=== PATIENT | male | born 1935 | race Caucasian/White ===

== ENCOUNTER 2019-07-19 13:56 | Emergency (ER) | payer MEDICARE, OTHER ==
--- NOTE | 2019-07-19 15:49 | XRAY Report ---
Reason: cough Procedure Date: 07/19/2019 Accession Number: [id number] / [id number] Procedure: XR - Chest 2 View X-Ray CPT Code: 83111 Final Report FULL RESULT: EXAM: CHEST RADIOGRAPHY 2 VIEWS EXAM DATE: 07/19/2019. CLINICAL HISTORY: Cough. COMPARISON: AP portable chest on 04/22/2009. TECHNIQUE: PA and lateral views. FINDINGS: Lungs/Pleura: Normal vasculature. Patchy opacities projected over each side of the chest are probably pleural plaques. No pulmonary consolidation. No pleural fluid or pneumothorax. Mediastinum: Heart size is normal. Aorta is moderately tortuous. Atherosclerosis of the arch. Bones: Old T12 compression fracture. IMPRESSION: Patchy opacities projected over the chest bilaterally, most likely pleural plaques. No definite acute cardiopulmonary abnormality. Further evaluation could be obtained with chest CT. RADIA
[2019-07-19] MEDS ORDERED: AZITHROMYCIN 250 MG TABLET PO STA (16:40)
--- NOTE | 2019-07-19 16:44 | ED Physician Documentation ---
History of Present Illness - Stated complaint Stated Complaint: COUGH/FEVER - Chief complaint Chief Complaint: General - History obtained from History obtained from: Patient - Additonal information Additional information: PT comes to the ED complaining of cough productive of yellow sputum for 10 days. He has also been running low-grade fevers up to 100.9. Pt denies SOB or chest pain. No abd pn, N/V/D or urinary sx. No sore throat or body aches. No known sick contacts. Pt denies getting flu shot or Pneumovax this year. Review of Systems Ten Systems: 10 systems reviewed and negative Constitutional: reports: Fever Eyes: reports: Reviewed and negative Ears: reports: Reviewed and negative Nose: reports: Reviewed and negative Throat: reports: Reviewed and negative Cardiac: reports: Reviewed and negative Respiratory: reports: Cough GI: reports: Reviewed and negative : reports: Reviewed and negative Skin: reports: Reviewed and negative Musculoskeletal: reports: Reviewed and negative Neurologic: reports: Reviewed and negative Psychiatric: reports: Reviewed and negative Endocrine: reports: Reviewed and negative Immunocompromised: reports: Reviewed and negative PD PAST MEDICAL HISTORY - Past Medical History Past Medical History: Yes - Past Surgical History Past Surgical History: No - Present Medications Home Medications: Ambulatory Orders Medication Instructions Recorded Confirmed Azithromycin [Zithromax] 0 mg PO DAILY #6 tablet 07/19/19 - Allergies Allergies/Adverse Reactions: Allergies Allergy/AdvReac Type Severity Reaction Status Date / Time No Known Drug Allergies Allergy Verified 07/19/19 14:04 - Social History Does the pt smoke?: No Smoking Status: Never smoker Does the pt drink ETOH?: Yes Does the pt have substance abuse?: No - Immunizations Immunizations are current?: Yes - POLST Patient has POLST: No PD ED PE NORMAL - Vitals Vital signs reviewed: Yes - General General: Alert and oriented X 3, No acute distress - HEENT HEENT: Atraumatic, PERRL, EOMI, Moist mucous membranes, Pharynx benign - Neck Neck: Supple, no meningeal sign - Cardiac Cardiac: RRR, No murmur - Respiratory Respiratory: No respiratory distress, Clear bilaterally - Abdomen Abdomen: Soft, Non tender, Non distended - Derm Derm: Normal color, Warm and dry, No rash - Extremities Extremities: No deformity, No tenderness to palpate, Normal ROM s pain, No edema - Neuro Neuro: Alert and oriented X 3, model and pattern supervisor 2-12 intact, No motor deficit, No sensory deficit, Normal speech - Psych Psych: Normal mood, Normal affect Results - Vitals Vitals: Vital Signs - 24 hr 07/19/19 07/19/19 14:04 16:54 Temperature 36.6 C Heart Rate 80 80 Respiratory 16 16 Rate Blood Pressure 111/68 110/74 O2 Saturation 98 99 Oxygen O2 Source Room air - Labs Labs: Laboratory Tests 07/19/19 15:43 Influenza A (Rapid) Negative Influenza B (Rapid) Negative - Rads (name of study) chest xr Radiology: Final report received, EMP read indepedently, See rad report PD MEDICAL DECISION MAKING - ED course Complexity details: reviewed results, re-evaluated patient, considered differential, d/w patient ED course: Pt was worked up with influenza testing, which was negative, and CXR, which showed no acute findings. Given the pt's elderly age, his fever, and 10 days of productive cough, I felt he should be treated with antibiotics. He was started on Zithromax. We've discussed home management of sx, as well as the usual indications for return. Departure - Departure Disposition: 01 Home, Self Care Clinical Impression: Bronchitis Condition: Good Instructions: ED Upper Resp Infec Abx Tx Prescriptions: Azithromycin [Zithromax] 0 mg PO DAILY #6 tablet Comments: Your x-ray does not show pneumonia at this time. Most likely, you have bronchitis, either from a virus or from bacteria. Given that this is been going on for 10 days and especially in consideration of your age and fever,we will treat you with antibiotics at this time.You have been given the first dose in the emergency department, and will need to have your next dose tomorrow. You may pick this up at the pharmacy. Please follow-up with your primary care physician for any further concerns. If you develop severe shortness of breath or chest pain, please return to the emergency department. Discharge Date/Time: 07/19/19 16:54
[2019-07-19 16:55] VITALS: BP 110/74
== END 2019-07-19 16:54 | disposition home or self-care (01) ==
LOC: ED 13:56
DX: J40 Bronchitis, not specified as acute or chronic (principal)
CPT/HCPCS: 71046; 87275; 87276; 99284; A9270

== ENCOUNTER 2020-03-23 12:01 | Emergency (ER) | payer MEDICARE, OTHER ==
[2020-03-23 13:13] LABS: BILIRUBIN,URINE NEGATIVE (NEGATIVE); GLUCOSE, URINE (UA) NEGATIVE (NEGATIVE); KETONES,URINE (UA) NEGATIVE (NEGATIVE); LEUKOCYTE ESTERASE, URINE LARGE (NEGATIVE); NITRITE,URINE POSITIVE (NEGATIVE); OCCULT BLOOD,URINE MODERATE (NEGATIVE); PROTEIN,URINE TRACE mg/dL (NEGATIVE); UROBILINOGEN,URINE 0.2 (NORMAL) E.U./dL (NORMAL)
[2020-03-23 13:17] LABS: CLARITY,URINE CLOUDY (CLEAR); SQUAMOUS EPITHELIAL CELL,UR RARE Squamous (<= Few); WBC CLUMPS,URINE PRESENT
[2020-03-23 13:18] LABS: BACTERIA,URINE Many /HPF (None Seen); CASTS, URINE 0-2 Granular Casts /LPF
[2020-03-23 13:19] LABS: RBC,URINE 0-5 /HPF (0-5)
--- NOTE | 2020-03-23 13:19 | ED Physician Documentation ---
History of Present Illness - Stated complaint Stated Complaint: MALE - Chief complaint Chief Complaint: UTI - History obtained from History obtained from: Patient - History of Present Illness Timing: Chronic Pain level max: 0 Pain level now: 0 - Additonal information Additional information: 84-year-old male presents to the emergency department stating he has had difficulty urinating for the past 9 years. He states that he takes Flomax. He states that over the past year and a half he has had more difficulty urinating. There is nothing different today. He has an appointment with his primary care doctor awaiting referral to urology. No fevers. No chills. No abdominal pain. No pelvic pain. Nothing makes it better or worse Review of Systems Constitutional: denies: Fever, Chills Cardiac: denies: Chest pain / pressure Respiratory: denies: Dyspnea GI: denies: Abdominal Pain, Vomiting : reports: Frequency, Hesitancy. denies: Dysuria, Unable to Void Skin: denies: Rash Musculoskeletal: denies: Neck pain, Back pain Neurologic: denies: Headache PD PAST MEDICAL HISTORY - Past Medical History Past Medical History: Yes GI: GERD : Benign prostate hypertrophy - Past Surgical History Past Surgical History: No - Present Medications Home Medications: Ambulatory Orders Medication Instructions Recorded Confirmed Azithromycin [Zithromax] 0 mg PO DAILY #6 tablet 07/19/19 Sulfamethox/Trimeth 800/160 1 each PO BID #14 tablet 03/23/20 [Bactrim Ds 800/160] - Allergies Allergies/Adverse Reactions: Allergies Allergy/AdvReac Type Severity Reaction Status Date / Time Penicillins AdvReac Anaphylaxis Verified 03/23/20 12:36 - Social History Does the pt smoke?: No Smoking Status: Never smoker Does the pt drink ETOH?: Yes Does the pt have substance abuse?: No - Immunizations Immunizations are current?: Yes - POLST Patient has POLST: No PD ED PE NORMAL - Vitals Vital signs reviewed: Yes - General General: Alert and oriented X 3, No acute distress - HEENT HEENT: Moist mucous membranes - Neck Neck: Supple, no meningeal sign - Cardiac Cardiac: RRR - Respiratory Respiratory: No respiratory distress, Clear bilaterally - Abdomen Abdomen: Soft, Non tender, Non distended - Derm Derm: Warm and dry - Neuro Neuro: Alert and oriented X 3 - Psych Psych: Normal mood Results - Vitals Vitals: Vital Signs - 24 hr 03/23/20 12:28 Temperature 36.7 C Heart Rate 84 Respiratory 20 Rate Blood Pressure 118/60 O2 Saturation 99 Oxygen O2 Source Room air - Labs Labs: Laboratory Tests 03/23/20 12:58 Urine Color YELLOW Urine Clarity CLOUDY Urine pH 6.0 Ur Specific [place] 1.020 Urine Protein TRACE Urine Glucose (UA) NEGATIVE Urine Ketones NEGATIVE Urine Occult Blood MODERATE H Urine Nitrite POSITIVE H Urine Bilirubin NEGATIVE Urine Urobilinogen 0.2 (NORMAL) Ur Leukocyte Esterase LARGE H Urine RBC 0-5 Urine WBC >25 H Urine WBC Clumps PRESENT Ur Epithelial Cells FEW Transitional Ur Squamous Epith Cells RARE Squamous Urine Bacteria Many H Urine Casts 0-2 Granular Casts Ur Microscopic Review INDICATED Urine Culture Comments INDICATED PD MEDICAL DECISION MAKING - ED course Complexity details: reviewed results, re-evaluated patient, considered differential, d/w patient ED course: Bedside ultrasound reveals a bladder with approximately 200 mL inside of urine. He does appear to have a polyp or mass on the posterior wall of the bladder. We will place him on antibiotics and see how he progresses. He has an appointment with urology on Wednesday. He has absolutely no abdominal pain today. No symptoms. This appears to be chronic distention. Patient counseled regarding signs and symptoms for which I believe and urgent re-evaluation would be necessary. Patient with good understanding of and agreement to plan and is comfortable going home at this time This document was made in part using voice recognition software. While efforts are made to proofread this document, sound alike and grammatical errors may occur. Departure - Departure Disposition: 01 Home, Self Care Clinical Impression: UTI (urinary tract infection) Qualifiers: Urinary tract infection type: acute cystitis Hematuria presence: without hematuria Qualified Code(s): N30.00 - Acute cystitis without hematuria Condition: Good Instructions: ED UTI Cystitis Male Follow-Up: ARIS THOMPSON I, MSN, [facility] [employer] [Primary Care Provider] - Within 1 week Prescriptions: Sulfamethox/Trimeth 800/160 [Bactrim Ds 800/160] 1 each PO BID #14 tablet Comments: You appear to have a bladder infection today, we will start you on antibiotics and see if your symptoms improve.Follow up with your doctor for further care. You appear to have a polyp/mass in your bladder today on ultrasound as well, urology will need to evaluate this on Wednesday.
[2020-03-23 13:40] VITALS: BP 131/63
== END 2020-03-23 13:42 | disposition home or self-care (01) ==
LOC: ED 12:01
DX: N30.00 Acute cystitis without hematuria (principal); N32.89 Other specified disorders of bladder
CPT/HCPCS: 51798; 81001; 81003; 87086; 87181; 99283; 99284

== ENCOUNTER 2020-03-26 08:00 | Outpatient (CLI) | payer MEDICARE, OTHER ==
[2020-03-26 17:49] LABS: BASOPHILS % (AUTO) 0.3 %; EOSINOPHILS % (AUTO) 0.6 %; HGB - HEMOGLOBIN 13.8 g/dL (14.0-18.0); LYMPHOCYTES # (AUTO) 1.3 10^3/uL (1.5-3.5); MEAN CORPUSCULAR HGB CONC 33.8 g/dL (32.0-36.0); MEAN CORPUSCULAR VOLUME 100.5 fL (80.0-94.0); MEAN PLATELET VOLUME 9.7 fL (7.4-11.4); MONOCYTES # (AUTO) 0.7 10^3/uL (0.0-1.0); MONOCYTES % (AUTO) 11.7 %; NEUTROPHILS # (AUTO) 4.1 10^3/uL (1.5-6.6); NEUTROPHILS % (AUTO) 65.6 %; PLT - PLATELET COUNT 148 10^3/uL (130-450); RED BLOOD COUNT 4.06 10^6/uL (4.70-6.10); RED CELL DISTRIBUTION WIDTH 13.4 % (12.0-15.0); WHITE BLOOD COUNT 6.2 x10^3/uL (4.8-10.8)
[2020-03-26 18:06] LABS: ALBUMIN 4.1 g/dL (3.2-5.5); ALBUMIN/GLOBULIN RATIO 1.4 (1.0-2.2); ALKALINE PHOSPHATASE 43 IU/L (42-121); ALT ALANINE AMINOTRANSFERASE 26 IU/L (10-60); AST ASPARTATE AMINOTRANSFERASE 33 IU/L (10-42); BILIRUBIN,TOTAL 0.7 mg/dL (0.2-1.0); BUN - BLOOD UREA NITROGEN 20 mg/dL (6-20); CALCIUM 9.5 mg/dL (8.5-10.3); CARBON DIOXIDE - CO2 28 mmol/L (21-32); CHLORIDE 102 mmol/L (101-111); CHOLESTEROL 140 mg/dL; CREATININE 1.2 mg/dL (0.6-1.2); GLUCOSE 105 mg/dL (70-100); HDL CHOLESTEROL 47 mg/dL; LDL CHOLESTEROL,CALCULATED 85 mg/dL; LDL/HDL RATIO 1.8 (<3.6); SODIUM 140 mmol/L (135-145); TOTAL PROTEIN 7.1 g/dL (6.7-8.2); VLDL CHOLESTEROL 8 mg/dL
[2020-03-26 18:15] LABS: PSA FREE 1.06 ng/mL (0.16-2.81)
[2020-03-26 18:16] LABS: PSA TOTAL 5.41 ng/mL (0.000-2.000)
== END 2020-03-26 08:01 | disposition home or self-care (01) ==
LOC: LAB.WCP 08:00
PROVIDERS: ATTEND Nurse Practitioner
DX: E78.5 Hyperlipidemia, unspecified (principal); K21.9 Gastro-esophageal reflux disease without esophagitis; F03.90 Unspecified dementia, unspecified severity, without behavioral disturbance, psychotic disturbance, mood disturbance, and anxiety; N40.0 Benign prostatic hyperplasia without lower urinary tract symptoms; K58.9 Irritable bowel syndrome, unspecified
CPT/HCPCS: 36415; 80053; 80061; 83721; 84153; 84154; 84443; 85025

== ENCOUNTER 2020-03-28 16:13 | Inpatient (IN) | payer MEDICARE, OTHER ==
[2020-03-28] MEDS ORDERED: cefTRIAXone 2 GM in SODIUM CHLORIDE 0.9% MINIBAG 100 ML IV STA (16:27)
--- NOTE | 2020-03-28 16:32 | ED Physician Documentation ---
PD HPI ABD PAIN - Stated complaint Stated Complaint: MALE - Chief complaint Chief Complaint: Abd Pain - History obtained from History obtained from: Patient - Additional information Additional information: This is an 84-year-old gentleman with history of prostatic hypertrophy who was seen 5 days ago for seemingly nonacute UTI symptoms. He did have a positive urinalysis and was started on Bactrim for the UTI which subsequently grew pansensitive E. coli. He says he has been taking the medications and returns with some right-sided low abdominal pain today. He has a fever but does not know when that started. There is some difficulty with history because of some apparent memory issues. Review of Systems Ten Systems: 10 systems reviewed and negative Constitutional: denies: Fever, Chills Nose: reports: Reviewed and negative Throat: reports: Reviewed and negative Cardiac: reports: Reviewed and negative Respiratory: reports: Reviewed and negative GI: reports: Abdominal Pain. denies: Nausea, Vomiting PD PAST MEDICAL HISTORY - Past Medical History GI: GERD : Benign prostate hypertrophy - Past Surgical History Past Surgical History: No - Present Medications Home Medications: Ambulatory Orders Medication Instructions Recorded Confirmed Azithromycin [Zithromax] 0 mg PO DAILY #6 tablet 07/19/19 Sulfamethox/Trimeth 800/160 1 each PO BID #14 tablet 03/23/20 [Bactrim Ds 800/160] - Allergies Allergies/Adverse Reactions: Allergies Allergy/AdvReac Type Severity Reaction Status Date / Time celecoxib [From Celebrex] Allergy Unknown Verified 03/28/20 16:16 Penicillins AdvReac Anaphylaxis Verified 03/28/20 16:16 - Social History Does the pt smoke?: No Smoking Status: Never smoker Does the pt drink ETOH?: Yes Does the pt have substance abuse?: No - Immunizations Immunizations are current?: Yes - POLST Patient has POLST: No PD ED PE NORMAL - Vitals Vital signs reviewed: Yes - General General: No acute distress, Well developed/nourished - HEENT HEENT: PERRL, EOMI - Neck Neck: Supple, no meningeal sign, No bony TTP - Cardiac Cardiac: RRR, No murmur - Respiratory Respiratory: No respiratory distress, Clear bilaterally - Abdomen Abdomen: Normal bowel sounds, Soft, Other (V mild RLQ TTP) - Back Back: No CVA TTP, No spinal TTP - Derm Derm: Normal color, Warm and dry - Extremities Extremities: No edema, No calf tenderness / cord - Neuro Neuro: inspector and sorter 2-12 intact Eye Opening: Spontaneous Motor: Obeys Commands Verbal: Confused GCS Score: 14 - Psych Psych: Normal mood, Normal affect Results - Vitals Vitals: Vital Signs - 24 hr 03/28/20 03/28/20 03/28/20 16:17 16:47 16:48 Temperature 38.2 C H Heart Rate 93 95 95 Respiratory 20 14 14 Rate Blood Pressure 150/72 H 115/64 115/64 O2 Saturation 96 97 03/28/20 03/28/20 16:51 17:24 Temperature Heart Rate 91 81 Respiratory 16 16 Rate Blood Pressure 133/76 H 133/76 H O2 Saturation 98 97 Oxygen O2 Source Room air - Labs Labs: Laboratory Tests 03/28/20 03/28/20 03/28/20 16:31 16:31 16:31 WBC 10.2 RBC 3.89 L Hgb 13.2 L Hct 38.7 L MCV 99.5 H MCH 33.9 H MCHC 34.1 RDW 13.4 Plt Count 122 L MPV 9.0 Neut # (Auto) 8.2 H Lymph # (Auto) 0.9 L [place] # (Auto) 1.0 Eos # (Auto) 0.0 Baso # (Auto) 0.0 Absolute Nucleated RBC 0.00 Nucleated RBC % 0.0 Sodium 132 L Potassium 4.8 Chloride 99 L Carbon Dioxide 24 Anion Gap 9.0 BUN 45 H Creatinine 4.2 H Estimated GFR (MDRD) 14 L Glucose 109 H Lactic Acid 1.3 Calcium 9.0 Total Bilirubin 0.9 AST 27 ALT 24 Alkaline Phosphatase 42 Total Protein 6.8 Albumin 3.7 Globulin 3.1 Albumin/Globulin Ratio 1.2 Lipase 34 Urine Color Urine Clarity Urine pH Ur Specific [place] Urine Protein Urine Glucose (UA) Urine Ketones Urine Occult Blood Urine Nitrite Urine Bilirubin Urine Urobilinogen Ur Leukocyte Esterase Ur Microscopic Review Urine Culture Comments 03/28/20 17:14 WBC RBC Hgb Hct MCV MCH MCHC RDW Plt Count MPV Neut # (Auto) Lymph # (Auto) [place] # (Auto) Eos # (Auto) Baso # (Auto) Absolute Nucleated RBC Nucleated RBC % Sodium Potassium Chloride Carbon Dioxide Anion Gap BUN Creatinine Estimated GFR (MDRD) Glucose Lactic Acid Calcium Total Bilirubin AST ALT Alkaline Phosphatase Total Protein Albumin Globulin Albumin/Globulin Ratio Lipase Urine Color YELLOW Urine Clarity CLEAR Urine pH 6.0 Ur Specific [place] 1.010 Urine Protein NEGATIVE Urine Glucose (UA) NEGATIVE Urine Ketones NEGATIVE Urine Occult Blood SMALL H Urine Nitrite NEGATIVE Urine Bilirubin NEGATIVE Urine Urobilinogen 0.2 (NORMAL) Ur Leukocyte Esterase NEGATIVE Ur Microscopic Review INDICATED Urine Culture Comments Not Reportable - Rads (name of study) CT KUB Radiology: EMP read contemporaneously (Markedly enlarged urinary bladder and prostate with asymmetrically thickened right posterior lateral bladder wall) PD MEDICAL DECISION MAKING - ED course Complexity details: d/w family (with by phone started 5 days ago with urinary frequency, now no voiding today, unknown when he last went. ) ED course: 84-year-old gentleman with recently diagnosed UTI on Bactrim, subsequently grew pansensitive E. coli now presents with worsening, fever, and no urine output. CT KUB confirms bladder outlet obstruction and a Martinez was placed. The findings necessitating urologic follow-up were discussed with the by phone and she voices understanding. He is placed on Rocephin and IV fluids. He may well developed a postobstructive diuresis which will need to be monitored in the [facility] especially in the setting of acute renal failure with creatinine of 1.2, 2 days ago. - Sepsis Event Current Stage of Sepsis: Sepsis (but not severe or "shock") Possible source of Sepsis: Genitourinary Mental/Cognitive Status: Normal for patient, Confused Reason for not giving 30ml/kg crystalloid fluids: Other (he is not in septic shock) Capillary refill: Less than 2 seconds Peripheral Pulse Strength: 3+ Normal Peripheral Pulse Location: Radial Bedside ultrasound performed: No Sepsis Comment: Known cuellar sensitive e coli, now failed outpt tx d/t bladder outlet obstruction. Vital signs just into the septic criteria Departure - Departure Disposition: 66 [facility] DC/Xfer Clinical Impression: Gram negative sepsis, Bladder outlet obstruction UTI (urinary tract infection) Qualifiers: Urinary tract infection type: site unspecified Hematuria presence: without hematuria Qualified Code(s): N39.0 - Urinary tract infection, site not specified ARF (acute renal failure) Qualifiers: Acute renal failure type: unspecified Qualified Code(s): N17.9 - Acute kidney failure, unspecified Condition: Serious
[2020-03-28 16:44] LABS: BASOPHILS % (AUTO) 0.2 %; EOSINOPHILS % (AUTO) 0.2 %; HGB - HEMOGLOBIN 13.2 g/dL (14.0-18.0); LYMPHOCYTES # (AUTO) 0.9 10^3/uL (1.5-3.5); MEAN CORPUSCULAR HEMOGLOBIN 33.9 pg (27.0-31.0); MEAN CORPUSCULAR HGB CONC 34.1 g/dL (32.0-36.0); MEAN CORPUSCULAR VOLUME 99.5 fL (80.0-94.0); MONOCYTES % (AUTO) 9.3 %; NEUTROPHILS # (AUTO) 8.2 10^3/uL (1.5-6.6); NEUTROPHILS % (AUTO) 80.5 %; PLT - PLATELET COUNT 122 10^3/uL (130-450); RED BLOOD COUNT 3.89 10^6/uL (4.70-6.10); RED CELL DISTRIBUTION WIDTH 13.4 % (12.0-15.0); WHITE BLOOD COUNT 10.2 x10^3/uL (4.8-10.8)
[2020-03-28 16:57] LABS: ALBUMIN 3.7 g/dL (3.2-5.5); ALBUMIN/GLOBULIN RATIO 1.2 (1.0-2.2); BILIRUBIN,TOTAL 0.9 mg/dL (0.2-1.0); CREATININE 4.2 mg/dL (0.6-1.2); TOTAL PROTEIN 6.8 g/dL (6.7-8.2)
[2020-03-28] MEDS ORDERED: SODIUM CHLORIDE 0.9% 1,000 ML IV STA (17:02)
--- NOTE | 2020-03-28 17:08 | CT Report ---
PROCEDURE: Abdomen/Pelvis WO INDICATIONS: uti with sepsis, R abd pain TECHNIQUE: Noncontrast 5 mm thick sections acquired from the diaphragms to the symphysis. 5 mm coronal and sagi ttal reformats were then performed. For radiation dose reduction, the following was used: automated exposure control, adjustment of mA and/or kV according to patient size. COMPARISON: None. FINDINGS: Image quality: Excellent. ABDOMEN: Lung bases: Lung bases are clear. Heart size is normal. Urinary tract: The bladder is markedly distended. There is subtle asymmetric thickening of the right posterior-lateral urinary bladder wall which may obstruct the right ureteral orifice, as there is mod erate right hydroureteronephrosis with asymmetric perinephric fat stranding and periureteric fat stra nding. This extends inferiorly along the right paracolic gutter. Remaining solid abdominal viscera: Grossly unremarkable unenhanced CT appearance of the liver, spleen , gallbladder, pancreas, and adrenal glands. Peritoneum and bowel: Appendix is nondilated. Unenhanced bowel loops demonstrate normal wall thickne ss and caliber. No free fluid or air. Nodes and vessels: Diffuse aortic atherosclerosis. No unenhanced evidence of aortic aneurysm. 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 Atheroscleroti c calcifications extend into the major visceral branches. No definite evidence of retroperitoneal lym phadenopathy, although the exam is limited by the right retroperitoneal fat stranding in lack of IV c ontrast. Miscellaneous: Right inguinal hernia repair changes. PELVIS: Genitourinary: Markedly enlarged prostate. Miscellaneous: No threshold enlarged pelvic or inguinal lymph nodes. Bones: No suspicious bony lesions. No vertebral body compression fractures. IMPRESSION: Markedly enlarged urinary bladder and prostate. Asymmetrically thickened right posterolateral bladder wall, near the right ureteral orifice which may explain moderate right hydroureteronephrosis (although a ureteral stricture or distal ureteral neopl asm could cause a similar appearance. Urologic consultation recommended. Reviewed by: Tad Warren MD on 03/28/2020 5:07 PM [facility] Approved by: Tad Warren MD on 03/28/2020 5:07 PM PST Station ID: [id number]
[2020-03-28 17:24] LABS: BILIRUBIN,URINE NEGATIVE (NEGATIVE); GLUCOSE, URINE (UA) NEGATIVE (NEGATIVE); KETONES,URINE (UA) NEGATIVE (NEGATIVE); LEUKOCYTE ESTERASE, URINE NEGATIVE (NEGATIVE); NITRITE,URINE NEGATIVE (NEGATIVE); OCCULT BLOOD,URINE SMALL (NEGATIVE); PROTEIN,URINE NEGATIVE (NEGATIVE); UROBILINOGEN,URINE 0.2 (NORMAL) E.U./dL (NORMAL)
[2020-03-28 17:28] LABS: CLARITY,URINE CLEAR (CLEAR)
[2020-03-28 17:37] LABS: BACTERIA,URINE None Seen /HPF (None Seen); SQUAMOUS EPITHELIAL CELL,UR NONE SEEN (<= Few)
[2020-03-28] MEDS ORDERED: SODIUM CHLORIDE FLUSH 0.9% 10 ML SYRINGE IVP PRN (17:41)
[2020-03-28] MEDS ORDERED: ACETAMINOPHEN 325 MG TABLET PO PRN (17:41)
[2020-03-28] MEDS ORDERED: ONDANSETRON 4 MG/2 ML VIAL IVP PRN (17:41)
--- NOTE | 2020-03-28 17:49 | HISTORY & PHYSICAL EXAMINATION ---
Chief Complaint - Chief Complaint Chief Complaint: can not urinate History of Present Illness - Admitted From Admitted From:: ER - History Obtained From Records Reviewed: [facility] History obtained from: pt Exam Limitations: hard hearing - History of Present Illness HPI Comment/Other: This is a 84-year-old gentleman with a PMH significant for BPH, GERD, difficulty urinating for the past 9 years for which, He states that he takes Flomax, who present ER complain he can not urinate. pt report he can not urinate one and half day. pt was recently diagnosed UTI on Bactrim in the ER. His urine culture was subsequently grew pansensitive E. coli. a Martinez was placed in ER. CT of abdomen and pelvis show Markable in large urinary bladder and prostate, right moderate hydroureteronephrosis. Routine laboratory tests do show markable elevated creatinine to 4.2 from 1.2 two days ago. Patient denies chest pain, cough, shortness of breathing. He is not sure he had a fever in the home. In ER, patient was found febrile with temperature 38.2. He states that over the past year and a half he has had more difficulty urinating. He had an appointment with his primary care doctor and is awaiting referral to urology. Discussed the care goal with the patient, patient requests full code History - Past Medical History GI: reports: GERD : reports: Benign prostate hypertrophy - Family & Social History Family History: Mother: , Father: Family History Comment/Other: Patient reported his father at early 30 by suicide. His mother at age 94 from the aging. Social History Notes: He reported he quit smoking about 20 years ago, he denies alcohol or drug issue, he has 1 daughter and his live at [place] with his . - POLST Patient has POLST: No Meds/Allgy - Home Medications Home Medications: Ambulatory Orders Medication Instructions Recorded Confirmed Pantoprazole [Protonix] 40 mg PO DAILY 03/28/20 Tamsulosin [Flomax] 0.4 mg PO DAILY 03/28/20 03/28/20 - Allergies Allergies/Adverse Reactions: Allergies Allergy/AdvReac Type Severity Reaction Status Date / Time celecoxib [From Celebrex] Allergy Unknown Verified 03/28/20 16:16 Penicillins AdvReac Anaphylaxis Verified 03/28/20 16:16 Review of Systems - Constitutional Constitutional: denies: Fatigue, Fever, Chills, Malaise, Weakness, Poor appetite, Diaphoresis - Eyes Eyes: denies: Pain, Blurred vision, Field loss, Vision loss, Dipolpia - Ears, Nose & Throat Ears, Nose & Throat: denies: Ear pain, Vertigo, Nosebleeds, Nasal congestion, Sore throat, Bleeding gums - Cardiovascular Cariovascular: denies: Irregular heart rate, Palpitations, Chest pain, Lightheadedness, Syncope, Exertional dyspnea, Decr. exercise tolerance - Respiratory Respiratory: denies: Cough, Sputum production, Hemoptysis, Orthopnea, SOB at rest, SOB with exertion - Gastrointestinal Gastrointestinal: denies: Abdominal pain, Constipation, Diarrhea, Rectal bleeding, Black stools, Bloody stools, Nausea, Vomiting, David blood emesis, Coffee grounds emesis - Genitourinary Genitourinary: reports: Other (he report he can not urine for one and half day). denies: Dysuria, Frequency, Hematuria - Musculoskeletal Musculoskeletal: denies: Muscle pain, Muscle aches, Limited range of motion, Muscle weakness - Integumentary Integumentary: denies: Rash, Lesions, Lumps - Neurological Neurological: denies: General weakness, Focal weakness, Headache, Dizziness, Numbness, Memory problems, Pre-existing deficit, Abnormal gait, Seizures, Incoordination, Slurred speech - Psychiatric Psychiatric: denies: Suicidal, Delusions, Hallucinations, Homicidal - Endocrine Endocrine: denies: Polyuria - Hematologic/Lymphatic Hematologic/Lymphatic: denies: Anemia, Bruising, Blood clots Exam - Vital Signs Vital Signs: Vital Signs x48h Temp Pulse Resp BP Pulse Ox 03/28/20 17:24 81 16 133/76 H 97 03/28/20 16:51 91 16 133/76 H 98 03/28/20 16:48 95 14 115/64 03/28/20 16:47 95 14 115/64 97 03/28/20 16:17 38.2 C H 93 20 150/72 H 96 - Physical Exam General Appearance: positive: No acute distress, Alert. negative: Lethargic Eyes Bilateral: positive: Normal inspection, PERRL, No lid inflammation ENT: positive: ENT inspection nml, Dry mucous membranes. negative: No signs of dehydration, Purulent nasal drainage Neck: positive: Nml inspection, Thyroid nml, Trachea midline. negative: Thyromegaly, Tracheal deviation Respiratory: positive: Chest non-tender, No respiratory distress, Breath sounds nml. negative: Wheezes, Rales, Rhonchi Cardiovascular: positive: Regular rate & rhythm, No murmur. negative: Tachycardia, Bradycardia, Systolic murmur, Diastolic murmur Peripheral Pulses: positive: 2+ Abdomen: positive: Non-tender, Nml bowel sounds, No distention. negative: Tenderness, Guarding, Rebound Back: positive: Nml inspection. negative: CVA tenderness (R), CVA tenderness (L) Skin: positive: Color nml, No rash, Warm, Dry. negative: Cyanosis, Diaphoresis, Pallor Extremities: positive: Non-tender, Full ROM, Nml appearance. negative: Pedal edema, Calf tenderness Neurologic/Psychiatric: positive: Oriented x3, Motor nml, Sensation nml, Mood/affect nml. negative: Weakness, Sensory loss, Facial droop, Slurred/abnml speech, Depressed mood/affect Sepsis Event Note (H) - Evaluation Current Stage of Sepsis: Sepsis Possible source of Sepsis: positive: Genitourinary - Sepsis Criteria Sepsis Criteria: Recorded Temperature greater than 38.3C or Less than 36C Conclusion/Plan - Problem List (1) Sepsis Conclusion/Plan: Patient has a fever in the ER at 38.2 degrees, Patient also present acute kidney injury. Patient was a diagnosis of UTI with E.coli in UA culture a few days ago and patient was prescribed Bactrim. ER started with Rocephin, We will continue with Rocephin, We will continue intravenous IV fluids, Continue clinical laboratory medical director. (2) Fever Conclusion/Plan: Patient had a fever in the ER 38.2 degree, is likely caused by urinary tract infection, Patient does not have nausea and vomiting or other symptoms suggest pyelonephritis, although CT suggest hydroureteronephrosis. Continue intravenous IV fluids and Rocephin, continue to monitor with vital sign, Patient had Martinez catheter in the ER, will continue care (3) MALU (acute kidney injury) Conclusion/Plan: Patient creatinine is a 4.2 now From normal two days ago. enlarge BPH obstruction in Bladder cause hydroureteronephrosis which cause acute kidney injury. Patient had a Martinez catheter in the ER, will continue intravenous IV fluids, continue clinical laboratory medical director, patient was referral by his PCP to see urologist as soon as possible. Patient might need another ultrasound for kidney if his kidney function is not improving (4) Hydroureteronephrosis Conclusion/Plan: makable enlarge BPH obstruction in Bladder cause hydroureteronephrosis. patient was referral by his PCP to see urologist as soon as possible. Continue Martinez catheter (5) BPH (benign prostatic hyperplasia) Conclusion/Plan: CAT scan show patient had makeable enlarge prostate, Which he calls also obstruction, We will continue Flomax, patient will follow up with the urologist as out-pt as soon as possible (6) GERD (gastroesophageal reflux disease) Conclusion/Plan: pt was prescribe protonic - Lab Results Fish Bones: 03/29/20 05:08 03/29/20 05:08 Core Measures - Anticipated LOS I expect patient to be DC'd or transferred within 96 hours.: Yes - DVT/VTE - Prophylaxis VTE/DVT Device ordered at admit?: Yes VTE/DVT Prophylaxis med ordered at admit?: Yes
[2020-03-28] MEDS ORDERED: SODIUM CHLORIDE 0.9% 1,000 ML IV SCH ×2 (18:00→18:17)
[2020-03-28 19:03] LABS: C. PNEUMONIAE- RESP PCR PANEL NOT DETECTED
[2020-03-28] MEDS: SODIUM CHLORIDE 0.9% 1,000 ML IV SCH (19:13)
[2020-03-28] MEDS: HEPARIN 5,000 UNIT/ML VIAL SUBQ SCH (20:54)
[2020-03-29] MEDS: SODIUM CHLORIDE FLUSH 0.9% 10 ML SYRINGE IVP SCH ×3 (01:43→17:12)
[2020-03-29] MEDS: SODIUM CHLORIDE 0.9% 1,000 ML IV SCH ×2 (01:52→12:13)
[2020-03-29 05:29] LABS: BASOPHILS % (AUTO) 0.3 %; EOSINOPHILS # (AUTO) 0.1 10^3/uL (0.0-0.7); EOSINOPHILS % (AUTO) 1.8 %; HGB - HEMOGLOBIN 11.7 g/dL (14.0-18.0); LYMPHOCYTES # (AUTO) 1.3 10^3/uL (1.5-3.5); LYMPHOCYTES % (AUTO) 19.3 %; MEAN CORPUSCULAR HEMOGLOBIN 33.6 pg (27.0-31.0); MEAN CORPUSCULAR HGB CONC 33.2 g/dL (32.0-36.0); MEAN CORPUSCULAR VOLUME 101.1 fL (80.0-94.0); MEAN PLATELET VOLUME 8.9 fL (7.4-11.4); MONOCYTES # (AUTO) 0.7 10^3/uL (0.0-1.0); MONOCYTES % (AUTO) 11.2 %; NEUTROPHILS # (AUTO) 4.4 10^3/uL (1.5-6.6); NEUTROPHILS % (AUTO) 66.8 %; PLT - PLATELET COUNT 105 10^3/uL (130-450); RED BLOOD COUNT 3.48 10^6/uL (4.70-6.10); RED CELL DISTRIBUTION WIDTH 13.3 % (12.0-15.0); WHITE BLOOD COUNT 6.5 x10^3/uL (4.8-10.8)
[2020-03-29 05:42] LABS: CALCIUM 8.5 mg/dL (8.5-10.3); CREATININE 1.7 mg/dL (0.6-1.2); PHOSPHORUS 2.8 mg/dL (2.5-4.6)
[2020-03-29] MEDS: PANTOPRAZOLE 40 MG TABLET PO SCH (09:02)
[2020-03-29] MEDS: HEPARIN 5,000 UNIT/ML VIAL SUBQ SCH ×2 (09:02→22:27)
[2020-03-29] MEDS: cefTRIAXone 1 GM in SODIUM CHLORIDE 0.9% MINIBAG 100 ML IV SCH (09:02)
--- NOTE | 2020-03-29 10:59 | PHARMACY PROGRESS NOTE ---
- Best Possible Medication History Admit Date and Time: 03/28/20 1741 Processed by: Pharmacy Medication History completed: Yes Secondary Source(s): Physician records, Pharmacy records, Insurance records As the person ultimately responsible for medication therapy, providers are able to order a medication from an existing home medication list in [facility] via the "Reconcile Routine" prior to Confirmation of that medication by user support analyst supervisor. Such practice is discouraged except when the physician, in their clinical judgment, deems that a medical need exists for a medication without regard to previous use.
[2020-03-29] MEDS: LACTOBACILLUS RHAMNOSUS GG CAPSULE PO SCH (12:13)
--- NOTE | 2020-03-29 14:03 | PROVIDER PROGRESS NOTE ---
Assessment/Plan - Problem List (2) Fever Assessment/Plan: 1120, patient reported he feel better, He had a very good experience in this hospital. Patient has no more fever. Blood culture is still pending. Continue antibiotics Rocephin, continue intravenous IV fluids Patient has a fever in the ER at 38.2 degrees, Patient also present acute kidney injury. Patient was a diagnosis of UTI with E.coli in UA culture a few days ago and patient was prescribed Bactrim. ER started with Rocephin, We will continue with Rocephin, We will continue intravenous IV fluids, Continue chemical laboratory chief. (2) Fever Conclusion/Plan: 1120, resolved Patient had a fever in the ER 38.2 degree, is likely caused by urinary tract infection, Patient does not have nausea and vomiting or other symptoms suggest pyelonephritis, although CT suggest hydroureteronephrosis. Continue intravenous IV fluids and Rocephin, continue to monitor with vital sign, Patient had Martinez catheter in the ER, will continue care (3) MALU (acute kidney injury) Conclusion/Plan: 1120, great improved. Today creatinine became 1.7 from yesterday 4.2. We will continue intravenous IV fluids, continue chemical laboratory chief Patient creatinine is a 4.2 now From normal two days ago. enlarge BPH obstruction in Bladder cause hydroureteronephrosis which cause acute kidney injury. Patient had a Martinez catheter in the ER, will continue intravenous IV fluids, continue chemical laboratory chief, patient was referral by his PCP to see urologist as soon as possible. Patient might need another ultrasound for kidney if his kidney function is not improving (4) Hydroureteronephrosis Conclusion/Plan: 1120, patient denies any abdominal pain, Patient has no more fever, patient has no nausea or vomiting. We will continue Martinez catheter, Advised patient follow- up urologist appointment by referral from his PCP as soon as possible makable enlarge BPH obstruction in Bladder cause hydroureteronephrosis. patient was referral by his PCP to see urologist as soon as possible. Continue Martinez catheter (5) BPH (benign prostatic hyperplasia) Conclusion/Plan: CAT scan show patient had makeable enlarge prostate, Which he calls also obstruction, We will continue Flomax, patient will follow up with the urologist as out-pt as soon as possible (6) GERD (gastroesophageal reflux disease) Conclusion/Plan: pt was prescribe protonic - Current Meds Current Meds: Current Medications Generic Name Dose Route Start Last Admin Trade Name Freq PRN Reason Stop Dose Admin Heparin Sodium (Porcine) 5,000 unit 03/28/20 21:00 03/29/20 09:02 SUBQ Not Given BID CHARLEEN Ceftriaxone Sodium 1 gm/ 100 mls @ 200 mls/hr 03/29/20 09:00 03/29/20 10:13 Sodium Chloride IV Infused DAILY CHARLEEN Infusion Sodium Chloride 1,000 mls @ 100 mls/hr 03/28/20 18:55 03/29/20 12:13 Normal Saline 0.9% IV 03/29/20 14:54 100 mls/hr .Q10H CHARLEEN Administration Lactobacillus Rhamnosus 1 cap 03/29/20 12:00 03/29/20 12:13 Culturelle PO 1 cap DAILY CHARLEEN Administration Pantoprazole Sodium 40 mg 03/29/20 07:00 03/29/20 09:02 Protonix PO 40 mg QDAC CHARLEEN Administration Sodium Chloride 10 ml 03/29/20 01:00 03/29/20 09:03 Normal Saline Flush 0.9% IVP 10 ml 0100,0900,1700 CHARLEEN Administration - Lab Result Fish Bone Diagrams: 03/29/20 05:08 03/29/20 05:08 - Additional Planning My Orders: My Active Orders 03/28/20 Dinner Soft Mechanical Diet [DIET] 03/28/20 17:41 Activity Orders [RC] Q2HR IO [RC] IOSHIFT Initiate Bowel Care Protocol [RC] .protocol Initiate Line Care Protocol [RC] QSHIFT Initiate Personal Care Protoco [RC] .protocol Oxygen Therapy [RC] Routine Telemetry- [RC] Q4HR Vital Signs [RC] Q4HR Acetaminophen [Tylenol] 650 mg PO Q4HR PRN Ondansetron Inj [Zofran Inj] 4 mg IVP Q6HR PRN Sodium Chloride Flush 0.9% [Normal Saline Flush 0.9%] 10 ml IVP PRN PRN Code Status [OTHERS] Routine Condition of Patient [OTHERS] Routine DVT Prophylaxis [OTHERS] Routine 03/28/20 17:43 SCDs [RC] QSHIFT 03/28/20 18:55 Sodium Chloride 0.9% [Normal Saline 0.9%] 1,000 ml IV 100 mls/hr 03/28/20 21:00 Heparin 5,000 unit SUBQ BID 03/29/20 01:00 Sodium Chloride Flush 0.9% [Normal Saline Flush 0.9%] 10 ml IVP 0100,0900,1700 03/29/20 07:00 Pantoprazole [Protonix] 40 mg PO QDAC 03/29/20 09:00 cefTRIAXone [Rocephin] 1 gm Sodium Chloride 0.9% Minibag [Normal Saline 0.9% Minibag] 100 ml IV DAILY 03/29/20 12:00 Lactobacillus Rhamnosus GG [Culturelle] 1 cap PO DAILY 03/30/20 05:00 BMP - BASIC METABOLIC PANEL [CHEM] DAILYLAB CBC - COMP BLD CT W/AUTO DIFF [HEME] DAILYLAB MAGNESIUM [CHEM] DAILYLAB PHOSPHORUS [CHEM] DAILYLAB 03/30/20 09:00 PSA SCREEN (Z12.5) [IAI] DAILY 03/31/20 05:00 BMP - BASIC METABOLIC PANEL [CHEM] DAILYLAB CBC - COMP BLD CT W/AUTO DIFF [HEME] DAILYLAB 04/01/20 05:00 BMP - BASIC METABOLIC PANEL [CHEM] DAILYLAB CBC - COMP BLD CT W/AUTO DIFF [HEME] DAILYLAB 04/02/20 05:00 BMP - BASIC METABOLIC PANEL [CHEM] DAILYLAB CBC - COMP BLD CT W/AUTO DIFF [HEME] DAILYLAB Subjective - Subjective Patient Reports: Feeling Better Nursing Reports: No Complaints Objective Vital Signs: Vital Signs - 24 hr 03/28/20 03/28/20 03/28/20 16:17 16:47 16:48 Temperature 38.2 C H Heart Rate 93 95 95 Heart Rate [ Brachial] Heart Rate [ Sitting] Heart Rate [ Supine] Respiratory 20 14 14 Rate Blood Pressure 150/72 H 115/64 115/64 Blood Pressure [Left Brachial artery] Blood Pressure [Right Brachial artery] Blood Pressure [Sitting] Blood Pressure [Supine] O2 Saturation 96 97 03/28/20 03/28/20 03/28/20 16:51 17:24 17:30 Temperature Heart Rate 91 81 78 Heart Rate [ Brachial] Heart Rate [ Sitting] Heart Rate [ Supine] Respiratory 16 16 17 Rate Blood Pressure 133/76 H 133/76 H 105/69 Blood Pressure [Left Brachial artery] Blood Pressure [Right Brachial artery] Blood Pressure [Sitting] Blood Pressure [Supine] O2 Saturation 98 97 97 03/28/20 03/28/20 03/28/20 18:03 18:49 20:49 Temperature 37.3 C 36.9 C 37.1 C Heart Rate 75 Heart Rate [ 93 83 Brachial] Heart Rate [ Sitting] Heart Rate [ Supine] Respiratory 16 16 16 Rate Blood Pressure 109/55 L Blood Pressure [Left Brachial artery] Blood Pressure 107/61 116/61 [Right Brachial artery] Blood Pressure [Sitting] Blood Pressure [Supine] O2 Saturation 96 96 96 03/29/20 03/29/20 03/29/20 00:03 03:55 04:56 Temperature 37.1 C 37.1 C 37.2 C Heart Rate 78 Heart Rate [ 78 77 Brachial] Heart Rate [ Sitting] Heart Rate [ Supine] Respiratory 16 16 22 Rate Blood Pressure Blood Pressure 103/48 L [Left Brachial artery] Blood Pressure 103/55 L [Right Brachial artery] Blood Pressure [Sitting] Blood Pressure [Supine] O2 Saturation 95 95 96 03/29/20 03/29/20 03/29/20 08:16 09:08 10:50 Temperature 36.6 C Heart Rate Heart Rate [ 70 Brachial] Heart Rate [ 80 Sitting] Heart Rate [ 80 Supine] Respiratory 16 Rate Blood Pressure Blood Pressure 100/45 L 113/52 L [Left Brachial artery] Blood Pressure [Right Brachial artery] Blood Pressure 117/73 [Sitting] Blood Pressure 101/58 L [Supine] O2 Saturation 96 03/29/20 11:55 Temperature 36.7 C Heart Rate Heart Rate [ 80 Brachial] Heart Rate [ Sitting] Heart Rate [ Supine] Respiratory 18 Rate Blood Pressure Blood Pressure 101/58 L [Left Brachial artery] Blood Pressure [Right Brachial artery] Blood Pressure [Sitting] Blood Pressure [Supine] O2 Saturation 96 Oxygen O2 Source Room air I&O (Last 24 Hrs): Intake and Output Totals x24h 03/27/20 03/28/20 03/29/20 23:59 23:59 23:59 Intake Total 899.050 2036.333 Output Total 2500 750 Balance -7262.638 1246.333 General: Alert, Oriented x3, No acute distress HEENT: Atraumatic Neck: Supple Lymphatic: no adenopathy Neuro: Alert, Non Focal, Oriented Times 3 Cardiovascular: Regular rate, Normal S1, Normal S2 Respiratory: Chest non-tender, No respiratory distress, Breath sounds nml Extremities: Normal pulses - Results Results: Laboratory Results WBC 6.5 x10^3/uL (4.8-10.8) 03/29/20 05:08 RBC 3.48 10^6/uL (4.70-6.10) L 03/29/20 05:08 Hgb 11.7 g/dL (14.0-18.0) L 03/29/20 05:08 Hct 35.2 % (42.0-52.0) L 03/29/20 05:08 MCV 101.1 fL (80.0-94.0) H 03/29/20 05:08 MCH 33.6 pg (27.0-31.0) H 03/29/20 05:08 MCHC 33.2 g/dL (32.0-36.0) 03/29/20 05:08 RDW 13.3 % (12.0-15.0) 03/29/20 05:08 Plt Count 105 10^3/uL (130-450) L 03/29/20 05:08 MPV 8.9 fL (7.4-11.4) 03/29/20 05:08 Neut # (Auto) 4.4 10^3/uL (1.5-6.6) 03/29/20 05:08 Lymph # (Auto) 1.3 10^3/uL (1.5-3.5) L 03/29/20 05:08 Addison # (Auto) 0.7 10^3/uL (0.0-1.0) 03/29/20 05:08 Eos # (Auto) 0.1 10^3/uL (0.0-0.7) 03/29/20 05:08 Baso # (Auto) 0.0 10^3/uL (0.0-0.1) 03/29/20 05:08 Absolute Nucleated RBC 0.00 x10^3/uL 03/29/20 05:08 Nucleated RBC % 0.0 /100WBC 03/29/20 05:08 Sodium 140 mmol/L (135-145) 03/29/20 05:08 Potassium 3.9 mmol/L (3.5-5.0) 03/29/20 05:08 Chloride 105 mmol/L (101-111) 03/29/20 05:08 Carbon Dioxide 25 mmol/L (21-32) 03/29/20 05:08 Anion Gap 10.0 (6-13) 03/29/20 05:08 BUN 24 mg/dL (6-20) H 03/29/20 05:08 Creatinine 1.7 mg/dL (0.6-1.2) H 03/29/20 05:08 Estimated GFR (MDRD) 38 (>89) L 03/29/20 05:08 Glucose 93 mg/dL (70-100) 03/29/20 05:08 Lactic Acid 1.3 mmol/L (0.5-2.2) 03/28/20 16:31 Calcium 8.5 mg/dL (8.5-10.3) 03/29/20 05:08 Phosphorus 2.8 mg/dL (2.5-4.6) 03/29/20 05:08 Magnesium 2.0 mg/dL (1.7-2.8) 03/29/20 05:08 Total Bilirubin 0.9 mg/dL (0.2-1.0) 03/28/20 16:31 AST 27 IU/L (10-42) 03/28/20 16:31 ALT 24 IU/L (10-60) 03/28/20 16:31 Alkaline Phosphatase 42 IU/L (42-121) 03/28/20 16:31 Total Protein 6.8 g/dL (6.7-8.2) 03/28/20 16:31 Albumin 3.7 g/dL (3.2-5.5) 03/28/20 16:31 Globulin 3.1 g/dL (2.1-4.2) 03/28/20 16:31 Albumin/Globulin Ratio 1.2 (1.0-2.2) 03/28/20 16:31 Lipase 34 U/L (22-51) 03/28/20 16:31 Urine Color YELLOW 03/28/20 17:14 Urine Clarity CLEAR (CLEAR) 03/28/20 17:14 Urine pH 6.0 PH (5.0-7.5) 03/28/20 17:14 Ur Specific [place] 1.010 (1.002-1.030) 03/28/20 17:14 Urine Protein NEGATIVE mg/dL (NEGATIVE) 03/28/20 17:14 Urine Glucose (UA) NEGATIVE mg/dL (NEGATIVE) 03/28/20 17:14 Urine Ketones NEGATIVE mg/dL (NEGATIVE) 03/28/20 17:14 Urine Occult Blood SMALL (NEGATIVE) H 03/28/20 17:14 Urine Nitrite NEGATIVE (NEGATIVE) 03/28/20 17:14 Urine Bilirubin NEGATIVE (NEGATIVE) 03/28/20 17:14 Urine Urobilinogen 0.2 (NORMAL) E.U./dL (NORMAL) 03/28/20 17:14 Ur Leukocyte Esterase NEGATIVE (NEGATIVE) 03/28/20 17:14 Urine RBC 11-25 /HPF (0-5) H 03/28/20 17:14 Urine WBC 0-3 /HPF (0-3) 03/28/20 17:14 Ur Squamous Epith Cells NONE SEEN (<= Few) 03/28/20 17:14 Urine Bacteria None Seen /HPF (None Seen) 03/28/20 17:14 Ur Microscopic Review INDICATED 03/28/20 17:14 Urine Culture Comments NOT INDICATED 03/28/20 17:14 Nasal Adenovirus (PCR) NOT DETECTED 03/28/20 17:31 Nasal B. parapertussis DNA (PCR) NOT DETECTED 03/28/20 17:31 Nasal Coronavir 229E PCR NOT DETECTED 03/28/20 17:31 Nasal Coronavir HKU1 PCR NOT DETECTED 03/28/20 17:31 Nasal Coronavir NL63 PCR NOT DETECTED 03/28/20 17:31 Nasal Coronavir OC43 PCR NOT DETECTED 03/28/20 17:31 Nasal Enterovir/Rhinovir PCR NOT DETECTED 03/28/20 17:31 Nasal Influenza B PCR NOT DETECTED 03/28/20 17:31 Nasal Influenza A PCR NOT DETECTED 03/28/20 17:31 Nasal Parainfluen 1 PCR NOT DETECTED 03/28/20 17:31 Nasal Parainfluen 2 PCR NOT DETECTED 03/28/20 17:31 Nasal Parainfluen 3 PCR NOT DETECTED 03/28/20 17:31 Nasal Parainfluen 4 PCR NOT DETECTED 03/28/20 17:31 Nasal RSV (PCR) NOT DETECTED 03/28/20 17:31 Nasal B.pertussis DNA PCR NOT DETECTED 03/28/20 17:31 Nasal C.pneumoniae (PCR) NOT DETECTED 03/28/20 17:31 Kyler Human Metapneumo PCR NOT DETECTED 03/28/20 17:31 Nasal M.pneumoniae (PCR) NOT DETECTED 03/28/20 17:31 Nasal SARS-CoV-2 (PCR) NOT DETECTED 03/28/20 17:31 Sepsis Event Note (H) - Evaluation Current Stage of Sepsis: Sepsis Possible source of Sepsis: positive: Genitourinary - Sepsis Criteria Sepsis Criteria: Recorded Temperature greater than 38.3C or Less than 36C ABX Reporting Has patient been on IV antibiotics over the past 48 hours?: Yes Current Medications - Current Medications Current Medications: Active Medications Acetaminophen (Tylenol) 650 mg PO Q4HR PRN PRN Reason: Pain 1 to 4 Heparin Sodium (Porcine) () 5,000 unit SUBQ BID [facility] Last Admin: 03/29/20 09:02 Dose: Not Given Documented by: Ceftriaxone Sodium 1 gm/ (Sodium Chloride) 100 mls @ 200 mls/hr IV DAILY [facility] Last Infusion: 03/29/20 10:13 Dose: Infused Documented by: Sodium Chloride (Normal Saline 0.9%) 1,000 mls @ 100 mls/hr IV .Q10H [facility] Stop: 03/29/20 14:54 Last Admin: 03/29/20 12:13 Dose: 100 mls/hr Documented by: Lactobacillus Rhamnosus (Culturelle) 1 cap PO DAILY [facility] Last Admin: 03/29/20 12:13 Dose: 1 cap Documented by: Ondansetron HCl (Zofran Inj) 4 mg IVP Q6HR PRN PRN Reason: Nausea / Vomiting Pantoprazole Sodium (Protonix) 40 mg PO QDAC [facility] Last Admin: 03/29/20 09:02 Dose: 40 mg Documented by: Sodium Chloride (Normal Saline Flush 0.9%) 10 ml IVP PRN PRN PRN Reason: NEEDED PER PROVIDER ORDERS Sodium Chloride (Normal Saline Flush 0.9%) 10 ml IVP 0100,0900,1700 [facility] Last Admin: 03/29/20 09:03 Dose: 10 ml Documented by: Pantoprazole [Protonix] 40 mg PO QDAC 03/28/20 Tamsulosin [Flomax] 0.4 mg PO DAILY 03/28/20
[2020-03-30] MEDS: SODIUM CHLORIDE FLUSH 0.9% 10 ML SYRINGE IVP SCH ×3 (02:35→17:49)
[2020-03-30 05:38] LABS: BASOPHILS % (AUTO) 0.2 %; EOSINOPHILS # (AUTO) 0.2 10^3/uL (0.0-0.7); EOSINOPHILS % (AUTO) 2.6 %; HGB - HEMOGLOBIN 12.4 g/dL (14.0-18.0); LYMPHOCYTES # (AUTO) 1.2 10^3/uL (1.5-3.5); LYMPHOCYTES % (AUTO) 17.7 %; MEAN CORPUSCULAR HEMOGLOBIN 33.4 pg (27.0-31.0); MEAN CORPUSCULAR HGB CONC 33.3 g/dL (32.0-36.0); MEAN CORPUSCULAR VOLUME 100.3 fL (80.0-94.0); MONOCYTES # (AUTO) 0.6 10^3/uL (0.0-1.0); MONOCYTES % (AUTO) 8.7 %; NEUTROPHILS # (AUTO) 4.6 10^3/uL (1.5-6.6); NEUTROPHILS % (AUTO) 70.3 %; PLT - PLATELET COUNT 118 10^3/uL (130-450); RED BLOOD COUNT 3.71 10^6/uL (4.70-6.10); RED CELL DISTRIBUTION WIDTH 13.3 % (12.0-15.0); WHITE BLOOD COUNT 6.6 x10^3/uL (4.8-10.8)
[2020-03-30 05:56] LABS: CALCIUM 8.4 mg/dL (8.5-10.3); CREATININE 0.8 mg/dL (0.6-1.2); MAGNESIUM 1.9 mg/dL (1.7-2.8); PHOSPHORUS 2.2 mg/dL (2.5-4.6)
[2020-03-30] MEDS: PANTOPRAZOLE 40 MG TABLET PO SCH (06:12)
--- NOTE | 2020-03-30 11:07 | PROVIDER PROGRESS NOTE ---
Assessment/Plan - Problem List (1) E. coli UTI Assessment/Plan: This patient had a positive urine culture before being admitted now as an inpatient. Here, he presented because of fever and urinary retention. The urine culture from 03/23 grew E. coli which was pansensitive. He had been put on Bactrim which is the least potent of the sensitive antibiotics, per biogram. At admission now, he was started on IV ceftriaxone. He has had no fever for greater than 24 hours. His blood culture is negative at the 24-hour rupert. Will transition him from iv Ceftriaxone to oral floroquinolone tomorrow, if the blood culture is negative (at 48 hours). The plan is for 21 days of treatment, for prostate penetration. (2) Acute urinary retention Assessment/Plan: He had greater than 600 cc in the bladder in the ER, and had had 1-1/2 days with no urine output whatsoever. Martinez was inserted in the ER. Imaging showed a significantly enlarged prostate and hydroureteronephrosis. Continue with the Martinez after discharge and he will need a urology appointment soon. Continue Flomax. (3) Hydroureteronephrosis Assessment/Plan: As above in #2 (4) Confusion Assessment/Plan: Yesterday he was alert and apparently was able to follow clues and worked with PT. Today he is confused, got entangled in his bed linens, Martinez tube and wires. His RN, Sosa Galloway, today spoke to the by phone, and the described that the patient was recently diagnosed with dementia by a Neurologist. 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 Will have cognitive eval done by OT (on Mon, today is Sat and they are not here on weekends). Will complete a DMV for to prohibit him from driving a vehicle. Will get SW consult, regarding unsafe living situation. Since this change compared to yesterday is drastic, will consider alcohol withdrawal as etiology, obtain GGT and if elevated will give a CIWA protocol. He told me today he drinks 2 alcoholic drinks per day. Will order Haldol prn agitation. (5) Sepsis Assessment/Plan: He had a fever and evidence of an infection at admission. There is been no fever for longer than 24 hours. Sepsis has resolved. (6) MALU (acute kidney injury) Assessment/Plan: Resolved, with relief of his urinary retention with a Martinez and with treatment u sing IV fluids. - Current Meds Current Meds: Current Medications Generic Name Dose Route Start Last Admin Trade Name Freq PRN Reason Stop Dose Admin Heparin Sodium (Porcine) 5,000 unit 03/28/20 21:00 03/29/20 22:27 SUBQ Not Given BID CHARLEEN Ceftriaxone Sodium 1 gm/ 100 mls @ 200 mls/hr 03/29/20 09:00 03/29/20 10:13 Sodium Chloride IV 04/03/20 09:29 Infused DAILY CHARLEEN Infusion Lactobacillus Rhamnosus 1 cap 03/29/20 12:00 03/29/20 12:13 Culturelle PO 1 cap DAILY CHARLEEN Administration Pantoprazole Sodium 40 mg 03/29/20 07:00 03/30/20 06:12 Protonix PO 40 mg QDAC CHARLEEN Administration Sodium Chloride 10 ml 03/29/20 01:00 03/30/20 02:35 Normal Saline Flush 0.9% IVP Not Given 0100,0900,1700 CHARLEEN - Lab Result Fish Bone Diagrams: 03/30/20 05:15 03/30/20 05:15 Subjective - Subjective Patient Reports: Resting Comfortably Nursing Reports: Other (Wants to get up, is tired of having the Martinez in, wants to go home to take care of his .) Objective Vital Signs: Vital Signs - 24 hr 03/29/20 03/29/20 03/29/20 11:55 15:41 19:52 Temperature 36.7 C 36.7 C 36.5 C Heart Rate [ 80 85 77 Brachial] Respiratory 18 18 18 Rate Blood Pressure 101/58 L 120/88 H 121/64 [Left Brachial artery] O2 Saturation 96 97 100 03/30/20 03/30/20 05:00 08:16 Temperature 37.1 C 37 C Heart Rate [ 76 80 Brachial] Respiratory 18 16 Rate Blood Pressure 133/61 H 113/69 [Left Brachial artery] O2 Saturation 96 96 Oxygen O2 Source Room air I&O (Last 24 Hrs): Intake and Output Totals x24h 03/28/20 03/29/20 03/30/20 23:59 23:59 23:59 Intake Total 146.814 8349.333 120 Output Total 2500 2250 1200 Balance -3113.929 1741.333 -1080 General: Alert, Other (Cachectic, good dentition) HEENT: Atraumatic, EOMI Neck: Supple, No JVD Neuro: Alert, Disoriented (Oriented to person and place. Is forgetful (is looking for his watch all around his room and says he "just had it on" however EMR states the took at home with her yesterday)) Cardiovascular: Regular rate Respiratory: No respiratory distress Abdomen: Soft Genitourinary: Other (Martinez in place) Extremities: No edema, No tenderness/swelling - Results Results: Laboratory Results WBC 6.6 x10^3/uL (4.8-10.8) 03/30/20 05:15 RBC 3.71 10^6/uL (4.70-6.10) L 03/30/20 05:15 Hgb 12.4 g/dL (14.0-18.0) L 03/30/20 05:15 Hct 37.2 % (42.0-52.0) L 03/30/20 05:15 MCV 100.3 fL (80.0-94.0) H 03/30/20 05:15 MCH 33.4 pg (27.0-31.0) H 03/30/20 05:15 MCHC 33.3 g/dL (32.0-36.0) 03/30/20 05:15 RDW 13.3 % (12.0-15.0) 03/30/20 05:15 Plt Count 118 10^3/uL (130-450) L 03/30/20 05:15 MPV 9.0 fL (7.4-11.4) 03/30/20 05:15 Neut # (Auto) 4.6 10^3/uL (1.5-6.6) 03/30/20 05:15 Lymph # (Auto) 1.2 10^3/uL (1.5-3.5) L 03/30/20 05:15 [place] # (Auto) 0.6 10^3/uL (0.0-1.0) 03/30/20 05:15 Eos # (Auto) 0.2 10^3/uL (0.0-0.7) 03/30/20 05:15 Baso # (Auto) 0.0 10^3/uL (0.0-0.1) 03/30/20 05:15 Absolute Nucleated RBC 0.00 x10^3/uL 03/30/20 05:15 Nucleated RBC % 0.0 /100WBC 03/30/20 05:15 Sodium 138 mmol/L (135-145) 03/30/20 05:15 Potassium 3.7 mmol/L (3.5-5.0) 03/30/20 05:15 Chloride 105 mmol/L (101-111) 03/30/20 05:15 Carbon Dioxide 26 mmol/L (21-32) 03/30/20 05:15 Anion Gap 7.0 (6-13) 03/30/20 05:15 BUN 12 mg/dL (6-20) 03/30/20 05:15 Creatinine 0.8 mg/dL (0.6-1.2) 03/30/20 05:15 Estimated GFR (MDRD) 92 (>89) 03/30/20 05:15 Glucose 101 mg/dL (70-100) H 03/30/20 05:15 Lactic Acid 1.3 mmol/L (0.5-2.2) 03/28/20 16:31 Calcium 8.4 mg/dL (8.5-10.3) L 03/30/20 05:15 Phosphorus 2.2 mg/dL (2.5-4.6) L 03/30/20 05:15 Magnesium 1.9 mg/dL (1.7-2.8) 03/30/20 05:15 Total Bilirubin 0.9 mg/dL (0.2-1.0) 03/28/20 16:31 AST 27 IU/L (10-42) 03/28/20 16:31 ALT 24 IU/L (10-60) 03/28/20 16:31 Alkaline Phosphatase 42 IU/L (42-121) 03/28/20 16:31 Total Protein 6.8 g/dL (6.7-8.2) 03/28/20 16:31 Albumin 3.7 g/dL (3.2-5.5) 03/28/20 16:31 Globulin 3.1 g/dL (2.1-4.2) 03/28/20 16:31 Albumin/Globulin Ratio 1.2 (1.0-2.2) 03/28/20 16:31 Lipase 34 U/L (22-51) 03/28/20 16:31 PSA Screen 6.090 ng/mL (0.000-2.000) H 03/30/20 09:10 Urine Color YELLOW 03/28/20 17:14 Urine Clarity CLEAR (CLEAR) 03/28/20 17:14 Urine pH 6.0 PH (5.0-7.5) 03/28/20 17:14 Ur Specific [place] 1.010 (1.002-1.030) 03/28/20 17:14 Urine Protein NEGATIVE mg/dL (NEGATIVE) 03/28/20 17:14 Urine Glucose (UA) NEGATIVE mg/dL (NEGATIVE) 03/28/20 17:14 Urine Ketones NEGATIVE mg/dL (NEGATIVE) 03/28/20 17:14 Urine Occult Blood SMALL (NEGATIVE) H 03/28/20 17:14 Urine Nitrite NEGATIVE (NEGATIVE) 03/28/20 17:14 Urine Bilirubin NEGATIVE (NEGATIVE) 03/28/20 17:14 Urine Urobilinogen 0.2 (NORMAL) E.U./dL (NORMAL) 03/28/20 17:14 Ur Leukocyte Esterase NEGATIVE (NEGATIVE) 03/28/20 17:14 Urine RBC 11-25 /HPF (0-5) H 03/28/20 17:14 Urine WBC 0-3 /HPF (0-3) 03/28/20 17:14 Ur Squamous Epith Cells NONE SEEN (<= Few) 03/28/20 17:14 Urine Bacteria None Seen /HPF (None Seen) 03/28/20 17:14 Ur Microscopic Review INDICATED 03/28/20 17:14 Urine Culture Comments NOT INDICATED 03/28/20 17:14 Nasal Adenovirus (PCR) NOT DETECTED 03/28/20 17:31 Nasal B. parapertussis DNA (PCR) NOT DETECTED 03/28/20 17:31 Nasal Coronavir 229E PCR NOT DETECTED 03/28/20 17:31 Nasal Coronavir HKU1 PCR NOT DETECTED 03/28/20 17:31 Nasal Coronavir NL63 PCR NOT DETECTED 03/28/20 17:31 Nasal Coronavir OC43 PCR NOT DETECTED 03/28/20 17:31 Nasal Enterovir/Rhinovir PCR NOT DETECTED 03/28/20 17:31 Nasal Influenza B PCR NOT DETECTED 03/28/20 17:31 Nasal Influenza A PCR NOT DETECTED 03/28/20 17:31 Nasal Parainfluen 1 PCR NOT DETECTED 03/28/20 17:31 Nasal Parainfluen 2 PCR NOT DETECTED 03/28/20 17:31 Nasal Parainfluen 3 PCR NOT DETECTED 03/28/20 17:31 Nasal Parainfluen 4 PCR NOT DETECTED 03/28/20 17:31 Nasal RSV (PCR) NOT DETECTED 03/28/20 17:31 Nasal B.pertussis DNA PCR NOT DETECTED 03/28/20 17:31 Nasal C.pneumoniae (PCR) NOT DETECTED 03/28/20 17:31 [place] Human Metapneumo PCR NOT DETECTED 03/28/20 17:31 Nasal M.pneumoniae (PCR) NOT DETECTED 03/28/20 17:31 Nasal SARS-CoV-2 (PCR) NOT DETECTED 03/28/20 17:31 Sepsis Event Note (H) - Evaluation Current Stage of Sepsis: Sepsis Possible source of Sepsis: positive: Genitourinary - Sepsis Criteria Sepsis Criteria: Recorded Temperature greater than 38.3C or Less than 36C
[2020-03-30] MEDS: cefTRIAXone 1 GM in SODIUM CHLORIDE 0.9% MINIBAG 100 ML IV SCH (11:28)
[2020-03-30] MEDS: HEPARIN 5,000 UNIT/ML VIAL SUBQ SCH ×2 (11:32→21:34)
[2020-03-30] MEDS: LACTOBACILLUS RHAMNOSUS GG CAPSULE PO SCH (11:34)
[2020-03-30] MEDS ORDERED: HALOPERIDOL 5 MG/ML VIAL IVP PRN (15:23)
[2020-03-30] MEDS ORDERED: LORazepam 2 MG/ML VIAL IVP PRN (17:24)
[2020-03-30] MEDS: THIAMINE 100 MG TABLET PO SCH (21:33)
[2020-03-31] MEDS: SODIUM CHLORIDE FLUSH 0.9% 10 ML SYRINGE IVP SCH ×3 (02:45→22:45)
[2020-03-31 05:48] LABS: BASOPHILS % (AUTO) 0.4 %; EOSINOPHILS # (AUTO) 0.2 10^3/uL (0.0-0.7); EOSINOPHILS % (AUTO) 3.9 %; HGB - HEMOGLOBIN 12.9 g/dL (14.0-18.0); LYMPHOCYTES # (AUTO) 1.5 10^3/uL (1.5-3.5); LYMPHOCYTES % (AUTO) 26.1 %; MEAN CORPUSCULAR HGB CONC 33.1 g/dL (32.0-36.0); MEAN CORPUSCULAR VOLUME 99.7 fL (80.0-94.0); MEAN PLATELET VOLUME 8.9 fL (7.4-11.4); MONOCYTES # (AUTO) 0.5 10^3/uL (0.0-1.0); MONOCYTES % (AUTO) 8.3 %; NEUTROPHILS # (AUTO) 3.5 10^3/uL (1.5-6.6); NEUTROPHILS % (AUTO) 61.1 %; PLT - PLATELET COUNT 149 10^3/uL (130-450); RED BLOOD COUNT 3.91 10^6/uL (4.70-6.10); RED CELL DISTRIBUTION WIDTH 13.5 % (12.0-15.0); WHITE BLOOD COUNT 5.6 x10^3/uL (4.8-10.8)
[2020-03-31 05:57] LABS: CALCIUM 8.6 mg/dL (8.5-10.3); CREATININE 0.7 mg/dL (0.6-1.2)
[2020-03-31] MEDS: PANTOPRAZOLE 40 MG TABLET PO SCH (06:26)
[2020-03-31] MEDS: THIAMINE 100 MG TABLET PO SCH (12:10)
[2020-03-31] MEDS: TAMSULOSIN 0.4 MG CAPSULE PO SCH (12:10)
[2020-03-31] MEDS: cefTRIAXone 1 GM in SODIUM CHLORIDE 0.9% MINIBAG 100 ML IV SCH (12:10)
[2020-03-31] MEDS: LACTOBACILLUS RHAMNOSUS GG CAPSULE PO SCH (12:10)
[2020-03-31] MEDS: HEPARIN 5,000 UNIT/ML VIAL SUBQ SCH ×2 (12:12→22:44)
--- NOTE | 2020-03-31 17:26 | PROVIDER PROGRESS NOTE ---
Assessment/Plan - Problem List (1) E. coli UTI Assessment/Plan: His blood cultures are coming back negative at the 48-hour rupert therefore he is not bacteremic. There is been no fever. We will transition his IV ceftriaxone to oral Cipro for good prostate penetration. We will plan to discharge home tomorrow with Cipro for about 14-18 more days, with a probiotic (2) Acute urinary retention Assessment/Plan: He will need to go home with a new Martinez and needs urology management soon. A Home Health referral will be sent for an RN and bath aide. Martinez care will need to be done by family members until there are the proper services arranged at home (3) Hydroureteronephrosis Assessment/Plan: As per imaging. Treat as in #1. (4) Confusion Assessment/Plan: He continues to show intermittent very poor memory, disoriented to place and time occasionally. The informed our staff that he was diagnosed with dementia by neurologist. He may no longer legally drive a car, I completed the DMV form to prohibit him from driving a motor vehicle. He requires a front wheel walker to ambulate here and occasionally has a stumble in his gait. (5) Sepsis Assessment/Plan: resolved (6) MALU (acute kidney injury) Assessment/Plan: Resolved with decompression of the bladder, inserting the Martinez - Current Meds Current Meds: Current Medications Generic Name Dose Route Start Last Admin Trade Name Freq PRN Reason Stop Dose Admin Haloperidol 1 mg 03/30/20 15:23 03/30/20 17:48 Haldol Inj IVP 1 mg Q6H PRN Administration Agitation Heparin Sodium (Porcine) 5,000 unit 03/28/20 21:00 03/31/20 12:12 SUBQ Not Given BID CHARLEEN Ceftriaxone Sodium 1 gm/ 100 mls @ 200 mls/hr 03/29/20 09:00 03/31/20 12:40 Sodium Chloride IV 04/03/20 09:29 Infused DAILY CHARLEEN Infusion Lactobacillus Rhamnosus 1 cap 03/29/20 12:00 03/31/20 12:10 Culturelle PO 1 cap DAILY CHARLEEN Administration Lorazepam 1 mg 03/30/20 17:24 03/30/20 21:33 Ativan Inj (Vial) IVP 1 mg Q30M PRN Administration CIWA >8 Protocol Pantoprazole Sodium 40 mg 03/29/20 07:00 03/31/20 06:26 Protonix PO 40 mg QDAC CHARLEEN Administration Sodium Chloride 10 ml 03/29/20 01:00 03/31/20 14:54 Normal Saline Flush 0.9% IVP 10 ml 0100,0900,1700 CHARLEEN Administration Tamsulosin HCl 0.4 mg 03/31/20 09:00 03/31/20 12:10 Flomax PO 0.4 mg DAILY CHARLEEN Administration Thiamine HCl 100 mg 03/30/20 18:00 03/31/20 12:10 Vitamin B-1 PO 100 mg DAILY CHARLEEN Administration - Lab Result Fish Bone Diagrams: 03/31/20 05:00 03/31/20 05:00 - Additional Planning My Orders: My Active Orders 03/30/20 17:24 1:1 Observation [RC] Q1H Vital Signs [RC] 0800,1200,1600 LORazepam INJ [Ativan Inj (Vial)] 1 mg IVP Q30M PRN 03/30/20 17:25 CIWA - AR Score Card [RC] Q4H Q4H Neuro Check [RC] Routine Routine 03/30/20 18:00 Thiamine [Vitamin B-1] 100 mg PO DAILY 03/31/20 Evaluate and Treat OT [OT] Routine 03/31/20 09:00 Tamsulosin [Flomax] 0.4 mg PO DAILY Subjective - Subjective Patient Reports: Resting Comfortably Nursing Reports: Other (Patient is calling his asking when he will be) Objective Vital Signs: Vital Signs - 24 hr 03/30/20 03/30/20 03/31/20 18:00 20:16 02:00 Temperature 37.1 C 36.8 C 36.9 C Heart Rate [ 81 72 74 Brachial] Respiratory 18 20 12 Rate Blood Pressure 125/61 140/59 H 101/50 L [Left Brachial artery] O2 Saturation 97 96 94 03/31/20 03/31/20 03/31/20 08:45 11:50 16:59 Temperature 36.7 C 36.8 C 36.6 C Heart Rate [ 83 74 79 Brachial] Respiratory 17 16 20 Rate Blood Pressure 105/53 L 102/58 L 132/61 H [Left Brachial artery] O2 Saturation 98 95 98 Oxygen O2 Source Room air I&O (Last 24 Hrs): Intake and Output Totals x24h 11/03/30/20 03/31/20 23:59 23:59 23:59 Intake Total 4053.333 1070 1140 Output Total 2250 2650 950 Balance 1803.333 -1580 190 General: Alert, Other (Cachectic) HEENT: Mucous membr. moist/pink Neck: Supple, No JVD Neuro: Alert, Disoriented Cardiovascular: Regular rate Respiratory: No respiratory distress Abdomen: Soft Extremities: No edema, Other (Skin tenting is noted) - Results Results: Laboratory Results WBC 5.6 x10^3/uL (4.8-10.8) 03/31/20 05:00 RBC 3.91 10^6/uL (4.70-6.10) L 03/31/20 05:00 Hgb 12.9 g/dL (14.0-18.0) L 03/31/20 05:00 Hct 39.0 % (42.0-52.0) L 03/31/20 05:00 MCV 99.7 fL (80.0-94.0) H 03/31/20 05:00 MCH 33.0 pg (27.0-31.0) H 03/31/20 05:00 MCHC 33.1 g/dL (32.0-36.0) 03/31/20 05:00 RDW 13.5 % (12.0-15.0) 03/31/20 05:00 Plt Count 149 10^3/uL (130-450) 03/31/20 05:00 MPV 8.9 fL (7.4-11.4) 03/31/20 05:00 Neut # (Auto) 3.5 10^3/uL (1.5-6.6) 03/31/20 05:00 Lymph # (Auto) 1.5 10^3/uL (1.5-3.5) 03/31/20 05:00 [place] # (Auto) 0.5 10^3/uL (0.0-1.0) 03/31/20 05:00 Eos # (Auto) 0.2 10^3/uL (0.0-0.7) 03/31/20 05:00 Baso # (Auto) 0.0 10^3/uL (0.0-0.1) 03/31/20 05:00 Absolute Nucleated RBC 0.00 x10^3/uL 03/31/20 05:00 Nucleated RBC % 0.0 /100WBC 03/31/20 05:00 Sodium 138 mmol/L (135-145) 03/31/20 05:00 Potassium 3.7 mmol/L (3.5-5.0) 03/31/20 05:00 Chloride 104 mmol/L (101-111) 03/31/20 05:00 Carbon Dioxide 25 mmol/L (21-32) 03/31/20 05:00 Anion Gap 9.0 (6-13) 03/31/20 05:00 BUN 11 mg/dL (6-20) 03/31/20 05:00 Creatinine 0.7 mg/dL (0.6-1.2) 03/31/20 05:00 Estimated GFR (MDRD) 107 (>89) 03/31/20 05:00 Glucose 90 mg/dL (70-100) 03/31/20 05:00 Lactic Acid 1.3 mmol/L (0.5-2.2) 03/28/20 16:31 Calcium 8.6 mg/dL (8.5-10.3) 03/31/20 05:00 Phosphorus 2.2 mg/dL (2.5-4.6) L 03/30/20 05:15 Magnesium 2.0 mg/dL (1.7-2.8) 03/31/20 05:00 Total Bilirubin 0.9 mg/dL (0.2-1.0) 03/28/20 16:31 GGT 14 IU/L (8-55) 03/30/20 05:15 AST 27 IU/L (10-42) 03/28/20 16:31 ALT 24 IU/L (10-60) 03/28/20 16:31 Alkaline Phosphatase 42 IU/L (42-121) 03/28/20 16:31 Total Protein 6.8 g/dL (6.7-8.2) 03/28/20 16:31 Albumin 3.7 g/dL (3.2-5.5) 03/28/20 16:31 Globulin 3.1 g/dL (2.1-4.2) 03/28/20 16:31 Albumin/Globulin Ratio 1.2 (1.0-2.2) 03/28/20 16:31 Lipase 34 U/L (22-51) 03/28/20 16:31 PSA Screen 6.090 ng/mL (0.000-2.000) H 03/30/20 09:10 Urine Color YELLOW 03/28/20 17:14 Urine Clarity CLEAR (CLEAR) 03/28/20 17:14 Urine pH 6.0 PH (5.0-7.5) 03/28/20 17:14 Ur Specific [place] 1.010 (1.002-1.030) 03/28/20 17:14 Urine Protein NEGATIVE mg/dL (NEGATIVE) 03/28/20 17:14 Urine Glucose (UA) NEGATIVE mg/dL (NEGATIVE) 03/28/20 17:14 Urine Ketones NEGATIVE mg/dL (NEGATIVE) 03/28/20 17:14 Urine Occult Blood SMALL (NEGATIVE) H 03/28/20 17:14 Urine Nitrite NEGATIVE (NEGATIVE) 03/28/20 17:14 Urine Bilirubin NEGATIVE (NEGATIVE) 03/28/20 17:14 Urine Urobilinogen 0.2 (NORMAL) E.U./dL (NORMAL) 03/28/20 17:14 Ur Leukocyte Esterase NEGATIVE (NEGATIVE) 03/28/20 17:14 Urine RBC 11-25 /HPF (0-5) H 03/28/20 17:14 Urine WBC 0-3 /HPF (0-3) 03/28/20 17:14 Ur Squamous Epith Cells NONE SEEN (<= Few) 03/28/20 17:14 Urine Bacteria None Seen /HPF (None Seen) 03/28/20 17:14 Ur Microscopic Review INDICATED 03/28/20 17:14 Urine Culture Comments NOT INDICATED 03/28/20 17:14 Nasal Adenovirus (PCR) NOT DETECTED 03/28/20 17:31 Nasal B. parapertussis DNA (PCR) NOT DETECTED 03/28/20 17:31 Nasal Coronavir 229E PCR NOT DETECTED 03/28/20 17:31 Nasal Coronavir HKU1 PCR NOT DETECTED 03/28/20 17:31 Nasal Coronavir NL63 PCR NOT DETECTED 03/28/20 17:31 Nasal Coronavir OC43 PCR NOT DETECTED 03/28/20 17:31 Nasal Enterovir/Rhinovir PCR NOT DETECTED 03/28/20 17:31 Nasal Influenza B PCR NOT DETECTED 03/28/20 17:31 Nasal Influenza A PCR NOT DETECTED 03/28/20 17:31 Nasal Parainfluen 1 PCR NOT DETECTED 03/28/20 17:31 Nasal Parainfluen 2 PCR NOT DETECTED 03/28/20 17:31 Nasal Parainfluen 3 PCR NOT DETECTED 03/28/20 17:31 Nasal Parainfluen 4 PCR NOT DETECTED 03/28/20 17:31 Nasal RSV (PCR) NOT DETECTED 03/28/20 17:31 Nasal B.pertussis DNA PCR NOT DETECTED 03/28/20 17:31 Nasal C.pneumoniae (PCR) NOT DETECTED 03/28/20 17:31 [place] Human Metapneumo PCR NOT DETECTED 03/28/20 17:31 Nasal M.pneumoniae (PCR) NOT DETECTED 03/28/20 17:31 Nasal SARS-CoV-2 (PCR) NOT DETECTED 03/28/20 17:31 Sepsis Event Note (H) - Evaluation Current Stage of Sepsis: Sepsis Possible source of Sepsis: positive: Genitourinary - Sepsis Criteria Sepsis Criteria: Recorded Temperature greater than 38.3C or Less than 36C
[2020-03-31] MEDS: CIPROFLOXACIN 250 MG TABLET PO SCH (22:44)
[2020-04-01] MEDS: SODIUM CHLORIDE FLUSH 0.9% 10 ML SYRINGE IVP SCH ×2 (01:02→08:47)
[2020-04-01 05:37] LABS: BASOPHILS % (AUTO) 0.4 %; EOSINOPHILS # (AUTO) 0.3 10^3/uL (0.0-0.7); EOSINOPHILS % (AUTO) 3.3 %; HGB - HEMOGLOBIN 12.7 g/dL (14.0-18.0); LYMPHOCYTES # (AUTO) 1.8 10^3/uL (1.5-3.5); LYMPHOCYTES % (AUTO) 22.8 %; MEAN CORPUSCULAR HGB CONC 32.8 g/dL (32.0-36.0); MEAN CORPUSCULAR VOLUME 100.5 fL (80.0-94.0); MEAN PLATELET VOLUME 8.7 fL (7.4-11.4); MONOCYTES # (AUTO) 0.5 10^3/uL (0.0-1.0); MONOCYTES % (AUTO) 6.1 %; NEUTROPHILS # (AUTO) 5.2 10^3/uL (1.5-6.6); NEUTROPHILS % (AUTO) 66.9 %; PLT - PLATELET COUNT 156 10^3/uL (130-450); RED BLOOD COUNT 3.85 10^6/uL (4.70-6.10); RED CELL DISTRIBUTION WIDTH 13.4 % (12.0-15.0); WHITE BLOOD COUNT 7.8 x10^3/uL (4.8-10.8)
[2020-04-01 05:42] LABS: CALCIUM 8.5 mg/dL (8.5-10.3); CREATININE 0.8 mg/dL (0.6-1.2)
[2020-04-01] MEDS: PANTOPRAZOLE 40 MG TABLET PO SCH (06:29)
[2020-04-01] MEDS: HEPARIN 5,000 UNIT/ML VIAL SUBQ SCH (08:39)
[2020-04-01] MEDS: CIPROFLOXACIN 250 MG TABLET PO SCH (08:41)
[2020-04-01] MEDS: LACTOBACILLUS RHAMNOSUS GG CAPSULE PO SCH (08:41)
[2020-04-01] MEDS: TAMSULOSIN 0.4 MG CAPSULE PO SCH (08:41)
[2020-04-01] MEDS: THIAMINE 100 MG TABLET PO SCH (08:41)
[2020-04-01 15:27] VITALS: BP 106/59
--- NOTE | 2020-04-01 15:41 | Discharge Plan ---
Discharge Plan Problem Reviewed?: Yes Disposition: Home, Self Care Condition: Fair Prescriptions: Ciprofloxacin [Cipro] 250 mg PO BID #34 tablet Lactobacillus Rhamnosus GG [Culturelle] 1 cap PO DAILY #17 capsule Loperamide [Imodium] 2 mg PO QID PRN #24 capsule PRN Reason: Diarrhea Diet: Regular Activity Restrictions: Activity as Tolerated Shower Restrictions: No Driving Restrictions: Yes (Driving a vehicle is NO LONGER PERMITTED due to poor memory) Assistance Devices: Walker (You must have your own walker, not be sharing one) Weight Bearing: Full Weight Instruction Topics: Catheter Bag Urinary Empty Clean Health Concerns: You were admitted with a urinary tract infection caused by bladder obstruction from an enlarged prostate. You are being discharged home to finish taking a course of oral antibiotics. The Martinez catheter must remain in your urinary bladder, and you need to see a Urologist GERARD for further management of this. The new diarrhea you have is very likely from being on antibiotics. Your diarrhea sample was negative for C.diff. You may therefore use Imodium to decrease the diarrhea. Please stay well-hydrated because you are losing fluids in the diarrhea and could easily become dehydrated. Resume any prehospital medications that you took before this admission. All new medications were electronically sent to your [facility] pharmacy in [place]. You were tested for your memory and it has declined to the point that you are NO LONGER PERMITTED TO DRIVE a motor vehicle or operate machinery. A form was sent to the DMV stating that there is a medical reason that you can no longer drive. A Home Health service has been ordered for you, and they will be coming out to begin their service in approximately a week. You need assistance with meals, your maintenance and assistance with caregiving for your . This is being arranged from a company that will also begin in approximately a week. Plan of Treatment: As above. Care Goals: Improvement in symptoms and stabilization are the goals. Assessment: Written instructions as reminders were provided for the patient and family at discharge. Additional Instructions or Follow Up instructions: If you have new or worsening symptoms, CALL YOUR PRIMARY CARE PROVIDER FOR ADVICE or come to the Emergency Room. Follow-Up Care: Home Health - RN No Smoking: If you smoke, Please STOP! Call for help. Follow-up with: Patricia Finney ARNP, RESEARCH PROJECT COORDINATOR-C [Primary Care Provider] -
[2020-04-01] MEDS ORDERED: LOPERAMIDE 2 MG CAPSULE PO PRN (15:54)
--- NOTE | 2020-04-01 16:00 | DISCHARGE SUMMARY ---
Discharge Summary Admit Date: 03/28/20 Discharge Date: 04/01/20 Discharging Provider: Nallely Ortiz MD Primary Care Provider: Patricia Finney NP Condition at Discharge: Fair Discharge Disposition: 01 Home, Self Care - HPI History of Present Illness: From the admission H&P of David Pereira NP: This is a 84-year-old gentleman with a PMH significant for BPH, GERD, difficulty urinating for the past 9 years for which, he states he takes Flomax. He presented to the ER complaining that he cannot urinate at all. Pt reported he has had no urione output for one and half day. pt was recently diagnosed with a UTI and started on Bactrim by the ER. His urine culture subsequently grew pa nsensitive E. coli. Today, a Martinez was placed in ER. CT of abdomen and pelvis showed a large urinary bladder and prostate, right-sided moderate hydroureteronephrosis. Routine laboratory tests do show remarkably elevated creatinine to 4.2 from 1.2 two days ago. Patient denies chest pain, cough, short ness of breathing. He is not sure he had a fever in the home. In ER, patient was found to be febrile with temperature 38.2 degrees C. He states that over the past year and a half he has had more difficulty urinating. He had an appointment with his primary care doctor and is awaiting referral to Urology. Discussed the care goal with the patient, patient requests Full Code - HOSPITAL COURSE Hospital Course: (1) MALU (acute kidney injury) Resolved with creat going from 4.2>> 1.7>> 0.8, by decompression of the bladder with inserting the Martinez, and with iv hydration. The Martinez was left in. (2) E. coli UTI The urine grew E coli, pansensitive. His blood cultures all came back negative. He received IV Ceftriaxone then transitioned to oral Cipro to take for 17 more days, for good prostate penetration, plus a probiotic. He had diarrhea on the morning of discharge, therefore we sent a sample for C.diff and awaited its result, which caused his discharge to be delayed to 5 pm. The C.diff PCR result was neg, and he was discharged with a prescription to take Imodium prn for diarrhea at home. (3) Acute urinary retention He was discharged home with a new Martinez and needs Urology management soon. A Home Health referral was sent for an RN and bath aide. Martinez care will need to be done by family members until there are the proper services arranged at home (4) Hydroureteronephrosis As per imaging. Treated as in #1-3. (5) Dementia He continues to show very poor memory, disoriented to place and time occasionally, wanted to pull out his Martinez. He had a cognitive eval by OT and could not recognize a clock face. The informed our staff that he was diagnosed with dementia recently by Neurologist. He may no longer legally drive a car; I completed the DMV form to prohibit him from driving a motor vehicle and informed the patient and family at discharge. He also required a front wheel walker to ambulate here and occasionally has a stumble in his gait. (6) Elevated PSA His PSA was elevated at 6.09. Urology appointment is needed. (7) Cachexia He himself realizes he is losing weight, despite a good appetite. - ALLERGIES Allergies/Adverse Reactions: Allergies Allergy/AdvReac Type Severity Reaction Status Date / Time celecoxib [From Celebrex] Allergy Unknown Verified 03/28/20 16:16 Penicillins AdvReac Anaphylaxis Verified 03/28/20 16:16 - MEDICATIONS Home Medications: Ambulatory Orders Medication Instructions Recorded Confirmed Pantoprazole [Protonix] 40 mg PO QDAC 03/28/20 03/29/20 Tamsulosin [Flomax] 0.4 mg PO DAILY 03/28/20 03/28/20 Ciprofloxacin [Cipro] 250 mg PO BID #34 tablet 04/01/20 Lactobacillus Rhamnosus GG 1 cap PO DAILY #17 capsule 04/01/20 [Culturelle] Loperamide [Imodium] 2 mg PO QID PRN #24 capsule 04/01/20 - PHYSICAL EXAM AT DISCHARGE General Appearance: positive: No acute distress, Alert, Other (Cachectic) Eyes Bilateral: positive: Normal inspection, EOMI ENT: positive: ENT inspection nml, No signs of dehydration Neck: positive: Nml inspection, No JVD Respiratory: positive: No respiratory distress Cardiovascular: positive: Regular rate & rhythm Abdomen: positive: Non-tender, No distention Back: positive: Nml inspection Skin: positive: Warm, Dry Extremities: positive: Non-tender, No pedal edema Neurologic/Psychiatric: positive: CN's nml (2-12), Motor nml, Disoriented to time - LABS Result Diagrams: 04/01/20 05:17 04/01/20 05:17 - DIAGNOSTIC IMAGING Diagnostic Imaging Results: Final report reviewed - SEPSIS Current Stage of Sepsis: Sepsis Possible source of Sepsis: Genitourinary Sepsis Criteria: Recorded Temperature greater than 38.3C or Less than 36C - FOLLOW UP Follow Up: See PCP in the next 5-7 days and get GERARD appointment/referral to a Urologist. - TIME SPENT Time Spent in Discharge (Minutes): 60
== END 2020-04-01 18:31 | disposition home or self-care (01) | DRG 872 ==
LOC: ED 16:13 → MS2 17:41
PROVIDERS: ADMIT Nurse Practitioner Gerontology; ATTEND Internal Medicine
DX: A41.51 Sepsis due to Escherichia coli [E. coli] (principal); N17.9 Acute kidney failure, unspecified; N39.0 Urinary tract infection, site not specified; R64 Cachexia; N13.6 Pyonephrosis; K52.1 Toxic gastroenteritis and colitis; N40.1 Benign prostatic hyperplasia with lower urinary tract symptoms; R33.9 Retention of urine, unspecified; F03.90 Unspecified dementia, unspecified severity, without behavioral disturbance, psychotic disturbance, mood disturbance, and anxiety; R97.20 Elevated prostate specific antigen [PSA]; Z68.20 Body mass index [BMI] 20.0-20.9, adult; T36.95XA Adverse effect of unspecified systemic antibiotic, initial encounter; Y92.230 Patient room in hospital as the place of occurrence of the external cause; K21.9 Gastro-esophageal reflux disease without esophagitis; Z87.891 Personal history of nicotine dependence; R41.0 Disorientation, unspecified; Z20.828 Contact with and (suspected) exposure to other viral communicable diseases; Z79.899 Other long term (current) drug therapy
CPT/HCPCS: 36415; 51702; 74176; 80048; 80053; 81001; 82977; 83605; 83690; 83735; 84100; 85025; 87040; 87493; 87631; 96365; 97110; 97116; 97161; 97166; 99285; A9270; G0103; J2060; 0202U; 81003; 84153; 87086

== ENCOUNTER 2020-04-15 08:00 | Outpatient (CLI) | payer MEDICARE, OTHER ==
[2020-04-15 20:31] LABS: CALCIUM 9.3 mg/dL (8.5-10.3); CREATININE 0.9 mg/dL (0.6-1.2)
== END 2020-04-15 23:59 | disposition home or self-care (01) ==
LOC: LAB.WCP 08:00
PROVIDERS: ATTEND Family Medicine
DX: N13.39 Other hydronephrosis (principal); A41.9 Sepsis, unspecified organism
CPT/HCPCS: 36415; 80048

== ENCOUNTER 2020-05-13 10:46 | Outpatient (CLI) | payer MEDICARE, OTHER ==
[2020-05-13 19:18] LABS: BILIRUBIN,URINE NEGATIVE (NEGATIVE); GLUCOSE, URINE (UA) NEGATIVE (NEGATIVE); KETONES,URINE (UA) NEGATIVE (NEGATIVE); LEUKOCYTE ESTERASE, URINE LARGE (NEGATIVE); NITRITE,URINE NEGATIVE (NEGATIVE); OCCULT BLOOD,URINE SMALL (NEGATIVE); PH,URINE 6.5 PH (5.0-7.5); PROTEIN,URINE NEGATIVE (NEGATIVE); UROBILINOGEN,URINE 0.2 (NORMAL) E.U./dL (NORMAL)
[2020-05-13 19:29] LABS: CLARITY,URINE HAZY (CLEAR)
[2020-05-13 19:41] LABS: BACTERIA,URINE Few /HPF (None Seen); SQUAMOUS EPITHELIAL CELL,UR RARE Squamous (<= Few); WBC,URINE >25 /HPF (0-3)
[2020-05-13 19:42] LABS: YEAST,URINE PRESENT
== END 2020-05-13 23:59 | disposition home or self-care (01) ==
LOC: LAB.R 10:46
PROVIDERS: ATTEND Nurse Practitioner
DX: N39.0 Urinary tract infection, site not specified (principal); N32.0 Bladder-neck obstruction; N13.30 Unspecified hydronephrosis
CPT/HCPCS: 81001; 81003; 87077; 87086; 87181

== ENCOUNTER 2020-05-17 08:00 | Outpatient (CLI) | payer MEDICARE, OTHER ==
[2020-05-17 18:18] LABS: BASOPHILS % (AUTO) 0.3 %; EOSINOPHILS # (AUTO) 0.1 10^3/uL (0.0-0.7); LYMPHOCYTES # (AUTO) 1.6 10^3/uL (1.5-3.5); MEAN CORPUSCULAR VOLUME 103.1 fL (80.0-94.0); MEAN PLATELET VOLUME 9.1 fL (7.4-11.4); MONOCYTES # (AUTO) 0.6 10^3/uL (0.0-1.0); MONOCYTES % (AUTO) 8.6 %; NEUTROPHILS # (AUTO) 4.4 10^3/uL (1.5-6.6); NEUTROPHILS % (AUTO) 64.7 %; PLT - PLATELET COUNT 132 10^3/uL (130-450); RED BLOOD COUNT 4.24 10^6/uL (4.70-6.10); WHITE BLOOD COUNT 6.8 x10^3/uL (4.8-10.8)
[2020-05-17 18:36] LABS: ALBUMIN 3.9 g/dL (3.2-5.5); ALBUMIN/GLOBULIN RATIO 1.3 (1.0-2.2); BILIRUBIN,TOTAL 0.7 mg/dL (0.2-1.0); CALCIUM 9.2 mg/dL (8.5-10.3); CREATININE 0.9 mg/dL (0.6-1.2); TOTAL PROTEIN 6.8 g/dL (6.7-8.2)
== END 2020-05-17 23:59 | disposition home or self-care (01) ==
LOC: LAB.WCP 08:00
PROVIDERS: ATTEND Nurse Practitioner
DX: N30.00 Acute cystitis without hematuria (principal)
CPT/HCPCS: 36415; 80053; 85025

== ENCOUNTER 2020-06-06 14:44 | Outpatient (CLI) | payer MEDICARE, OTHER ==
[2020-06-06 17:56] LABS: BILIRUBIN,URINE NEGATIVE (NEGATIVE); GLUCOSE, URINE (UA) NEGATIVE (NEGATIVE); KETONES,URINE (UA) NEGATIVE (NEGATIVE); LEUKOCYTE ESTERASE, URINE MODERATE (NEGATIVE); NITRITE,URINE POSITIVE (NEGATIVE); OCCULT BLOOD,URINE SMALL (NEGATIVE); PROTEIN,URINE NEGATIVE (NEGATIVE); UROBILINOGEN,URINE 0.2 (NORMAL) E.U./dL (NORMAL)
[2020-06-06 18:00] LABS: CLARITY,URINE HAZY (CLEAR)
[2020-06-06 18:22] LABS: RBC,URINE 0-5 /HPF (0-5); SQUAMOUS EPITHELIAL CELL,UR NONE SEEN (<= Few)
[2020-06-06 18:23] LABS: BACTERIA,URINE Moderate /HPF (None Seen)
== END 2020-06-06 23:59 | disposition home or self-care (01) ==
LOC: LAB.R 14:44
PROVIDERS: ATTEND Urology
DX: N39.0 Urinary tract infection, site not specified (principal); N40.1 Benign prostatic hyperplasia with lower urinary tract symptoms; N13.6 Pyonephrosis
CPT/HCPCS: 81001; 81003; 87086; 87181

== ENCOUNTER 2020-11-14 07:43 | Outpatient (CLI) | payer MEDICARE, OTHER | END 2020-11-14 07:44 | disposition critical access hospital (66) | LOC: EMS 07:43 | DX: R50.9 Fever, unspecified (principal) | CPT/HCPCS: A0425; A0429 ==

== ENCOUNTER 2020-11-14 08:02 | Emergency (ER) | payer MEDICARE, OTHER ==
[2020-11-14 08:48] LABS: BASOPHILS % (AUTO) 0.2 %; HCT - HEMATOCRIT 45.5 % (42.0-52.0); HGB - HEMOGLOBIN 15.2 g/dL (14.0-18.0); LYMPHOCYTES # (AUTO) 0.9 10^3/uL (1.5-3.5); LYMPHOCYTES % (AUTO) 14.6 %; MEAN CORPUSCULAR HEMOGLOBIN 33.5 pg (27.0-31.0); MEAN CORPUSCULAR HGB CONC 33.4 g/dL (32.0-36.0); MEAN CORPUSCULAR VOLUME 100.2 fL (80.0-94.0); MEAN PLATELET VOLUME 8.8 fL (7.4-11.4); MONOCYTES # (AUTO) 0.6 10^3/uL (0.0-1.0); MONOCYTES % (AUTO) 10.6 %; NEUTROPHILS # (AUTO) 4.4 10^3/uL (1.5-6.6); NEUTROPHILS % (AUTO) 74.3 %; PLT - PLATELET COUNT 95 10^3/uL (130-450); RED BLOOD COUNT 4.54 10^6/uL (4.70-6.10); RED CELL DISTRIBUTION WIDTH 13.3 % (12.0-15.0); WHITE BLOOD COUNT 5.9 x10^3/uL (4.8-10.8)
[2020-11-14] MEDS: SODIUM CHLORIDE 0.9% IV STA (08:51)
--- NOTE | 2020-11-14 08:56 | ED Physician Documentation ---
PD HPI FEVER - Stated complaint Stated Complaint: FEVER - Chief complaint Chief Complaint: Fever - History obtained from History obtained from: Patient, Family - History of Present Illness Timing - onset: Yesterday Timing duration: Hours Timing details: Abrupt onset, Still present, Waxing and waning Associated symptoms: Chills, Dry cough. No: Nasal congestion, Rhinorrhea Contributing factors: No: Sick contact Similar symptoms before: Diagnosis (UTI) Recently seen: Not recently seen - Additional information Additional information: 85-year-old male with a history of BPH and dementia has a chronic indwelling Martinez catheter for retention placed and he has developed a fever over the past 2 days. Fever is been improved with Tylenol continues to come back. He has developed a bit of a cough yesterday. No vomiting. Prior history of urinary tract infection associated with fever and Martinez catheter. Review of Systems Constitutional: reports: Fever Eyes: denies: Decreased vision Ears: denies: Ear pain Nose: denies: Congestion Throat: denies: Sore throat Cardiac: denies: Chest pain / pressure, Palpitations Respiratory: reports: Cough. denies: Dyspnea GI: denies: Vomiting, Diarrhea : reports: Martinez Problem (cloudy urine). denies: Dysuria PD PAST MEDICAL HISTORY - Past Medical History Past Medical History: Yes Neuro: Dementia GI: GERD : Benign prostate hypertrophy, Indwelling catheter HEENT: Chronic vision loss, Chronic hearing loss - Past Surgical History Past Surgical History: No - Present Medications Home Medications: Ambulatory Orders Medication Instructions Recorded Confirmed Pantoprazole [Protonix] 40 mg PO QDAC 03/28/20 03/29/20 Tamsulosin [Flomax] 0.4 mg PO DAILY 03/28/20 03/28/20 Ciprofloxacin [Cipro] 250 mg PO BID #34 tablet 04/01/20 Lactobacillus Rhamnosus GG 1 cap PO DAILY #17 capsule 04/01/20 [Culturelle] Loperamide [Imodium] 2 mg PO QID PRN #24 capsule 04/01/20 Sulfamethox/Trimeth 800/160 1 tablet PO BID 7 Days #14 tablet 11/14/20 [Bactrim Ds] - Allergies Allergies/Adverse Reactions: Allergies Allergy/AdvReac Type Severity Reaction Status Date / Time celecoxib [From Celebrex] Allergy Unknown Verified 11/14/20 08:15 Penicillins AdvReac Anaphylaxis Verified 11/14/20 08:15 - Social History Does the pt smoke?: No Smoking Status: Never smoker Does the pt drink ETOH?: Yes Does the pt have substance abuse?: No - Immunizations Immunizations are current?: Yes - POLST Patient has POLST: No PD ED PE NORMAL - Vitals Vital signs reviewed: Yes (febrile ) - General General: No acute distress, Well developed/nourished - HEENT HEENT: Atraumatic, PERRL, EOMI - Neck Neck: Supple, no meningeal sign, No bony TTP - Cardiac Cardiac: RRR, No murmur - Respiratory Respiratory: No respiratory distress, Clear bilaterally - Abdomen Abdomen: Normal bowel sounds, Soft, Non tender, Non distended, No organomegaly - Back Back: No CVA TTP, No spinal TTP - Derm Derm: Normal color, Warm and dry, No rash - Extremities Extremities: No deformity, No edema - Neuro Neuro: trade facilitator 2-12 intact, No motor deficit, No sensory deficit Eye Opening: Spontaneous Motor: Obeys Commands Verbal: Confused GCS Score: 14 - Psych Psych: Normal mood, Normal affect Results - Vitals Vitals: Vital Signs - 24 hr 11/14/20 11/14/20 11/14/20 08:11 08:42 09:12 Temperature 38.9 C H 38.9 C H 38.9 C H Heart Rate 84 74 66 Respiratory 12 16 14 Rate Blood Pressure 114/70 108/66 116/72 O2 Saturation 98 98 96 11/14/20 11/14/20 09:30 10:00 Temperature 38.9 C H 38.6 C H Heart Rate 80 80 Respiratory 20 18 Rate Blood Pressure 133/66 H 132/63 H O2 Saturation 98 99 Oxygen O2 Source Room air - Labs Labs: Laboratory Tests 11/14/20 11/14/20 11/14/20 08:40 08:40 08:40 WBC 5.9 RBC 4.54 L Hgb 15.2 Hct 45.5 MCV 100.2 H MCH 33.5 H MCHC 33.4 RDW 13.3 Plt Count 95 L MPV 8.8 Neut # (Auto) 4.4 Lymph # (Auto) 0.9 L [place] # (Auto) 0.6 Eos # (Auto) 0.0 Baso # (Auto) 0.0 Absolute Nucleated RBC 0.00 Nucleated RBC % 0.0 Sodium 137 Potassium 3.9 Chloride 100 L Carbon Dioxide 28 Anion Gap 9.0 BUN 18 Creatinine 1.0 Estimated GFR (MDRD) 71 L Glucose 116 H Lactic Acid 1.1 Calcium 9.1 Total Bilirubin 1.4 H AST 18 ALT 11 Alkaline Phosphatase 49 Total Protein 7.1 Albumin 3.9 Globulin 3.2 Albumin/Globulin Ratio 1.2 Urine Color Urine Clarity Urine pH Ur Specific [place] Urine Protein Urine Glucose (UA) Urine Ketones Urine Occult Blood Urine Nitrite Urine Bilirubin Urine Urobilinogen Ur Leukocyte Esterase Urine RBC Urine WBC Ur Squamous Epith Cells Urine Bacteria Urine Culture Comments Nasal Adenovirus (PCR) Nasal B. parapertussis DNA (PCR) Nasal Coronavir 229E PCR Nasal Coronavir HKU1 PCR Nasal Coronavir NL63 PCR Nasal Coronavir OC43 PCR Nasal Enterovir/Rhinovir PCR Nasal Influenza B PCR Nasal Influenza A PCR Nasal Parainfluen 1 PCR Nasal Parainfluen 2 PCR Nasal Parainfluen 3 PCR Nasal Parainfluen 4 PCR Nasal RSV (PCR) Nasal B.pertussis DNA PCR Nasal C.pneumoniae (PCR) Kyler Human Metapneumo PCR Nasal M.pneumoniae (PCR) Nasal SARS-CoV-2 (PCR) 11/14/20 11/14/20 09:09 09:15 WBC RBC Hgb Hct MCV MCH MCHC RDW Plt Count MPV Neut # (Auto) Lymph # (Auto) [place] # (Auto) Eos # (Auto) Baso # (Auto) Absolute Nucleated RBC Nucleated RBC % Sodium Potassium Chloride Carbon Dioxide Anion Gap BUN Creatinine Estimated GFR (MDRD) Glucose Lactic Acid Calcium Total Bilirubin AST ALT Alkaline Phosphatase Total Protein Albumin Globulin Albumin/Globulin Ratio Urine Color DARK YELLOW Urine Clarity CLOUDY Urine pH 7.0 Ur Specific [place] 1.020 Urine Protein 100 H Urine Glucose (UA) NEGATIVE Urine Ketones NEGATIVE Urine Occult Blood MODERATE H Urine Nitrite POSITIVE H Urine Bilirubin NEGATIVE Urine Urobilinogen 0.2 (NORMAL) Ur Leukocyte Esterase LARGE H Urine RBC 11-25 H Urine WBC >25 H Ur Squamous Epith Cells FEW Squamous Urine Bacteria Many H Urine Culture Comments INDICATED Nasal Adenovirus (PCR) NOT DETECTED Nasal B. parapertussis DNA (PCR) NOT DETECTED Nasal Coronavir 229E PCR NOT DETECTED Nasal Coronavir HKU1 PCR NOT DETECTED Nasal Coronavir NL63 PCR NOT DETECTED Nasal Coronavir OC43 PCR NOT DETECTED Nasal Enterovir/Rhinovir PCR NOT DETECTED Nasal Influenza B PCR NOT DETECTED Nasal Influenza A PCR NOT DETECTED Nasal Parainfluen 1 PCR NOT DETECTED Nasal Parainfluen 2 PCR NOT DETECTED Nasal Parainfluen 3 PCR NOT DETECTED Nasal Parainfluen 4 PCR NOT DETECTED Nasal RSV (PCR) NOT DETECTED Nasal B.pertussis DNA PCR NOT DETECTED Nasal C.pneumoniae (PCR) NOT DETECTED Kyler Human Metapneumo PCR NOT DETECTED Nasal M.pneumoniae (PCR) NOT DETECTED Nasal SARS-CoV-2 (PCR) NOT DETECTED - Rads (name of study) chest Radiology: Prelim report reviewed (Impression: Suspected pleural plaques and chronically increased interstitial markings. Findings are suggestive of prior asbestos exposure. CT chest could be considered for further evaluation. There is no acute cardiopulmonary process demonstrated.), EMP read indepedently, See rad report Procedures - IVC sono (time) 0850 Bedside IVC sono: IVC measures (cm) (0.88), IVC collapsed c insp (cm) (complete), Dehydration (est 2 liter deficit) PD MEDICAL DECISION MAKING - ED course Complexity details: reviewed old records, reviewed results, re-evaluated patient, considered differential, d/w patient ED course: 85-year-old male with a history of dementia and an indwelling Martinez catheter for BPH and obstruction has a fever. Sepsis protocol is initiated and he is adminis tered intravenous fluid and ceftriaxone for presumed urinary pathology. Urinalysis does come back with greater than 25 white blood cells per high-power field and many bacteria. The patient has infection and he is symptomatic with fever. He does not have elevated lactate. He does not have elevated white blood cell count. He is not vomiting. He is administered IV ceftriaxone and we will start him on . Departure - Departure Disposition: 01 Home, Self Care Clinical Impression: UTI (urinary tract infection) Qualifiers: Urinary tract infection type: catheter-associated UTI Indwelling urinary catheter type: indwelling urethral catheter Encounter type: initial encounter Qualified Code(s): T83.511A - Infection and inflammatory reaction due to indwelling urethral catheter, initial encounter Condition: Stable Instructions: ED UTI Cystitis Male Follow-Up: [facility] [Provider Group] Prescriptions: Sulfamethox/Trimeth 800/160 [Bactrim Ds] 1 tablet PO BID 7 Days #14 tablet
[2020-11-14 08:57] LABS: ALBUMIN 3.9 g/dL (3.2-5.5); ALBUMIN/GLOBULIN RATIO 1.2 (1.0-2.2); BILIRUBIN,TOTAL 1.4 mg/dL (0.2-1.0); CALCIUM 9.1 mg/dL (8.5-10.3); POTASSIUM 3.9 mmol/L (3.5-5.0); TOTAL PROTEIN 7.1 g/dL (6.7-8.2)
[2020-11-14] MEDS: cefTRIAXone 1 GM in SODIUM CHLORIDE 0.9% MINIBAG 100 ML IV STA (09:02)
--- NOTE | 2020-11-14 09:23 | XRAY Report ---
PROCEDURE: Chest 1 View X-Ray INDICATIONS: Chest pain TECHNIQUE: One view of the chest was acquired. COMPARISON: 07/19/2019 FINDINGS: Surgical changes and devices: None. Lungs and pleura: Suspected pleural plaques redemonstrated. Chronically coarsened interstitial markin gs. No acute airspace opacity. Mediastinum: Mediastinal contours appear normal. Heart size is normal. Bones and chest wall: No suspicious bony lesions. Overlying soft tissues appear unremarkable. IMPRESSION: Suspected pleural plaques and chronically increased interstitial markings. Findings are suggestive of prior asbestos exposure. CT chest could be considered for further evaluation. There is no acute cardiopulmonary process demonstrated. Reviewed by: Tad Warren MD on 11/14/2020 9:21 AM PDT Approved by: Tad Warren MD on 11/14/2020 9:21 AM PDT Station ID: [id number]
[2020-11-14 09:52] LABS: BILIRUBIN,URINE NEGATIVE (NEGATIVE); GLUCOSE, URINE (UA) NEGATIVE (NEGATIVE); KETONES,URINE (UA) NEGATIVE (NEGATIVE); LEUKOCYTE ESTERASE, URINE LARGE (NEGATIVE); NITRITE,URINE POSITIVE (NEGATIVE); OCCULT BLOOD,URINE MODERATE (NEGATIVE); PROTEIN,URINE 100 mg/dL (NEGATIVE); UROBILINOGEN,URINE 0.2 (NORMAL) E.U./dL (NORMAL)
[2020-11-14 10:02] LABS: B. PARAPERTUSSIS- RESP PCR PAN NOT DETECTED; B. PERTUSSIS- RESP PCR PANEL NOT DETECTED; C. PNEUMONIAE- RESP PCR PANEL NOT DETECTED; CORONAVIRUS 229E-RESP PCR NOT DETECTED; CORONAVIRUS HKU1-RESP PCR NOT DETECTED; CORONAVIRUS NL63-RESP PCR NOT DETECTED; CORONAVIRUS OC43-RESP PCR NOT DETECTED; HUMAN METAPNEUMOVIRUS NOT DETECTED; INFLUENZA A- RESP PCR PANEL NOT DETECTED; INFLUENZA B - RESP PCR PANEL NOT DETECTED; M. PNEUMONIAE- RESP PCR PANEL NOT DETECTED; PARAINFLUENZA VIRUS 1 NOT DETECTED; PARAINFLUENZA VIRUS 2 NOT DETECTED; PARAINFLUENZA VIRUS 3 NOT DETECTED; PARAINFLUENZA VIRUS 4 NOT DETECTED; RHINOVIRUS/ENTEROVIRUS NOT DETECTED; RSV- RESP PCR PANEL NOT DETECTED; SARS-CoV-2 -RESP PCR PANEL NOT DETECTED
[2020-11-14 10:02] LABS: CLARITY,URINE CLOUDY (CLEAR)
[2020-11-14 10:04] LABS: BACTERIA,URINE Many /HPF (None Seen); SQUAMOUS EPITHELIAL CELL,UR FEW Squamous (<= Few); WBC,URINE >25 /HPF (0-3)
[2020-11-14 10:37] VITALS: BP 158/122
== END 2020-11-14 11:35 | disposition home or self-care (01) ==
LOC: EDUNIT# → ED 08:02
DX: T83.511A Infection and inflammatory reaction due to indwelling urethral catheter, initial encounter (principal); N39.0 Urinary tract infection, site not specified; Y84.6 Urinary catheterization as the cause of abnormal reaction of the patient, or of later complication, without mention of misadventure at the time of the procedure; Y73.8 Miscellaneous gastroenterology and urology devices associated with adverse incidents, not elsewhere classified; E86.0 Dehydration; N40.1 Benign prostatic hyperplasia with lower urinary tract symptoms; R33.8 Other retention of urine; F03.90 Unspecified dementia, unspecified severity, without behavioral disturbance, psychotic disturbance, mood disturbance, and anxiety; Z20.822 Contact with and (suspected) exposure to COVID-19; Z88.0 Allergy status to penicillin
CPT/HCPCS: 0202U; 36415; 51702; 80053; 81001; 83605; 85025; 87040; 87086; 87181; 99284

== ENCOUNTER 2020-11-14 20:01 | Outpatient (CLI) | payer MEDICARE, OTHER | END 2020-11-14 20:02 | disposition critical access hospital (66) | LOC: EMS 20:01 | DX: K62.5 Hemorrhage of anus and rectum (principal) | CPT/HCPCS: A0425; A0429 ==

== ENCOUNTER 2020-11-14 20:16 | Observation (INO) | payer MEDICARE, OTHER ==
[2020-11-14 20:54] LABS: BILIRUBIN,URINE NEGATIVE (NEGATIVE); GLUCOSE, URINE (UA) NEGATIVE (NEGATIVE); KETONES,URINE (UA) TRACE mg/dL (NEGATIVE); LEUKOCYTE ESTERASE, URINE MODERATE (NEGATIVE); NITRITE,URINE NEGATIVE (NEGATIVE); OCCULT BLOOD,URINE MODERATE (NEGATIVE); PH,URINE 5.5 PH (5.0-7.5); PROTEIN,URINE 30 mg/dL (NEGATIVE); UROBILINOGEN,URINE 0.2 (NORMAL) E.U./dL (NORMAL)
[2020-11-14 20:54] LABS: BASOPHILS % (AUTO) 0.3 %; EOSINOPHILS % (AUTO) 0.2 %; HCT - HEMATOCRIT 41.1 % (42.0-52.0); LYMPHOCYTES # (AUTO) 0.7 10^3/uL (1.5-3.5); LYMPHOCYTES % (AUTO) 10.7 %; MEAN CORPUSCULAR HEMOGLOBIN 34.1 pg (27.0-31.0); MEAN CORPUSCULAR HGB CONC 34.1 g/dL (32.0-36.0); MEAN CORPUSCULAR VOLUME 100.2 fL (80.0-94.0); MEAN PLATELET VOLUME 9.1 fL (7.4-11.4); MONOCYTES # (AUTO) 0.8 10^3/uL (0.0-1.0); MONOCYTES % (AUTO) 11.6 %; NEUTROPHILS # (AUTO) 5.1 10^3/uL (1.5-6.6); NEUTROPHILS % (AUTO) 76.6 %; PLT - PLATELET COUNT 83 10^3/uL (130-450); RED CELL DISTRIBUTION WIDTH 13.5 % (12.0-15.0); WHITE BLOOD COUNT 6.6 x10^3/uL (4.8-10.8)
[2020-11-14 20:56] LABS: CLARITY,URINE SL. CLOUDY (CLEAR)
[2020-11-14 21:07] LABS: ALBUMIN 3.7 g/dL (3.2-5.5); ALBUMIN/GLOBULIN RATIO 1.3 (1.0-2.2); CALCIUM 8.7 mg/dL (8.5-10.3); CREATININE 0.9 mg/dL (0.6-1.2); POTASSIUM 4.2 mmol/L (3.5-5.0); TOTAL PROTEIN 6.6 g/dL (6.7-8.2)
[2020-11-14 21:07] LABS: BACTERIA,URINE Few /HPF (None Seen); SQUAMOUS EPITHELIAL CELL,UR NONE SEEN (<= Few); WBC,URINE >25 /HPF (0-3)
[2020-11-14 21:08] LABS: LACTIC ACID, VENOUS 2.4 mmol/L (0.5-2.2)
[2020-11-14] MEDS ORDERED: ACETAMINOPHEN 325 MG TABLET PO STA (21:14)
[2020-11-14] MEDS ORDERED: LIDOCAINE 1% 2 ML VIAL MC ONE (21:45)
[2020-11-14] MEDS ORDERED: cefTRIAXone 1 GM VIAL IM STA (21:45)
[2020-11-14] MEDS ORDERED: ONDANSETRON ODT 4 MG TABLET TL PRN (22:41)
[2020-11-14] MEDS ORDERED: ACETAMINOPHEN 325 MG TABLET PO PRN (22:41)
[2020-11-14] MEDS ORDERED: oxyCODONE 5 MG TABLET PO PRN (22:41)
[2020-11-14] MEDS ORDERED: ONDANSETRON 4 MG/2 ML VIAL IVP PRN (22:41)
[2020-11-14] MEDS ORDERED: SODIUM CHLORIDE FLUSH 0.9% 10 ML SYRINGE IVP PRN (22:41)
[2020-11-14] MEDS ORDERED: MORPHINE 2 MG/ML CARPUJECT IVP PRN (22:41)
--- NOTE | 2020-11-14 22:46 | HISTORY & PHYSICAL EXAMINATION ---
Chief Complaint - Chief Complaint Chief Complaint: fever History of Present Illness - Admitted From Admitted From:: home via POV - History Obtained From Records Reviewed: [facility] History obtained from: patient and Dr. Langley Exam Limitations: none - History of Present Illness HPI Comment/Other: The patient was seen earlier today and brought in by EMS at the request of family because of waxing and waning fever that have been present since the day before. He had chills, a dry cough, but no nasal congestion. He has had previous symptoms before and those were attributed to UTI. He has dementia with a chronic indwelling Martinez catheter for chronic urinary retention. They tried to give him Tylenol at home and it got better but then the fever came back. He was evaluated by the first emergency room provider for a temperature of 38.9. Heart rate of 84. A blood pressure of 114/70. White cell count was normal at 5.9. No acute rise in BUN and creatinine. Urinalysis was positive for UTI. Chest x-ray had possible prior asbestos exposure changes. But no acute cardiopulmonary process. His IVC was evaluated and felt to be compatible with dehydration and at least 2 L deficient. He was given IV fluids, ceftriaxone. He was felt stable enough to go home because his fever went down and he was given Septra. He returns for a second visit tonight because of recurrence of his fever. At this time he is brought in by private vehicle. Dr. Langley has called me saying that he continues to have a normal white cell count, but fever is still present. And his lactic acid is now higher this afternoon than it was earlier today. On the basis of that Dr. Langley would like him to be placed in observation. He is hemodynamically stable. BUN and creatinine continue to be stable.He was given ceftriaxone in the emergency room. He presented to the emergency room in March 2020 with acute urinary retention and that is when the Martinez was placed. He was admitted and grew out E. coli out of his urine. His initial creatinine was 4.2 and went down to 0.8 with the Martinez catheter and hydration. He was seen by urology in April 2020. He had a severely distended bladder with a moderate right hydroureter. Severely enlarged prostate. Other than continuing the Martinez catheter there is no surgical option offered. He had a follow-up in September 2020. The urologist discussed the possibility of performing a cystoscopy and/or urodynamics to determine if his bladder had adequate function to benefit from surgical int ervention with a TURP. The patient stated that he was comfortable with the catheter and opted not to move forward. He was supposed to have a renal ultrasound this March to assure there is no recurrence of hydronephrosis. They discontinued his Flomax and finasteride since he was managed by his Martinez catheter. Cognitive impairment started occurring sometime in 2017. Was apparent and after that is starting to get concerned. 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 He started having difficulty with this in 2018. He was evaluated by neurology from [facility] May 2019. MoCA score was 19/30. Mild word finding difficulty. Was able to recall 4 out of 5 objects. Could not recall where his location was exactly. Visual-spatial was negative for trails, copying, clock drawing. He was prescribed donezepil. And an ambulatory referral to psychology for more extensive neurocognitive testing. 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 He also had a poor sleep habits and they were won dering if sleep disorder was contributing. MRI was negative. Not tolerating the Aricept so was tried on memantine. History - Past Medical History Cardiovascular: reports: Other (atypical cp 2006 w neg trops and neg Stress test) Neuro: reports: Dementia GI: reports: GERD, Other (IBS) : reports: Benign prostate hypertrophy, Indwelling catheter HEENT: reports: Chronic vision loss, Chronic hearing loss Musculoskeletal: reports: Osteoarthritis (w neck pain, MRI +/- 2006) MRSA Hx?: No - Past Surgical History General: reports: Colonoscopy (w polypectomy and rectal bx 2005), Other (RIH and LIH in the past) HEENT: reports: Cataracts (right 2009, left 2003. recurrent R 2019) - Family & Social History Family History: Mother: , Father: Family History Comment/Other: Father at early 30 by suicide. Mother at age 94 from the aging. Living arrangement: At home Living Situation: With spouse/s.o. Social History Notes: He reported he quit smoking about 20 years ago after a 50 pack year hx, he denies alcohol or drug issue, he has 1 daughter and his lives in [place] with his . 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 Drinks 1 glass of whiskey a night. - Substance History Use: Uses substance without health or social issues: Alcohol Abuse: Recurrent use of substance despite neg consequences: NONE Dependence: Experiences withdrawal or developed tolerances: NONE - POLST Patient has POLST: No POLST Status: Full Code Meds/Allgy - Home Medications Home Medications: Ambulatory Orders Medication Instructions Recorded Confirmed Pantoprazole [Protonix] 40 mg PO QDAC 03/28/20 03/29/20 Tamsulosin [Flomax] 0.4 mg PO DAILY 03/28/20 03/28/20 Ciprofloxacin [Cipro] 250 mg PO BID #34 tablet 04/01/20 Lactobacillus Rhamnosus GG 1 cap PO DAILY #17 capsule 04/01/20 [Culturelle] Loperamide [Imodium] 2 mg PO QID PRN #24 capsule 04/01/20 Sulfamethox/Trimeth 800/160 1 tablet PO BID 7 Days #14 tablet 11/14/20 [Bactrim Ds] - Allergies Allergies/Adverse Reactions: Allergies Allergy/AdvReac Type Severity Reaction Status Date / Time celecoxib [From Celebrex] Allergy Unknown Verified 11/14/20 20:27 Penicillins AdvReac Anaphylaxis Verified 11/14/20 20:27 Review of Systems - Constitutional Constitutional: reports: Fatigue, Fever, Chills, Malaise, Poor appetite, Weight loss, Other (He says that he cannot tell me why he is lost his appetite. He just has.) - Eyes Eyes: denies: Pain, Irritation, Amaurosis, Blurred vision, Vision loss - Ears, Nose & Throat Ears, Nose & Throat: reports: Hearing loss, Hearing aids, Dentures. denies: Ear pain - Cardiovascular Cariovascular: denies: Irregular heart rate, Palpitations, Chest pain, Edema, Lightheadedness, Syncope, Exertional dyspnea - Respiratory Respiratory: reports: Cough. denies: Sputum production, Wheezing, Hemoptysis, Orthopnea, SOB at rest, SOB with exertion - Gastrointestinal Gastrointestinal: denies: Abdominal pain, Abdominal distention, Constipation, Diarrhea, Change in bowel habits - Genitourinary Genitourinary: reports: Dysuria, Frequency, Urgency, Other (all of these in spite of catheter in place. he is exasperated with this) - Musculoskeletal Musculoskeletal: reports: Stiffness, Limited range of motion (hip, back and shoulders), Joint pain. denies: Muscle pain, Back pain, Muscle aches - Integumentary Integumentary: denies: Rash, Pruritis, Lesions - Neurological Neurological: reports: General weakness, Memory problems. denies: Focal weakness, Headache, Dizziness - Psychiatric Psychiatric: denies: Depression, Anxiety, Suicidal - Endocrine Endocrine: reports: Intolerance to cold. denies: Polyuria, Polydypsia, Polyphagia - Hematologic/Lymphatic Hematologic/Lymphatic: denies: Anemia Prior Level of Functionality: He tells me that he still able to dress himself, feed himself. Relies on his , family to do the driving. Lately everyone is taken over financial decisions because he is just overwhelmed with the decision processes there of. 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 He tells me that he left so much equipment there, and over the years there is quite a bit of accumulation of things in the building that he had to get rid of. Exam - Vital Signs Reviewed Vital Signs: Yes Vital Signs: Vital Signs x48h Temp Pulse Resp BP Pulse Ox 11/14/20 22:13 37.6 C 83 18 88/79 L 95 11/14/20 21:30 39.0 C H 83 102/50 L 96 11/14/20 21:06 39.3 C H 83 99/50 L 96 11/14/20 20:36 83 108/82 H 97 11/14/20 20:29 38.3 C H 88 16 115/73 99 11/14/20 20:27 38.3 C H 88 16 115/73 99 - Physical Exam General Appearance: positive: No acute distress, Alert, Other (Absolutely pham elderly gentleman who looks very thin and is 5 foot 8 inches tall and weighs 68 kg. Mildly deaf, but able to converse with me normally without any increased respiratory effort or acute distress. His main anxiety is that he does not have his hearing aids or his glasses) Eyes Bilateral: positive: PERRL, EOMI, Conjunctivae nml ENT: positive: Dry mucous membranes, Other (Slightly nasal tone of voice, Cheeks are flushed and red) Neck: positive: No JVD. negative: Lymphadenopathy (R), Lymphadenopathy (L) Respiratory: positive: Chest non-tender. negative: Wheezes, Rales, Rhonchi Cardiovascular: positive: Regular rate & rhythm, Systolic murmur. negative: Gallop/S4, Friction rub Peripheral Pulses: positive: 1+ Abdomen: positive: Non-tender, No organomegaly, Nml bowel sounds, No distention Skin: positive: Warm (He is hot to touch), Dry Extremities: positive: Non-tender, No pedal edema Neurologic/Psychiatric: positive: Motor nml, Disoriented to time, Other (He ke eps on perseverating about his memory loss. But he is able to recall events, give me a lucid history. The only thing that he was disoriented to was time. He is getting confused about his dates, and what time it is.). negative: CN's nml (2-12) (Mildly deaf) Sepsis Event Note (H) - Evaluation Current Stage of Sepsis: Sepsis Possible source of Sepsis: positive: Genitourinary - Sepsis Criteria Sepsis Criteria: Recorded Temperature greater than 38.3C or Less than 36C, MAP less than 65 mmHg, Metabolic: lactate > 2 mmol/L Conclusion/Plan - Problem List (1) Sepsis Conclusion/Plan: It is unusual to admit a patient with sepsis to observation status. However the patient's main symptom is fever. Objectively he has fever, lactic acidosis, and possible relative hypotension. Observation status is 1 midnight. Inpatient status is 2 midnights. I think this patient will be here less than 2 midnights and as such that is why chosen observation status. I will treat the underlying cause of UTI. Adjust antibiotics on the basis of Cultures when they are available. Consider giving him a fluid bolus if his blood pressure continues to be low. Qualifiers: Sepsis type: sepsis due to unspecified organism Sepsis acute organ dysfunction status: unspecified Qualified Code(s): A41.9 - Sepsis, unspecified organism (2) UTI (urinary tract infection) Conclusion/Plan: In a patient who is male, large prostate, chronic urinary retention, Rocephin may not be the best choice. Ciprofloxacin is usually recommended in up-to-date or [place] antibiotic guide. Will use Cipro IV tonight, and transition him to oral tomorrow morning. Qualifiers: Urinary tract infection type: catheter-associated UTI Indwelling urinary catheter type: indwelling urethral catheter Encounter type: initial encounter Qualified Code(s): T83.511A - Infection and inflammatory reaction due to indwelling urethral catheter, initial encounter; N39.0 - Urinary tract infection, site not specified (3) Dementia without behavioral disturbance Conclusion/Plan: Patient will receive symptomatic management for his infection. Hopefully hospital stay overnight will not destabilize him. He is currently alert, oriented. A lucid conversationalist. Just vague on dates and time. Very gentle personality. He had me pray with him. He wanted to do the Lord's prayer and Georgian and wanted me to do the Lord's prayer in [place] with him. Qualifiers: Dementia type: Alzheimer's (4) BPH w urinary obs/LUTS Conclusion/Plan: This is a chronic problem for this unfortunate elderly gentleman. As such he has a chronic indwelling Martinez and is also on tamsulosin. Those will be continued during his stay. The Martinez catheter is a relatively new occurrence in the last year. He has been seen by urology twice. Patient has declined surgical intervention. Plan: Review when his last Martinez catheter was changed (5) Thrombocytopenia Conclusion/Plan: He had mild thrombocytopenia present last year in March 2020. His platelets then rebounded to normal by May of this year. With this morning's visit and this evening's visit he is 89 and 82 respectively. He is not on any medication at home that would cause this. He has no history of cirrhosis and hepatosplenomegaly. He has not been on heparin or Lovenox. Plan: With his age and dementia work-up may be a moot point. Nevertheless we will follow. - Lab Results Lab results reviewed: Yes Fish Bones: 11/14/20 20:43 11/14/20 20:43 - Diagnostic Imaging Results Diagnostic Imaging Results: positive: Final report reviewed Diagnostic Imaging Results Comments: Chest x-ray earlier today showed pleural plaques, chronically increased interstitial markings, compatible with prior asbestosis. No acute cardiopulmonary changes when compared to previous chest x-rays. Core Measures - Anticipated LOS I expect patient to be DC'd or transferred within 96 hours.: Yes - DVT/VTE - Prophylaxis VTE/DVT Device ordered at admit?: Yes
[2020-11-14] MEDS ORDERED: SODIUM CHLORIDE 0.9% 1,000 ML IV STA (22:47)
--- NOTE | 2020-11-14 23:39 | ED Physician Documentation ---
History of Present Illness - Stated complaint Stated Complaint: RECTAL BLEED - Chief complaint Chief Complaint: Fever - History obtained from History obtained from: Patient, EMS - History of Present Illness Timing: Today Pain level max: 0 Pain level now: 0 Improved by: no ameliorating factors Worsened by: no exacerbating factors - Additonal information Additional information: T+R earlier today for fever, found to have catheter-associated UTI but otherwise reassuring test results including normal WBC and lactate, negative respiratory panel. He returns by ambulance because caregiver noted BRBPR this evening. patient has mild dementia; on my HPI, he denies having any symptoms at this time, says "I fell pretty good", denies any pain. Review of Systems Constitutional: reports: Fever Cardiac: denies: Chest pain / pressure Respiratory: denies: Dyspnea, Cough GI: denies: Abdominal Pain, Nausea, Vomiting Musculoskeletal: denies: Back pain Neurologic: denies: Generalized weakness, Focal weakness, Numbness PD PAST MEDICAL HISTORY - Past Medical History Cardiovascular: Other (atypical cp 2006 w neg trops and neg Stress test) Neuro: Dementia GI: GERD, Other (IBS) : Benign prostate hypertrophy, Indwelling catheter HEENT: Chronic vision loss, Chronic hearing loss Musculoskeletal: Osteoarthritis (w neck pain, MRI +/- 2006) - Past Surgical History Past Surgical History: No General: Colonoscopy (w polypectomy and rectal bx 2005), Other (RIH and LIH in the past) HEENT: Cataracts (right 2009, left 2003. recurrent R 2018) - Present Medications Home Medications: Ambulatory Orders Medication Instructions Recorded Confirmed Pantoprazole [Protonix] 40 mg PO QDAC 03/28/20 03/29/20 Tamsulosin [Flomax] 0.4 mg PO DAILY 03/28/20 03/28/20 Ciprofloxacin [Cipro] 250 mg PO BID #34 tablet 04/01/20 Lactobacillus Rhamnosus GG 1 cap PO DAILY #17 capsule 04/01/20 [Culturelle] Loperamide [Imodium] 2 mg PO QID PRN #24 capsule 04/01/20 Sulfamethox/Trimeth 800/160 1 tablet PO BID 7 Days #14 tablet 11/14/20 [Bactrim Ds] - Allergies Allergies/Adverse Reactions: Allergies Allergy/AdvReac Type Severity Reaction Status Date / Time celecoxib [From Celebrex] Allergy Unknown Verified 11/14/20 20:27 Penicillins AdvReac Anaphylaxis Verified 11/14/20 20:27 - Social History Does the pt smoke?: No Smoking Status: Never smoker Does the pt drink ETOH?: Yes Does the pt have substance abuse?: No - Immunizations Immunizations are current?: Yes - POLST Patient has POLST: No POLST Status: Full Code PD ED PE NORMAL - Vitals Vital signs reviewed: Yes - General General: No acute distress, Well developed/nourished, Other (AAOx2) - HEENT HEENT: Moist mucous membranes - Neck Neck: Supple, no meningeal sign - Cardiac Cardiac: RRR, No murmur - Respiratory Respiratory: No respiratory distress, Clear bilaterally - Abdomen Abdomen: Soft, Non tender - Male Male : Other (wagner catheter in place, hazy yellow urine in bag and tubing) - Back Back: No CVA TTP - Derm Derm: No rash - Extremities Extremities: No tenderness to palpate, Normal ROM s pain, No edema PD ED PE EXPANDED - Rectal Rectal: Hemorrhoid (several medium-sized but nontender hemorrhoids noted, no active bleeding. stool is dark brown) Results - Vitals Vitals: Vital Signs - 24 hr 11/14/20 11/14/20 11/14/20 20:27 20:29 20:36 Temperature 38.3 C H 38.3 C H Heart Rate 88 88 83 Respiratory 16 16 Rate Blood Pressure 115/73 115/73 108/82 H O2 Saturation 99 99 97 11/14/20 11/14/20 11/14/20 21:06 21:30 22:13 Temperature 39.3 C H 39.0 C H 37.6 C Heart Rate 83 83 83 Respiratory 18 Rate Blood Pressure 99/50 L 102/50 L 88/79 L O2 Saturation 96 96 95 11/14/20 22:29 Temperature Heart Rate 77 Respiratory 16 Rate Blood Pressure 110/52 L O2 Saturation 95 Oxygen O2 Source Room air - Labs Labs: Microbiology 11/14/20 22:00 Occult Blood - Final Stool Laboratory Tests 11/14/20 11/14/20 11/14/20 20:43 20:43 20:43 WBC 6.6 RBC 4.10 L Hgb 14.0 Hct 41.1 L MCV 100.2 H MCH 34.1 H MCHC 34.1 RDW 13.5 Plt Count 83 L MPV 9.1 Neut # (Auto) 5.1 Lymph # (Auto) 0.7 L [place] # (Auto) 0.8 Eos # (Auto) 0.0 Baso # (Auto) 0.0 Absolute Nucleated RBC 0.00 Nucleated RBC % 0.0 Sodium 138 Potassium 4.2 Chloride 100 L Carbon Dioxide 27 Anion Gap 11.0 BUN 21 H Creatinine 0.9 Estimated GFR (MDRD) 80 L Glucose 126 H Lactic Acid 2.4 H Calcium 8.7 Total Bilirubin 1.0 AST 25 ALT 10 Alkaline Phosphatase 42 Total Protein 6.6 L Albumin 3.7 Globulin 2.9 Albumin/Globulin Ratio 1.3 Urine Color Urine Clarity Urine pH Ur Specific [place] Urine Protein Urine Glucose (UA) Urine Ketones Urine Occult Blood Urine Nitrite Urine Bilirubin Urine Urobilinogen Ur Leukocyte Esterase Urine RBC Urine WBC Ur Squamous Epith Cells Urine Bacteria Urine Culture Comments 11/14/20 20:50 WBC RBC Hgb Hct MCV MCH MCHC RDW Plt Count MPV Neut # (Auto) Lymph # (Auto) [place] # (Auto) Eos # (Auto) Baso # (Auto) Absolute Nucleated RBC Nucleated RBC % Sodium Potassium Chloride Carbon Dioxide Anion Gap BUN Creatinine Estimated GFR (MDRD) Glucose Lactic Acid Calcium Total Bilirubin AST ALT Alkaline Phosphatase Total Protein Albumin Globulin Albumin/Globulin Ratio Urine Color YELLOW Urine Clarity SL. CLOUDY Urine pH 5.5 Ur Specific [place] 1.025 Urine Protein 30 H Urine Glucose (UA) NEGATIVE Urine Ketones TRACE Urine Occult Blood MODERATE H Urine Nitrite NEGATIVE Urine Bilirubin NEGATIVE Urine Urobilinogen 0.2 (NORMAL) Ur Leukocyte Esterase MODERATE H Urine RBC 6-10 H Urine WBC >25 H Ur Squamous Epith Cells NONE SEEN Urine Bacteria Few Urine Culture Comments INDICATED PD MEDICAL DECISION MAKING - ED course Complexity details: reviewed old records, reviewed results, re-evaluated patient, considered differential, d/w patient, d/w family (I discussed test results and plan to admit with patient's (Lorraine) by phone) ED course: Febrile in ED, reassuring wbc but lactate has more than doubled from this morning, now 2.4. Given 1gm IM rocephin but IV subsequently established when lactate resulted, as this would be concerning for early sepsis. D/W Dr. Bennett, will admit for catheter-associated urosepsis. His stool is dark brown, no active bleeding and hemorrhoids are noted on exam Departure - Departure Disposition: ED Place in Observation Clinical Impression: UTI (urinary tract infection) Qualifiers: Urinary tract infection type: catheter-associated UTI Indwelling urinary catheter type: indwelling urethral catheter Encounter type: initial encounter Qualified Code(s): T83.511A - Infection and inflammatory reaction due to indwelling urethral catheter, initial encounter Sepsis Qualifiers: Sepsis type: sepsis due to unspecified organism Sepsis acute organ dysfunction status: unspecified Qualified Code(s): A41.9 - Sepsis, unspecified organism Condition: Stable Discharge Date/Time: 11/14/20 23:41
[2020-11-15] MEDS: CIPROFLOXACIN 400 MG/200 ML 400 MG/200 ML BAG IV SCH ×2 (00:05→11:06)
[2020-11-15] MEDS: SODIUM CHLORIDE FLUSH 0.9% 10 ML SYRINGE IVP SCH ×2 (00:06→08:35)
[2020-11-15] MEDS: LACTATED RINGERS 1,000 ML IV SCH ×2 (01:09→11:02)
[2020-11-15 07:45] LABS: BASOPHILS % (AUTO) 0.2 %; EOSINOPHILS % (AUTO) 0.6 %; HCT - HEMATOCRIT 37.8 % (42.0-52.0); LYMPHOCYTES # (AUTO) 0.8 10^3/uL (1.5-3.5); LYMPHOCYTES % (AUTO) 15.3 %; MEAN CORPUSCULAR HEMOGLOBIN 34.2 pg (27.0-31.0); MEAN CORPUSCULAR HGB CONC 34.4 g/dL (32.0-36.0); MEAN CORPUSCULAR VOLUME 99.5 fL (80.0-94.0); MEAN PLATELET VOLUME 8.6 fL (7.4-11.4); MONOCYTES # (AUTO) 0.6 10^3/uL (0.0-1.0); MONOCYTES % (AUTO) 11.7 %; NEUTROPHILS # (AUTO) 3.8 10^3/uL (1.5-6.6); PLT - PLATELET COUNT 67 10^3/uL (130-450); RED CELL DISTRIBUTION WIDTH 13.4 % (12.0-15.0); WHITE BLOOD COUNT 5.3 x10^3/uL (4.8-10.8)
[2020-11-15 07:52] LABS: CALCIUM 8.4 mg/dL (8.5-10.3); CREATININE 0.8 mg/dL (0.6-1.2); POTASSIUM 3.6 mmol/L (3.5-5.0)
[2020-11-15] MEDS ORDERED: TAMSULOSIN 0.4 MG CAPSULE PO SCH (09:00)
--- NOTE | 2020-11-15 11:04 | PHARMACY PROGRESS NOTE ---
- Best Possible Medication History Admit Date and Time: 11/14/20 2401 Processed by: Pharmacy Medication History completed: Yes Patient Interview: Completed Secondary Source(s): Spouse/Significant other (PATIENT INTERVIEWED BY PHARMACY. PATIENT'S REPORTS PATIENT DOES NOT TAKE ANY HOME MEDICATIONS), Physician records, Pharmacy records, Insurance records As the person ultimately responsible for medication therapy, providers are able to order a medication from an existing home medication list in [facility] via the "Reconcile Routine" prior to Confirmation of that medication by systems support engineer. Such practice is discouraged except when the physician, in their clinical judgment, deems that a medical need exists for a medication without regard to previous use.
[2020-11-15 13:30] LABS: BASOPHILS % (AUTO) 0.1 %; EOSINOPHILS % (AUTO) 0.4 %; HGB - HEMOGLOBIN 13.6 g/dL (14.0-18.0); LYMPHOCYTES # (AUTO) 1.1 10^3/uL (1.5-3.5); LYMPHOCYTES % (AUTO) 16.6 %; MEAN CORPUSCULAR HEMOGLOBIN 34.3 pg (27.0-31.0); MEAN CORPUSCULAR VOLUME 100.8 fL (80.0-94.0); MEAN PLATELET VOLUME 8.3 fL (7.4-11.4); MONOCYTES # (AUTO) 0.8 10^3/uL (0.0-1.0); MONOCYTES % (AUTO) 11.8 %; NEUTROPHILS # (AUTO) 4.7 10^3/uL (1.5-6.6); NEUTROPHILS % (AUTO) 70.7 %; PLT - PLATELET COUNT 82 10^3/uL (130-450); RED BLOOD COUNT 3.97 10^6/uL (4.70-6.10); RED CELL DISTRIBUTION WIDTH 13.3 % (12.0-15.0); WHITE BLOOD COUNT 6.7 x10^3/uL (4.8-10.8)
--- NOTE | 2020-11-15 14:12 | Discharge Plan ---
Discharge Plan Problem Reviewed?: Yes Disposition: Home, Self Care Condition: Stable Prescriptions: Ciprofloxacin [Cipro] 500 mg PO BID 7 Days #28 tablet Diet: Regular Activity Restrictions: Activity as Tolerated Health Concerns: You were admitted to the hospital because of a urinary tract infection. We started you on a different antibiotic called ciprofloxacin. You have since been fever free. So far there has been no evidence of bacteria growing in your blood. Please do not take the other antibiotic that was prescribed in the emergency department. Please take the ciprofloxacin which is prescribed for you. This will be for 7 days. You do have bleeding hemorrhoids but fortunately, your blood counts are stable. Please follow-up with your primary care provider and a referral to general surgery can be made. Plan of Treatment: Please take ciprofloxacin twice a day for 7 days as prescribed. This was sent to [facility]. Care Goals: The goal is to treat the underlying infection. Assessment: I did speak with the patient's given he has dementia to discuss the plan. Additional Instructions or Follow Up instructions: Please follow-up with your primary care provider in 1 week. Please return to the emergency department if you develop fevers, chills, weakness or the feeling of just being unwell. No Smoking: If you smoke, Please STOP! Call for help. Follow-up with: Adia Dlalas DO [Primary Care Provider] -
--- NOTE | 2020-11-15 14:16 | DISCHARGE SUMMARY ---
Discharge Summary Admit Date: 11/14/20 Discharge Date: 11/15/20 Discharging Provider: Wong Duncan Primary Care Provider: Adia Dallas Code Status: Attempt Resuscitation Condition at Discharge: Stable Discharge Disposition: 01 Home, Self Care - DIAGNOSES Admission Diagnoses: Sepsis UTI Dementia without behavioral disturbance BPH Thrombocytopenia Discharge Diagnoses with Status of Each Condition: Sepsis - resolved. UTI - ongoing. Dementia - stable. BPH - stable. Thrombocytopenia - stable. Hemorrhoids - stable. - HPI History of Present Illness: H&P per Dr. Bennett: The patient was seen earlier today and brought in by EMS at the request of family because of waxing and waning fever that have been present since the day before. He had chills, a dry cough, but no nasal congestion. He has had previous symptoms before and those were attributed to UTI. He has dementia with a chronic indwelling Martinez catheter for chronic urinary retention. They tried to give him Tylenol at home and it got better but then the fever came back. He was evaluated by the first emergency room provider for a temperature of 38.9. Heart rate of 84. A blood pressure of 114/70. White cell count was normal at 5.9. No acute rise in BUN and creatinine. Urinalysis was positive for UTI. Chest x-ray had possible prior asbestos exposure changes. But no acute cardiopulmonary process. His IVC was evaluated and felt to be compatible with dehydration and at least 2 L deficient. He was given IV fluids, ceftriaxone. He was felt stable enough to go home because his fever went down and he was given Septra. He returns for a second visit tonight because of recurrence of his fever. At this time he is brought in by private vehicle. Dr. Langley has called me saying that he continues to have a normal white cell count, but fever is still present. And his lactic acid is now higher this afternoon than it was earlier today. On the basis of that Dr. Langley would like him to be placed in observation. He is hemodynamically stable. BUN and creatinine continue to be stable.He was given ceftriaxone in the emergency room. He presented to the emergency room in March 2020 with acute urinary retention and that is when the Martinez was placed. He was admitted and grew out E. coli out of his urine. His initial creatinine was 4.2 and went down to 0.8 with the Martinez catheter and hydration. He was seen by urology in April 2020. He had a severely distended bladder with a moderate right hydroureter. Severely enlarged prostate. Other than continuing the Martinez catheter there is no surgical option offered. He had a follow-up in September 2020. The urologist discussed the possibility of performing a cystoscopy and/or urodynamics to determine if his bladder had adequate function to benefit from surgical intervention with a TURP. The patient stated that he was comfortable with the catheter and opted not to move forward. He was supposed to have a renal ultrasound this March to assure there is no recurrence of hydronephrosis. They discontinued his Flomax and finasteride since he was managed by his Martinez catheter. Cognitive impairment started occurring sometime in 2017. Was apparent and after that is starting to get concerned. 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 He started having difficulty with this in 2018. He was evaluated by neurology from [facility] May 2019. MoCA score was 19/30. Mild word finding difficulty. Was able to recall 4 out of 5 objects. Could not recall where his location was exactly. Visual-spatial was negative for trails, copying, clock drawing. He was prescribed donezepil. And an ambulatory referral to psychology for more extensive neurocognitive testing. 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 He also had a poor sleep habits and they were wondering if sleep disorder was contributing. MRI was negative. Not tolerating the Aricept so was tried on memantine. - HOSPITAL COURSE Hospital Course: He was admitted under observation for sepsis secondary to urinary tract infection. His lactic acid was mildly elevated and this resolved with IV fluids. He was placed on ciprofloxacin IV. He has been afebrile since admission. Blood cultures from his initial ER visit are negative after 24 hours. He has no nausea, vomiting or pain and therefore we did not obtain imaging given his clinical improvement. He was discharged the following day on oral ciprofloxacin 500 mg twice daily to complete 7 days of therapy. He did have thrombocytopenia which is stable. He will need outpatient follow-up with his primary care provider. He also had bleeding hemorrhoids but his hemoglobin has been stable and there has been no evidence of obvious bleeding. He was asked to follow-up with his primary care provider and to consider a referral to general surgery. Of note, his Martinez catheter was not exchanged as it was changed during his initial ER visit. - ALLERGIES Allergies/Adverse Reactions: Allergies Allergy/AdvReac Type Severity Reaction Status Date / Time celecoxib [From Celebrex] Allergy Unknown Verified 11/14/20 20:27 Penicillins AdvReac Anaphylaxis Verified 11/14/20 20:27 - MEDICATIONS Home Medications: Ambulatory Orders Medication Instructions Recorded Confirmed Ciprofloxacin [Cipro] 500 mg PO BID 7 Days #28 tablet 11/15/20 - PHYSICAL EXAM AT DISCHARGE General Appearance: positive: No acute distress, Alert Eyes Bilateral: positive: Normal inspection, Conjunctivae nml ENT: positive: ENT inspection nml Neck: positive: Nml inspection Respiratory: positive: No respiratory distress. negative: Wheezes, Rales Cardiovascular: positive: Regular rate & rhythm, No murmur. negative: Tachycardia Abdomen: positive: Non-tender, Nml bowel sounds, No distention. negative: Tenderness, Guarding, Rebound Back: negative: CVA tenderness (R), CVA tenderness (L) Skin: positive: Warm, Dry Extremities: positive: No pedal edema Neurologic/Psychiatric: positive: Disoriented to time, Other (No focal defi cits.). negative: Disoriented to person, Disoriented to place - LABS Result Diagrams: 11/15/20 13:25 11/15/20 07:36 - SEPSIS Current Stage of Sepsis: Sepsis Possible source of Sepsis: Genitourinary Sepsis Criteria: Recorded Temperature greater than 38.3C or Less than 36C, MAP less than 65 mmHg, Metabolic: lactate > 2 mmol/L - FOLLOW UP Follow Up: He was asked to follow-up with his primary care provider in 1 week. - TIME SPENT Time Spent in Discharge (Minutes): 31
[2020-11-15 15:16] VITALS: BP 132/56
[2020-11-15] MEDS ORDERED: CIPROFLOXACIN 250 MG TABLET PO SCH (21:00)
[2020-11-16] MEDS ORDERED: PANTOPRAZOLE 40 MG TABLET PO SCH (07:00)
== END 2020-11-15 16:00 | disposition home or self-care (01) ==
LOC: EDUNIT# → SUPCPDRO 20:16 → ED 20:16 → MS2 22:41
PROVIDERS: ADMIT Specialist; ATTEND Internal Medicine
DX: A41.9 Sepsis, unspecified organism (principal); T83.511A Infection and inflammatory reaction due to indwelling urethral catheter, initial encounter; N39.0 Urinary tract infection, site not specified; B96.20 Unspecified Escherichia coli [E. coli] as the cause of diseases classified elsewhere; Z16.23 Resistance to quinolones and fluoroquinolones; F03.90 Unspecified dementia, unspecified severity, without behavioral disturbance, psychotic disturbance, mood disturbance, and anxiety; N40.1 Benign prostatic hyperplasia with lower urinary tract symptoms; R33.8 Other retention of urine; D69.6 Thrombocytopenia, unspecified; K64.8 Other hemorrhoids; J92.9 Pleural plaque without asbestos; Z79.899 Other long term (current) drug therapy; Z87.891 Personal history of nicotine dependence; Y84.6 Urinary catheterization as the cause of abnormal reaction of the patient, or of later complication, without mention of misadventure at the time of the procedure; Y73.8 Miscellaneous gastroenterology and urology devices associated with adverse incidents, not elsewhere classified; E86.0 Dehydration; Z20.822 Contact with and (suspected) exposure to COVID-19; Z88.0 Allergy status to penicillin
CPT/HCPCS: 36415; 51702; 71045; 80048; 80053; 81001; 82272; 83605; 85025; 87040; 87077; 87086; 87181; 87631; 96365; 96366; 96372; 99284; 99285; A9270; G0378; J7120; 0202U

== ENCOUNTER 2020-11-21 17:45 | Outpatient (CLI) | payer MEDICARE, OTHER | END 2020-11-21 17:46 | disposition critical access hospital (66) | LOC: EMS 17:45 | DX: R50.9 Fever, unspecified (principal) | CPT/HCPCS: A0425; A0429 ==

== ENCOUNTER 2020-11-21 18:03 | Inpatient (IN) | payer MEDICARE, OTHER ==
[2020-11-21 18:40] LABS: BASOPHILS % (AUTO) 0.3 %; EOSINOPHILS # (AUTO) 0.1 10^3/uL (0.0-0.7); EOSINOPHILS % (AUTO) 0.7 %; HCT - HEMATOCRIT 39.5 % (42.0-52.0); LYMPHOCYTES # (AUTO) 1.9 10^3/uL (1.5-3.5); LYMPHOCYTES % (AUTO) 15.1 %; MEAN CORPUSCULAR HGB CONC 32.9 g/dL (32.0-36.0); MEAN CORPUSCULAR VOLUME 100.3 fL (80.0-94.0); MEAN PLATELET VOLUME 8.9 fL (7.4-11.4); MONOCYTES # (AUTO) 0.9 10^3/uL (0.0-1.0); MONOCYTES % (AUTO) 7.5 %; NEUTROPHILS # (AUTO) 9.3 10^3/uL (1.5-6.6); NEUTROPHILS % (AUTO) 75.8 %; PLT - PLATELET COUNT 122 10^3/uL (130-450); RED BLOOD COUNT 3.94 10^6/uL (4.70-6.10); RED CELL DISTRIBUTION WIDTH 13.2 % (12.0-15.0); WHITE BLOOD COUNT 12.2 x10^3/uL (4.8-10.8)
[2020-11-21 18:54] LABS: ALBUMIN 3.7 g/dL (3.2-5.5); ALBUMIN/GLOBULIN RATIO 1.3 (1.0-2.2); BILIRUBIN,TOTAL 0.6 mg/dL (0.2-1.0); CALCIUM 8.7 mg/dL (8.5-10.3); CREATININE 0.9 mg/dL (0.6-1.2); TOTAL PROTEIN 6.5 g/dL (6.7-8.2)
--- NOTE | 2020-11-21 19:06 | ED Physician Documentation ---
History of Present Illness - Stated complaint Stated Complaint: UTI - Chief complaint Chief Complaint: General - Additonal information Additional information: 85-year-old male who has a chronic indwelling Wagner catheter presents to the emergency department for concerns of urinary tract infection and fever. This gentleman was admitted to our hospital 11/14/2020 for concerns of an elevated lactic acid as well as urinary tract infection. He was discharged with a prescription for Cipro given that his urine culture grew E. coli and pseudomonas. However subsequent sensitivities revealed that it was not sensitive to cipro and thus he was started on cefpodoxime (11/17/20). This gentleman had reported fatigue and had a low-grade temperature elevation of 100.8 at home today and was thus advised to come to the emergency department. History is limited secondary to dementia and thus obtained from the chart. However he does otherwise appear well. Review of Systems Unable to obtain: Dementia PD PAST MEDICAL HISTORY - Past Medical History Past Medical History: Yes Cardiovascular: Other Neuro: Dementia GI: GERD, Other : Benign prostate hypertrophy, Indwelling catheter HEENT: Chronic vision loss, Chronic hearing loss Musculoskeletal: Osteoarthritis - Past Surgical History Past Surgical History: Yes General: Colonoscopy, Other HEENT: Cataracts - Present Medications Home Medications: Ambulatory Orders Medication Instructions Recorded Confirmed Ciprofloxacin [Cipro] 500 mg PO BID 7 Days #28 tablet 11/15/20 Cefpodoxime Proxetil [Vantin] 200 mg PO BID 14 Days #56 tablet 11/16/20 - Allergies Allergies/Adverse Reactions: Allergies Allergy/AdvReac Type Severity Reaction Status Date / Time celecoxib [From Celebrex] Allergy Unknown Verified 11/21/20 18:15 Penicillins AdvReac Anaphylaxis Verified 11/21/20 18:15 - Social History Does the pt smoke?: No Smoking Status: Never smoker Does the pt drink ETOH?: Yes Does the pt have substance abuse?: No - Immunizations Immunizations are current?: Yes - POLST Patient has POLST: No POLST Status: Full Code PD ED PE EXPANDED - General General: Alert, No acute distress - Cardiac Cardiac: Regular Rate, Radial strong equal, Pedal strong equal, Cap refill < 2 sec - Respiratory Respiratory: Clear to ausultation misti. No: Distress, Labored - Abdomen Abdomen: Normal Bowel sounds. No: Tender to palpation - Male Male : Circumcised (wagner in place) - Extremities Extremities: Normal. No: Deformity, Tenderness - Neuro Neuro: Alert and Oriented X 3, CNII-XII intact - GCS Eye Opening: Spontaneous Motor: Obeys Commands Verbal: Oriented Total: 15 Results - Vitals Vitals: Vital Signs - 24 hr 11/21/20 11/21/20 11/21/20 18:12 18:59 19:29 Temperature 37.6 C 37.5 C 37.6 C Heart Rate 74 75 71 Respiratory 16 18 16 Rate Blood Pressure 117/70 115/53 L 105/54 L O2 Saturation 97 100 97 11/21/20 11/21/20 11/21/20 19:30 20:00 20:30 Temperature 37.4 C Heart Rate 72 72 81 Respiratory 16 16 16 Rate Blood Pressure 104/56 L 106/59 L 126/72 O2 Saturation 98 98 98 Oxygen O2 Source Room air - Labs Labs: Laboratory Tests 11/21/20 11/21/20 11/21/20 18:27 18:27 19:08 WBC 12.2 H RBC 3.94 L Hgb 13.0 L Hct 39.5 L MCV 100.3 H MCH 33.0 H MCHC 32.9 RDW 13.2 Plt Count 122 L MPV 8.9 Neut # (Auto) 9.3 H Lymph # (Auto) 1.9 [place] # (Auto) 0.9 Eos # (Auto) 0.1 Baso # (Auto) 0.0 Absolute Nucleated RBC 0.00 Nucleated RBC % 0.0 Sodium 136 Potassium 4.0 Chloride 99 L Carbon Dioxide 28 Anion Gap 9.0 BUN 12 Creatinine 0.9 Estimated GFR (MDRD) 80 L Glucose 124 H Lactic Acid 1.7 Calcium 8.7 Total Bilirubin 0.6 AST 17 ALT 16 Alkaline Phosphatase 45 Total Protein 6.5 L Albumin 3.7 Globulin 2.8 Albumin/Globulin Ratio 1.3 Lipase 24 Urine Color Urine Clarity Urine pH Ur Specific [place] Urine Protein Urine Glucose (UA) Urine Ketones Urine Occult Blood Urine Nitrite Urine Bilirubin Urine Urobilinogen Ur Leukocyte Esterase Urine RBC Urine WBC Ur Squamous Epith Cells Urine Bacteria Urine Yeast Ur Microscopic Review Urine Culture Comments 11/21/20 19:51 WBC RBC Hgb Hct MCV MCH MCHC RDW Plt Count MPV Neut # (Auto) Lymph # (Auto) [place] # (Auto) Eos # (Auto) Baso # (Auto) Absolute Nucleated RBC Nucleated RBC % Sodium Potassium Chloride Carbon Dioxide Anion Gap BUN Creatinine Estimated GFR (MDRD) Glucose Lactic Acid Calcium Total Bilirubin AST ALT Alkaline Phosphatase Total Protein Albumin Globulin Albumin/Globulin Ratio Lipase Urine Color YELLOW Urine Clarity CLOUDY Urine pH 5.5 Ur Specific [place] 1.020 Urine Protein 30 H Urine Glucose (UA) NEGATIVE Urine Ketones TRACE Urine Occult Blood MODERATE H Urine Nitrite NEGATIVE Urine Bilirubin NEGATIVE Urine Urobilinogen 0.2 (NORMAL) Ur Leukocyte Esterase LARGE H Urine RBC 0-5 Urine WBC >25 H Ur Squamous Epith Cells NONE SEEN Urine Bacteria Few Urine Yeast PRESENT Ur Microscopic Review INDICATED Urine Culture Comments INDICATED - Rads (name of study) CT abd Radiology: Final report received (Severe thickening urinary bladder consistent with cystitis. 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 Bilateral subpleural thickening likely secondary to interstitial lung disease severe atherosclerosis. Large amount of stool in colon. 1.5 cm left adrenal nodule. Chronic co) PD MEDICAL DECISION MAKING - ED course Complexity details: reviewed old records, reviewed results, re-evaluated patient, d/w family ED course: 85-year-old male presents the emergency department for concerns of decreased urinary output fatigue as well as fever of 100.8 at home today. Recently admitted to this hospital for concerns of possible sepsis in the setting of the urinary tract infection. He does have a chronic indwelling Wagner catheter secondary to a history of BPH. He was discharged with prescription for Cefpodoxime And remains on that at the time of initial ER eval. History is limited from the patient given a history of dementia. Screening labs today do show a moderate leukocytosis which is certainly a new finding from his recent hospitalization. However he does not have tachycardia or hypotension. No fever here in the ER. His lactate is not elevated. Therefore he does not present as septic. The urine sample does suggest some infection but is difficult to interpret given the presence of a chronic indwelling catheter. Given the leukocytosis a CT of the abdomen was performed and it does show severe thickening of the bladder consistent with a cystitis. There were no other worrisome or acute findings on the CT of the abdomen. Given this gentleman's low-grade fever at home as well as new leukocytosis he was presented for discussion with our nocturnal hospitalist Dr. Coon who graciously agrees to admit the patient for further evaluation and treatment. I did speak on the phone with patient's Louise updated her to the status and condition she is agreeable to further evaluation here at [facility]. Patient is a full code. Departure - Departure Disposition: ED Place in Observation Clinical Impression: Leukocytosis, unspecified Qualifiers: Leukocytosis type: unspecified Qualified Code(s): D72.829 - Elevated white blood cell count, unspecified Discharge Date/Time: 11/21/20 21:35
[2020-11-21 19:58] LABS: BILIRUBIN,URINE NEGATIVE (NEGATIVE); GLUCOSE, URINE (UA) NEGATIVE (NEGATIVE); KETONES,URINE (UA) TRACE mg/dL (NEGATIVE); LEUKOCYTE ESTERASE, URINE LARGE (NEGATIVE); NITRITE,URINE NEGATIVE (NEGATIVE); OCCULT BLOOD,URINE MODERATE (NEGATIVE); PH,URINE 5.5 PH (5.0-7.5); PROTEIN,URINE 30 mg/dL (NEGATIVE); UROBILINOGEN,URINE 0.2 (NORMAL) E.U./dL (NORMAL)
[2020-11-21 19:59] LABS: CLARITY,URINE CLOUDY (CLEAR)
[2020-11-21 20:25] LABS: WBC,URINE >25 /HPF (0-3)
[2020-11-21] MEDS ORDERED: IOVERSOL 320 100 ML VIAL IVP ONE ×2 (20:25→21:09)
[2020-11-21 20:26] LABS: BACTERIA,URINE Few /HPF (None Seen); RBC,URINE 0-5 /HPF (0-5); SQUAMOUS EPITHELIAL CELL,UR NONE SEEN (<= Few); YEAST,URINE PRESENT
[2020-11-21] MEDS ORDERED: HYDROcod/ACETAM 5/325 MG TABLET PO PRN (21:04)
[2020-11-21] MEDS ORDERED: ONDANSETRON 4 MG/2 ML VIAL IVP PRN (21:04)
[2020-11-21] MEDS ORDERED: LIDOCAINE 2% URO-JET 5 ML SYRINGE UR STA (21:09)
--- NOTE | 2020-11-21 21:49 | HISTORY & PHYSICAL EXAMINATION ---
Chief Complaint - Chief Complaint Chief Complaint: Fever History of Present Illness - Admitted From Admitted From:: Emergency department - History Obtained From Records Reviewed: Emergency department History obtained from: Patient and ED provider Exam Limitations: Patient has dementia and is a poor historian - History of Present Illness HPI Comment/Other: Patient is a 85-year-old male with history of chronic indwelling Martinez catheter who was recently discharged from our hospital on 11/15/2020 having been admitted with lactic acidosis and urinary tract infection with urine culture positive for E. coli and Pseudomonas. He did well in the previous hospitalization and was discharged on oral Cipro however after urine culture results with sensitivities came back revealing resistance to Cipro his antibiotics were changed and he was started on cefpodoxime on 11/17/2020. He returns to the emergency room today Reportedly having complained of fatigue, though he does not recall this at the time of exam, and a low-grade temperature of 100.8 F. He was then sent to emergency department for further evaluation. His labs were remarkable for a leukocytosis with a white blood cell count of 16,000 which is remarkable considering on his previous admission he had normal WBC count the entire time. His other vital signs were essentially unremarkable and he had no fever in the emergency department. He denied any complaints or symptoms.Urinalysis is relatively consistent with previous hospitalization with evidence of pyuria and general urinalysis consistent with that of a patient with a chronic indwelling Martinez catheter. Because of the patient's advanced age, dementia, poor historian status, and history of recurrent UTIs with multiple organisms with resistance to multiple antibiotics along with a new development of leukocytosis it was felt that this patient be best served with a observation overnight on IV antibiotics pending further clinical course and urine culture results. History - Past Medical History Cardiovascular: reports: Other Neuro: reports: Dementia GI: reports: GERD, Other : reports: Benign prostate hypertrophy, Indwelling catheter HEENT: reports: Chronic vision loss, Chronic hearing loss Musculoskeletal: reports: Osteoarthritis MRSA Hx?: No - Past Surgical History General: reports: Colonoscopy, Other HEENT: reports: Cataracts - Family & Social History Family History: Mother: , Father: Family History Comment/Other: Father at early 30 by suicide. Mother at age 94 from the aging. Living Situation: With spouse/s.o. Social History Notes: He reported he quit smoking about 20 years ago after a 50 pack year hx, he denies alcohol or drug issue, he has 1 daughter and his lives in [place] with his . 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 Drinks 1 glass of whiskey a night. - Substance History Use: Uses substance without health or social issues: Alcohol - POLST Patient has POLST: No POLST Status: Full Code Meds/Allgy - Home Medications Home Medications: Ambulatory Orders Medication Instructions Recorded Confirmed Ciprofloxacin [Cipro] 500 mg PO BID 7 Days #28 tablet 11/15/20 Cefpodoxime Proxetil [Vantin] 200 mg PO BID 14 Days #56 tablet 11/16/20 - Allergies Allergies/Adverse Reactions: Allergies Allergy/AdvReac Type Severity Reaction Status Date / Time celecoxib [From Celebrex] Allergy Unknown Verified 11/21/20 18:15 Penicillins AdvReac Anaphylaxis Verified 11/21/20 18:15 Review of Systems - Constitutional Constitutional: reports: Fatigue, Fever. denies: Chills - Respiratory Respiratory: denies: Cough, SOB at rest - Gastrointestinal Gastrointestinal: denies: Abdominal pain, Nausea, Vomiting - Genitourinary Genitourinary: denies: Dysuria, Urgency, Hematuria, Nocturia, Urethral discharge - Neurological Neurological: reports: Memory problems (Neuro fogginess mentally), Other Prior Level of Functionality: Patient is a poor historian with dementia but does appear to be relatively ambulatory at baseline and lives at home with his family. Exam - Vital Signs Reviewed Vital Signs: Yes Vital Signs: Vital Signs x48h Temp Pulse Resp BP Pulse Ox 11/21/20 20:30 81 16 126/72 98 11/21/20 20:00 72 16 106/59 L 98 11/21/20 19:30 37.4 C 72 16 104/56 L 98 11/21/20 19:29 37.6 C 71 16 105/54 L 97 11/21/20 18:59 37.5 C 75 18 115/53 L 100 11/21/20 18:12 37.6 C 74 16 117/70 97 - Physical Exam General Appearance: positive: No acute distress Eyes Bilateral: positive: Normal inspection ENT: positive: ENT inspection nml Neck: positive: Nml inspection, Thyroid nml, No JVD Respiratory: positive: Chest non-tender, No respiratory distress Cardiovascular: positive: Regular rate & rhythm, No murmur, No gallop Peripheral Pulses: positive: 2+ Abdomen: positive: Non-tender, No organomegaly, Nml bowel sounds Back: positive: Nml inspection Skin: positive: Color nml, No rash, Warm, Dry Extremities: positive: Non-tender, Full ROM, Nml appearance, No pedal edema Neurologic/Psychiatric: positive: CN's nml (2-12), Mood/affect nml. negative: Disoriented to person, Disoriented to place, Disoriented to time Sepsis Event Note (H) - Evaluation Current Stage of Sepsis: Ruled out Conclusion/Plan - Problem List (1) Leukocytosis, unspecified Conclusion/Plan: Patient with history of chronic indwelling Martinez catheter with leukocytosis and fever but without symptoms of UTI. Most likely etiology of fever and leukocytosis is UTI however with his chronic Martinez catheter status urinalysis interpretation is somewhat difficult. We will empirically treat based on previous sensitivities and culture results for Pseudomonas and E. coli which did demonstrate resistance to multiple organisms so will start empirically with cefepime and repeat WBC in the morning and follow-up urine culture. Will change Martinez catheter and insert sterile catheter in the event that previous catheter is source of infection. ED ordered CT abdomen pelvis, not yet available, will follow up results. Monitor for other signs of infection and image and culture appropriately as indicated Qualifiers: Leukocytosis type: unspecified Qualified Code(s): D72.829 - Elevated white blood cell count, unspecified (2) Thrombocytopenia Conclusion/Plan: History of thrombocytopenia present on previous admission but with platelet count improved compared with last levels currently at 122 up from 82.Line no evidence of bleeding, continue to monitor. (3) BPH w urinary obs/LUTS Conclusion/Plan: Replace indwelling Martinez catheter. Follow-up results of CT abdomen pelvis ordered in the ED which has not been read at the time of admission (4) Fever Conclusion/Plan: As above, most likely source is complicated UTI with history of indwelling Martinez catheter. Start with empiric antibiotics based on previous sensitivities, starting with cefepime for E. coli and Pseudomonas with multiple drug resistance. Consider Ertapenem if not responding overnight. - Lab Results Lab results reviewed: Yes Jim Bones: 11/21/20 18:27 11/21/20 18:27 Core Measures - Anticipated LOS I expect patient to be DC'd or transferred within 96 hours.: Yes - DVT/VTE - Prophylaxis VTE/DVT Device ordered at admit?: Yes
--- NOTE | 2020-11-21 22:07 | CT Report ---
PROCEDURE: Abdomen/Pelvis W INDICATIONS: fever, UTI CONTRAST: IV CONTRAST: Optiray 320 ml: 100 PO CONTRAST: *NO PO CONTRAST TECHNIQUE: After the administration of intravenous contrast, 5 mm thick sections acquired from the diaphragms to the symphysis. 5 mm thick coronal and sagittal reformats were acquired. For radiation dose reducti on, the following was used: automated exposure control, adjustment of mA and/or kV according to michael ent size. COMPARISON: CT abdomen and pelvis without contrast, 03/28/2020. FINDINGS: Image quality: Excellent. 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 Heart size is normal. There is coronary artery calcif ication. A moderate size hiatal hernia is present. Solid organs: Liver and spleen are normal in size and enhancement. Gallbladder is normal. Biliary system is non dilated. Pancreas enhances normally. There is left adrenal thickening. A 1.5 cm left a drenal nodule is noted. Kidneys demonstrate normal size and enhancement, without hydronephrosis. Peritoneum and bowel: Bowel loops demonstrate normal wall thickness and caliber. There is a large a mount of stool in colon. No free fluid or air. Nodes and vessels: No retroperitoneal or mesenteric adenopathy by size criteria. Small para-aortic lymph nodes are noted, likely reactive. Aorta and inferior vena cava are normal in size. Moderate to severe atherosclerotic calcifications. Miscellaneous: No ventral hernias. PELVIS: Genitourinary: Bladder is severely thickened. There is a Martinez catheter within the bladder. Miscellaneous: No inguinal hernias or adenopathy. Bones: No suspicious bony lesions. Moderate chronic compression fracture of T12. Degenerative morocho es in lumbar spine. IMPRESSION: 1. Severe thickening of the urinary bladder consistent with cystitis. Bladder neoplasm cannot be excl uded. Recommend clinical correlation. If clinically indicated, cystoscopy may be helpful. 2. 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 3. Bilateral subpleural septal thickening likely secondary to asbestos related to interstitial lung d isease. 4. Severe atherosclerosis. 5. A large amount of stool in colon. 6. A 1.5 cm left adrenal nodule. Nonemergent adrenal protocol CT or MRI is suggested for follow-up. 7. Moderate chronic compression fracture of T12. Reviewed by: Wojciech Kamara MD on 11/21/2020 10:06 PM PDT Approved by: Wojicech Kamara MD on 11/21/2020 10:06 PM PDT Station ID: [id number]
[2020-11-21] MEDS: CEFEPIME 2 GM in SODIUM CHLORIDE 0.9% MINIBAG 100 ML IV SCH (22:14)
[2020-11-21] MEDS: SODIUM CHLORIDE FLUSH 0.9% 10 ML SYRINGE IVP SCH (22:19)
[2020-11-21 22:26] LABS: B. PARAPERTUSSIS- RESP PCR PAN NOT DETECTED; B. PERTUSSIS- RESP PCR PANEL NOT DETECTED; C. PNEUMONIAE- RESP PCR PANEL NOT DETECTED; CORONAVIRUS 229E-RESP PCR NOT DETECTED; CORONAVIRUS HKU1-RESP PCR NOT DETECTED; CORONAVIRUS NL63-RESP PCR NOT DETECTED; CORONAVIRUS OC43-RESP PCR NOT DETECTED; HUMAN METAPNEUMOVIRUS NOT DETECTED; INFLUENZA A- RESP PCR PANEL NOT DETECTED; INFLUENZA B - RESP PCR PANEL NOT DETECTED; M. PNEUMONIAE- RESP PCR PANEL NOT DETECTED; PARAINFLUENZA VIRUS 1 NOT DETECTED; PARAINFLUENZA VIRUS 2 NOT DETECTED; PARAINFLUENZA VIRUS 3 NOT DETECTED; PARAINFLUENZA VIRUS 4 NOT DETECTED; RHINOVIRUS/ENTEROVIRUS NOT DETECTED; RSV- RESP PCR PANEL NOT DETECTED; SARS-CoV-2 -RESP PCR PANEL NOT DETECTED
[2020-11-22] MEDS: ACETAMINOPHEN 325 MG TABLET PO PRN (01:00)
[2020-11-22 05:23] LABS: HCT - HEMATOCRIT 38.6 % (42.0-52.0); HGB - HEMOGLOBIN 12.9 g/dL (14.0-18.0); MEAN CORPUSCULAR HEMOGLOBIN 33.5 pg (27.0-31.0); MEAN CORPUSCULAR HGB CONC 33.4 g/dL (32.0-36.0); MEAN CORPUSCULAR VOLUME 100.3 fL (80.0-94.0); MEAN PLATELET VOLUME 8.7 fL (7.4-11.4); RED BLOOD COUNT 3.85 10^6/uL (4.70-6.10); RED CELL DISTRIBUTION WIDTH 13.3 % (12.0-15.0); WHITE BLOOD COUNT 11.2 x10^3/uL (4.8-10.8)
[2020-11-22 05:32] LABS: CALCIUM 8.5 mg/dL (8.5-10.3); POTASSIUM 3.7 mmol/L (3.5-5.0)
[2020-11-22] MEDS: polyethylene glycoL 3350 17 GM PACKET PO SCH (10:02)
[2020-11-22] MEDS: DOCUSATE SODIUM 250 MG CAPSULE PO SCH (10:02)
[2020-11-22] MEDS: SENNA 8.6 MG TABLET PO SCH (10:03)
[2020-11-22] MEDS: CEFEPIME 2 GM in SODIUM CHLORIDE 0.9% MINIBAG 100 ML IV SCH ×2 (10:03→21:48)
[2020-11-22] MEDS: SODIUM CHLORIDE FLUSH 0.9% 10 ML SYRINGE IVP SCH ×2 (10:03→17:28)
[2020-11-22] MEDS: SODIUM CHLORIDE 0.9% 1,000 ML IV SCH (11:23)
--- NOTE | 2020-11-22 14:39 | PHARMACY PROGRESS NOTE ---
- Best Possible Medication History Admit Date and Time: 11/22/20 1101 Processed by: Pharmacy Medication History completed: Yes Patient Interview: Completed Secondary Source(s): Written medication list, Spouse/Significant other (CALLED PATIENT'S . SHE REPORTS HE ONLY TAKES MEDICATION FOR REFLUX AND A MULTIVITAMIN ) As the person ultimately responsible for medication therapy, providers are able to order a medication from an existing home medication list in [facility] via the "Reconcile Routine" prior to Confirmation of that medication by computer support technician. Such practice is discouraged except when the physician, in their clinical judgment, deems that a medical need exists for a medication without regard to previous use.
[2020-11-23] MEDS: SODIUM CHLORIDE 0.9% 1,000 ML IV SCH (01:55)
[2020-11-23] MEDS: SODIUM CHLORIDE FLUSH 0.9% 10 ML SYRINGE IVP SCH ×3 (01:56→16:59)
[2020-11-23] MEDS: ACETAMINOPHEN 325 MG TABLET PO PRN (05:03)
[2020-11-23 06:50] LABS: HCT - HEMATOCRIT 34.9 % (42.0-52.0); HGB - HEMOGLOBIN 11.8 g/dL (14.0-18.0); MEAN CORPUSCULAR HEMOGLOBIN 33.7 pg (27.0-31.0); MEAN CORPUSCULAR HGB CONC 33.8 g/dL (32.0-36.0); MEAN CORPUSCULAR VOLUME 99.7 fL (80.0-94.0); RED BLOOD COUNT 3.5 10^6/uL (4.70-6.10); RED CELL DISTRIBUTION WIDTH 13.2 % (12.0-15.0); WHITE BLOOD COUNT 13.4 x10^3/uL (4.8-10.8)
[2020-11-23 07:00] LABS: CALCIUM 8.1 mg/dL (8.5-10.3); CREATININE 0.8 mg/dL (0.6-1.2); POTASSIUM 3.9 mmol/L (3.5-5.0)
[2020-11-23] MEDS: DOCUSATE SODIUM 250 MG CAPSULE PO SCH (07:13)
[2020-11-23] MEDS: polyethylene glycoL 3350 17 GM PACKET PO SCH (07:13)
[2020-11-23] MEDS: SENNA 8.6 MG TABLET PO SCH (07:13)
[2020-11-23] MEDS ORDERED: CEFEPIME 2 GM in SODIUM CHLORIDE 0.9% MINIBAG 100 ML IV SCH (09:00)
[2020-11-23] MEDS: MULTIVITAMIN W/MINERALS TABLET PO SCH (09:13)
[2020-11-23] MEDS: CHOLECALCIFEROL 25 MCG TABLET PO SCH (09:13)
[2020-11-23] MEDS: LACTOBACILLUS RHAMNOSUS GG CAPSULE PO SCH (09:13)
--- NOTE | 2020-11-23 12:50 | PROVIDER PROGRESS NOTE ---
Assessment/Plan - Problem List (3) Dementia without behavioral disturbance Qualifiers: Dementia type: Alzheimer's - Current Meds Current Meds: Current Medications Generic Name Dose Route Start Last Admin Trade Name Delfino PRN Reason Stop Dose Admin Acetaminophen 650 mg 11/21/20 21:04 11/23/20 05:03 Acetaminophen 325 Mg Tablet PO 650 mg Q4HR PRN Administration Pain 1 to 4 Cholecalciferol 50 mcg 11/23/20 09:00 11/23/20 09:13 Cholecalciferol 25 Mcg Tablet PO 50 mcg DAILY CHARLEEN Administration Docusate Sodium 250 - 500 mg 11/22/20 09:00 11/23/20 07:13 Docusate Sodium 250 Mg Capsule PO Not Given DAILY CHARLEEN Lactobacillus Rhamnosus 1 cap 11/23/20 09:00 11/23/20 09:13 Lactobacillus Rhamnosus Gg Capsule PO 1 cap DAILY CHARLEEN Administration Multivitamins/Minerals 1 tab 11/23/20 08:00 11/23/20 09:13 Multivitamin W/Minerals Tablet PO 1 tab DAILYWM CHARLEEN Administration Sodium Chloride 10 ml 11/22/20 01:00 11/23/20 09:13 Sodium Chloride Flush 0.9% 10 Ml Syringe IVP Not Given 0100,0900,1700 CHARLEEN - Lab Result Fish Bone Diagrams: 11/23/20 06:21 11/23/20 06:21 - Additional Planning My Orders: My Active Orders 11/23/20 05:00 LACTIC ACID, VENOUS [CHEM] Routine 11/23/20 11:10 C DIFF PCR Stat 11/23/20 13:00 D5.9NS W/20 MEQ KCL @ 83.333 mls/hr D5ns W/20 Meq KCl 1,000 ml IV 83.333 mls/hr 11/24/20 05:00 CALCIUM [CHEM] DAILYLAB MAGNESIUM [CHEM] DAILYLAB PHOSPHORUS [CHEM] DAILYLAB Objective Vital Signs: Vital Signs - 24 hr 11/22/20 11/22/20 11/22/20 16:00 21:00 23:54 Temperature 36.7 C 37.1 C 36.8 C Heart Rate [ 77 78 76 Brachial] Respiratory 18 18 18 Rate Blood Pressure 108/53 L 98/55 L 108/54 L [Left Brachial artery] O2 Saturation 99 96 97 11/23/20 11/23/20 04:57 07:54 Temperature 37.5 C 36.5 C Heart Rate [ 71 63 Brachial] Respiratory 18 18 Rate Blood Pressure 108/48 L 107/57 L [Left Brachial artery] O2 Saturation 97 97 Oxygen O2 Source Room air I&O (Last 24 Hrs): Intake and Output Totals x24h 11/21/20 11/22/20 11/23/20 23:59 23:59 23:59 Intake Total 376 095 2449.000 Output Total 250 925 725 Balance -150 -575 1495.000 - Results Results: Laboratory Results WBC 13.4 x10^3/uL (4.8-10.8) H 11/23/20 06:21 RBC 3.50 10^6/uL (4.70-6.10) L 11/23/20 06:21 Hgb 11.8 g/dL (14.0-18.0) L 11/23/20 06:21 Hct 34.9 % (42.0-52.0) L 11/23/20 06:21 MCV 99.7 fL (80.0-94.0) H 11/23/20 06:21 MCH 33.7 pg (27.0-31.0) H 11/23/20 06:21 MCHC 33.8 g/dL (32.0-36.0) 11/23/20 06:21 RDW 13.2 % (12.0-15.0) 11/23/20 06:21 Plt Count 127 10^3/uL (130-450) L 11/23/20 06:21 MPV 9.0 fL (7.4-11.4) 11/23/20 06:21 Neut # (Auto) 9.3 10^3/uL (1.5-6.6) H 11/21/20 18:27 Lymph # (Auto) 1.9 10^3/uL (1.5-3.5) 11/21/20 18:27 Beauregard # (Auto) 0.9 10^3/uL (0.0-1.0) 11/21/20 18:27 Eos # (Auto) 0.1 10^3/uL (0.0-0.7) 11/21/20 18:27 Baso # (Auto) 0.0 10^3/uL (0.0-0.1) 11/21/20 18:27 Absolute Nucleated RBC 0.00 x10^3/uL 11/21/20 18:27 Nucleated RBC % 0.0 /100WBC 11/21/20 18:27 Sodium 137 mmol/L (135-145) 11/23/20 06:21 Potassium 3.9 mmol/L (3.5-5.0) 11/23/20 06:21 Chloride 103 mmol/L (101-111) 11/23/20 06:21 Carbon Dioxide 27 mmol/L (21-32) 11/23/20 06:21 Anion Gap 7.0 (6-13) 11/23/20 06:21 BUN 13 mg/dL (6-20) 11/23/20 06:21 Creatinine 0.8 mg/dL (0.6-1.2) 11/23/20 06:21 Estimated GFR (MDRD) 92 (>89) 11/23/20 06:21 Glucose 105 mg/dL (70-100) H 11/23/20 06:21 Lactic Acid 1.7 mmol/L (0.5-2.2) 11/21/20 19:08 Calcium 8.1 mg/dL (8.5-10.3) L 11/23/20 06:21 Total Bilirubin 0.6 mg/dL (0.2-1.0) 11/21/20 18:27 AST 17 IU/L (10-42) 11/21/20 18:27 ALT 16 IU/L (10-60) 11/21/20 18:27 Alkaline Phosphatase 45 IU/L (42-121) 11/21/20 18:27 Total Protein 6.5 g/dL (6.7-8.2) L 11/21/20 18:27 Albumin 3.7 g/dL (3.2-5.5) 11/21/20 18:27 Globulin 2.8 g/dL (2.1-4.2) 11/21/20 18:27 Albumin/Globulin Ratio 1.3 (1.0-2.2) 11/21/20 18:27 Lipase 24 U/L (22-51) 11/21/20 18:27 Urine Color YELLOW 11/21/20 19:51 Urine Clarity CLOUDY (CLEAR) 11/21/20 19:51 Urine pH 5.5 PH (5.0-7.5) 11/21/20 19:51 Ur Specific [place] 1.020 (1.002-1.030) 11/21/20 19:51 Urine Protein 30 mg/dL (NEGATIVE) H 11/21/20 19:51 Urine Glucose (UA) NEGATIVE mg/dL (NEGATIVE) 11/21/20 19:51 Urine Ketones TRACE mg/dL (NEGATIVE) 11/21/20 19:51 Urine Occult Blood MODERATE (NEGATIVE) H 11/21/20 19:51 Urine Nitrite NEGATIVE (NEGATIVE) 11/21/20 19:51 Urine Bilirubin NEGATIVE (NEGATIVE) 11/21/20 19:51 Urine Urobilinogen 0.2 (NORMAL) E.U./dL (NORMAL) 11/21/20 19:51 Ur Leukocyte Esterase LARGE (NEGATIVE) H 11/21/20 19:51 Urine RBC 0-5 /HPF (0-5) 11/21/20 19:51 Urine WBC >25 /HPF (0-3) H 11/21/20 19:51 Ur Squamous Epith Cells NONE SEEN (<= Few) 11/21/20 19:51 Urine Bacteria Few /HPF (None Seen) 11/21/20 19:51 Urine Yeast PRESENT 11/21/20 19:51 Ur Microscopic Review INDICATED 11/21/20 19:51 Urine Culture Comments INDICATED 11/21/20 19:51 Nasal Adenovirus (PCR) NOT DETECTED 11/21/20 21:32 Nasal B. parapertussis DNA (PCR) NOT DETECTED 11/21/20 21:32 Nasal Coronavir 229E PCR NOT DETECTED 11/21/20 21:32 Nasal Coronavir HKU1 PCR NOT DETECTED 11/21/20 21:32 Nasal Coronavir NL63 PCR NOT DETECTED 11/21/20 21:32 Nasal Coronavir OC43 PCR NOT DETECTED 11/21/20 21:32 Nasal Enterovir/Rhinovir PCR NOT DETECTED 11/21/20 21:32 Nasal Influenza B PCR NOT DETECTED 11/21/20 21:32 Nasal Influenza A PCR NOT DETECTED 11/21/20 21:32 Nasal Parainfluen 1 PCR NOT DETECTED 11/21/20 21:32 Nasal Parainfluen 2 PCR NOT DETECTED 11/21/20 21:32 Nasal Parainfluen 3 PCR NOT DETECTED 11/21/20 21:32 Nasal Parainfluen 4 PCR NOT DETECTED 11/21/20 21:32 Nasal RSV (PCR) NOT DETECTED 07 21:32 Nasal B.pertussis DNA PCR NOT DETECTED 11/21/20 21:32 Nasal C.pneumoniae (PCR) NOT DETECTED 11/21/20 21:32 Kyler Human Metapneumo PCR NOT DETECTED 11/21/20 21:32 Nasal M.pneumoniae (PCR) NOT DETECTED 11/21/20 21:32 Nasal SARS-CoV-2 (PCR) NOT DETECTED 11/21/20 21:32 Sepsis Event Note (H) - Evaluation Current Stage of Sepsis: Ruled out
[2020-11-23] MEDS: D5NS W/20 MEQ KCL 1,000 ML IV SCH (14:46)
[2020-11-23] MEDS: SODIUM CHLORIDE FLUSH 0.9% 10 ML SYRINGE IVP PRN (15:05)
[2020-11-23] MEDS: MEROPENEM 1 GM in SODIUM CHLORIDE 0.9% MINIBAG 100 ML IV SCH ×2 (15:08→21:42)
--- NOTE | 2020-11-23 16:35 | PROVIDER PROGRESS NOTE ---
Assessment/Plan - Problem List (1) C. difficile diarrhea Assessment/Plan: Frequent watery diarrhea started this morning. A sample was sent off and is C. difficile positive. WBC may have gone up today from this new problem. We will change his diet to a pured diet then advance as tolerated which is what he is requesting also. We will start Vanco 125 mg p.o. 4 times daily. Start isolation protocol. Continue IV fluids because of fluid loss in frequent diarrhea. Follow electrolyte, PO4 and magnesium daily, replace if needed. (2) E. coli UTI Assessment/Plan: His WBC went up despite being on iv CVefepime for E coli with many resistances, and because of UTI due to very resistant E. coli plus the Pseudomonas, will change his cefepime to iv meropenem. Discussed with Pharmacist, Ibeth. (3) BPH w urinary obs/LUTS Assessment/Plan: Continue with chronic indwelling Martinez management (4) Dementia without behavioral disturbance Qualifiers: Dementia type: Alzheimer's Assessment/Plan: Stable and he is highly functional, by my impression meeting him for the first time today. Will decrease the frequency of any prn narcotics that are ordered, to prevent confusion. - Current Meds Current Meds: Current Medications Generic Name Dose Route Start Last Admin Trade Name Freq PRN Reason Stop Dose Admin Acetaminophen 650 mg 11/21/20 21:04 11/23/20 05:03 Acetaminophen 325 Mg Tablet PO 650 mg Q4HR PRN Administration Pain 1 to 4 Cholecalciferol 50 mcg 11/23/20 09:00 11/23/20 09:13 Cholecalciferol 25 Mcg Tablet PO 50 mcg DAILY CHARLEEN Administration Docusate Sodium 250 - 500 mg 11/22/20 09:00 11/23/20 07:13 Docusate Sodium 250 Mg Capsule PO Not Given DAILY CHARLEEN Potassium Chloride/Dextrose/Sod Cl 1,000 mls @ 83.333 mls/hr 11/23/20 13:00 11/23/20 14:46 D5ns W/20 Meq Kcl IV 0 mls/hr .Q12H CHARLEEN Infusion Meropenem 1 gm/ Sodium 100 mls @ 100 mls/hr 11/23/20 13:30 11/23/20 16:13 Chloride IV Infused Q8H CHARLEEN Infusion Lactobacillus Rhamnosus 1 cap 11/23/20 09:00 11/23/20 09:13 Lactobacillus Rhamnosus Gg Capsule PO 1 cap DAILY CHARLEEN Administration Multivitamins/Minerals 1 tab 11/23/20 08:00 11/23/20 09:13 Multivitamin W/Minerals Tablet PO 1 tab DAILYWM CHARLEEN Administration Sodium Chloride 10 ml 11/21/20 20:59 11/23/20 15:05 Sodium Chloride Flush 0.9% 10 Ml Syringe IVP 10 ml PRN PRN Administration NEEDED PER PROVIDER ORDERS Sodium Chloride 10 ml 11/22/20 01:00 11/23/20 09:13 Sodium Chloride Flush 0.9% 10 Ml Syringe IVP Not Given 0100,0900,1700 CHARLEEN - Lab Result Fish Bone Diagrams: 11/23/20 06:21 11/23/20 06:21 - Additional Planning My Orders: My Active Orders 11/23/20 12:58 Miscellaenous Nursing Order [RC] ONCE 11/23/20 13:00 D5ns W/20 Meq KCl 1,000 ml IV 83.333 mls/hr 11/23/20 13:30 Meropenem [Merrem] 1 gm Sodium Chloride 0.9% Minibag [Normal Saline 0.9% Minibag] 100 ml IV Q8H 11/24/20 05:00 CALCIUM [CHEM] DAILYLAB MAGNESIUM [CHEM] DAILYLAB PHOSPHORUS [CHEM] DAILYLAB Subjective - Subjective Patient Reports: Diarrhea (He has vague miod mid-abdominal pain.) Objective Vital Signs: Vital Signs - 24 hr 11/22/20 11/22/20 11/23/20 21:00 23:54 04:57 Temperature 37.1 C 36.8 C 37.5 C Heart Rate [ 78 76 71 Brachial] Respiratory 18 18 18 Rate Blood Pressure 98/55 L 108/54 L 108/48 L [Left Brachial artery] O2 Saturation 96 97 97 11/23/20 07:54 Temperature 36.5 C Heart Rate [ 63 Brachial] Respiratory 18 Rate Blood Pressure 107/57 L [Left Brachial artery] O2 Saturation 97 Oxygen O2 Source Room air I&O (Last 24 Hrs): Intake and Output Totals x24h 11/21/20 11/22/20 11/23/20 23:59 23:59 23:59 Intake Total 727 756 1784.000 Output Total 250 925 850 Balance -150 -575 1690.000 General: Alert, Oriented x3, Other (Cachectic, eyes sunken) HEENT: Mucous membr. moist/pink Neck: Supple, No JVD Neuro: Alert, Non Focal Cardiovascular: Regular rate, No murmurs Respiratory: No respiratory distress, Breath sounds nml Abdomen: Normal bowel sounds, Soft, No tenderness (No guarding or rebound) Genitourinary: Other (Has a Martinez) Extremities: No clubbing, No edema Skin: No rashes (Skin tenting of hands noted) - Results Results: Laboratory Results WBC 13.4 x10^3/uL (4.8-10.8) H 11/23/20 06:21 RBC 3.50 10^6/uL (4.70-6.10) L 11/23/20 06:21 Hgb 11.8 g/dL (14.0-18.0) L 11/23/20 06:21 Hct 34.9 % (42.0-52.0) L 11/23/20 06:21 MCV 99.7 fL (80.0-94.0) H 11/23/20 06:21 MCH 33.7 pg (27.0-31.0) H 11/23/20 06:21 MCHC 33.8 g/dL (32.0-36.0) 11/23/20 06:21 RDW 13.2 % (12.0-15.0) 11/23/20 06:21 Plt Count 127 10^3/uL (130-450) L 11/23/20 06:21 MPV 9.0 fL (7.4-11.4) 11/23/20 06:21 Neut # (Auto) 9.3 10^3/uL (1.5-6.6) H 11/21/20 18:27 Lymph # (Auto) 1.9 10^3/uL (1.5-3.5) 11/21/20 18:27 Menard # (Auto) 0.9 10^3/uL (0.0-1.0) 11/21/20 18:27 Eos # (Auto) 0.1 10^3/uL (0.0-0.7) 11/21/20 18: Baso # (Auto) 0.0 10^3/uL (0.0-0.1) 11/21/20 18:27 Absolute Nucleated RBC 0.00 x10^3/uL 11/21/20 18:27 Nucleated RBC % 0.0 /100WBC 11/21/20 18:27 Sodium 137 mmol/L (135-145) 11/23/20 06:21 Potassium 3.9 mmol/L (3.5-5.0) 11/23/20 06:21 Chloride 103 mmol/L (101-111) 11/23/20 06:21 Carbon Dioxide 27 mmol/L (21-32) 11/23/20 06:21 Anion Gap 7.0 (6-13) 11/23/20 06:21 BUN 13 mg/dL (6-20) 11/23/20 06:21 Creatinine 0.8 mg/dL (0.6-1.2) 11/23/20 06:21 Estimated GFR (MDRD) 92 (>89) 11/23/20 06:21 Glucose 105 mg/dL (70-100) H 11/23/20 06:21 Lactic Acid 1.6 mmol/L (0.5-2.2) 11/23/20 13:04 Calcium 8.1 mg/dL (8.5-10.3) L 11/23/20 06:21 Total Bilirubin 0.6 mg/dL (0.2-1.0) 11/21/20 18:27 AST 17 IU/L (10-42) 11/21/20 18:27 ALT 16 IU/L (10-60) 11/21/20 18:27 Alkaline Phosphatase 45 IU/L (42-121) 11/21/20 18:27 Total Protein 6.5 g/dL (6.7-8.2) L 11/21/20 18:27 Albumin 3.7 g/dL (3.2-5.5) 11/21/20 18:27 Globulin 2.8 g/dL (2.1-4.2) 11/21/20 18:27 Albumin/Globulin Ratio 1.3 (1.0-2.2) 11/21/20 18:27 Lipase 24 U/L (22-51) 11/21/20 18:27 Urine Color YELLOW 11/21/20 19:51 Urine Clarity CLOUDY (CLEAR) 11/21/20 19:51 Urine pH 5.5 PH (5.0-7.5) 11/21/20 19:51 Ur Specific [place] 1.020 (1.002-1.030) 11/21/20 19:51 Urine Protein 30 mg/dL (NEGATIVE) H 11/21/20 19:51 Urine Glucose (UA) NEGATIVE mg/dL (NEGATIVE) 11/21/20 19:51 Urine Ketones TRACE mg/dL (NEGATIVE) 11/21/20 19:51 Urine Occult Blood MODERATE (NEGATIVE) H 11/21/20 19:51 Urine Nitrite NEGATIVE (NEGATIVE) 11/21/20 19:51 Urine Bilirubin NEGATIVE (NEGATIVE) 11/21/20 19:51 Urine Urobilinogen 0.2 (NORMAL) E.U./dL (NORMAL) 11/21/20 19:51 Ur Leukocyte Esterase LARGE (NEGATIVE) H 11/21/20 19:51 Urine RBC 0-5 /HPF (0-5) 11/21/20 19:51 Urine WBC >25 /HPF (0-3) H 11/21/20 19:51 Ur Squamous Epith Cells NONE SEEN (<= Few) 11/21/20 19:51 Urine Bacteria Few /HPF (None Seen) 11/21/20 19:51 Urine Yeast PRESENT 11/21/20 19:51 Ur Microscopic Review INDICATED 11/21/20 19:51 Urine Culture Comments INDICATED 11/21/20 19:51 Nasal Adenovirus (PCR) NOT DETECTED 11/21/20 21:32 Nasal B. parapertussis DNA (PCR) NOT DETECTED 11/21/20 21:32 Nasal Coronavir 229E PCR NOT DETECTED 11/21/20 21:32 Nasal Coronavir HKU1 PCR NOT DETECTED 11/21/20 21:32 Nasal Coronavir NL63 PCR NOT DETECTED 11/21/20 21:32 Nasal Coronavir OC43 PCR NOT DETECTED 11/21/20 21:32 Nasal Enterovir/Rhinovir PCR NOT DETECTED 11/21/20 21:32 Nasal Influenza B PCR NOT DETECTED 11/21/20 21:32 Nasal Influenza A PCR NOT DETECTED 11/21/20 21:32 Nasal Parainfluen 1 PCR NOT DETECTED 11/21/20 21:32 Nasal Parainfluen 2 PCR NOT DETECTED 11/21/20 21:32 Nasal Parainfluen 3 PCR NOT DETECTED 11/21/20 21:32 Nasal Parainfluen 4 PCR NOT DETECTED 11/21/20 21:32 Nasal RSV (PCR) NOT DETECTED 11/21/20 21:32 Nasal B.pertussis DNA PCR NOT DETECTED 11/21/20 21:32 Nasal C.pneumoniae (PCR) NOT DETECTED 11/21/20 21:32 Kyler Human Metapneumo PCR NOT DETECTED 07 21:32 Nasal M.pneumoniae (PCR) NOT DETECTED 11/21/20 21:32 Nasal SARS-CoV-2 (PCR) NOT DETECTED 11/21/20 21:32 Stl C. diff Tox B Gene POSITIVE (NEGATIVE) A* 11/23/20 11:10 Sepsis Event Note (H) - Evaluation Current Stage of Sepsis: Ruled out
[2020-11-23] MEDS ORDERED: HYDROcod/ACETAM 5/325 MG TABLET PO PRN (16:38)
[2020-11-23] MEDS: PANTOPRAZOLE 40 MG TABLET PO SCH (17:45)
[2020-11-23] MEDS: VANCOMYCIN 125 MG CAPSULE PO SCH ×2 (21:42→23:11)
[2020-11-24] MEDS: SODIUM CHLORIDE FLUSH 0.9% 10 ML SYRINGE IVP SCH ×3 (02:20→16:41)
[2020-11-24] MEDS: D5NS W/20 MEQ KCL 1,000 ML IV SCH ×3 (02:34→21:29)
[2020-11-24] MEDS: MEROPENEM 1 GM in SODIUM CHLORIDE 0.9% MINIBAG 100 ML IV SCH ×3 (05:54→21:28)
[2020-11-24] MEDS: SODIUM CHLORIDE FLUSH 0.9% 10 ML SYRINGE IVP PRN (05:54)
[2020-11-24 06:15] LABS: HCT - HEMATOCRIT 34.6 % (42.0-52.0); HGB - HEMOGLOBIN 11.6 g/dL (14.0-18.0); MEAN CORPUSCULAR HEMOGLOBIN 33.6 pg (27.0-31.0); MEAN CORPUSCULAR HGB CONC 33.5 g/dL (32.0-36.0); MEAN CORPUSCULAR VOLUME 100.3 fL (80.0-94.0); RED BLOOD COUNT 3.45 10^6/uL (4.70-6.10); RED CELL DISTRIBUTION WIDTH 13.4 % (12.0-15.0); WHITE BLOOD COUNT 14.4 x10^3/uL (4.8-10.8)
[2020-11-24] MEDS: PANTOPRAZOLE 40 MG TABLET PO SCH (06:15)
[2020-11-24 06:29] LABS: CALCIUM 7.8 mg/dL (8.5-10.3); CREATININE 0.7 mg/dL (0.6-1.2); MAGNESIUM 1.7 mg/dL (1.7-2.8); PHOSPHORUS 1.8 mg/dL (2.5-4.6); POTASSIUM 3.3 mmol/L (3.5-5.0)
[2020-11-24] MEDS ORDERED: POTASSIUM CHLORIDE 20 MEQ TABLET PO ONE (07:01)
[2020-11-24] MEDS: CHOLECALCIFEROL 25 MCG TABLET PO SCH (08:29)
[2020-11-24] MEDS: VANCOMYCIN 125 MG CAPSULE PO SCH ×4 (08:29→21:28)
[2020-11-24] MEDS: LACTOBACILLUS RHAMNOSUS GG CAPSULE PO SCH (08:29)
[2020-11-24] MEDS: MULTIVITAMIN W/MINERALS TABLET PO SCH (08:29)
[2020-11-24] MEDS ORDERED: NON FORMULARY MED (Omeprazole [Prilosec] 20 MG Capsule) PO SCH (09:00)
[2020-11-24] MEDS ORDERED: POTASSIUM PHOSPHATE 15 MMOL in SODIUM CHLORIDE 0.9% 250 ML IV ONE (09:00)
--- NOTE | 2020-11-24 11:21 | PROVIDER PROGRESS NOTE ---
Assessment/Plan - Problem List (1) C. difficile diarrhea Assessment/Plan: He had only a small liquid BM today after many liquid watery nonpainful bowel movements yesterday. Vanco p.o. was started yesterday evening. The plan is to complete a 10-day course of p.o. Vanco. We will continue with IV fluids because of fluid losses with diarrhea. Some abdominal achiness and still wants to be on a pured diet. Continue with isolation/contact precautions Follow BMP, magnesium,calcium and phosphorus daily and replace when needed (2) E. coli UTI Assessment/Plan: This patient had untreated UTI because his E. coli had resistances to the antibiotics that have been chosen for outpatient treatment. His white count has been going up since he has been admitted from 12 to 13-14 today. Yesterday empiric IV cefepime was switched to IV Merrem. We will continue with this IV Merrem and observe if the white count improves by tomorrow. New cultures have been sent, awaiting their results to see if they are negative (3) BPH w urinary obs/LUTS Assessment/Plan: Continue with his chronic Martinez care. It was changed out at admission (4) Dementia without behavioral disturbance Qualifiers: Dementia type: Alzheimer's Assessment/Plan: The patient is very functional. He did repeat some of his questions several times however. Continue with supportive measures. - Current Meds Current Meds: Current Medications Generic Name Dose Route Start Last Admin Trade Name Delfino PRN Reason Stop Dose Admin Acetaminophen 650 mg 11/21/20 21:04 11/23/20 05:03 Acetaminophen 325 Mg Tablet PO 650 mg Q4HR PRN Administration Pain 1 to 4 Cholecalciferol 50 mcg 11/23/20 09:00 11/24/20 08:29 Cholecalciferol 25 Mcg Tablet PO 50 mcg DAILY CHARLEEN Administration Potassium Chloride/Dextrose/Sod Cl 1,000 mls @ 83.333 mls/hr 11/23/20 13:00 11/24/20 08:33 D5ns W/20 Meq Kcl IV 0 mls/hr .Q12H CHARLEEN Infusion Meropenem 1 gm/ Sodium 100 mls @ 100 mls/hr 11/23/20 13:30 11/24/20 07:15 Chloride IV Infused Q8H CHARLEEN Infusion Potassium Phosphate 15 mmol/ 255 mls @ 42.5 mls/hr 11/24/20 09:00 11/24/20 08:33 Sodium Chloride IV 11/24/20 14:59 42.5 mls/hr ONCE ONE Administration Lactobacillus Rhamnosus 1 cap 11/23/20 09:00 11/24/20 08:29 Lactobacillus Rhamnosus Gg Capsule PO 1 cap DAILY CHARLEEN Administration Multivitamins/Minerals 1 tab 11/23/20 08:00 11/24/20 08:29 Multivitamin W/Minerals Tablet PO 1 tab DAILYWM CHARLEEN Administration Pantoprazole Sodium 40 mg 11/23/20 17:00 11/24/20 06:15 Pantoprazole 40 Mg Tablet PO 40 mg QDAC CHARLEEN Administration Sodium Chloride 10 ml 11/21/20 20:59 11/24/20 05:54 Sodium Chloride Flush 0.9% 10 Ml Syringe IVP 10 ml PRN PRN Administration NEEDED PER PROVIDER ORDERS Sodium Chloride 10 ml 11/22/20 01:00 11/24/20 08:29 Sodium Chloride Flush 0.9% 10 Ml Syringe IVP 10 ml 0100,0900,1700 CHARLEEN Administration Vancomycin HCl 125 mg 11/23/20 19:58 11/24/20 08:29 Vancomycin 125 Mg Capsule PO 125 mg QID CHARLEEN Administration - Lab Result Fish Bone Diagrams: 11/24/20 04:49 11/24/20 04:49 - Additional Planning My Orders: My Active Orders 11/23/20 12:58 Miscellaenous Nursing Order [RC] ONCE 11/23/20 13:00 D5ns W/20 Meq KCl 1,000 ml IV 83.333 mls/hr 11/23/20 13:30 Meropenem [Merrem] 1 gm Sodium Chloride 0.9% Minibag [Normal Saline 0.9% Minibag] 100 ml IV Q8H 11/23/20 Dinner Dysphagia Puree Diet [DIET] 11/23/20 16:38 HYDROcod/ACETAM 5/325 [[place] 5/325] 1 tab PO Q8HR PRN 11/23/20 17:00 Pantoprazole [Protonix] 40 mg PO QDAC 11/23/20 19:58 Vancomycin [Vancocin] 125 mg PO QID 11/24/20 17:30 BMP - BASIC METABOLIC PANEL [CHEM] Timed MAGNESIUM [CHEM] Timed PHOSPHORUS [CHEM] Timed Subjective - Subjective Patient Reports: Feeling Better, Other (Less diarrhea, same abdominal achiness, no appetite. He feels better because he has not had a fever since yesterday.) Objective Vital Signs: Vital Signs - 24 hr 11/23/20 11/23/20 11/24/20 16:37 23:37 08:00 Temperature 37.4 C 36.7 C 36.7 C Heart Rate [ 73 77 73 Brachial] Respiratory 18 18 16 Rate Blood Pressure 105/90 H 102/57 L [Left Brachial artery] Blood Pressure 115/55 L [Right Brachial artery] O2 Saturation 98 97 94 Oxygen O2 Source Room air I&O (Last 24 Hrs): Intake and Output Totals x24h 11/22/20 11/23/20 11/24/20 23:59 23:59 23:59 Intake Total 350 3230.000 1618.610 Output Total 925 1475 325 Balance -575 8940.546 3645.610 General: Alert, Oriented x3 HEENT: Mucous membr. moist/pink Neck: Supple, No JVD Neuro: Alert, Non Focal (Short-term memory seems to be poor) Cardiovascular: Regular rate, No murmurs Respiratory: No respiratory distress, Breath sounds nml Abdomen: Soft (Hyperactive bowel sounds), No tenderness Genitourinary: Other (Martinez catheter in place) Extremities: No clubbing, No edema - Results Results: Laboratory Results WBC 14.4 x10^3/uL (4.8-10.8) H 11/24/20 04:49 RBC 3.45 10^6/uL (4.70-6.10) L 11/24/20 04:49 Hgb 11.6 g/dL (14.0-18.0) L 11/24/20 04:49 Hct 34.6 % (42.0-52.0) L 11/24/20 04:49 MCV 100.3 fL (80.0-94.0) H 11/24/20 04:49 MCH 33.6 pg (27.0-31.0) H 11/24/20 04:49 MCHC 33.5 g/dL (32.0-36.0) 11/24/20 04:49 RDW 13.4 % (12.0-15.0) 11/24/20 04:49 Plt Count 139 10^3/uL (130-450) 11/24/20 04:49 MPV 9.0 fL (7.4-11.4) 11/24/20 04:49 Neut # (Auto) 9.3 10^3/uL (1.5-6.6) H 11/21/20 18:27 Lymph # (Auto) 1.9 10^3/uL (1.5-3.5) 11/21/20 18: [place] # (Auto) 0.9 10^3/uL (0.0-1.0) 11/21/20 18: Eos # (Auto) 0.1 10^3/uL (0.0-0.7) 11/21/20 18: Baso # (Auto) 0.0 10^3/uL (0.0-0.1) 11/21/20 18: Absolute Nucleated RBC 0.00 x10^3/uL 11/21/20 18: Nucleated RBC % 0.0 /100WBC 11/21/20 18: Sodium 139 mmol/L (135-145) 11/24/20 04:49 Potassium 3.3 mmol/L (3.5-5.0) L 11/24/20 04:49 Chloride 106 mmol/L (101-111) 11/24/20 04:49 Carbon Dioxide 26 mmol/L (21-32) 11/24/20 04:49 Anion Gap 7.0 (6-13) 11/24/20 04:49 BUN 9 mg/dL (6-20) 11/24/20 04:49 Creatinine 0.7 mg/dL (0.6-1.2) 11/24/20 04:49 Estimated GFR (MDRD) 107 (>89) 11/24/20 04:49 Glucose 117 mg/dL (70-100) H 11/24/20 04:49 Lactic Acid 1.2 mmol/L (0.5-2.2) 11/24/20 08:41 Calcium 7.8 mg/dL (8.5-10.3) L 11/24/20 04:49 Phosphorus 1.8 mg/dL (2.5-4.6) L 11/24/20 04:49 Magnesium 1.7 mg/dL (1.7-2.8) 11/24/20 04:49 Total Bilirubin 0.6 mg/dL (0.2-1.0) 11/21/20 18:27 AST 17 IU/L (10-42) 11/21/20 18:27 ALT 16 IU/L (10-60) 11/21/20 18:27 Alkaline Phosphatase 45 IU/L (42-121) 11/21/20 18:27 Total Protein 6.5 g/dL (6.7-8.2) L 11/21/20 18:27 Albumin 3.7 g/dL (3.2-5.5) 11/21/20 18:27 Globulin 2.8 g/dL (2.1-4.2) 11/21/20 18: Albumin/Globulin Ratio 1.3 (1.0-2.2) 11/21/20 18:27 Lipase 24 U/L (22-51) 11/21/20 18:27 Urine Color YELLOW 11/21/20 19:51 Urine Clarity CLOUDY (CLEAR) 11/21/20 19:51 Urine pH 5.5 PH (5.0-7.5) 11/21/20 19:51 Ur Specific [place] 1.020 (1.002-1.030) 11/21/20 19:51 Urine Protein 30 mg/dL (NEGATIVE) H 11/21/20 19:51 Urine Glucose (UA) NEGATIVE mg/dL (NEGATIVE) 11/21/20 19:51 Urine Ketones TRACE mg/dL (NEGATIVE) 11/21/20 19:51 Urine Occult Blood MODERATE (NEGATIVE) H 11/21/20 19:51 Urine Nitrite NEGATIVE (NEGATIVE) 11/21/20 19:51 Urine Bilirubin NEGATIVE (NEGATIVE) 11/21/20 19:51 Urine Urobilinogen 0.2 (NORMAL) E.U./dL (NORMAL) 11/21/20 19:51 Ur Leukocyte Esterase LARGE (NEGATIVE) H 11/21/20 19:51 Urine RBC 0-5 /HPF (0-5) 11/21/20 19:51 Urine WBC >25 /HPF (0-3) H 11/21/20 19:51 Ur Squamous Epith Cells NONE SEEN (<= Few) 11/21/20 19:51 Urine Bacteria Few /HPF (None Seen) 11/21/20 19:51 Urine Yeast PRESENT 11/21/20 19:51 Ur Microscopic Review INDICATED 11/21/20 19:51 Urine Culture Comments INDICATED 11/21/20 19:51 Nasal Adenovirus (PCR) NOT DETECTED 11/21/20 21:32 Nasal B. parapertussis DNA (PCR) NOT DETECTED 11/21/20 21:32 Nasal Coronavir 229E PCR NOT DETECTED 11/21/20 21:32 Nasal Coronavir HKU1 PCR NOT DETECTED 11/21/20 21:32 Nasal Coronavir NL63 PCR NOT DETECTED 11/21/20 21:32 Nasal Coronavir OC43 PCR NOT DETECTED 11/21/20 21:32 Nasal Enterovir/Rhinovir PCR NOT DETECTED 11/21/20 21:32 Nasal Influenza B PCR NOT DETECTED 11/21/20 21:32 Nasal Influenza A PCR NOT DETECTED 11/21/20 21:32 Nasal Parainfluen 1 PCR NOT DETECTED 11/21/20 21:32 Nasal Parainfluen 2 PCR NOT DETECTED 11/21/20 21:32 Nasal Parainfluen 3 PCR NOT DETECTED 11/21/20 21:32 Nasal Parainfluen 4 PCR NOT DETECTED 11/21/20 21:32 Nasal RSV (PCR) NOT DETECTED 11/21/20 21:32 Nasal B.pertussis DNA PCR NOT DETECTED 11/21/20 21:32 Nasal C.pneumoniae (PCR) NOT DETECTED 11/21/20 21:32 Kyler Human Metapneumo PCR NOT DETECTED 11/21/20 21:32 Nasal M.pneumoniae (PCR) NOT DETECTED 11/21/20 21:32 Nasal SARS-CoV-2 (PCR) NOT DETECTED 11/21/20 21:32 Stl C. diff Tox B Gene POSITIVE (NEGATIVE) A* 11/23/20 11:10 Sepsis Event Note (H) - Evaluation Current Stage of Sepsis: Ruled out
[2020-11-24 17:16] LABS: CALCIUM 8.4 mg/dL (8.5-10.3); CREATININE 0.7 mg/dL (0.6-1.2); MAGNESIUM 1.8 mg/dL (1.7-2.8); PHOSPHORUS 1.7 mg/dL (2.5-4.6); POTASSIUM 4.1 mmol/L (3.5-5.0)
[2020-11-25] MEDS: SODIUM CHLORIDE FLUSH 0.9% 10 ML SYRINGE IVP SCH ×3 (03:36→16:55)
[2020-11-25] MEDS: MEROPENEM 1 GM in SODIUM CHLORIDE 0.9% MINIBAG 100 ML IV SCH ×3 (05:51→21:01)
[2020-11-25] MEDS: PANTOPRAZOLE 40 MG TABLET PO SCH (05:54)
[2020-11-25] MEDS: SACCHAROMYCES BOULARDII 250 MG CAPSULE PO SCH ×2 (09:13→16:55)
[2020-11-25] MEDS: MULTIVITAMIN W/MINERALS TABLET PO SCH (09:14)
[2020-11-25] MEDS: CHOLECALCIFEROL 25 MCG TABLET PO SCH (09:14)
[2020-11-25] MEDS: VANCOMYCIN 125 MG CAPSULE PO SCH ×4 (09:14→21:01)
[2020-11-25] MEDS: D5NS W/20 MEQ KCL 1,000 ML IV SCH (10:54)
[2020-11-25 11:51] LABS: BASOPHILS # (AUTO) 0.1 10^3/uL (0.0-0.1); BASOPHILS % (AUTO) 0.6 %; EOSINOPHILS # (AUTO) 0.2 10^3/uL (0.0-0.7); EOSINOPHILS % (AUTO) 1.9 %; HCT - HEMATOCRIT 36.2 % (42.0-52.0); HGB - HEMOGLOBIN 12.6 g/dL (14.0-18.0); LYMPHOCYTES # (AUTO) 1.3 10^3/uL (1.5-3.5); LYMPHOCYTES % (AUTO) 12.9 %; MEAN CORPUSCULAR HEMOGLOBIN 34.2 pg (27.0-31.0); MEAN CORPUSCULAR HGB CONC 34.8 g/dL (32.0-36.0); MEAN CORPUSCULAR VOLUME 98.4 fL (80.0-94.0); MEAN PLATELET VOLUME 8.7 fL (7.4-11.4); MONOCYTES # (AUTO) 0.8 10^3/uL (0.0-1.0); MONOCYTES % (AUTO) 7.4 %; NEUTROPHILS # (AUTO) 7.7 10^3/uL (1.5-6.6); NEUTROPHILS % (AUTO) 76.4 %; PLT - PLATELET COUNT 153 10^3/uL (130-450); RED BLOOD COUNT 3.68 10^6/uL (4.70-6.10); RED CELL DISTRIBUTION WIDTH 13.2 % (12.0-15.0); WHITE BLOOD COUNT 10.1 x10^3/uL (4.8-10.8)
[2020-11-25 12:07] LABS: CALCIUM 8.3 mg/dL (8.5-10.3); CREATININE 0.6 mg/dL (0.6-1.2); MAGNESIUM 1.7 mg/dL (1.7-2.8); PHOSPHORUS 1.6 mg/dL (2.5-4.6); POTASSIUM 3.7 mmol/L (3.5-5.0)
[2020-11-25] MEDS ORDERED: SODIUM PHOSPHATE 20 MMOL in SODIUM CHLORIDE 0.9% 250 ML IV ONE (16:30)
--- NOTE | 2020-11-25 23:42 | PROVIDER PROGRESS NOTE ---
Assessment/Plan - Problem List (1) UTI (urinary tract infection) Assessment/Plan: Improved Consider stopping abx tomorrow, as this will complete 5 days of IV Abx, including 3 days of Meropenem (2) C. difficile diarrhea Assessment/Plan: Improved Cont oral Vanco (3) BPH w urinary obs/LUTS Assessment/Plan: Cont wagner catheter, changed on admission. Can d/c with cath in place - Current Meds Current Meds: Current Medications Generic Name Dose Route Start Last Admin Trade Name Freq PRN Reason Stop Dose Admin Acetaminophen 650 mg 11/21/20 21:04 11/23/20 05:03 Acetaminophen 325 Mg Tablet PO 650 mg Q4HR PRN Administration Pain 1 to 4 Hydrocodone Bitart/Acetaminophen 1 tab 11/23/20 16:38 11/24/20 17:26 Hydrocod/Acetam 5/325 Mg Tablet PO 1 tab Q8HR PRN Administration Pain 5 to 7 Cholecalciferol 50 mcg 11/23/20 09:00 11/25/20 09:14 Cholecalciferol 25 Mcg Tablet PO 50 mcg DAILY CHARLEEN Administration Potassium Chloride/Dextrose/Sod Cl 1,000 mls @ 83.333 mls/hr 11/23/20 13:00 11/25/20 22:05 D5ns W/20 Meq Kcl IV 83.333 mls/hr .Q12H CHARLEEN Infusion Meropenem 1 gm/ Sodium 100 mls @ 100 mls/hr 11/23/20 13:30 11/25/20 22:05 Chloride IV Infused Q8H CHARLEEN Infusion Multivitamins/Minerals 1 tab 11/23/20 08:00 11/25/20 09:14 Multivitamin W/Minerals Tablet PO 1 tab DAILYWM CHARLEEN Administration Ondansetron HCl 4 mg 11/21/20 21:04 11/24/20 17:26 Ondansetron 4 Mg/2 Ml Vial IVP 4 mg Q6HR PRN Administration Nausea / Vomiting Pantoprazole Sodium 40 mg 11/23/20 17:00 11/25/20 05:54 Pantoprazole 40 Mg Tablet PO 40 mg QDAC CHARLEEN Administration Saccharomyces Boulardii 500 mg 11/25/20 08:00 11/25/20 16:55 Saccharomyces Boulardii 250 Mg Capsule PO 500 mg BIDWM CHARLEEN Administration Sodium Chloride 10 ml 11/21/20 20:59 11/24/20 05:54 Sodium Chloride Flush 0.9% 10 Ml Syringe IVP 10 ml PRN PRN Administration NEEDED PER PROVIDER ORDERS Sodium Chloride 10 ml 11/22/20 01:00 11/25/20 16:55 Sodium Chloride Flush 0.9% 10 Ml Syringe IVP 10 ml 0100,0900,1700 CHARLEEN Administration Vancomycin HCl 125 mg 11/23/20 19:58 11/25/20 21:01 Vancomycin 125 Mg Capsule PO 125 mg QID CHARLEEN Administration - Lab Result Fish Bone Diagrams: 11/25/20 11:46 11/25/20 11:46 - Additional Planning My Orders: My Active Orders 11/26/20 05:00 BMP - BASIC METABOLIC PANEL [CHEM] DAILYLAB CBC W/O DIFF (HEMOGRAM) [HEME] DAILYLAB MAGNESIUM [CHEM] DAILYLAB PHOSPHORUS [CHEM] DAILYLAB 11/27/20 05:00 BMP - BASIC METABOLIC PANEL [CHEM] DAILYLAB CBC W/O DIFF (HEMOGRAM) [HEME] DAILYLAB MAGNESIUM [CHEM] DAILYLAB PHOSPHORUS [CHEM] DAILYLAB 11/28/20 05:00 BMP - BASIC METABOLIC PANEL [CHEM] DAILYLAB CBC W/O DIFF (HEMOGRAM) [HEME] DAILYLAB MAGNESIUM [CHEM] DAILYLAB PHOSPHORUS [CHEM] DAILYLAB Subjective - Subjective Patient Reports: Feeling Better Objective Vital Signs: Vital Signs - 24 hr 11/24/20 11/25/20 11/25/20 23:42 08:11 15:55 Temperature 37.0 C 37.1 C Heart Rate [ 72 73 Brachial] Heart Rate [ 82 Supine] Respiratory 18 18 Rate Blood Pressure 119/65 [Activity] Blood Pressure 141/54 H 107/78 [Right Brachial artery] Blood Pressure 114/75 [Supine] O2 Saturation 97 96 11/25/20 16:11 Temperature 37.6 C Heart Rate [ 79 Brachial] Heart Rate [ Supine] Respiratory 18 Rate Blood Pressure [Activity] Blood Pressure 115/84 H [Right Brachial artery] Blood Pressure [Supine] O2 Saturation 97 Oxygen O2 Source Room air I&O (Last 24 Hrs): Intake and Output Totals x24h 11/23/20 11/24/20 11/25/20 23:59 23:59 23:59 Intake Total 3230.000 3605.000 3508.896 Output Total 1475 1175 2900 Balance 0953.801 1972.000 608.896 General: Alert, No acute distress HEENT: Atraumatic Neck: Supple Neuro: Alert Cardiovascular: Regular rate, Normal S1, Normal S2 Respiratory: Chest non-tender, No respiratory distress, Breath sounds nml Abdomen: Normal bowel sounds Extremities: No edema Skin: No rashes - Results Results: Laboratory Results WBC 10.1 x10^3/uL (4.8-10.8) 11/25/20 11:46 RBC 3.68 10^6/uL (4.70-6.10) L 11/25/20 11:46 Hgb 12.6 g/dL (14.0-18.0) L 11/25/20 11:46 Hct 36.2 % (42.0-52.0) L 11/25/20 11:46 MCV 98.4 fL (80.0-94.0) H 11/25/20 11:46 MCH 34.2 pg (27.0-31.0) H 11/25/20 11:46 MCHC 34.8 g/dL (32.0-36.0) 11/25/20 11:46 RDW 13.2 % (12.0-15.0) 11/25/20 11:46 Plt Count 153 10^3/uL (130-450) 11/25/20 11:46 MPV 8.7 fL (7.4-11.4) 11/25/20 11:46 Neut # (Auto) 7.7 10^3/uL (1.5-6.6) H 11/25/20 11:46 Lymph # (Auto) 1.3 10^3/uL (1.5-3.5) L 11/25/20 11:46 Isabella # (Auto) 0.8 10^3/uL (0.0-1.0) 11/25/20 11:46 Eos # (Auto) 0.2 10^3/uL (0.0-0.7) 11/25/20 11:46 Baso # (Auto) 0.1 10^3/uL (0.0-0.1) 11/25/20 11:46 Absolute Nucleated RBC 0.00 x10^3/uL 11/25/20 11:46 Nucleated RBC % 0.0 /100WBC 11/25/20 11:46 Sodium 139 mmol/L (135-145) 11/25/20 11:46 Potassium 3.7 mmol/L (3.5-5.0) 11/25/20 11:46 Chloride 106 mmol/L (101-111) 11/25/20 11:46 Carbon Dioxide 25 mmol/L (21-32) 11/25/20 11:46 Anion Gap 8.0 (6-13) 11/25/20 11:46 BUN 5 mg/dL (6-20) L 11/25/20 11:46 Creatinine 0.6 mg/dL (0.6-1.2) 11/25/20 11:46 Estimated GFR (MDRD) 128 (>89) 11/25/20 11:46 Glucose 136 mg/dL (70-100) H 11/25/20 11:46 Lactic Acid 1.2 mmol/L (0.5-2.2) 11/24/20 08:41 Calcium 8.3 mg/dL (8.5-10.3) L 11/25/20 11:46 Phosphorus 1.6 mg/dL (2.5-4.6) L 11/25/20 11:46 Magnesium 1.7 mg/dL (1.7-2.8) 11/25/20 11:46 Total Bilirubin 0.6 mg/dL (0.2-1.0) 11/21/20 18:27 AST 17 IU/L (10-42) 11/21/20 18:27 ALT 16 IU/L (10-60) 11/21/20 18:27 Alkaline Phosphatase 45 IU/L (42-121) 11/21/20 18:27 Total Protein 6.5 g/dL (6.7-8.2) L 11/21/20 18:27 Albumin 3.7 g/dL (3.2-5.5) 11/21/20 18:27 Globulin 2.8 g/dL (2.1-4.2) 11/21/20 18:27 Albumin/Globulin Ratio 1.3 (1.0-2.2) 11/21/20 18:27 Lipase 24 U/L (22-51) 11/21/20 18:27 Urine Color YELLOW 11/21/20 19:51 Urine Clarity CLOUDY (CLEAR) 11/21/20 19:51 Urine pH 5.5 PH (5.0-7.5) 11/21/20 19:51 Ur Specific [place] 1.020 (1.002-1.030) 11/21/20 19:51 Urine Protein 30 mg/dL (NEGATIVE) H 11/21/20 19:51 Urine Glucose (UA) NEGATIVE mg/dL (NEGATIVE) 11/21/20 19:51 Urine Ketones TRACE mg/dL (NEGATIVE) 11/21/20 19:51 Urine Occult Blood MODERATE (NEGATIVE) H 11/21/20 19:51 Urine Nitrite NEGATIVE (NEGATIVE) 11/21/20 19:51 Urine Bilirubin NEGATIVE (NEGATIVE) 11/21/20 19:51 Urine Urobilinogen 0.2 (NORMAL) E.U./dL (NORMAL) 11/21/20 19:51 Ur Leukocyte Esterase LARGE (NEGATIVE) H 11/21/20 19:51 Urine RBC 0-5 /HPF (0-5) 11/21/20 19:51 Urine WBC >25 /HPF (0-3) H 11/21/20 19:51 Ur Squamous Epith Cells NONE SEEN (<= Few) 11/21/20 19:51 Urine Bacteria Few /HPF (None Seen) 11/21/20 19:51 Urine Yeast PRESENT 11/21/20 19:51 Ur Microscopic Review INDICATED 11/21/20 19:51 Urine Culture Comments INDICATED 11/21/20 19:51 Nasal Adenovirus (PCR) NOT DETECTED 11/21/20 21:32 Nasal B. parapertussis DNA (PCR) NOT DETECTED 11/21/20 21:32 Nasal Coronavir 229E PCR NOT DETECTED 11/21/20 21:32 Nasal Coronavir HKU1 PCR NOT DETECTED 11/21/20 21:32 Nasal Coronavir NL63 PCR NOT DETECTED 11/21/20 21:32 Nasal Coronavir OC43 PCR NOT DETECTED 11/21/20 21:32 Nasal Enterovir/Rhinovir PCR NOT DETECTED 11/21/20 21:32 Nasal Influenza B PCR NOT DETECTED 11/21/20 21:32 Nasal Influenza A PCR NOT DETECTED 11/21/20 21:32 Nasal Parainfluen 1 PCR NOT DETECTED 11/21/20 21:32 Nasal Parainfluen 2 PCR NOT DETECTED 11/21/20 21:32 Nasal Parainfluen 3 PCR NOT DETECTED 11/21/20 21:32 Nasal Parainfluen 4 PCR NOT DETECTED 11/21/20 21:32 Nasal RSV (PCR) NOT DETECTED 11/21/20 21:32 Nasal B.pertussis DNA PCR NOT DETECTED 11/21/20 21:32 Nasal C.pneumoniae (PCR) NOT DETECTED 11/21/20 21:32 Kyler Human Metapneumo PCR NOT DETECTED 11/21/20 21:32 Nasal M.pneumoniae (PCR) NOT DETECTED 11/21/20 21:32 Nasal SARS-CoV-2 (PCR) NOT DETECTED 11/21/20 21:32 Stl C. diff Tox B Gene POSITIVE (NEGATIVE) A* 11/23/20 11:10 Sepsis Event Note (H) - Evaluation Current Stage of Sepsis: Ruled out ABX Reporting Has patient been on IV antibiotics over the past 48 hours?: Yes Current Medications - Current Medications Current Medications: Current Medications Generic Name Dose Route Start Last Admin Trade Name Freq PRN Reason Stop Dose Admin Acetaminophen 650 mg 11/21/20 21:04 11/23/20 05:03 Acetaminophen 325 Mg Tablet PO 650 mg Q4HR PRN Administration Pain 1 to 4 Hydrocodone Bitart/Acetaminophen 1 tab 11/23/20 16:38 11/24/20 17:26 Hydrocod/Acetam 5/325 Mg Tablet PO 1 tab Q8HR PRN Administration Pain 5 to 7 Cholecalciferol 50 mcg 11/23/20 09:00 11/25/20 09:14 Cholecalciferol 25 Mcg Tablet PO 50 mcg DAILY CHARLEEN Administration Potassium Chloride/Dextrose/Sod Cl 1,000 mls @ 83.333 mls/hr 11/23/20 13:00 11/25/20 22:05 D5ns W/20 Meq Kcl IV 83.333 mls/hr .Q12H CHARLEEN Infusion Meropenem 1 gm/ Sodium 100 mls @ 100 mls/hr 11/23/20 13:30 11/25/20 22:05 Chloride IV Infused Q8H CHARLEEN Infusion Multivitamins/Minerals 1 tab 11/23/20 08:00 11/25/20 09:14 Multivitamin W/Minerals Tablet PO 1 tab DAILYWM CHARLEEN Administration Ondansetron HCl 4 mg 11/21/20 21:04 11/24/20 17:26 Ondansetron 4 Mg/2 Ml Vial IVP 4 mg Q6HR PRN Administration Nausea / Vomiting Pantoprazole Sodium 40 mg 11/23/20 17:00 11/25/20 05:54 Pantoprazole 40 Mg Tablet PO 40 mg QDAC CHARLEEN Administration Saccharomyces Boulardii 500 mg 11/25/20 08:00 11/25/20 16:55 Saccharomyces Boulardii 250 Mg Capsule PO 500 mg BIDWM CHARLEEN Administration Sodium Chloride 10 ml 11/21/20 20:59 11/24/20 05:54 Sodium Chloride Flush 0.9% 10 Ml Syringe IVP 10 ml PRN PRN Administration NEEDED PER PROVIDER ORDERS Sodium Chloride 10 ml 11/22/20 01:00 11/25/20 16:55 Sodium Chloride Flush 0.9% 10 Ml Syringe IVP 10 ml 0100,0900,1700 CHARLEEN Administration Vancomycin HCl 125 mg 11/23/20 19:58 11/25/20 21:01 Vancomycin 125 Mg Capsule PO 125 mg QID CHARLEEN Administration
[2020-11-26] MEDS: SODIUM CHLORIDE FLUSH 0.9% 10 ML SYRINGE IVP SCH ×2 (01:34→08:00)
[2020-11-26] MEDS: D5NS W/20 MEQ KCL 1,000 ML IV SCH (01:34)
[2020-11-26 05:33] LABS: HCT - HEMATOCRIT 35.7 % (42.0-52.0); HGB - HEMOGLOBIN 12.1 g/dL (14.0-18.0); MEAN CORPUSCULAR HEMOGLOBIN 33.4 pg (27.0-31.0); MEAN CORPUSCULAR HGB CONC 33.9 g/dL (32.0-36.0); MEAN CORPUSCULAR VOLUME 98.6 fL (80.0-94.0); MEAN PLATELET VOLUME 8.7 fL (7.4-11.4); RED BLOOD COUNT 3.62 10^6/uL (4.70-6.10); WHITE BLOOD COUNT 8.8 x10^3/uL (4.8-10.8)
[2020-11-26 05:49] LABS: CALCIUM 8.3 mg/dL (8.5-10.3); CREATININE 0.6 mg/dL (0.6-1.2); MAGNESIUM 1.8 mg/dL (1.7-2.8); PHOSPHORUS 2.2 mg/dL (2.5-4.6); POTASSIUM 3.6 mmol/L (3.5-5.0)
[2020-11-26] MEDS: MEROPENEM 1 GM in SODIUM CHLORIDE 0.9% MINIBAG 100 ML IV SCH ×2 (06:16→13:37)
[2020-11-26] MEDS: PANTOPRAZOLE 40 MG TABLET PO SCH (06:17)
[2020-11-26 07:58] VITALS: BP 126/57
[2020-11-26] MEDS: MULTIVITAMIN W/MINERALS TABLET PO SCH (07:59)
[2020-11-26] MEDS: CHOLECALCIFEROL 25 MCG TABLET PO SCH (07:59)
[2020-11-26] MEDS: SACCHAROMYCES BOULARDII 250 MG CAPSULE PO SCH (07:59)
[2020-11-26] MEDS: VANCOMYCIN 125 MG CAPSULE PO SCH ×2 (08:00→12:54)
--- NOTE | 2020-11-26 13:38 | Discharge Plan ---
Discharge Plan Problem Reviewed?: Yes Disposition: 06 Home Health Service Condition: Stable Prescriptions: Saccharomyces Boulardii [Florastor] 250 mg PO BIDWM 7 Days #14 cap Vancomycin [Vancocin] 125 mg PO QID 7 Days #28 cap Diet: Regular Activity Restrictions: Activity as Tolerated Shower Restrictions: No (fall prevention) Instruction Topics: Vancomycin capsules, Catheter Indwelling Urinary Dc, Clostridium Difficile Infec Health Concerns: C.diff infection, indwelling catheter, weakness Plan of Treatment: You were found to have C. difficile infection for your diarrhea in the hospital. You were treated with oral vancomycin. You are prescribed oral vancomycin for another 7 days. You may keep hydration at home. Home health RN is arranged for you to help you manage your indwelling catheter, You may follow-up with urologist as outpatient. Home health PT and OT are arranged for training of your strengths and prevention of fall. You as your declined to be DC to the SNF. Care Goals: Stabilization and improvement of your medical conditions Assessment: Discussed the care plan with you, answered your questions, you understood Additional Instructions or Follow Up instructions: You may follow-up with your primary care in 1 to 2 week, You may follow-up with urologist as outpatient. Should your symptoms return or worsen, you may present to ER or call 911 for help Follow-Up Care: Home Health - RN, Home Health - PT, Home Health - OT No Smoking: If you smoke, Please STOP! Call for help. Follow-up with: Adia Dallas DO [Primary Care Provider] -
[2020-11-26] MEDS ORDERED: POTASSIUM CHLORIDE 20 MEQ TABLET PO ONE (13:43)
--- NOTE | 2020-11-26 13:54 | DISCHARGE SUMMARY ---
Discharge Summary Admit Date: 11/21/20 Discharge Date: 11/26/20 Discharging Provider: David Pereira Primary Care Provider: Dr. Sosa Stevenson Condition at Discharge: Stable Discharge Disposition: Home Health Service Discharge Facility Name: home - DIAGNOSES Discharge Diagnoses with Status of Each Condition: (1) UTI (urinary tract infection) finished antibiotics treatment in hospital. pt has normal arrange WBC, pt has no fever. Blood cultures show negative for bacteremia. (2) C. difficile diarrhea Diarrhea is controlled, patient is prescribed another 7 days oral vancomycin. (3) indwelling urinary catheter Patient's Martinez catheter was changed at his admission at this time h ospitalization. Home health RN was arranged for catheter care. Patient may follow-up with his urologist continue management. (4)weakness Patient had PT and OT evaluation And treatment in the hospital. Patient's and the patient declined to be discharged to SNF. Patient is arranged for home health PT and OT. Educated to the patient about prevention of the fall. - HPI History of Present Illness: refer from Dr Jacob's HPI on 11/21/20 Patient is a 85-year-old male with history of chronic indwelling Martinez catheter who was recently discharged from our hospital on 11/15/2020 having been admitted with lactic acidosis and urinary tract infection with urine culture positive for E. coli and Pseudomonas. He did well in the previous hospitalization and was discharged on oral Cipro however after urine culture results with sensitivities came back revealing resistance to Cipro his antibiotics were changed and he was started on cefpodoxime on 11/17/2020. He returns to the emergency room today Reportedly having complained of fatigue, though he does not recall this at the time of exam, and a low-grade temperature of 100.8 F. He was then sent to emergency department for further evaluation. His labs were remarkable for a leukocytosis with a white blood cell count of 16,000 which is remarkable considering on his previous admission he had normal WBC count the entire time. His other vital signs were essentially unremarkable and he had no fever in the emergency department. He denied any complaints or symptoms.Urinalysis is relatively consistent with previous hospitalization with evidence of pyuria and general urinalysis consistent with that of a patient with a chronic indwelling Martinez catheter. Because of the patient's advanced age, dementia, poor historian status, and history of recurrent UTIs with multiple organisms with resistance to multiple antibiotics along with a new development of leukocytosis it was felt that this patient be best served with a observation overnight on IV antibiotics pending further clinical course and urine culture results. - HOSPITAL COURSE Hospital Course: pt was admitted for complained of fatigue, though he does not recall this at the time of exam, and a low-grade temperature of 100.8 F. Patient was found to have 2 multiple resistance bacteria in his urine culture, E. coli and Pseudomonas. Patient had antibiotics in home which was not sensitive to multiple resistance E. coli. Patient was treated with meropenem IV in the hospital. Then patient has no more fever, patient's WBC become normal range, patient blood culture showed negative for bacteremia. Patient developed diarrhea with C. difficile positive. Patient was treated with oral vancomycin. After treatment, patient's diarrhea was controlled, pt has loose stool but no diarrhea. Patient was prescribed oral vancomycin to finish treatment course for C. difficile infection in the home. Patient had PT and OT evaluation and treatment, patient declined for patient discharge to SNF. Patient was arranged for home health with PT and OT - ALLERGIES Allergies/Adverse Reactions: Allergies Allergy/AdvReac Type Severity Reaction Status Date / Time celecoxib [From Celebrex] Allergy Unknown Verified 11/21/20 18:15 Penicillins AdvReac Anaphylaxis Verified 11/21/20 18:15 - MEDICATIONS Home Medications: Ambulatory Orders Medication Instructions Recorded Confirmed Multivitamin 1 tab PO DAILY 11/22/20 11/22/20 Omeprazole [PriLOSEC] 20 mg PO DAILY 11/22/20 11/22/20 Saccharomyces Boulardii [Florastor] 250 mg PO BIDWM 7 Days #14 cap 11/26/20 Vancomycin [Vancocin] 125 mg PO QID 7 Days #28 cap 11/26/20 - PHYSICAL EXAM AT DISCHARGE General Appearance: positive: No acute distress, Alert. negative: Lethargic Eyes Bilateral: positive: Normal inspection, PERRL, No lid inflammation ENT: positive: ENT inspection nml, No signs of dehydration. negative: Purulent nasal drainage Neck: positive: Nml inspection, Trachea midline. negative: Thyromegaly, Trache al deviation Respiratory: positive: Chest non-tender, No respiratory distress. negative: Wheezes Cardiovascular: positive: Regular rate & rhythm, No murmur. negative: Tachycardia, Bradycardia, Systolic murmur, Diastolic murmur Peripheral Pulses: positive: 2+ Abdomen: positive: Non-tender, Nml bowel sounds, No distention. negative: Tenderness Back: positive: Nml inspection Skin: positive: Color nml, Warm, Dry. negative: Cyanosis Extremities: positive: Non-tender, Nml appearance. negative: Calf tenderness Neurologic/Psychiatric: positive: Oriented x3, Motor nml, Sensation nml, Mood/affect nml. negative: Weakness, Sensory loss, Facial droop, Slurred/abnml speech, Depressed mood/affect - LABS Result Diagrams: 11/26/20 05:10 11/26/20 05:10 - SEPSIS Current Stage of Sepsis: Ruled out - FOLLOW UP Follow Up: You were found to have C. difficile infection for your diarrhea in the hospital. You were treated with oral vancomycin. You are prescribed oral vancomycin for a nother 7 days. You may keep hydration at home. Home health RN is arranged for you to help you manage your indwelling catheter, You may follow-up with urologist as outpatient. Home health PT and OT are arranged for training of your strengths and prevention of fall. You as your declined to be DC to the SNF. You may follow-up with your primary care in 1 to 2 week, You may follow-up with urologist as outpatient. Should your symptoms return or worsen, you may present to ER or call 911 for help - TIME SPENT Time Spent in Discharge (Minutes): 30
[2020-11-26] MEDS ORDERED: NEUTRA-PHOS 250 MG TABLET PO SCH (17:00)
== END 2020-11-26 15:15 | disposition home health service (06) | DRG 690 ==
LOC: EDUNIT# → ED 18:03 → MS2 20:59 → OBSVTOIN 11-22 11:01
PROVIDERS: ADMIT Family Medicine Sports Medicine; ATTEND Nurse Practitioner Gerontology
DX: D72.829 Elevated white blood cell count, unspecified (principal); R50.9 Fever, unspecified; N39.0 Urinary tract infection, site not specified; Z16.20 Resistance to unspecified antibiotic; A04.72 Enterocolitis due to Clostridium difficile, not specified as recurrent; B96.20 Unspecified Escherichia coli [E. coli] as the cause of diseases classified elsewhere; Z87.440 Personal history of urinary (tract) infections; B96.5 Pseudomonas (aeruginosa) (mallei) (pseudomallei) as the cause of diseases classified elsewhere; Z96.0 Presence of urogenital implants; Z20.822 Contact with and (suspected) exposure to COVID-19; R53.1 Weakness; F03.90 Unspecified dementia, unspecified severity, without behavioral disturbance, psychotic disturbance, mood disturbance, and anxiety; R53.83 Other fatigue; N40.1 Benign prostatic hyperplasia with lower urinary tract symptoms; N13.8 Other obstructive and reflux uropathy; Z87.891 Personal history of nicotine dependence; D69.6 Thrombocytopenia, unspecified; K21.9 Gastro-esophageal reflux disease without esophagitis
CPT/HCPCS: 36415; 74177; 80048; 80053; 81001; 83605; 83690; 83735; 84100; 85025; 85027; 87040; 87086; 87493; 87631; 96365; 96366; 97162; 97165; 97530; 99281; 99285; A9270; G0378; J2185; J8499; Q9967; 0202U; 81003

== ENCOUNTER 2021-02-12 17:42 | Outpatient (CLI) | payer MEDICARE, OTHER | END 2021-02-12 17:43 | disposition EMS.NT | LOC: EMS 17:42 | DX: Z03.89 Encounter for observation for other suspected diseases and conditions ruled out (principal) ==

== ENCOUNTER 2021-02-13 08:59 | Outpatient (CLI) | payer MEDICARE, OTHER | END 2021-02-13 09:00 | disposition critical access hospital (66) | LOC: EMS 08:59 | DX: R50.9 Fever, unspecified (principal) | CPT/HCPCS: A0425; A0429 ==

== ENCOUNTER 2021-02-13 09:49 | Emergency (ER) | payer MEDICARE, OTHER ==
--- NOTE | 2021-02-13 13:20 | ED Physician Documentation ---
PD HPI MALE - Stated complaint Stated Complaint: MALE - Chief complaint Chief Complaint: UTI - History obtained from History obtained from: Patient - History of Present Illness Timing - onset: Yesterday Timing - duration: Days (1) Timing - details: Gradual onset, Still present Associated symptoms: Other (chills confusion and change in urine in catheter.) PD HPI MALE CONTRIB FACTORS: Indwelling catheter Similar symptoms before: Diagnosis (UTI) Recently seen: Not recently seen - Additional information Additional information: 85-year-old male with a pleasant advanced dementia has an indwelling Martinez catheter that he will have in permanently. He has developed cloudiness to the urine and an increase in his confusion. His has asked him to come to the emergency department. The patient has had prior urinary tract infection with resistant organisms. He is had cultured E. coli and Pseudomonas. He required hospitalization previously. His indicates that she believes he has come in earlier this time than previously. He has previously had oral antibiotics administered that were not sensitive to his organism and he required hospitalization. Review of Systems Constitutional: denies: Fever Eyes: denies: Decreased vision Ears: denies: Ear pain Nose: denies: Rhinorrhea / runny nose, Congestion Throat: denies: Sore throat Cardiac: denies: Chest pain / pressure Respiratory: denies: Cough GI: denies: Vomiting : reports: Martinez Problem (cloudy urine) Skin: denies: Rash Musculoskeletal: denies: Neck pain, Back pain, Extremity pain Neurologic: denies: Generalized weakness, Focal weakness, Numbness PD PAST MEDICAL HISTORY - Past Medical History Cardiovascular: Other Neuro: Dementia GI: GERD, Other : Benign prostate hypertrophy, Indwelling catheter HEENT: Chronic vision loss, Chronic hearing loss Musculoskeletal: Osteoarthritis - Past Surgical History Past Surgical History: Yes General: Colonoscopy, Other HEENT: Cataracts - Present Medications Home Medications: Ambulatory Orders Medication Instructions Recorded Confirmed Multivitamin 1 tab PO DAILY 11/22/20 11/22/20 Omeprazole [PriLOSEC] 20 mg PO DAILY 11/22/20 11/22/20 Saccharomyces Boulardii [Florastor] 250 mg PO BIDWM 7 Days #14 cap 11/26/20 Vancomycin [Vancocin] 125 mg PO QID 7 Days #28 cap 11/26/20 Ciprofloxacin HCl [Cipro] 500 mg PO BID #20 tablet 02/13/21 Nitrofurantoin [Macrobid] 100 mg PO BID #20 cap 02/13/21 - Allergies Allergies/Adverse Reactions: Allergies Allergy/AdvReac Type Severity Reaction Status Date / Time celecoxib [From Celebrex] Allergy Unknown Verified 02/13/21 10:01 Penicillins AdvReac Anaphylaxis Verified 02/13/21 10:01 - Social History Does the pt smoke?: No Smoking Status: Never smoker Does the pt drink ETOH?: Yes Does the pt have substance abuse?: No - Immunizations Immunizations are current?: Yes - POLST Patient has POLST: No POLST Status: Full Code PD ED PE NORMAL - Vitals Vital signs reviewed: Yes - General General: No acute distress, Well developed/nourished, Other (pleasant 85 y/o male who tells me he is not sure who he is or why he is here but he tells me he has a at home who can fill me in. ) - HEENT HEENT: Atraumatic, PERRL - Neck Neck: Supple, no meningeal sign, No bony TTP - Cardiac Cardiac: RRR, No murmur - Respiratory Respiratory: No respiratory distress, Clear bilaterally - Abdomen Abdomen: Soft, Non tender - Back Back: No CVA TTP, No spinal TTP - Derm Derm: Normal color, Warm and dry, No rash - Extremities Extremities: No deformity, No edema - Neuro Neuro: cork mixer 2-12 intact, No motor deficit, No sensory deficit, Normal speech Eye Opening: Spontaneous Motor: Obeys Commands Verbal: Confused GCS Score: 14 - Psych Psych: Normal mood, Normal affect - Free text exam Free text exam: Martinez bag is draining cloudy urine Results - Vitals Vitals: Vital Signs - 24 hr 02/13/21 02/13/21 10:00 14:05 Temperature 36.9 C 37.0 C Heart Rate 72 69 Respiratory 20 17 Rate Blood Pressure 132/68 H 131/70 H O2 Saturation 95 97 Oxygen O2 Source Room air - Labs Labs: Laboratory Tests 02/13/21 14:09 Urine Color LT. YELLOW Urine Clarity CLOUDY Urine pH 6.0 Ur Specific [place] <=1.005 Urine Protein NEGATIVE Urine Glucose (UA) NEGATIVE Urine Ketones NEGATIVE Urine Occult Blood SMALL H Urine Nitrite POSITIVE H Urine Bilirubin NEGATIVE Urine Urobilinogen 0.2 (NORMAL) Ur Leukocyte Esterase LARGE H Urine RBC 0-5 Urine WBC >25 H Ur Squamous Epith Cells NONE SEEN Urine Bacteria Few Ur Microscopic Review INDICATED Urine Culture Comments INDICATED PD MEDICAL DECISION MAKING - ED course Complexity details: reviewed old records, reviewed results, re-evaluated patient, considered differential, d/w patient, d/w family ED course: 85-year-old male with indwelling Martinez catheter has infection again. I reviewed the patient's prior antibiogram for E. coli and Pseudomonas from his prior admission. The E. coli appears sensitive to Macrobid and the Pseudomonas sensitive to Cipro and he has been on these 2 antibiotics as an outpatient. He is given a dose of Rocephin here in the emergency department. Departure - Departure Disposition: 01 Home, Self Care Clinical Impression: UTI (urinary tract infection) Qualifiers: Urinary tract infection type: catheter-associated UTI Indwelling urinary catheter type: indwelling urethral catheter Encounter type: initial encounter Qualified Code(s): T83.511A - Infection and inflammatory reaction due to indwelling urethral catheter, initial encounter Condition: Stable Instructions: ED UTI Cystitis Male Follow-Up: Sam Mccarty MD [Physician No Access] - Prescriptions: Ciprofloxacin HCl [Cipro] 500 mg PO BID #20 tablet Nitrofurantoin [Macrobid] 100 mg PO BID #20 cap Discharge Date/Time: 02/13/21 14:21
[2021-02-13] MEDS ORDERED: cefTRIAXone 1 GM VIAL IM STA (13:34)
[2021-02-13] MEDS ORDERED: LIDOCAINE 1% 2 ML VIAL MC ONE (13:34)
[2021-02-13 14:05] VITALS: BP 131/70
[2021-02-13 14:18] LABS: BILIRUBIN,URINE NEGATIVE (NEGATIVE); GLUCOSE, URINE (UA) NEGATIVE (NEGATIVE); KETONES,URINE (UA) NEGATIVE (NEGATIVE); LEUKOCYTE ESTERASE, URINE LARGE (NEGATIVE); NITRITE,URINE POSITIVE (NEGATIVE); OCCULT BLOOD,URINE SMALL (NEGATIVE); PROTEIN,URINE NEGATIVE (NEGATIVE); UROBILINOGEN,URINE 0.2 (NORMAL) E.U./dL (NORMAL)
[2021-02-13 14:25] LABS: CLARITY,URINE CLOUDY (CLEAR)
[2021-02-13 14:33] LABS: BACTERIA,URINE Few /HPF (None Seen); RBC,URINE 0-5 /HPF (0-5); SQUAMOUS EPITHELIAL CELL,UR NONE SEEN (<= Few); WBC,URINE >25 /HPF (0-3)
== END 2021-02-13 14:21 | disposition home or self-care (01) ==
LOC: EDUNIT# → ED 09:49
DX: T83.511A Infection and inflammatory reaction due to indwelling urethral catheter, initial encounter (principal); N39.0 Urinary tract infection, site not specified; Y84.6 Urinary catheterization as the cause of abnormal reaction of the patient, or of later complication, without mention of misadventure at the time of the procedure; F03.90 Unspecified dementia, unspecified severity, without behavioral disturbance, psychotic disturbance, mood disturbance, and anxiety
CPT/HCPCS: 81001; 81003; 87077; 87086; 87181; 96372; 99283; 99284

== ENCOUNTER 2021-02-13 14:16 | Outpatient (CLI) | payer MEDICARE, OTHER | END 2021-02-13 14:17 | disposition home or self-care (01) | LOC: EMS 14:16 | PROVIDERS: ATTEND Emergency Medicine | DX: F03.90 Unspecified dementia, unspecified severity, without behavioral disturbance, psychotic disturbance, mood disturbance, and anxiety (principal); R41.0 Disorientation, unspecified; T83.518A Infection and inflammatory reaction due to other urinary catheter, initial encounter | CPT/HCPCS: A0425; A0429 ==

== ENCOUNTER 2021-02-22 14:27 | Outpatient (CLI) | payer MEDICARE, OTHER ==
--- NOTE | 2021-02-22 18:12 | Ultrasound Report ---
PROCEDURE: Retroperitoneal INDICATIONS: URINARY RETENTION TECHNIQUE: Real-time scanning was performed of the retroperitoneal organs, with image documentation. COMPARISON: None. FINDINGS: Kidneys: Kidneys are normal in size. Right kidney measures 10.3 cm long; left kidney measures 10.3 cm long. Right renal cortical thickness is 1.0 cm; left renal cortical thickness is 1.4 cm. No clinton d masses, hydronephrosis, or nephrolithiasis. Subcentimeter anechoic cystic lesion within the inferi or pole of the right kidney likely representing simple cyst. Bladder: Partially decompressed with intraluminal Martinez catheter. Questionable diffuse wall thickeni ng limited in evaluation given nondistention. Bladder volume measures 25 cc Miscellaneous: Prostate measures 47 cc in volume. IMPRESSION: Unremarkable appearance of the kidneys. Urinary bladder is mildly distended with intraluminal Martinez catheter. Questionable wall thickening Li mited evaluation given minimal distention. Reviewed by: Teo Zaldivar DO on 02/22/2021 5:11 PM DORENE Approved by: Teo Zaldivar DO on 02/22/2021 5:11 PM DORENE Station ID: [id number]
== END 2021-02-22 14:28 | disposition home or self-care (01) ==
LOC: DI 14:27
PROVIDERS: ATTEND Urology
DX: R33.9 Retention of urine, unspecified (principal); Z96.0 Presence of urogenital implants

== ENCOUNTER 2021-02-28 16:38 | Outpatient (CLI) | payer MEDICARE, OTHER | END 2021-02-28 16:39 | disposition critical access hospital (66) | LOC: EMS 16:38 | DX: R50.9 Fever, unspecified (principal); N48.89 Other specified disorders of penis | CPT/HCPCS: A0425; A0429 ==

== ENCOUNTER 2021-02-28 16:56 | Inpatient (IN) | payer MEDICARE, OTHER ==
[2021-02-28] MEDS ORDERED: SODIUM CHLORIDE 0.9% IV STA (17:16)
[2021-02-28] MEDS ORDERED: CEFEPIME 2 GM in SODIUM CHLORIDE 0.9% MINIBAG 100 ML IV STA (17:24)
[2021-02-28] MEDS ORDERED: VANCOMYCIN INJ 1 GM in SODIUM CHLORIDE 0.9% 500 ML IV STA (17:24)
--- NOTE | 2021-02-28 17:29 | ED Physician Documentation ---
History of Present Illness - Stated complaint Stated Complaint: FEVER - Chief complaint Chief Complaint: Fever - History obtained from History obtained from: Family - Additonal information Additional information: Raul is an 85-year-old male with a past medical history of advanced dementia and recurrent UTIs with a chronic indwelling Martinez catheter who presents from home today after being visited by his home health nurse. It is unclear what specifically he was sent in for but according to the his home health nurse tried for a "2 hours" to put a Martinez catheter and and then there was a large a mount of blood in the catheter. He subsequently developed a fever accompanied by nausea and vomiting. He is also noted to have diarrhea since arrival. He does have a history of C. difficile. He is not able to provide any information No he will answer questions, it appears information is incorrect. Per chart review patient has had multiple UTIs in the past, most recently was seen on 02/13/2021 with E. coli and Pseudomonas in his urine. On arrival here his heart rate was 140, temperature was 40.2 Celsius blood pressure 125/74 respirate 20 and he was 99% on room air. He had no acute complaints though has dementia and his review of systems is unreliable. Review of Systems Unable to obtain: Confused, Dementia PD PAST MEDICAL HISTORY - Past Medical History Past Medical History: Yes Cardiovascular: Other Neuro: Dementia GI: GERD, Other : Benign prostate hypertrophy, Indwelling catheter HEENT: Chronic vision loss, Chronic hearing loss Musculoskeletal: Osteoarthritis - Past Surgical History Past Surgical History: Yes General: Colonoscopy, Other HEENT: Cataracts - Present Medications Home Medications: Ambulatory Orders Medication Instructions Recorded Confirmed Multivitamin 1 tab PO DAILY 11/22/20 11/22/20 Omeprazole [PriLOSEC] 20 mg PO DAILY 11/22/20 11/22/20 Saccharomyces Boulardii [Florastor] 250 mg PO BIDWM 7 Days #14 cap 11/26/20 Vancomycin [Vancocin] 125 mg PO QID 7 Days #28 cap 11/26/20 Ciprofloxacin HCl [Cipro] 500 mg PO BID #20 tablet 02/13/21 Nitrofurantoin [Macrobid] 100 mg PO BID #20 cap 02/13/21 - Allergies Allergies/Adverse Reactions: Allergies Allergy/AdvReac Type Severity Reaction Status Date / Time celecoxib [From Celebrex] Allergy Unknown Verified 02/28/21 17:07 Penicillins AdvReac Anaphylaxis Verified 02/28/21 17:07 - Social History Does the pt smoke?: No Smoking Status: Never smoker Does the pt drink ETOH?: Yes Does the pt have substance abuse?: No - Immunizations Immunizations are current?: Yes - POLST Patient has POLST: No POLST Status: Full Code PD ED PE NORMAL - Vitals Vital signs reviewed: Yes - General General: Alert and oriented X 3, No acute distress, Well developed/nourished - HEENT HEENT: Atraumatic, Moist mucous membranes, Pharynx benign - Neck Neck: Supple, no meningeal sign, No JVD - Cardiac Cardiac: Other (Tachycardic in the 120s, systolic murmur.) - Respiratory Respiratory: No respiratory distress, Clear bilaterally - Abdomen Abdomen: Normal bowel sounds, Soft, Non tender, Non distended - Male Male : Other (Indwelling Martinez catheter draining slightly cloudy yellow urine) - Back Back: No CVA TTP, No spinal TTP - Derm Derm: Normal color, Warm and dry, No rash - Extremities Extremities: No deformity, No tenderness to palpate, Normal ROM s pain, No edema, No calf tenderness / cord - Neuro Eye Opening: Spontaneous Motor: Obeys Commands Verbal: Confused GCS Score: 14 Results - Vitals Vitals: Vital Signs - 24 hr 02/28/21 02/28/21 02/28/21 17:03 17:22 18:06 Temperature 40.2 C H Heart Rate 141 H 140 H 95 Respiratory 20 20 17 Rate Blood Pressure 112/57 L 125/74 111/52 L O2 Saturation 94 99 99 02/28/21 02/28/21 18:34 19:15 Temperature 39.1 C H 39.2 C H Heart Rate 118 H 112 H Respiratory 27 H 23 Rate Blood Pressure 111/59 L 106/70 O2 Saturation 94 93 Oxygen O2 Source Room air - EKG (time done) No standard instances Rate: Rate (enter#) (110), Tachy Rhythm: Sinus tachycardia [place]: Normal Intervals: Normal ND QRS: Normal Ischemia: Normal ST segments Computer interpretation: Agree with computer - Labs Labs: Laboratory Tests 02/28/21 02/28/21 02/28/21 17:14 17:14 17:14 WBC 1.2 L* RBC 4.22 L Hgb 14.1 Hct 42.7 MCV 101.2 H MCH 33.4 H MCHC 33.0 RDW 14.0 Plt Count 115 L MPV 8.5 Neut # (Auto) Not Reportable Lymph # (Auto) Not Reportable Bucks # (Auto) Not Reportable Eos # (Auto) Not Reportable Baso # (Auto) Not Reportable Absolute Nucleated RBC Not Reportable Total Counted 50 Band Neuts % (Manual) 6 Reactive Lymphs % (Man) 16 Abnorm Lymph % (Manual) 0 Nucleated RBC % Not Reportable Neutrophils # (Manual) 0.6 L Lymphocytes # (Manual) 0.6 L Monocytes # (Manual) 0.0 Eosinophils # (Manual) 0.0 Basophils # (Manual) 0.0 Nucleated RBCs 2 Differential Comment MANUAL DIFFERENTIAL Platelet Estimate DECREASED (<130,000) Platelet Morphology NORMAL APPEARANCE RBC Morph Micro Appear NORMAL APPEARANCE Sodium 139 Potassium 4.2 Chloride 102 Carbon Dioxide 21 Anion Gap 16.0 H BUN 16 Creatinine 1.1 Estimated GFR (MDRD) 63 L Glucose 95 Lactic Acid 6.3 H* Calcium 8.9 Total Bilirubin 0.9 AST 30 ALT 14 Alkaline Phosphatase 50 Total Protein 6.8 Albumin 3.8 Globulin 3.0 Albumin/Globulin Ratio 1.3 Urine Color Urine Clarity Urine pH Ur Specific [place] Urine Protein Urine Glucose (UA) Urine Ketones Urine Occult Blood Urine Nitrite Urine Bilirubin Urine Urobilinogen Ur Leukocyte Esterase Urine RBC Urine WBC Ur Squamous Epith Cells Urine Bacteria Urine Culture Comments Nasal Adenovirus (PCR) Nasal B. parapertussis DNA (PCR) Nasal Coronavir 229E PCR Nasal Coronavir HKU1 PCR Nasal Coronavir NL63 PCR Nasal Coronavir OC43 PCR Nasal Enterovir/Rhinovir PCR Nasal Influenza B PCR Nasal Influenza A PCR Nasal Parainfluen 1 PCR Nasal Parainfluen 2 PCR Nasal Parainfluen 3 PCR Nasal Parainfluen 4 PCR Nasal RSV (PCR) Nasal B.pertussis DNA PCR Nasal C.pneumoniae (PCR) Kyler Human Metapneumo PCR Nasal M.pneumoniae (PCR) Nasal SARS-CoV-2 (PCR) 02/28/21 02/28/21 17:16 18:34 WBC RBC Hgb Hct MCV MCH MCHC RDW Plt Count MPV Neut # (Auto) Lymph # (Auto) Bucks # (Auto) Eos # (Auto) Baso # (Auto) Absolute Nucleated RBC Total Counted Band Neuts % (Manual) Reactive Lymphs % (Man) Abnorm Lymph % (Manual) Nucleated RBC % Neutrophils # (Manual) Lymphocytes # (Manual) Monocytes # (Manual) Eosinophils # (Manual) Basophils # (Manual) Nucleated RBCs Differential Comment Platelet Estimate Platelet Morphology RBC Morph Micro Appear Sodium Potassium Chloride Carbon Dioxide Anion Gap BUN Creatinine Estimated GFR (MDRD) Glucose Lactic Acid Calcium Total Bilirubin AST ALT Alkaline Phosphatase Total Protein Albumin Globulin Albumin/Globulin Ratio Urine Color LT RED Urine Clarity BLOODY Urine pH 6.5 Ur Specific Lincoln 1.020 Urine Protein 30 H Urine Glucose (UA) NEGATIVE Urine Ketones NEGATIVE Urine Occult Blood LARGE H Urine Nitrite NEGATIVE Urine Bilirubin NEGATIVE Urine Urobilinogen 0.2 (NORMAL) Ur Leukocyte Esterase SMALL H Urine RBC TNTC H Urine WBC 6-10 H Ur Squamous Epith Cells NONE SEEN Urine Bacteria Many H Urine Culture Comments INDICATED Nasal Adenovirus (PCR) NOT DETECTED Nasal B. parapertussis DNA (PCR) NOT DETECTED Nasal Coronavir 229E PCR NOT DETECTED Nasal Coronavir HKU1 PCR NOT DETECTED Nasal Coronavir NL63 PCR NOT DETECTED Nasal Coronavir OC43 PCR NOT DETECTED Nasal Enterovir/Rhinovir PCR NOT DETECTED Nasal Influenza B PCR NOT DETECTED Nasal Influenza A PCR NOT DETECTED Nasal Parainfluen 1 PCR NOT DETECTED Nasal Parainfluen 2 PCR NOT DETECTED Nasal Parainfluen 3 PCR NOT DETECTED Nasal Parainfluen 4 PCR NOT DETECTED Nasal RSV (PCR) NOT DETECTED Nasal B.pertussis DNA PCR NOT DETECTED Nasal C.pneumoniae (PCR) NOT DETECTED Kyler Human Metapneumo PCR NOT DETECTED Nasal M.pneumoniae (PCR) NOT DETECTED Nasal SARS-CoV-2 (PCR) NOT DETECTED PD MEDICAL DECISION MAKING - ED course Complexity details: reviewed old records, reviewed results, re-evaluated patient, considered differential ED course: This is an 85-year-old male who presents with sepsis. He meets sepsis criteria with a elevated temperature at 40.2, heart rate of 140, stable blood pressure. Labs are concerning for neutropenia with a white blood cell count of 1.5, absolute Neutrophil count of 0.6. His CMP is normal. He did have some diarrhea and was sent for C. difficile due to history of same. A new Martinez catheter was placed due to blood clogging no catheter placed earlier today, the nurse stated that she required a coud to get the catheter past the prostate, the new catheter freely flowing, blood is clearing. I did place an order for CT noncontrast to evaluate his hematuria prior to the information about the difficulties with the catheter today and this was stable, no acute findings. We started the patient on treatment for possible UTI with cefepime and Vanco pending cultures, his prior culture was sensitive to cefepime. He received a 30 mL/kg IV normal saline bolus and Tylenol for his fever, his tachycardia is improving, he has not been hypotensive but he has a lactate of 6.9. Patient will be admitted to the hospitalist service for sepsis with URI, DR. Davey kindly accepting. Departure - Departure Disposition: [address] [facility] DC/[place]
[2021-02-28] MEDS ORDERED: ACETAMINOPHEN 650 MG SUPP PR STA (17:30)
[2021-02-28] MEDS ORDERED: VANCOMYCIN INJ 1 GM in SODIUM CHLORIDE 0.9% 250 ML IV STA (17:31)
[2021-02-28 17:33] LABS: BASOPHILS % (AUTO) 0.9 %; EOSINOPHILS % (AUTO) 0.9 %; HCT - HEMATOCRIT 42.7 % (42.0-52.0); HGB - HEMOGLOBIN 14.1 g/dL (14.0-18.0); LYMPHOCYTES % (AUTO) 35.9 %; MEAN CORPUSCULAR HEMOGLOBIN 33.4 pg (27.0-31.0); MEAN CORPUSCULAR VOLUME 101.2 fL (80.0-94.0); MEAN PLATELET VOLUME 8.5 fL (7.4-11.4); MONOCYTES % (AUTO) 0.9 %; NEUTROPHILS % (AUTO) 61.4 %; PLT - PLATELET COUNT 115 10^3/uL (130-450); RED BLOOD COUNT 4.22 10^6/uL (4.70-6.10)
[2021-02-28 17:36] LABS: WHITE BLOOD COUNT 1.2 x10^3/uL (4.8-10.8)
[2021-02-28 17:37] LABS: ABNORMAL LYMPHS % (MANUAL) 0 %
[2021-02-28 17:40] LABS: ALBUMIN 3.8 g/dL (3.2-5.5); ALBUMIN/GLOBULIN RATIO 1.3 (1.0-2.2); BILIRUBIN,TOTAL 0.9 mg/dL (0.2-1.0); CALCIUM 8.9 mg/dL (8.5-10.3); CREATININE 1.1 mg/dL (0.6-1.2); POTASSIUM 4.2 mmol/L (3.5-5.0); TOTAL PROTEIN 6.8 g/dL (6.7-8.2)
[2021-02-28 17:49] LABS: LACTIC ACID, VENOUS 6.3 mmol/L (0.5-2.2)
--- NOTE | 2021-02-28 17:54 | XRAY Report ---
PROCEDURE: Chest 1 View X-Ray INDICATIONS: chest pain COMMENTS: chest pain PRIORS: 11/14/20 TECHNIQUE: One view of the chest was acquired. COMPARISON: CT of the abdomen dated 11/21/2020. Chest x-ray dated 11/14/2020. FINDINGS: Surgical changes and devices: None. Lungs and pleura: No pleural effusions or pneumothorax. There are diffuse chronically increased i nterstitial markings. No significant change compared to the prior x-ray on 11/14/2020. Pleural plaques are again noted and were seen on prior CT on 11/21/2020. Mediastinum: Mediastinal contours appear normal. Heart size is normal. Bones and chest wall: No suspicious bony lesions. Overlying soft tissues appear unremarkable. IMPRESSION: 1. No acute cardiopulmonary abnormality. 2. 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 Reviewed by: Lenin Hatch on 02/28/2021 5:52 PM PDT Approved by: Lenin Hatch on 02/28/2021 5:52 PM PDT Station ID: [id number]
[2021-02-28 18:17] LABS: BAND NEUTROPHILS % (MANUAL) 6 %; LYMPHOCYTES # (MANUAL) 0.6 10^3/uL (1.5-3.5); LYMPHOCYTES % (MANUAL) 30 %; NUCLEATED RBC (MANUAL) 2 %; REACTIVE LYMPHS % (MANUAL) 16 %
[2021-02-28 18:19] LABS: DIFFERENTIAL COMMENT MANUAL DIFFERENTIAL; NEUTROPHILS # (MANUAL) 0.6 10^3/uL (1.5-6.6); PLATELET ESTIMATE, MANUAL DECREASED (<130,000) (NORMAL); PLATELET MORPHOLOGY NORMAL APPEARANCE (NORMAL); RBC MORPHOLOGY (MULTIPLE) NORMAL APPEARANCE (NORMAL)
[2021-02-28 18:58] LABS: B. PARAPERTUSSIS- RESP PCR PAN NOT DETECTED; B. PERTUSSIS- RESP PCR PANEL NOT DETECTED; C. PNEUMONIAE- RESP PCR PANEL NOT DETECTED; CORONAVIRUS 229E-RESP PCR NOT DETECTED; CORONAVIRUS HKU1-RESP PCR NOT DETECTED; CORONAVIRUS NL63-RESP PCR NOT DETECTED; CORONAVIRUS OC43-RESP PCR NOT DETECTED; HUMAN METAPNEUMOVIRUS NOT DETECTED; INFLUENZA A- RESP PCR PANEL NOT DETECTED; INFLUENZA B - RESP PCR PANEL NOT DETECTED; M. PNEUMONIAE- RESP PCR PANEL NOT DETECTED; PARAINFLUENZA VIRUS 1 NOT DETECTED; PARAINFLUENZA VIRUS 2 NOT DETECTED; PARAINFLUENZA VIRUS 3 NOT DETECTED; PARAINFLUENZA VIRUS 4 NOT DETECTED; RHINOVIRUS/ENTEROVIRUS NOT DETECTED; RSV- RESP PCR PANEL NOT DETECTED; SARS-CoV-2 -RESP PCR PANEL NOT DETECTED
[2021-02-28 18:59] LABS: BILIRUBIN,URINE NEGATIVE (NEGATIVE); GLUCOSE, URINE (UA) NEGATIVE (NEGATIVE); KETONES,URINE (UA) NEGATIVE (NEGATIVE); LEUKOCYTE ESTERASE, URINE SMALL (NEGATIVE); NITRITE,URINE NEGATIVE (NEGATIVE); OCCULT BLOOD,URINE LARGE (NEGATIVE); PH,URINE 6.5 PH (5.0-7.5); PROTEIN,URINE 30 mg/dL (NEGATIVE); UROBILINOGEN,URINE 0.2 (NORMAL) E.U./dL (NORMAL)
[2021-02-28 19:04] LABS: CLARITY,URINE BLOODY (CLEAR)
[2021-02-28 19:08] LABS: BACTERIA,URINE Many /HPF (None Seen); RBC,URINE TNTC /HPF (0-5); SQUAMOUS EPITHELIAL CELL,UR NONE SEEN (<= Few)
--- NOTE | 2021-02-28 19:34 | CT Report ---
PROCEDURE: Abdomen/Pelvis WO INDICATIONS: sepsis, eval for renal/urinary stone. TECHNIQUE: Noncontrast 5 mm thick sections acquired from the diaphragms to the symphysis. 5 mm coronal and sagi ttal reformats were then performed. For radiation dose reduction, the following was used: automated exposure control, adjustment of mA and/or kV according to patient size. COMPARISON: 11/21/2020 FINDINGS: Image quality: Upper abdomen images are limited by motion artifactr ABDOMEN: Lung bases: Lung bases are clear. Heart size is normal. Chronic interstitial changes noted in the l amaury bases with calcific pleural plaquing, stable from the prior. Solid organs: Liver and spleen are normal in size. Gallbladder unremarkable. Pancreas is normal in contours. No adrenal nodules. Kidneys are normal in size, without hydronephrosis or nephrolithiasi s. Left adrenal nodule is similar prior Peritoneum and bowel: Unenhanced bowel loops demonstrate normal wall thickness and caliber. No free fluid or air. Nodes and vessels: No retroperitoneal or mesenteric adenopathy by size criteria. Aorta and inferior vena cava are normal in caliber. A 2 cm left iliac artery aneurysm is similar the prior Miscellaneous: No ventral hernias. Atherosclerotic calcification of the abdominal aorta without esteban dence of aneurysm. PELVIS: Genitourinary: Martinez catheter in the bladder. Prostate is enlarged. Air in the bladder probably relat ed to recent instrumentation. Miscellaneous: Left right inguinal hernia repair is stable Bones: No suspicious bony lesions. No vertebral body compression fractures. The T12 compression fr acture unchanged. IMPRESSION: 1. No evidence of renal calculi, hydronephrosis or obstructive uropathy. Martinez catheter in the bladde r 2. Aortic atherosclerosis and 2 cm left iliac artery aneurysm, stable from the prior. 3. Calcified pleural plaquing, 1.5 cm left adrenal nodule, right inguinal hernia repair, T12 compress ion fracture is stable Reviewed by: Shorty Ferrell MD on 02/28/2021 6:32 PM AKDT Approved by: Shorty Ferrell MD on 02/28/2021 6:32 PM AKDT Station ID: [id number]
[2021-02-28] MEDS ORDERED: SODIUM CHLORIDE FLUSH 0.9% 10 ML SYRINGE IVP PRN (20:17)
[2021-02-28] MEDS ORDERED: ACETAMINOPHEN 325 MG TABLET PO PRN (20:17)
[2021-02-28] MEDS ORDERED: ONDANSETRON 4 MG/2 ML VIAL IVP PRN (20:17)
--- NOTE | 2021-02-28 20:44 | HISTORY & PHYSICAL EXAMINATION ---
Chief Complaint - Chief Complaint Chief Complaint: Fever, Diarrhea History of Present Illness - Admitted From Admitted From:: ED - History Obtained From History obtained from: ED provider and chart review Exam Limitations: Patient has dementia and a fever and is a poor historian - History of Present Illness HPI Comment/Other: This is an 85-year-old white male with a history of prostatic hypertrophy causing urinary obstruction with chronic indwelling Martinez for approximately 6 months, history of dementia, frequent UTIs and some episodes with sepsis. In the past, he has grown E. coli and Pseudomonas on urine cultures, with several resistant strains. Patient was last in our ED approximately 2 weeks ago with urinary symptoms and was sent home on p.o. antibiotics. Today his visiting nurse went to change his Martinez which took 2 hours and there was subsequent hematuria and he spiked a fever. He was brought to the ED where he had an episode of nausea, vomiting and diarrhea. He was febrile with temperature of 40C. Work-up in the ED showed that he has an abnormal urinalysis consistent with a UTI, white blood count very low at 1.6 which is new for this patient, CT imaging showed no hydronephrosis, stone or obstruction and a Martinez is in place. His Lactic Acid is 6 and stool PCR was (+) for C diff. His initial heart rate was sinus tachy at 140, with a normal BP. After iv fluids were started and Tylenol given , the heart rate has improved to 112 in sinus rhythm. As the patient was being transferred from the ED to a Med-Surg bed, his BP was documented at 70/40. The patient is being admitted to manage septic shock from a UTI vs from C. difficile diarrhea. History - Past Medical History Cardiovascular: reports: Other Neuro: reports: Dementia GI: reports: GERD, Other (Hx of C. diff diarrhea in 11/27.) : reports: Benign prostate hypertrophy, Indwelling catheter, Other (Frequent UTIs) HEENT: reports: Chronic vision loss, Chronic hearing loss Musculoskeletal: reports: Osteoarthritis MRSA Hx?: No - Past Surgical History General: reports: Colonoscopy, Other HEENT: reports: Cataracts - Family & Social History Family History: Mother: , Father: Family History Comment/Other: Father at early 30 by suicide. Mother at age 94 from the aging. Living arrangement: At home Living Situation: With spouse/s.o. Social History Notes: He reported he quit smoking about 20 years ago after a 50 pack year hx, he denies alcohol or drug issue, he has 1 daughter and his lives in [place] with his . 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 Drinks 1 glass of whiskey a night. - Substance History Use: Uses substance without health or social issues: Alcohol - POLST Patient has POLST: No POLST Status: Full Code Meds/Allgy - Home Medications Home Medications: Ambulatory Orders Medication Instructions Recorded Confirmed Multivitamin 1 tab PO DAILY 11/22/20 11/22/20 Omeprazole [PriLOSEC] 20 mg PO DAILY 11/22/20 11/22/20 Saccharomyces Boulardii [Florastor] 250 mg PO BIDWM 7 Days #14 cap 11/26/20 Vancomycin [Vancocin] 125 mg PO QID 7 Days #28 cap 11/26/20 Ciprofloxacin HCl [Cipro] 500 mg PO BID #20 tablet 02/13/21 Nitrofurantoin [Macrobid] 100 mg PO BID #20 cap 02/13/21 - Allergies Allergies/Adverse Reactions: Allergies Allergy/AdvReac Type Severity Reaction Status Date / Time celecoxib [From Celebrex] Allergy Unknown Verified 02/28/21 17:07 Penicillins AdvReac Anaphylaxis Verified 02/28/21 17:07 Review of Systems - Constitutional Constitutional: reports: Fever - Gastrointestinal Gastrointestinal: reports: Diarrhea, Nausea, Vomiting - Genitourinary Genitourinary: reports: Other (Hematuria started today after a 2-hr Martinez catheter change by his visiting nurse.) - Neurological Neurological: reports: Memory problems - All Other Systems All Other Systems: reports: Other (Incomplete ROS due to patient's dementia.) Exam - Vital Signs Reviewed Vital Signs: Yes Vital Signs: Vital Signs x48h Temp Pulse Resp BP Pulse Ox 02/28/21 20:26 37.9 C 112 H 18 95 02/28/21 19:15 39.2 C H 112 H 23 106/70 93 02/28/21 18:34 39.1 C H 118 H 27 H 111/59 L 94 02/28/21 18:06 95 17 111/52 L 99 02/28/21 17:22 140 H 20 125/74 99 02/28/21 17:03 40.2 C H 141 H 20 112/57 L 94 - Physical Exam General Appearance: positive: No acute distress, Alert Eyes Bilateral: positive: Normal inspection, PERRL, EOMI ENT: positive: ENT inspection nml, Dry mucous membranes Neck: positive: Nml inspection, No JVD Respiratory: positive: No respiratory distress, Breath sounds nml Cardiovascular: positive: Regular rate & rhythm, Tachycardia Abdomen: positive: Non-tender, No distention Rectal: positive: Other (Martinez present) Skin: positive: No rash, Warm, Dry Extremities: positive: Non-tender, No pedal edema Neurologic/Psychiatric: positive: Other (He is min imally communicative, looks around the room as people are working on him. He appears not to have anxiety. He is moving all extremities symmetrically) Sepsis Event Note (H) - Evaluation Current Stage of Sepsis: Septic shock Possible source of Sepsis: positive: GI tract/intra-abdominal, Genitourinary - Sepsis Criteria Sepsis Criteria: Recorded Temperature greater than 38.3C or Less than 36C, R ecorded Heart Rate greater than 90 bpm, Recorded Respiratory Rate greater than 20, WBC count greater than 12,000 or less than 4000, Metabolic: lactate > 2 mmol/L Conclusion/Plan - Problem List (1) Septic shock Conclusion/Plan: Patient dropped hisBP upon admission from the ED to the hospital; systolic BP 70. He has very high lactic acid level (and the next lactic acid at 3 hours from the first is still pending). He has neutropenia and tachycardia, all consistent with septic shock. He received 2L iv crystalloids in thr ED. We will continue IV fluids at 30 mL/kg and give a bolus at this time because of the new drop in blood pressure since presentation. Blood and urine cultures have been sent from the ED, await these results. Begin empiric antibiotics; Cefepime 2g IV tid will be ordered to cover a and/or GI source. Empiric Vanco IV loading were done in the ED. Vanco will have to be p.o. (see below). Follow WBC and CRP daily. (2) Neutropenia Conclusion/Plan: This is not from chemo or other medications therefore concerned that this is related to his sepsis. Will order neutropenic precautions including in his diet. Follow CBC daily Treat the underlying infections (3) UTI (urinary tract infection) Conclusion/Plan: Source of this sepsis is a UTI, may also be related to traumatic manipulation of the Martinez catheter today. His urinalysis showed 125 WBCs per high-power field but bacteria are many. Will treat with IV antibiotics and await urine and blood culture results. Qualifiers: Urinary tract infection type: catheter-associated UTI Indwelling urinary catheter type: indwelling urethral catheter Qualified Code(s): T83.511A - Infe ction and inflammatory reaction due to indwelling urethral catheter, initial encounter; N39.0 - Urinary tract infection, site not specified (4) Chronic indwelling Martinez catheter Conclusion/Plan: He has had this for about 6 months. Today's Martinez change was traumatic, done by his visiting nurse. Continue with Martinez management including flushes to prevent obstruction related to clots from the new hematuria. (5) C. difficile diarrhea Conclusion/Plan: Will order p.o. Vanco 4 times daily. Will plan a clear liquid diet and advance to a brat diet, to decrease his diarrhea. Continue with IV fluids depending on his status of sepsis and amount of diarrhea. Follow electrolytes and Mg daily, replace if low. (6) Hematuria Conclusion/Plan: This may be due to his acute UTI but more likely from the trauma caused by a 2- hour Martinez change. Because of the hematuria, will not give Lovenox or heparin for his DVT prophylaxis. Because of hematuria he may need flushes of his Martinez catheter to prevent obstructing clots (7) Dementia without behavioral disturbance Conclusion/Plan: He has had worsening memory starting in 2018, per the records. Earlier this year he was restricted from driving. He did not tolerate Namenda, as per history. Once medication list is reconciled by pharmacy in the morning, will resume any meds for his Alzheimer's dementia Qualifiers: Dementia type: Alzheimer's - Lab Results Fish Bones: 02/28/21 17:14 02/28/21 17:14 - Diagnostic Imaging Results Diagnostic Imaging Results: positive: Final report reviewed
[2021-02-28] MEDS ORDERED: SODIUM CHLORIDE 0.9% 500 ML IV ONE ×2 (20:56→21:37)
[2021-02-28] MEDS ORDERED: SODIUM CHLORIDE 0.9% 1,000 ML IV SCH ×2 (21:00→21:38)
[2021-02-28 21:02] LABS: LACTIC ACID, VENOUS 2.6 mmol/L (0.5-2.2)
[2021-02-28 21:08] LABS: INR 1.1 (0.8-1.2); PT - PROTHROMBIN TIME 12.7 secs (9.9-12.6)
[2021-02-28] MEDS: VANCOMYCIN 125 MG CAPSULE PO SCH (21:42)
[2021-02-28] MEDS ORDERED: DOPamine 800 MG/500 ML 800 MG/500 ML BAG IV SCH (23:00)
[2021-02-28] MEDS: SODIUM CHLORIDE 0.9% 1,000 ML IV SCH (23:04)
[2021-03-01 00:24] LABS: LACTIC ACID, VENOUS 2.3 mmol/L (0.5-2.2)
[2021-03-01] MEDS: SODIUM CHLORIDE FLUSH 0.9% 10 ML SYRINGE IVP SCH ×3 (00:38→17:11)
[2021-03-01 03:44] LABS: LACTIC ACID, VENOUS 2.2 mmol/L (0.5-2.2)
--- NOTE | 2021-03-01 04:39 | PROVIDER PROGRESS NOTE ---
Sterilization Tech Note - Sterilization Tech Note Sterilization Tech Note: After admission to a Med-Surg bed, pt dropped his BP to 70/40, HR was 110 in sinus rhythm. Patient was layed flat and Saline 500cc bolus ordered and given and iv fluids increased from 100cc/hr to 125 cc/hr. Pt was warm and dry, in no distress and mentating. BP checked more frequently and next BP still very low at 71/47. Pt was put in Trandelenburg and another 50cc saline bolus was given and fluids increased to 125 cc/hr. In the next 1 hour, his BP was as low at 64/44. He was still warm, dry, in no distress, able to converse normally with his RN (about his [place] of [place]). The patient was ordered to be transferred to the ICU and iv Dopamine started, to maintain MAP of 60. BP improved to 88 systolic with saline going at 150cc/hr and Dopamine drip at 6mcg. His troponin labs were also checked with admission to the ICU and returned very elevated at [id number]. The admission EKG (done several hours earlier had no signs of ischemia). Lactic Acid level had improved from 6 down to 2.7, three hours later Imp: Septic Shock Probable Type 2 PR (demand ischemia from hypotension causing hypoperfusion). Plan: Continue iv fluids and Dopamine for BP support. Continue antibiotics. Recheck troponin to trend it Recheck EKG in a.m. for any ischemic changes. Obtain an Echo (when Echo available, today is Fri night and we have no Echo service here until Mon a.m.). CRITICAL CARE TIME SPENT: 60 min (rechecking VS, re-evaluating the patient and ordering med adjustments, transfer to ICU and rechecking in ICU).
[2021-03-01] MEDS: SODIUM CHLORIDE 0.9% 1,000 ML IV SCH ×4 (05:04→23:17)
[2021-03-01 05:07] LABS: BASOPHILS % (AUTO) 0.8 %; EOSINOPHILS % (AUTO) 0.2 %; HCT - HEMATOCRIT 37.8 % (42.0-52.0); HGB - HEMOGLOBIN 12.3 g/dL (14.0-18.0); LYMPHOCYTES % (AUTO) 4.6 %; MEAN CORPUSCULAR HEMOGLOBIN 33.4 pg (27.0-31.0); MEAN CORPUSCULAR HGB CONC 32.5 g/dL (32.0-36.0); MEAN CORPUSCULAR VOLUME 102.7 fL (80.0-94.0); MEAN PLATELET VOLUME 9.3 fL (7.4-11.4); MONOCYTES % (AUTO) 3.7 %; NEUTROPHILS % (AUTO) 88.8 %; PLT - PLATELET COUNT 91 10^3/uL (130-450); RED BLOOD COUNT 3.68 10^6/uL (4.70-6.10); RED CELL DISTRIBUTION WIDTH 14.1 % (12.0-15.0); WHITE BLOOD COUNT 11.3 x10^3/uL (4.8-10.8)
[2021-03-01 05:13] LABS: ABNORMAL LYMPHS % (MANUAL) 0 %
[2021-03-01 05:19] LABS: CALCIUM 7.5 mg/dL (8.5-10.3); CREATININE 1.2 mg/dL (0.6-1.2); MAGNESIUM 1.5 mg/dL (1.7-2.8); POTASSIUM 3.8 mmol/L (3.5-5.0)
[2021-03-01 05:40] LABS: BAND NEUTROPHILS % (MANUAL) 15 %; DIFFERENTIAL COMMENT MANUAL DIFFERENTIAL; LYMPHOCYTES # (MANUAL) 0.8 10^3/uL (1.5-3.5); LYMPHOCYTES % (MANUAL) 7 %; MONOCYTES # (MANUAL) 0.2 10^3/uL (0.0-1.0); NEUTROPHILS # (MANUAL) 10.3 10^3/uL (1.5-6.6); PLATELET ESTIMATE, MANUAL DECREASED (<130,000) (NORMAL); PLATELET MORPHOLOGY NORMAL APPEARANCE (NORMAL); RBC MORPHOLOGY (MULTIPLE) NORMAL APP (NORMAL); WBC MORPHOLOGY (MULTIPLE) NORMAL APPEARANCE (NORMAL)
[2021-03-01] MEDS ORDERED: CEFEPIME 2 GM in SODIUM CHLORIDE 0.9% MINIBAG 100 ML IV SCH ×2 (06:00→09:00)
[2021-03-01 07:35] LABS: LACTIC ACID, VENOUS 3.6 mmol/L (0.5-2.2)
[2021-03-01] MEDS ORDERED: ASPIRIN 325 MG TABLET PO STA (07:58)
[2021-03-01] MEDS ORDERED: POTASSIUM CHLORIDE 20 MEQ TABLET PO ONE (08:00)
[2021-03-01] MEDS ORDERED: MAGNESIUM OXIDE 400 MG TABLET PO ONE (08:00)
[2021-03-01] MEDS: CALCIUM CARBONATE CHEW 500 MG TABLET PO SCH ×2 (08:33→12:49)
[2021-03-01] MEDS: SACCHAROMYCES BOULARDII 250 MG CAPSULE PO SCH ×2 (08:34→17:11)
[2021-03-01] MEDS: VANCOMYCIN 125 MG CAPSULE PO SCH ×4 (08:35→21:48)
[2021-03-01] MEDS ORDERED: HEPARIN 5,000 UNIT/ML VIAL SUBQ SCH (09:00)
--- NOTE | 2021-03-01 11:34 | PROVIDER PROGRESS NOTE ---
Assessment/Plan - Problem List (1) Septic shock Assessment/Plan: After admission from the ED to the Med/Surg unit, patient became hypotensive with SBP dropped his SBP 60-70s. He was transferred to the ICU and started on Dopamine and given IV fluid bolus. Initial lactic acid was 6.3 and decreased to 2.2 before increasing to 5.0. WBC 1.2 and has increased to 11.3 and 1600 recheck was 24.5. Initial tachycardia has resolved and his HR is now in the 80s. Preliminary blood cultures are growing Gram Negative Bacilli and Urine grew E. Coli. Plan: Continue to follow WBC and lactic acid daily. Wean off Dopamine and transition to Levophed for hypotension. Continue with 0.9% Sodium Chloride at 150ml/hr after additional 1L of fluid. Change antibiotic to Meropenem due to elevated WBC and increasing Lactic Acid for possible ESBL coverage. Vanco IV added for possible MRSA coverage due to afternoon increased WBC to 24.5. Vanco p.o. for C-Diff. Will monitor final Blood culture and adjust antibiotics as needed. (2) UTI (urinary tract infection) Qualifiers: Urinary tract infection type: catheter-associated UTI Indwelling urinary catheter type: indwelling urethral catheter Qualified Code(s): T83.511A - I nfection and inflammatory reaction due to indwelling urethral catheter, initial encounter; N39.0 - Urinary tract infection, site not specified Assessment/Plan: The source of this sepsis is most likely a UTI due to E. Coli found in urine culture. Concern for ESBL due to increasing lactic acid. Plan: Antibiotics changes to Meropenum for UTI treatment. (3) Non-ST elevated myocardial infarction (non-STEMI) Assessment/Plan: Patient became hypotensive so a high sensitivity troponin was done and it was 7681. An EKG showed NSR with q waves in V2-V6 and inverted T-waves in V3- V5. Previous admission EKG was NSR with low voltage. Patient denied chest pain, shortness of breath, or diaphoresis. Repeat Troponin was 6876. This is most likely a NON-STEMI type two secondary to demand ischemia from hypoperfusion. Patient most likely has underlying CAD. He is not a candidate for Angiogram due to sepsis and bacteremia. Beta miguel held due to hypotension and need for levophed. Heparin drip held due to hematuria and downward trend of troponin. Aspirin held due to platelets of 91, and hematuria. Plan: Continue with IV hydration of 0.9% sodium chloride at 150ml/hr. Heparin 5000 units Sub Q twice daily when hematuria improves. (4) Neutropenia Qualifiers: Neutropenia type: due to infection Qualified Code(s): D70.3 - Neutropenia due to infection Assessment/Plan: The neutropenia on admission with WBC 1.2 has resolved. WBCs are currently elevated at 24.5 which is most likely due to sepsis. Plan: Continue to monitor CBC daily. Continue to treat underlying infections. (5) C. difficile diarrhea Assessment/Plan: Patient was previous diagnosed and treated for C-diff 11/2020. Stool from this admission on 03/01 was positive for C-diff. Unconfirmed home medications include oral Vanco, Macrobid, and Cipro. Plan: Continue Vanco PO 4 times daily. Advanced to soft bland diet. Continue with IV fluids at 150ml/hr. Monitor electrolytes and replace as needed. (7) Chronic indwelling Wagner catheter Assessment/Plan: According to a chart review, the patient has a history of BPH with urinary retention and had a wagner placed approximately 6 months ago. Yesterday on 02/28 his wagner changed by a home health nurse that led to hematuria and a fever. Urine in the urometer is yellow and is improved compared to the previous urine in the wagner bag. Plan: Continue with Wagner management. Consider intermittent flushes as needed to prevent obstructions from hematuria clots. (8) Dementia without behavioral disturbance Qualifiers: Dementia type: Alzheimer's Assessment/Plan: Patient is alert to self. For location he knows that he is in a hospital in [place]. He is alert to month and year but not to specific date. Lastly he does not remember what brought him into the hospital. He is cooperating with staff and directable. According to records, his memory started to decline in 2018. In 2019 he was evaluated by [facility] and started on Donezepil which he did not tolerate. He was then changed to Memantine. No medication for dementia is listed on home medication list. Plan: Resume home medications when they are reconciled by pharmacy. Continue to reorient to new environment. When possible limit interruptions to sleep wake cycles to prevent delirium. - Current Meds Current Meds: Current Medications Generic Name Dose Route Start Last Admin Trade Name Freq PRN Reason Stop Dose Admin Calcium Carbonate/Glycine 1,250 mg 03/01/21 08:00 03/01/21 08:33 Calcium Carbonate Chew 500 Mg Tablet PO 03/01/21 12:01 1,250 mg Q4H CHARLEEN Administration Protocol Heparin Sodium (Porcine) 5,000 unit 03/01/21 09:00 03/01/21 08:40 Heparin 5,000 Unit/Ml Vial SUBQ 5,000 unit BID CHARLEEN Administration Cefepime HCl 2 gm/ Sodium 100 mls @ 200 mls/hr 03/01/21 06:00 03/01/21 07:00 Chloride IV Infused Q12H CHARLEEN Infusion Sodium Chloride 1,000 mls @ 150 mls/hr 02/28/21 22:44 03/01/21 11:00 Normal Saline 0.9% IV 150 mls/hr .Q6H40M CHARLEEN Infusion Dopamine HCl/Dextrose 800 mg in 500 mls @ 4.77 mls/hr 02/28/21 23:00 03/01/21 11:15 Dopamine IV 0 mcg/kg/min .Q72H CHARLEEN 0 mls/hr Titration Protocol 2 MCG/KG/MIN Norepinephrine Bitartrate 8 mg 250 mls @ 15 mls/hr 03/01/21 08:00 03/01/21 11:15 / Dextrose IV 10 mcg/min .[id number] CHARLEEN 18.75 mls/hr Titration Protocol 8 MCG/MIN Saccharomyces Boulardii 500 mg 03/01/21 08:00 03/01/21 08:34 Saccharomyces Boulardii 250 Mg Capsule PO 500 mg BIDWM CHARLEEN Administration Sodium Chloride 10 ml 03/01/21 01:00 03/01/21 08:55 Sodium Chloride Flush 0.9% 10 Ml Syringe IVP 10 ml 0100,0900,1700 CHARLEEN Administration Vancomycin HCl 125 mg 02/28/21 21:00 03/01/21 08:35 Vancomycin 125 Mg Capsule PO 125 mg QID CHARLEEN Administration - Lab Result Fish Bone Diagrams: 03/01/21 16:44 03/01/21 04:44 Subjective - Subjective Patient Reports: Resting Comfortably, Other (Patient is alert and attentive watching TV in bed. He reports feeling weak.) Objective Vital Signs: Vital Signs - 24 hr 02/28/21 02/28/21 02/28/21 17:03 17:22 18:06 Temperature 40.2 C H Heart Rate 141 H 140 H 95 Heart Rate [ Brachial] Respiratory 20 20 17 Rate Blood Pressure 112/57 L 125/74 111/52 L Blood Pressure [Left Brachial artery] Blood Pressure [Right Brachial artery] O2 Saturation 94 99 99 02/28/21 02/28/21 02/28/21 18:34 19:15 20:26 Temperature 39.1 C H 39.2 C H 37.9 C Heart Rate 118 H 112 H 112 H Heart Rate [ Brachial] Respiratory 27 H 23 18 Rate Blood Pressure 111/59 L 106/70 Blood Pressure [Left Brachial artery] Blood Pressure [Right Brachial artery] O2 Saturation 94 93 95 02/28/21 02/28/21 02/28/21 20:53 20:54 20:55 Temperature 36.9 C Heart Rate Heart Rate [ 97 98 97 Brachial] Respiratory 16 Rate Blood Pressure Blood Pressure 70/40 L 65/42 L [Left Brachial artery] Blood Pressure 69/41 L 71/38 L [Right Brachial artery] O2 Saturation 93 02/28/21 02/28/21 02/28/21 21:16 21:38 22:24 Temperature Heart Rate Heart Rate [ 97 98 91 Brachial] Respiratory Rate Blood Pressure Blood Pressure 69/39 L [Left Brachial artery] Blood Pressure 69/40 L 70/44 L 68/43 L [Right Brachial artery] O2 Saturation 02/28/21 02/28/21 02/28/21 22:41 22:45 23:06 Temperature Heart Rate Heart Rate [ 86 89 Brachial] Respiratory Rate Blood Pressure Blood Pressure 50/30 L 65/39 L [Left Brachial artery] Blood Pressure 67/38 L [Right Brachial artery] O2 Saturation 02/28/21 02/28/21 02/28/21 23:10 23:32 23:33 Temperature Heart Rate 89 92 Heart Rate [ 89 Brachial] Respiratory 15 21 Rate Blood Pressure 72/49 L Blood Pressure [Left Brachial artery] Blood Pressure 66/42 L [Right Brachial artery] O2 Saturation 02/28/21 02/28/21 02/28/21 23:35 23:36 23:40 Temperature Heart Rate 90 90 92 Heart Rate [ Brachial] Respiratory 17 16 18 Rate Blood Pressure 64/44 L Blood Pressure [Left Brachial artery] Blood Pressure 64/44 L 75/45 L [Right Brachial artery] O2 Saturation 10/02/28/21 02/28/21 23:41 23:44 23:45 Temperature Heart Rate 95 90 94 Heart Rate [ Brachial] Respiratory 17 20 22 Rate Blood Pressure 75/45 L 77/47 L Blood Pressure [Left Brachial artery] Blood Pressure 75/48 L [Right Brachial artery] O2 Saturation 02/28/21 02/28/21 02/28/21 23:46 23:49 23:50 Temperature Heart Rate 90 91 91 Heart Rate [ Brachial] Respiratory 18 20 20 Rate Blood Pressure 75/48 L Blood Pressure [Left Brachial artery] Blood Pressure [Right Brachial artery] O2 Saturation 02/28/21 02/28/21 02/28/21 23:51 23:55 23:56 Temperature Heart Rate 91 93 96 Heart Rate [ Brachial] Respiratory 20 22 22 Rate Blood Pressure 79/49 L Blood Pressure [Left Brachial artery] Blood Pressure 79/49 L [Right Brachial artery] O2 Saturation 02/28/21 03/01/21 03/01/21 23:59 00:00 00:01 Temperature Heart Rate 99 95 95 Heart Rate [ Brachial] Respiratory 15 20 18 Rate Blood Pressure 84/48 L Blood Pressure [Left Brachial artery] Blood Pressure 84/48 L [Right Brachial artery] O2 Saturation 03/01/21 03/01/21 03/01/21 00:04 00:05 00:06 Temperature Heart Rate 95 94 93 Heart Rate [ 94 Brachial] Respiratory 21 21 18 Rate Blood Pressure 84/50 L Blood Pressure [Left Brachial artery] Blood Pressure 84/50 L [Right Brachial artery] O2 Saturation 03/01/21 03/01/21 03/01/21 00:09 00:10 00:11 Temperature Heart Rate 93 94 91 Heart Rate [ Brachial] Respiratory 21 21 21 Rate Blood Pressure 78/50 L Blood Pressure [Left Brachial artery] Blood Pressure 78/50 L [Right Brachial artery] O2 Saturation 03/01/21 03/01/21 03/01/21 00:14 00:15 00:16 Temperature Heart Rate 96 93 90 Heart Rate [ 93 Brachial] Respiratory 19 21 20 Rate Blood Pressure 91/48 L Blood Pressure [Left Brachial artery] Blood Pressure 91/48 L [Right Brachial artery] O2 Saturation 03/01/21 03/01/21 03/01/21 00:19 00:20 00:21 Temperature Heart Rate 93 101 H 92 Heart Rate [ 93 Brachial] Respiratory 21 22 21 Rate Blood Pressure 87/51 L Blood Pressure [Left Brachial artery] Blood Pressure 87/51 L [Right Brachial artery] O2 Saturation 03/01/21 03/01/21 03/01/21 00:24 00:25 00:26 Temperature Heart Rate 95 98 96 Heart Rate [ Brachial] Respiratory 20 17 21 Rate Blood Pressure 89/51 L Blood Pressure [Left Brachial artery] Blood Pressure [Right Brachial artery] O2 Saturation 03/01/21 03/01/21 03/01/21 00:30 00:31 00:35 Temperature Heart Rate 99 94 94 Heart Rate [ Brachial] Respiratory 25 H 20 21 Rate Blood Pressure 93/50 L Blood Pressure [Left Brachial artery] Blood Pressure [Right Brachial artery] O2 Saturation 03/01/21 03/01/21 03/01/21 00:40 00:44 00:45 Temperature Heart Rate 96 89 96 Heart Rate [ Brachial] Respiratory 22 20 23 Rate Blood Pressure 87/55 L Blood Pressure [Left Brachial artery] Blood Pressure [Right Brachial artery] O2 Saturation 03/01/21 03/01/21 03/01/21 00:46 00:50 01:00 Temperature Heart Rate 96 97 Heart Rate [ 95 Brachial] Respiratory 21 15 20 Rate Blood Pressure Blood Pressure [Left Brachial artery] Blood Pressure 96/51 L [Right Brachial artery] O2 Saturation 93 03/01/21 03/01/21 03/01/21 02:00 03:00 04:00 Temperature 37.2 C Heart Rate Heart Rate [ 89 84 88 Brachial] Respiratory 19 21 19 Rate Blood Pressure Blood Pressure [Left Brachial artery] Blood Pressure 87/46 L 84/54 L 88/58 L [Right Brachial artery] O2 Saturation 95 94 95 03/01/21 03/01/21 03/01/21 05:00 06:00 07:00 Temperature Heart Rate Heart Rate [ 82 90 88 Brachial] Respiratory 19 19 22 Rate Blood Pressure Blood Pressure [Left Brachial artery] Blood Pressure 84/54 L 80/52 L 97/65 [Right Brachial artery] O2 Saturation 95 95 97 03/01/21 03/01/21 03/01/21 08:00 09:00 10:00 Temperature 36.6 C Heart Rate Heart Rate [ 85 75 85 Brachial] Respiratory 24 24 27 H Rate Blood Pressure Blood Pressure [Left Brachial artery] Blood Pressure 86/59 L 140/86 H 99/75 [Right Brachial artery] O2 Saturation 97 96 98 03/01/21 11:00 Temperature Heart Rate Heart Rate [ 88 Brachial] Respiratory 25 H Rate Blood Pressure Blood Pressure [Left Brachial artery] Blood Pressure 94/56 L [Right Brachial artery] O2 Saturation 98 Oxygen O2 Source Room air I&O (Last 24 Hrs): Intake and Output Totals x24h 02/27/21 02/28/21 03/01/21 23:59 23:59 23:59 Intake Total 3383.105 2275.490 Output Total 900 575 Balance 2483.105 1700.490 General: Alert, Cooperative, No acute distress HEENT: Atraumatic, PERRLA, EOMI, Other (Hard of hearing) Neck: Supple Neuro: Alert, Focal Deficits, Other (Patient is oriented to self, month, and year. He us unsure of location but knows that he is in a hospital in [place].) Cardiovascular: Regular rate, Normal S1, Normal S2, No murmurs Respiratory: Chest non-tender, No respiratory distress, Breath sounds nml Abdomen: Normal bowel sounds, Soft, No tenderness, No hepatospenomegaly Extremities: No clubbing, No cyanosis, No edema, Normal pulses Skin: No rashes, No breakdown - Results Results: Laboratory Results WBC 11.3 x10^3/uL (4.8-10.8) H 03/01/21 04:44 RBC 3.68 10^6/uL (4.70-6.10) L 03/01/21 04:44 Hgb 12.3 g/dL (14.0-18.0) L 03/01/21 04:44 Hct 37.8 % (42.0-52.0) L 03/01/21 04:44 MCV 102.7 fL (80.0-94.0) H 03/01/21 04:44 MCH 33.4 pg (27.0-31.0) H 03/01/21 04:44 MCHC 32.5 g/dL (32.0-36.0) 03/01/21 04:44 RDW 14.1 % (12.0-15.0) 03/01/21 04:44 Plt Count 91 10^3/uL (130-450) L 03/01/21 04:44 MPV 9.3 fL (7.4-11.4) 03/01/21 04:44 Neut # (Auto) Not Reportable 03/01/21 04:44 Lymph # (Auto) Not Reportable 03/01/21 04:44 [place] # (Auto) Not Reportable 03/01/21 04:44 Eos # (Auto) Not Reportable 03/01/21 04:44 Baso # (Auto) Not Reportable 03/01/21 04:44 Absolute Nucleated RBC Not Reportable 03/01/21 04:44 Total Counted 100 03/01/21 04:44 Band Neuts % (Manual) 15 % (0-10) H 03/01/21 04:44 Reactive Lymphs % (Man) 16 % 02/28/21 17:14 Abnorm Lymph % (Manual) 0 % 03/01/21 04:44 Nucleated RBC % Not Reportable 03/01/21 04:44 Neutrophils # (Manual) 10.3 10^3/uL (1.5-6.6) H 03/01/21 04:44 Lymphocytes # (Manual) 0.8 10^3/uL (1.5-3.5) L 03/01/21 04:44 Monocytes # (Manual) 0.2 10^3/uL (0.0-1.0) 03/01/21 04:44 Eosinophils # (Manual) 0.0 10^3/uL (0-0.7) 03/01/21 04:44 Basophils # (Manual) 0.0 10^3/uL (0-0.1) 03/01/21 04:44 Nucleated RBCs 2 % 02/28/21 17:14 Differential Comment MANUAL DIFFERENTIAL 03/01/21 04:44 WBC Morphology NORMAL APPEARANCE (NORMAL) 03/01/21 04:44 Platelet Estimate DECREASED (<130,000) (NORMAL) 03/01/21 04:44 Platelet Morphology NORMAL APPEARANCE (NORMAL) 03/01/21 04:44 RBC Morph Micro Appear NORMAL JANEE (NORMAL) 03/01/21 04:44 PT 12.7 secs (9.9-12.6) H 02/28/21 17:14 INR 1.1 (0.8-1.2) 02/28/21 17:14 Sodium 140 mmol/L (135-145) 03/01/21 04:44 Potassium 3.8 mmol/L (3.5-5.0) 03/01/21 04:44 Chloride 108 mmol/L (101-111) 03/01/21 04:44 Carbon Dioxide 23 mmol/L (21-32) 03/01/21 04:44 Anion Gap 9.0 (6-13) 03/01/21 04:44 BUN 20 mg/dL (6-20) 03/01/21 04:44 Creatinine 1.2 mg/dL (0.6-1.2) 03/01/21 04:44 Estimated GFR (MDRD) 57 (>89) L 03/01/21 04:44 Glucose 108 mg/dL (70-100) H 03/01/21 04:44 Lactic Acid 3.6 mmol/L (0.5-2.2) H* 03/01/21 07:03 Calcium 7.5 mg/dL (8.5-10.3) L 03/01/21 04:44 Phosphorus 2.7 mg/dL (2.5-4.6) 03/01/21 04:44 Magnesium 1.5 mg/dL (1.7-2.8) L 03/01/21 04:44 Total Bilirubin 0.9 mg/dL (0.2-1.0) 02/28/21 17:14 AST 30 IU/L (10-42) 02/28/21 17:14 ALT 14 IU/L (10-60) 02/28/21 17:14 Alkaline Phosphatase 50 IU/L (42-121) 02/28/21 17:14 Troponin I High Sens 6876.6 ng/L (2.3-19.7) H* 03/01/21 01:39 C-Reactive Protein < 1.0 mg/dL (0-1.0) 02/28/21 17:14 Total Protein 6.8 g/dL (6.7-8.2) 02/28/21 17:14 Albumin 3.8 g/dL (3.2-5.5) 02/28/21 17:14 Globulin 3.0 g/dL (2.1-4.2) 02/28/21 17:14 Albumin/Globulin Ratio 1.3 (1.0-2.2) 02/28/21 17:14 Urine Color LT RED 02/28/21 18:34 Urine Clarity BLOODY (CLEAR) 02/28/21 18:34 Urine pH 6.5 PH (5.0-7.5) 02/28/21 18:34 Ur Specific [place] 1.020 (1.002-1.030) 02/28/21 18:34 Urine Protein 30 mg/dL (NEGATIVE) H 02/28/21 18:34 Urine Glucose (UA) NEGATIVE mg/dL (NEGATIVE) 02/28/21 18:34 Urine Ketones NEGATIVE mg/dL (NEGATIVE) 02/28/21 18:34 Urine Occult Blood LARGE (NEGATIVE) H 02/28/21 18:34 Urine Nitrite NEGATIVE (NEGATIVE) 02/28/21 18:34 Urine Bilirubin NEGATIVE (NEGATIVE) 02/28/21 18:34 Urine Urobilinogen 0.2 (NORMAL) E.U./dL (NORMAL) 02/28/21 18:34 Ur Leukocyte Esterase SMALL (NEGATIVE) H 02/28/21 18:34 Urine RBC TNTC /HPF (0-5) H 02/28/21 18:34 Urine WBC 6-10 /HPF (0-3) H 02/28/21 18:34 Ur Squamous Epith Cells NONE SEEN (<= Few) 02/28/21 18:34 Urine Bacteria Many /HPF (None Seen) H 02/28/21 18:34 Urine Culture Comments INDICATED 02/28/21 18:34 Nasal Adenovirus (PCR) NOT DETECTED 02/28/21 17:16 Nasal B. parapertussis DNA (PCR) NOT DETECTED 02/28/21 17:16 Nasal Coronavir 229E PCR NOT DETECTED 02/28/21 17:16 Nasal Coronavir HKU1 PCR NOT DETECTED 02/28/21 17:16 Nasal Coronavir NL63 PCR NOT DETECTED 02/28/21 17:16 Nasal Coronavir OC43 PCR NOT DETECTED 02/28/21 17:16 Nasal Enterovir/Rhinovir PCR NOT DETECTED 02/28/21 17:16 Nasal Influenza B PCR NOT DETECTED 02/28/21 17:16 Nasal Influenza A PCR NOT DETECTED 02/28/21 17:16 Nasal Parainfluen 1 PCR NOT DETECTED 02/28/21 17:16 Nasal Parainfluen 2 PCR NOT DETECTED 02/28/21 17:16 Nasal Parainfluen 3 PCR NOT DETECTED 02/28/21 17:16 Nasal Parainfluen 4 PCR NOT DETECTED 02/28/21 17:16 Nasal RSV (PCR) NOT DETECTED 02/28/21 17:16 Nasal Screen MRSA (PCR) NEGATIVE (NEGATIVE) 02/28/21 23:30 Nasal B.pertussis DNA PCR NOT DETECTED 02/28/21 17:16 Nasal C.pneumoniae (PCR) NOT DETECTED 02/28/21 17:16 [place] Human Metapneumo PCR NOT DETECTED 02/28/21 17:16 Nasal M.pneumoniae (PCR) NOT DETECTED 02/28/21 17:16 Nasal SARS-CoV-2 (PCR) NOT DETECTED 02/28/21 17:16 Stl C. diff Tox B Gene POSITIVE (NEGATIVE) A* 02/28/21 17:50 Sepsis Event Note (H) - Evaluation Current Stage of Sepsis: Septic shock Possible source of Sepsis: positive: GI tract/intra-abdominal, Genitourinary - Sepsis Criteria Sepsis Criteria: Recorded Temperature greater than 38.3C or Less than 36C, Recorded Heart Rate greater than 90 bpm, Recorded Respiratory Rate greater than 20, WBC count greater than 12,000 or less than 4000, Metabolic: lactate > 2 mmo l/L ABX Reporting Has patient been on IV antibiotics over the past 48 hours?: Yes
[2021-03-01] MEDS ORDERED: SODIUM CHLORIDE 0.9% 1,000 ML IV ONE (12:31)
[2021-03-01 15:29] LABS: CALCIUM, IONIZED 0.99 mmol/L (1.15-1.33); VBG PH 7.31 (7.31-7.41)
[2021-03-01 15:47] LABS: MAGNESIUM 1.3 mg/dL (1.7-2.8); PHOSPHORUS 2.7 mg/dL (2.5-4.6)
[2021-03-01 16:47] LABS: BASOPHILS % (AUTO) 0.4 %; EOSINOPHILS % (AUTO) 0.1 %; HCT - HEMATOCRIT 40.2 % (42.0-52.0); HGB - HEMOGLOBIN 13.4 g/dL (14.0-18.0); LYMPHOCYTES % (AUTO) 6.4 %; MEAN CORPUSCULAR HEMOGLOBIN 33.8 pg (27.0-31.0); MEAN CORPUSCULAR HGB CONC 33.3 g/dL (32.0-36.0); MEAN CORPUSCULAR VOLUME 101.5 fL (80.0-94.0); MEAN PLATELET VOLUME 9.5 fL (7.4-11.4); MONOCYTES % (AUTO) 5.2 %; NEUTROPHILS % (AUTO) 80.8 %; PLT - PLATELET COUNT 81 10^3/uL (130-450); RED BLOOD COUNT 3.96 10^6/uL (4.70-6.10); RED CELL DISTRIBUTION WIDTH 14.3 % (12.0-15.0); WHITE BLOOD COUNT 24.5 x10^3/uL (4.8-10.8)
[2021-03-01 16:49] LABS: ABNORMAL LYMPHS % (MANUAL) 0 %
[2021-03-01] MEDS: MEROPENEM 1 GM in SODIUM CHLORIDE 0.9% MINIBAG 100 ML IV SCH (17:16)
[2021-03-01 17:17] LABS: BAND NEUTROPHILS % (MANUAL) 16 %; LYMPHOCYTES # (MANUAL) 0.7 10^3/uL (1.5-3.5); LYMPHOCYTES % (MANUAL) 3 %; METAMYELOCYTES % (MANUAL) 4 %; MONOCYTES # (MANUAL) 1.5 10^3/uL (0.0-1.0); NEUTROPHILS # (MANUAL) 21.3 10^3/uL (1.5-6.6); PLATELET ESTIMATE, MANUAL DECREASED (<130,000) (NORMAL); PLATELET MORPHOLOGY NORMAL APPEARANCE (NORMAL); RBC MORPHOLOGY (MULTIPLE) 1+ MACROCYTOSIS (NORMAL)
[2021-03-01 17:18] LABS: DIFFERENTIAL COMMENT MANUAL DIFFERENTIAL
[2021-03-01] MEDS: MAGNESIUM SULFATE 2 GRAM 2 GM/50 ML BAG IV SCH ×2 (19:47→20:49)
[2021-03-01] MEDS ORDERED: VANCOMYCIN INJ 1.75 GM in SODIUM CHLORIDE 0.9% 500 ML IV ONE (20:00)
[2021-03-02] MEDS: ZINC OXIDE 20% OINT 30 GM TUBE TOP PRN ×3 (00:30→17:43)
[2021-03-02] MEDS: SODIUM CHLORIDE FLUSH 0.9% 10 ML SYRINGE IVP SCH ×3 (04:29→17:20)
[2021-03-02] MEDS: MEROPENEM 1 GM in SODIUM CHLORIDE 0.9% MINIBAG 100 ML IV SCH ×2 (04:29→17:17)
[2021-03-02 05:22] LABS: BASOPHILS % (AUTO) 0.5 %; CALCIUM, IONIZED 1.11 mmol/L (1.15-1.33); EOSINOPHILS % (AUTO) 0.6 %; HCT - HEMATOCRIT 33.6 % (42.0-52.0); LYMPHOCYTES % (AUTO) 13.7 %; MEAN CORPUSCULAR HEMOGLOBIN 33.2 pg (27.0-31.0); MEAN CORPUSCULAR HGB CONC 32.7 g/dL (32.0-36.0); MEAN CORPUSCULAR VOLUME 101.5 fL (80.0-94.0); MONOCYTES % (AUTO) 6.4 %; NEUTROPHILS % (AUTO) 72.6 %; PLT - PLATELET COUNT 60 10^3/uL (130-450); RED BLOOD COUNT 3.31 10^6/uL (4.70-6.10); RED CELL DISTRIBUTION WIDTH 14.2 % (12.0-15.0); VBG PH 7.393 (7.31-7.41); WHITE BLOOD COUNT 11.5 x10^3/uL (4.8-10.8)
[2021-03-02 05:30] LABS: CALCIUM 7.4 mg/dL (8.5-10.3); CREATININE 0.8 mg/dL (0.6-1.2); MAGNESIUM 2.5 mg/dL (1.7-2.8); POTASSIUM 3.8 mmol/L (3.5-5.0)
[2021-03-02 05:31] LABS: ABNORMAL LYMPHS % (MANUAL) 0 %
[2021-03-02 05:39] LABS: BAND NEUTROPHILS % (MANUAL) 20 %; LYMPHOCYTES # (MANUAL) 0.8 10^3/uL (1.5-3.5); LYMPHOCYTES % (MANUAL) 7 %; MONOCYTES # (MANUAL) 0.5 10^3/uL (0.0-1.0); MYELOCYTES % (MANUAL) 1 %; NEUTROPHILS # (MANUAL) 10.1 10^3/uL (1.5-6.6)
[2021-03-02 05:40] LABS: DIFFERENTIAL COMMENT MANUAL DIFFERENTIAL; PLATELET ESTIMATE, MANUAL DECREASED (<130,000) (NORMAL); PLATELET MORPHOLOGY NORMAL APPEARANCE (NORMAL); RBC MORPHOLOGY (MULTIPLE) NORMAL APPEARANCE (NORMAL); WBC MORPHOLOGY (MULTIPLE) NORMAL APPEARANCE (NORMAL)
--- NOTE | 2021-03-02 07:58 | XRAY Report ---
PROCEDURE: Chest 1 View X-Ray INDICATIONS: Poss CHF after iv fluids TECHNIQUE: One view of the chest was acquired. COMPARISON: 02/28/2021 FINDINGS: Surgical changes and devices: None. Lungs and pleura: Compared to the prior study, increased pulmonary vascular congestion is seen consi stent with mild volume overload/CHF . No pneumothorax or pleural effusion. . Mediastinum: Mediastinal contours appear normal. Heart size is normal. Bones and chest wall: No suspicious bony lesions. Overlying soft tissues appear unremarkable. IMPRESSION: Pulmonary vascular congestion consistent with volume overload/mild CHF. Reviewed by: Lenin Hatch on 03/02/2021 7:56 AM PDT Approved by: Lenin Hatch on 03/02/2021 7:56 AM PDT Station ID: [id number]
[2021-03-02] MEDS ORDERED: POTASSIUM CHLORIDE 20 MEQ TABLET PO ONE (08:00)
[2021-03-02] MEDS: CALCIUM CARBONATE CHEW 500 MG TABLET PO SCH ×2 (08:46→12:09)
[2021-03-02] MEDS: VANCOMYCIN 125 MG CAPSULE PO SCH ×4 (08:47→20:32)
[2021-03-02] MEDS: SACCHAROMYCES BOULARDII 250 MG CAPSULE PO SCH ×2 (08:47→17:20)
[2021-03-02] MEDS ORDERED: ASPIRIN EC 81 MG TABLET PO SCH (09:00)
--- NOTE | 2021-03-02 11:55 | PHARMACY PROGRESS NOTE ---
- Best Possible Medication History Admit Date and Time: 02/28/211956 Processed by: Pharmacy Medication History completed: Yes Patient Interview: Completed (MED REC BASED OFF INSURANCE RECORDS AND WHAT THE COULD REMEMBER) As the person ultimately responsible for medication therapy, providers are able to order a medication from an existing home medication list in [facility] via the "Reconcile Routine" prior to Confirmation of that medication by customer support specialist. Such practice is discouraged except when the physician, in their clinical judgment, deems that a medical need exists for a medication without regard to previous use.
[2021-03-02 12:19] LABS: CALCIUM 8.1 mg/dL (8.5-10.3); POTASSIUM 3.9 mmol/L (3.5-5.0)
[2021-03-02] MEDS ORDERED: VANCOMYCIN INJ 0.75 GM in SODIUM CHLORIDE 0.9% 250 ML IV SCH (14:00)
[2021-03-02] MEDS ORDERED: VANCOMYCIN INJ 1 GM in SODIUM CHLORIDE 0.9% 250 ML IV SCH (14:00)
--- NOTE | 2021-03-02 16:19 | PROVIDER PROGRESS NOTE ---
Assessment/Plan - Problem List (1) Septic shock Assessment/Plan: Patient transferred to the ICU on the same day as being admitted to Med/Surg because he became hypotensive with a lactic acid of 6.3 and WBCs of 1.2. Septic shock has since resolved. Patient is off levophed with Sbp 110-130s. Lactic acid is down to 1.6 and the WBC have decreased to 11.5. Initial tachycardia has resolved and his HR is 70-80s. Blood and urine cultures grew E. coli therefore IV Vanco was discontinued. Plan: Continue to follow WBC and lactic acid daily. Continue with Meropenem 1mg IVB Q12H. (2) E coli bacteremia Assessment/Plan: The source of the bacteremia is most likely due to the E. Coli from the wagner that was isolated in the urine culture. Antibiotics were changed yesterday from Cefepime to Meropenum and Vano IV. Today Vano IV was discontinued due to isolating E.Coli in in the blood cultures and ESBL was ruled out. Plan: Continue Meropenum 1gm IV Q12H for E.coli treatment. Continue to monitor for fevers, tachycardia, or elevated WBCs and adjust antibiotics as needed. Consider deescalating antibiotics tomorrow if he continues to improve. Will need antibiotics for 14 days due to bacteremia. (3) E. coli UTI Assessment/Plan: Patient has a history of BPH and chronic wagner. He presented with fever and hematuria after a new wagner was placed on 02/28. Urine culture from 02/28 isolated E. Coli. Initial antibiotics were Cefepime but Lactic acid and WBCs continued to increase. Antibiotics were changed to Meropenum and Vancomyacin to cover possible ESBL or MRSA. Today IV Vanco was discontinued because only E. Coli was isolated. Plan: Continue with Meropenum 1gm IV Q12H for UTI treatment. If patient develops fevers, or has a change in urine color/ consistency, consider another urine culture and adjust antibiotics as needed. (4) Type 2 MO (myocardial infarction) Assessment/Plan: Patient became hypotensive on 02/28 so a high sensitivity troponin was done and it was [id number]. An EKG showed NSR with q waves in V2-V6 and inverted T-waves in V3- V5. Previous admission EKG was NSR with low voltage. Patient denied chest pain, shortness of breath, or diaphoresis. Repeat Troponin was 6876. This is most likely type two MO secondary to demand ischemia from hypoperfusion due to the lack of symptoms. Patient most likely has underlying CAD. He was not a candidate for Angiogram due to sepsis and bacteremia. Beta miguel was held due to hypotension and need for levophed. Heparin drip held due to hematuria and downward trend of troponin. Aspirin held due to platelets of 91, and hematuria. Plan: Continue with Heparin 5000 units Sub Q twice daily when hematuria improves. Plan for 2D Echo for Wednesday to evaluate cardiac function. (5) Neutropenia Qualifiers: Neutropenia type: due to infection Qualified Code(s): D70.3 - Neutropenia due to infection Assessment/Plan: The neutropenia on admission with WBC 1.2 has resolved. WBCs are currently 11.5 which is most likely due to baceretemia. Plan: Continue to monitor CBC daily. Continue to treat underlying infections. (6) C. difficile diarrhea Assessment/Plan: Patient was previous diagnosed and treated for C-diff 11/2020. Stool from this admission on 03/01 was positive for C-diff. Home medications include oral Vanco. Plan: Continue Vanco PO 4 times daily. Advanced to Regular diet. Monitor electrolytes and replace as needed. (7) Hematuria Assessment/Plan: On 02/28 his wagner was changed by a home health nurse that led to hematuria and a fever. Urine in the urometer is yellow and has improved from yesterday. Plan: Continue with Wagner management. Consider intermittent flushes as needed to prevent obstructions from hematuria clots. (8) Chronic indwelling Wagner catheter Assessment/Plan: According to a chart review, the patient has a history of BPH with urinary retention and had a wagner placed approximately 6 months ago. Plan: Continue with Wagner management. (9) Dementia without behavioral disturbance Qualifiers: Dementia type: Alzheimer's Assessment/Plan: Patient is alert to self, location, and year. He does not know the specific date or what brought him into the hospital. He is cooperating with staff and directable. According to records, his memory started to decline in 2017. In 2019 he was evaluated by [facility] and started on Donezepil which he did not tolerate. He was then changed to Memantine. No medication for dementia is listed on home medication list. RN reports that the patient sundowns. Plan: Continue to reorient to new environment. When possible limit interruptions to sleep wake cycles to prevent delirium. Add seroqueal at night. - Current Meds Current Meds: Current Medications Generic Name Dose Route Start Last Admin Trade Name Freq PRN Reason Stop Dose Admin Meropenem 1 gm/ Sodium 100 mls @ 200 mls/hr 03/01/21 17:00 03/02/21 05:00 Chloride IV Infused Q12H CHARLEEN Infusion Sodium Chloride 1,000 mls @ 60 mls/hr 03/01/21 23:14 03/02/21 13:40 Normal Saline 0.9% IV 0 mls/hr .[id number] CHARLEEN Infusion Vancomycin HCl 1 gm/ Sodium 250 mls @ 167 mls/hr 03/02/21 14:00 03/02/21 13:41 Chloride IV 167 mls/hr Q18H CHARLEEN Administration Multi-Ingredient Ointment 1 applic 03/01/21 19:39 03/02/21 08:45 Zinc Oxide 20% Oint 30 Gm Tube TOP 1 applic PRN PRN Administration Skin Care Saccharomyces Boulardii 500 mg 03/01/21 08:00 03/02/21 08:47 Saccharomyces Boulardii 250 Mg Capsule PO 500 mg BIDWM CHARLEEN Administration Sodium Chloride 10 ml 02/28/21 20:17 03/01/21 19:47 Sodium Chloride Flush 0.9% 10 Ml Syringe IVP 10 ml PRN PRN Administration NEEDED PER PROVIDER ORDERS Sodium Chloride 10 ml 03/01/21 01:00 03/02/21 08:47 Sodium Chloride Flush 0.9% 10 Ml Syringe IVP 10 ml 0100,0900,1700 CHARLEEN Administration Vancomycin HCl 125 mg 02/28/21 21:00 03/02/21 12:09 Vancomycin 125 Mg Capsule PO 125 mg QID CHARLEEN Administration - Lab Result Fish Bone Diagrams: 03/02/21 04:41 03/02/21 12:06 - Additional Planning Condition/Complexity: Improved Subjective - Subjective Patient Reports: Feeling Better, Resting Comfortably, No Complaints, Other (Patient sitting in bed eating breakfast. Denies any concerns. Reports sleeping well though the night. Denies Chest pain, dyspnea, fever, abdominial pain, or urinary discomfort.) Nursing Reports: Confused, Other (Nurse reports patient begins to sundown around mid afternoon.) Objective Vital Signs: Vital Signs - 24 hr 03/01/21 03/01/21 03/01/21 17:00 17:27 19:00 Temperature 36.6 C Heart Rate [ 85 78 82 Brachial] Heart Rate [ Monitoring electrodes] Respiratory 31 H 23 20 Rate Blood Pressure 98/87 H 98/87 H 100/88 H [Right Brachial artery] O2 Saturation 98 95 98 03/01/21 03/01/21 03/01/21 19:37 19:55 20:00 Temperature 37.1 C Heart Rate [ 84 76 Brachial] Heart Rate [ Monitoring electrodes] Respiratory 26 H Rate Blood Pressure 92/66 98/62 [Right Brachial artery] O2 Saturation 98 03/01/21 03/01/21 03/01/21 20:05 20:10 20:15 Temperature Heart Rate [ 78 Brachial] Heart Rate [ 81 83 Monitoring electrodes] Respiratory Rate Blood Pressure 127/57 L 155/66 H 152/104 H [Right Brachial artery] O2 Saturation 03/01/21 03/01/21 03/01/21 20:30 20:45 21:00 Temperature Heart Rate [ 75 Brachial] Heart Rate [ 79 76 Monitoring electrodes] Respiratory 24 Rate Blood Pressure 95/66 110/69 82/48 L [Right Brachial artery] O2 Saturation 95 03/01/21 03/01/21 03/01/21 21:05 21:10 21:15 Temperature Heart Rate [ Brachial] Heart Rate [ 75 75 76 Monitoring electrodes] Respiratory Rate Blood Pressure 86/54 L 94/52 L 92/52 L [Right Brachial artery] O2 Saturation 03/01/21 03/01/21 03/01/21 21:30 21:51 21:55 Temperature Heart Rate [ Brachial] Heart Rate [ 73 77 79 Monitoring electrodes] Respiratory Rate Blood Pressure 91/57 L 96/55 L 96/55 L [Right Brachial artery] O2 Saturation 03/01/21 03/01/21 03/01/21 22:00 22:15 22:30 Temperature Heart Rate [ Brachial] Heart Rate [ 72 75 75 Monitoring electrodes] Respiratory 23 Rate Blood Pressure 90/54 L 95/56 L 94/50 L [Right Brachial artery] O2 Saturation 96 03/01/21 03/01/21 03/01/21 22:47 23:00 23:08 Temperature Heart Rate [ Brachial] Heart Rate [ 80 82 79 Monitoring electrodes] Respiratory 20 Rate Blood Pressure 85/46 L 98/63 96/53 L [Right Brachial artery] O2 Saturation 97 03/01/21 03/01/21 03/01/21 23:10 23:15 23:19 Temperature 37.1 C Heart Rate [ Brachial] Heart Rate [ 79 79 Monitoring electrodes] Respiratory Rate Blood Pressure 96/56 L 94/53 L [Right Brachial artery] O2 Saturation 03/01/21 03/01/21 03/02/21 23:30 23:50 00:00 Temperature Heart Rate [ Brachial] Heart Rate [ 78 79 65 Monitoring electrodes] Respiratory 19 Rate Blood Pressure 89/50 L 91/58 L 93/62 [Right Brachial artery] O2 Saturation 96 03/02/21 03/02/21 03/02/21 00:30 01:00 02:00 Temperature Heart Rate [ Brachial] Heart Rate [ 79 63 71 Monitoring electrodes] Respiratory 22 19 24 Rate Blood Pressure 98/56 L 91/57 L 99/64 [Right Brachial artery] O2 Saturation 96 97 96 03/02/21 03/02/21 03/02/21 03:00 04:00 04:32 Temperature 36.3 C L Heart Rate [ Brachial] Heart Rate [ 62 68 Monitoring electrodes] Respiratory 21 15 Rate Blood Pressure 92/56 L 101/54 L [Right Brachial artery] O2 Saturation 95 97 03/02/21 03/02/21 03/02/21 05:00 06:00 07:00 Temperature Heart Rate [ Brachial] Heart Rate [ 59 L 74 54 L Monitoring electrodes] Respiratory 19 18 16 Rate Blood Pressure 98/59 L 105/56 L 110/49 L [Right Brachial artery] O2 Saturation 97 98 96 03/02/21 03/02/21 03/02/21 08:00 09:00 10:00 Temperature 36.4 C L Heart Rate [ Brachial] Heart Rate [ 69 77 75 Monitoring electrodes] Respiratory 16 20 21 Rate Blood Pressure 121/62 130/87 H 123/66 [Right Brachial artery] O2 Saturation 97 96 97 03/02/21 03/02/21 03/02/21 10:55 12:00 13:00 Temperature 36.6 C 36.5 C Heart Rate [ Brachial] Heart Rate [ 70 88 81 Monitoring electrodes] Respiratory 20 18 20 Rate Blood Pressure 129/74 98/45 L 120/68 [Right Brachial artery] O2 Saturation 97 97 98 03/02/21 03/02/2121 14:00 15:00 15:30 Temperature 36.9 C Heart Rate [ Brachial] Heart Rate [ 74 77 Monitoring electrodes] Respiratory 21 22 Rate Blood Pressure 113/72 119/92 H [Right Brachial artery] O2 Saturation 97 99 03/02/21 16:00 Temperature 36.9 C Heart Rate [ Brachial] Heart Rate [ 76 Monitoring electrodes] Respiratory 22 Rate Blood Pressure 125/74 [Right Brachial artery] O2 Saturation 98 Oxygen O2 Source Room air I&O (Last 24 Hrs): Intake and Output Totals x24h 02/28/21 03/01/21 03/02/21 23:59 23:59 23:59 Intake Total 3383.105 5564.145 1633 Output Total 900 1120 1650 Balance 2483.105 4444.145 -17 General: Alert, Cooperative, No acute distress HEENT: Atraumatic, PERRLA, EOMI Neck: Supple, No JVD Neuro: Alert, Other (Patient is alert to self, location and year. 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.) Cardiovascular: Regular rate, Normal S1, Normal S2 Respiratory: Chest non-tender, No respiratory distress, Wheezes, Other (Faint expiratory wheeze.) Abdomen: Normal bowel sounds, Soft, No tenderness Extremities: No clubbing, No cyanosis, No edema, Normal pulses Skin: No rashes, No breakdown, No significant lesion - Results Results: Laboratory Results WBC 11.5 x10^3/uL (4.8-10.8) H 03/02/21 04:41 RBC 3.31 10^6/uL (4.70-6.10) L 03/02/21 04:41 Hgb 11.0 g/dL (14.0-18.0) L 03/02/21 04:41 Hct 33.6 % (42.0-52.0) L 03/02/21 04:41 MCV 101.5 fL (80.0-94.0) H 03/02/21 04:41 MCH 33.2 pg (27.0-31.0) H 03/02/21 04:41 MCHC 32.7 g/dL (32.0-36.0) 03/02/21 04:41 RDW 14.2 % (12.0-15.0) 03/02/21 04:41 Plt Count 60 10^3/uL (130-450) L 03/02/21 04:41 MPV 10.0 fL (7.4-11.4) 03/02/21 04:41 Neut # (Auto) Not Reportable 03/02/21 04:41 Lymph # (Auto) Not Reportable 03/02/21 04:41 Emery # (Auto) Not Reportable 03/02/21 04:41 Eos # (Auto) Not Reportable 03/02/21 04:41 Baso # (Auto) Not Reportable 03/02/21 04:41 Absolute Nucleated RBC Not Reportable 03/02/21 04:41 Total Counted 100 03/02/21 04:41 Band Neuts % (Manual) 20 % (0-10) H 03/02/21 04:41 Reactive Lymphs % (Man) 16 % 02/28/21 17:14 Abnorm Lymph % (Manual) 0 % 03/02/21 04:41 Metamyelocytes % 4 % (-0) H 03/01/21 16:44 Myelocytes % 1 % (-0) H 03/02/21 04:41 Nucleated RBC % Not Reportable 03/02/21 04:41 Neutrophils # (Manual) 10.1 10^3/uL (1.5-6.6) H 03/02/21 04:41 Lymphocytes # (Manual) 0.8 10^3/uL (1.5-3.5) L 03/02/21 04:41 Monocytes # (Manual) 0.5 10^3/uL (0.0-1.0) 03/02/21 04:41 Eosinophils # (Manual) 0.0 10^3/uL (0-0.7) 03/02/21 04:41 Basophils # (Manual) 0.0 10^3/uL (0-0.1) 03/02/21 04:41 Nucleated RBCs 2 % 02/28/21 17:14 Differential Comment MANUAL DIFFERENTIAL 03/02/21 04:41 WBC Morphology NORMAL APPEARANCE (NORMAL) 03/02/21 04:41 Platelet Estimate DECREASED (<130,000) (NORMAL) 03/02/21 04:41 Platelet Morphology NORMAL APPEARANCE (NORMAL) 03/02/21 04:41 RBC Morph Micro Appear NORMAL APPEARANCE (NORMAL) 03/02/21 04:41 PT 12.7 secs (9.9-12.6) H 02/28/21 17:14 INR 1.1 (0.8-1.2) 02/28/21 17:14 VBG pH 7.393 (7.31-7.41) 03/02/21 04:41 Ionized Calcium 1.11 mmol/L (1.15-1.33) L 03/02/21 04:41 Sodium 137 mmol/L (135-145) 03/02/21 04:41 Potassium 3.9 mmol/L (3.5-5.0) 03/02/21 12:06 Chloride 110 mmol/L (101-111) 03/02/21 04:41 Carbon Dioxide 20 mmol/L (21-32) L 03/02/21 04:41 Anion Gap 7.0 (6-13) 03/02/21 04:41 BUN 21 mg/dL (6-20) H 03/02/21 04:41 Creatinine 0.8 mg/dL (0.6-1.2) 03/02/21 04:41 Estimated GFR (MDRD) 92 (>89) 03/02/21 04:41 Glucose 76 mg/dL (70-100) 03/02/21 04:41 Lactic Acid 1.6 mmol/L (0.5-2.2) 03/02/21 12:06 Calcium 8.1 mg/dL (8.5-10.3) L 03/02/21 12:06 Phosphorus 1.9 mg/dL (2.5-4.6) L 03/02/21 04:41 Magnesium 2.5 mg/dL (1.7-2.8) 03/02/21 04:41 Total Bilirubin 0.9 mg/dL (0.2-1.0) 02/28/21 17:14 AST 30 IU/L (10-42) 02/28/21 17:14 ALT 14 IU/L (10-60) 02/28/21 17:14 Alkaline Phosphatase 50 IU/L (42-121) 02/28/21 17:14 Troponin I High Sens 6876.6 ng/L (2.3-19.7) H* 03/01/21 01:39 C-Reactive Protein < 1.0 mg/dL (0-1.0) 02/28/21 17:14 Total Protein 6.8 g/dL (6.7-8.2) 02/28/21 17:14 Albumin 3.8 g/dL (3.2-5.5) 02/28/21 17:14 Globulin 3.0 g/dL (2.1-4.2) 02/28/21 17:14 Albumin/Globulin Ratio 1.3 (1.0-2.2) 02/28/21 17:14 Urine Color LT RED 02/28/21 18:34 Urine Clarity BLOODY (CLEAR) 02/28/21 18:34 Urine pH 6.5 PH (5.0-7.5) 02/28/21 18:34 Ur Specific [place] 1.020 (1.002-1.030) 02/28/21 18:34 Urine Protein 30 mg/dL (NEGATIVE) H 02/28/21 18:34 Urine Glucose (UA) NEGATIVE mg/dL (NEGATIVE) 02/28/21 18:34 Urine Ketones NEGATIVE mg/dL (NEGATIVE) 02/28/21 18:34 Urine Occult Blood LARGE (NEGATIVE) H 02/28/21 18:34 Urine Nitrite NEGATIVE (NEGATIVE) 02/28/21 18:34 Urine Bilirubin NEGATIVE (NEGATIVE) 02/28/21 18:34 Urine Urobilinogen 0.2 (NORMAL) E.U./dL (NORMAL) 02/28/21 18:34 Ur Leukocyte Esterase SMALL (NEGATIVE) H 02/28/21 18:34 Urine RBC TNTC /HPF (0-5) H 02/28/21 18:34 Urine WBC 6-10 /HPF (0-3) H 02/28/21 18:34 Ur Squamous Epith Cells NONE SEEN (<= Few) 02/28/21 18:34 Urine Bacteria Many /HPF (None Seen) H 02/28/21 18:34 Urine Culture Comments INDICATED 02/28/21 18:34 Nasal Adenovirus (PCR) NOT DETECTED 02/28/21 17:16 Nasal B. parapertussis DNA (PCR) NOT DETECTED 02/28/21 17:16 Nasal Coronavir 229E PCR NOT DETECTED 02/28/21 17:16 Nasal Coronavir HKU1 PCR NOT DETECTED 02/28/21 17:16 Nasal Coronavir NL63 PCR NOT DETECTED 02/28/21 17:16 Nasal Coronavir OC43 PCR NOT DETECTED 02/28/21 17:16 Nasal Enterovir/Rhinovir PCR NOT DETECTED 02/28/21 17:16 Nasal Influenza B PCR NOT DETECTED 02/28/21 17:16 Nasal Influenza A PCR NOT DETECTED 02/28/21 17:16 Nasal Parainfluen 1 PCR NOT DETECTED 02/28/21 17:16 Nasal Parainfluen 2 PCR NOT DETECTED 02/28/21 17:16 Nasal Parainfluen 3 PCR NOT DETECTED 02/28/21 17:16 Nasal Parainfluen 4 PCR NOT DETECTED 02/28/21 17:16 Nasal RSV (PCR) NOT DETECTED 02/28/21 17:16 Nasal Screen MRSA (PCR) NEGATIVE (NEGATIVE) 02/28/21 23:30 Nasal B.pertussis DNA PCR NOT DETECTED 02/28/21 17:16 Nasal C.pneumoniae (PCR) NOT DETECTED 02/28/21 17:16 [place]yler Human Metapneumo PCR NOT DETECTED 02/28/21 17:16 Nasal M.pneumoniae (PCR) NOT DETECTED 02/28/21 17:16 Nasal SARS-CoV-2 (PCR) NOT DETECTED 02/28/21 17:16 Stl C. diff Tox B Gene POSITIVE (NEGATIVE) A* 02/28/21 17:50 Sepsis Event Note (H) - Evaluation Current Stage of Sepsis: Septic shock Possible source of Sepsis: positive: GI tract/intra-abdominal, Genitourinary - Sepsis Criteria Sepsis Criteria: Recorded Temperature greater than 38.3C or Less than 36C, Recorded Heart Rate greater than 90 bpm, Recorded Respiratory Rate greater than 20, WBC count greater than 12,000 or less than 4000, Metabolic: lactate > 2 mmol/L ABX Reporting Has patient been on IV antibiotics over the past 48 hours?: Yes
[2021-03-02] MEDS: SODIUM CHLORIDE 0.9% 1,000 ML IV SCH (17:18)
[2021-03-02] MEDS: QUEtiapine 25 MG TABLET PO SCH (20:32)
[2021-03-03] MEDS: SODIUM CHLORIDE FLUSH 0.9% 10 ML SYRINGE IVP SCH ×3 (02:14→16:37)
[2021-03-03] MEDS: MEROPENEM 1 GM in SODIUM CHLORIDE 0.9% MINIBAG 100 ML IV SCH (05:00)
[2021-03-03 06:22] LABS: CALCIUM, IONIZED 1.11 mmol/L (1.15-1.33); VBG PH 7.466 (7.31-7.41)
[2021-03-03 06:25] LABS: BASOPHILS % (AUTO) 0.7 %; EOSINOPHILS % (AUTO) 2.4 %; HGB - HEMOGLOBIN 11.6 g/dL (14.0-18.0); LYMPHOCYTES % (AUTO) 12.5 %; MEAN CORPUSCULAR HEMOGLOBIN 33.6 pg (27.0-31.0); MEAN CORPUSCULAR HGB CONC 33.1 g/dL (32.0-36.0); MEAN CORPUSCULAR VOLUME 101.4 fL (80.0-94.0); MEAN PLATELET VOLUME 10.2 fL (7.4-11.4); MONOCYTES % (AUTO) 4.8 %; PLT - PLATELET COUNT 57 10^3/uL (130-450); RED BLOOD COUNT 3.45 10^6/uL (4.70-6.10); RED CELL DISTRIBUTION WIDTH 13.9 % (12.0-15.0); WHITE BLOOD COUNT 10.2 x10^3/uL (4.8-10.8)
[2021-03-03 06:31] LABS: ABNORMAL LYMPHS % (MANUAL) 0 %
[2021-03-03 06:43] LABS: CALCIUM 7.7 mg/dL (8.5-10.3); CREATININE 0.8 mg/dL (0.6-1.2); MAGNESIUM 1.8 mg/dL (1.7-2.8); POTASSIUM 3.6 mmol/L (3.5-5.0)
[2021-03-03] MEDS: SODIUM CHLORIDE 0.9% 1,000 ML IV SCH ×2 (07:13→21:39)
[2021-03-03 07:19] LABS: BAND NEUTROPHILS % (MANUAL) 24 %; EOSINOPHILS # (MANUAL) 0.4 10^3/uL (0-0.7); LYMPHOCYTES # (MANUAL) 1.2 10^3/uL (1.5-3.5); LYMPHOCYTES % (MANUAL) 6 %; METAMYELOCYTES % (MANUAL) 4 %; MONOCYTES # (MANUAL) 0.6 10^3/uL (0.0-1.0); NEUTROPHILS # (MANUAL) 7.5 10^3/uL (1.5-6.6); REACTIVE LYMPHS % (MANUAL) 6 %
[2021-03-03 07:20] LABS: DIFFERENTIAL COMMENT MANUAL DIFFERENTIAL
[2021-03-03] MEDS: VANCOMYCIN 125 MG CAPSULE PO SCH ×4 (08:23→21:33)
[2021-03-03] MEDS: SACCHAROMYCES BOULARDII 250 MG CAPSULE PO SCH ×2 (08:23→16:37)
[2021-03-03] MEDS: carvediloL 3.125 MG TABLET PO SCH ×2 (08:23→21:33)
[2021-03-03] MEDS: ASPIRIN EC 81 MG TABLET PO SCH (08:24)
--- NOTE | 2021-03-03 08:51 | PROVIDER PROGRESS NOTE ---
Assessment/Plan - Problem List (1) Septic shock Assessment/Plan: Proved. Secondary to E. coli UTI and E. coli bacteremia. Patient's white blood cell count Is normal today at 10.2. Patient's antibiotics were deescalated from Merrem to Rocephin. Will order an oral cephalosporin upon discharge. Anticipating discharge in 1 to 2 days. (2) UTI (urinary tract infection) Qualifiers: Urinary tract infection type: catheter-associated UTI Indwelling urinary catheter type: indwelling urethral catheter Qualified Code(s): T83.511A - Infection and inflammatory reaction due to indwelling urethral catheter, initial encounter; N39.0 - Urinary tract infection, site not specified (3) E coli bacteremia Assessment/Plan: Patient's white blood cell count Is normal today at 10.2. Patient's antibiotics were deescalated from Merrem to Rocephin. Will order an oral cephalosporin upon discharge. Anticipating discharge in 1 to 2 days. (4) C. difficile diarrhea Assessment/Plan: On oral vancomycin 125 mg 4 times daily. (5) Atrial fibrillation, new onset Assessment/Plan: 2D echocardiogram done today showed an overall left ventricular systolic function which is mild to moderately impaired with an ejection fraction of 40 to 45%. Severe hypokinesis of the mid anterior septal wall segment and entire apex is noted. RVSP 42 mmHg. Patient is currently on Coreg 3.125 mg p.o. twice daily. We will add aspirin 81 mg p.o. once patient's platelets recover. (6) Non-ST elevated myocardial infarction (non-STEMI) Assessment/Plan: 2D echocardiogram done today showed an overall left ventricular systolic function which is mild to moderately impaired with an ejection fraction of 40 to 45%. Severe hypokinesis of the mid anterior septal wall segment and entire apex is noted. RVSP 42 mmHg. Patient is currently on Coreg 3.125 mg p.o. twice daily. We will add aspirin 81 mg p.o. once patient's platelets recover. Dementia he would not be a candidate for angiogram. Continue with conservative medical management only. (7) Neutropenia Qualifiers: Neutropenia type: due to infection Qualified Code(s): D70.3 - Neutropenia due to infection Assessment/Plan: This was due to patient's septic state. White blood cell count has since normalized with treatment of infection. (8) Hematuria Assessment/Plan: Improved/resolved. Patient's hemoglobin is stable at 11.6. We will continue to monitor. (9) Chronic indwelling Martinez catheter Assessment/Plan: Will change when indicated. (10) Dementia without behavioral disturbance Qualifiers: Dementia type: Alzheimer's Assessment/Plan: Seroquel 25 mg p.o. every Bedtime - Current Meds Current Meds: Current Medications Generic Name Dose Route Start Last Admin Trade Name Freq PRN Reason Stop Dose Admin Aspirin 81 mg 03/03/21 09:00 03/03/21 08:24 Aspirin Ec 81 Mg Tablet PO Not Given DAILY CHARLEEN Carvedilol 3.125 mg 03/03/21 09:00 03/03/21 08:23 Carvedilol 3.125 Mg Tablet PO 3.125 mg BID CHARLEEN Administration Meropenem 1 gm/ Sodium 100 mls @ 200 mls/hr 03/01/21 17:00 03/03/21 05:40 Chloride IV Infused Q12H CHARLEEN Infusion Sodium Chloride 1,000 mls @ 60 mls/hr 03/01/21 23:14 03/03/21 07:13 Normal Saline 0.9% IV 60 mls/hr .[id number] CHARLEEN Administration Multi-Ingredient Ointment 1 applic 03/01/21 19:39 03/02/21 17:43 Zinc Oxide 20% Oint 30 Gm Tube TOP 1 applic PRN PRN Administration Skin Care Quetiapine Fumarate 25 mg 03/02/21 21:00 03/02/21 20:32 Quetiapine 25 Mg Tablet PO 25 mg QPM CHARLEEN Administration Saccharomyces Boulardii 500 mg 03/01/21 08:00 03/03/21 08:23 Saccharomyces Boulardii 250 Mg Capsule PO 500 mg BIDWM CHARLEEN Administration Sodium Chloride 10 ml 02/28/21 20:17 03/01/21 19:47 Sodium Chloride Flush 0.9% 10 Ml Syringe IVP 10 ml PRN PRN Administration NEEDED PER PROVIDER ORDERS Sodium Chloride 10 ml 03/01/21 01:00 03/03/21 08:24 Sodium Chloride Flush 0.9% 10 Ml Syringe IVP Not Given 0100,0900,1700 CHARLEEN Vancomycin HCl 125 mg 02/28/21 21:00 03/03/21 08:23 Vancomycin 125 Mg Capsule PO 125 mg QID CHARLEEN Administration - Lab Result Fish Bone Diagrams: 03/03/21 06:09 03/03/21 06:09 - Additional Planning My Orders: My Active Orders 03/02/21 Lunch Regular Diet [DIET] 03/02/21 21:00 QUEtiapine [SEROquel] 25 mg PO QPM 03/04/21 05:00 BMP - BASIC METABOLIC PANEL [CHEM] DAILYLAB CBC - COMP BLD CT W/AUTO DIFF [HEME] DAILYLAB 03/05/21 05:00 BMP - BASIC METABOLIC PANEL [CHEM] DAILYLAB CBC - COMP BLD CT W/AUTO DIFF [HEME] DAILYLAB 03/06/21 05:00 BMP - BASIC METABOLIC PANEL [CHEM] DAILYLAB CBC - COMP BLD CT W/AUTO DIFF [HEME] DAILYLAB 03/07/21 05:00 BMP - BASIC METABOLIC PANEL [CHEM] DAILYLAB CBC - COMP BLD CT W/AUTO DIFF [HEME] DAILYLAB 03/08/21 05:00 BMP - BASIC METABOLIC PANEL [CHEM] DAILYLAB CBC - COMP BLD CT W/AUTO DIFF [HEME] DAILYLAB 03/09/21 05:00 BMP - BASIC METABOLIC PANEL [CHEM] DAILYLAB CBC - COMP BLD CT W/AUTO DIFF [HEME] DAILYLAB Subjective - Subjective Patient Reports: Other (Patient was having lunch at the time of exam. He seemed upset about not being able to find his dentures. He was alert and oriented x3. He denied any complaints.) Objective Vital Signs: Vital Signs - 24 hr 03/02/21 03/02/21 03/02/21 09:00 10:00 10:55 Temperature 36.6 C Heart Rate [ 77 75 70 Monitoring electrodes] Respiratory 20 21 20 Rate Blood Pressure 130/87 H 123/66 129/74 [Right Brachial artery] O2 Saturation 96 97 97 03/02/21 03/02/21 03/02/21 12:00 13:00 14:00 Temperature 36.5 C Heart Rate [ 88 81 74 Monitoring electrodes] Respiratory 18 20 21 Rate Blood Pressure 98/45 L 120/68 113/72 [Right Brachial artery] O2 Saturation 97 98 97 03/02/21 03/02/21 03/02/21 15:00 15:30 16:00 Temperature 36.9 C 36.9 C Heart Rate [ 77 76 Monitoring electrodes] Respiratory 22 22 Rate Blood Pressure 119/92 H 125/74 [Right Brachial artery] O2 Saturation 99 98 03/02/21 03/02/21 03/02/21 17:00 18:00 19:50 Temperature 36.8 C Heart Rate [ 77 81 77 Monitoring electrodes] Respiratory 22 16 16 Rate Blood Pressure 128/80 129/65 118/76 [Right Brachial artery] O2 Saturation 96 100 99 03/03/21 03/03/21 03/03/21 00:23 05:36 08:46 Temperature 36.4 C L 36.6 C 36.8 C Heart Rate [ 112 H 113 H 116 H Monitoring electrodes] Respiratory 18 18 18 Rate Blood Pressure 114/65 97/60 128/58 L [Right Brachial artery] O2 Saturation 96 95 96 Oxygen O2 Source Room air I&O (Last 24 Hrs): Intake and Output Totals x24h 03/01/21 03/02/21 03/03/21 23:59 23:59 23:59 Intake Total 5564.395 2543 903 Output Total 1120 2450 1675 Balance 4444.395 93 -772 Comments/Notes: General: Alert, Cooperative, No acute distress HEENT: Atraumatic, PERRLA, EOMI Neck: Supple, No JVD Neuro: Alert, Other (Patient is alert to self, location and year. 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 group home forgetfulness.) Cardiovascular: Irregularly irregular rate, Respiratory: Chest non-tender, No respiratory distress, Wheezes, Other (Faint expiratory wheeze.) Abdomen: Normal bowel sounds, Soft, No tenderness Extremities: No clubbing, No cyanosis, No edema, Normal pulses Skin: No rashes, No breakdown, No significant lesion - Results Results: Laboratory Results WBC 10.2 x10^3/uL (4.8-10.8) 03/03/21 06:09 RBC 3.45 10^6/uL (4.70-6.10) L 03/03/21 06:09 Hgb 11.6 g/dL (14.0-18.0) L 03/03/21 06:09 Hct 35.0 % (42.0-52.0) L 03/03/21 06:09 MCV 101.4 fL (80.0-94.0) H 03/03/21 06:09 MCH 33.6 pg (27.0-31.0) H 03/03/21 06:09 MCHC 33.1 g/dL (32.0-36.0) 03/03/21 06:09 RDW 13.9 % (12.0-15.0) 03/03/21 06:09 Plt Count 57 10^3/uL (130-450) L 03/03/21 06:09 MPV 10.2 fL (7.4-11.4) 03/03/21 06:09 Neut # (Auto) Not Reportable 03/03/21 06:09 Lymph # (Auto) Not Reportable 03/03/21 06:09 [place] # (Auto) Not Reportable 03/03/21 06:09 Eos # (Auto) Not Reportable 03/03/21 06:09 Baso # (Auto) Not Reportable 03/03/21 06:09 Absolute Nucleated RBC Not Reportable 03/03/21 06:09 Total Counted 100 03/03/21 06:09 Band Neuts % (Manual) 24 % (0-10) H 03/03/21 06:09 Reactive Lymphs % (Man) 6 % 03/03/21 06:09 Abnorm Lymph % (Manual) 0 % 03/03/21 06:09 Metamyelocytes % 4 % (-0) H 03/03/21 06:09 Myelocytes % 1 % (-0) H 03/02/21 04:41 Nucleated RBC % Not Reportable 03/03/21 06:09 Neutrophils # (Manual) 7.5 10^3/uL (1.5-6.6) H 03/03/21 06:09 Lymphocytes # (Manual) 1.2 10^3/uL (1.5-3.5) L 03/03/21 06:09 Monocytes # (Manual) 0.6 10^3/uL (0.0-1.0) 03/03/21 06:09 Eosinophils # (Manual) 0.4 10^3/uL (0-0.7) 03/03/21 06:09 Basophils # (Manual) 0.0 10^3/uL (0-0.1) 03/03/21 06:09 Nucleated RBCs 2 % 02/28/21 17:14 Differential Comment MANUAL DIFFERENTIAL 03/03/21 06:09 WBC Morphology NORMAL APPEARANCE (NORMAL) 03/02/21 04:41 Platelet Estimate DECREASED (<130,000) (NORMAL) 03/02/21 04:41 Platelet Morphology NORMAL APPEARANCE (NORMAL) 03/02/21 04:41 RBC Morph Micro Appear NORMAL APPEARANCE (NORMAL) 03/02/21 04:41 PT 12.7 secs (9.9-12.6) H 02/28/21 17:14 INR 1.1 (0.8-1.2) 02/28/21 17:14 VBG pH 7.466 (7.31-7.41) H 03/03/21 06:09 Ionized Calcium 1.11 mmol/L (1.15-1.33) L 03/03/21 06:09 Sodium 142 mmol/L (135-145) 03/03/21 06:09 Potassium 3.6 mmol/L (3.5-5.0) 03/03/21 06:09 Chloride 114 mmol/L (101-111) H 03/03/21 06:09 Carbon Dioxide 21 mmol/L (21-32) 03/03/21 06:09 Anion Gap 7.0 (6-13) 03/03/21 06:09 BUN 15 mg/dL (6-20) 03/03/21 06:09 Creatinine 0.8 mg/dL (0.6-1.2) 03/03/21 06:09 Estimated GFR (MDRD) 92 (>89) 03/03/21 06:09 Glucose 75 mg/dL (70-100) 03/03/21 06:09 Lactic Acid 1.6 mmol/L (0.5-2.2) 03/02/21 12:06 Calcium 7.7 mg/dL (8.5-10.3) L 03/03/21 06:09 Phosphorus 1.9 mg/dL (2.5-4.6) L 03/02/21 04:41 Magnesium 1.8 mg/dL (1.7-2.8) 03/03/21 06:09 Total Bilirubin 0.9 mg/dL (0.2-1.0) 02/28/21 17:14 AST 30 IU/L (10-42) 02/28/21 17:14 ALT 14 IU/L (10-60) 02/28/21 17:14 Alkaline Phosphatase 50 IU/L (42-121) 02/28/21 17:14 Troponin I High Sens 2621.6 ng/L (2.3-19.7) H* 03/03/21 06:09 C-Reactive Protein < 1.0 mg/dL (0-1.0) 02/28/21 17:14 Total Protein 6.8 g/dL (6.7-8.2) 02/28/21 17:14 Albumin 3.8 g/dL (3.2-5.5) 02/28/21 17:14 Globulin 3.0 g/dL (2.1-4.2) 02/28/21 17:14 Albumin/Globulin Ratio 1.3 (1.0-2.2) 02/28/21 17:14 TSH 4.20 uIU/mL (0.34-5.60) 03/03/21 06:09 Urine Color LT RED 02/28/21 18:34 Urine Clarity BLOODY (CLEAR) 02/28/21 18:34 Urine pH 6.5 PH (5.0-7.5) 02/28/21 18:34 Ur Specific [place] 1.020 (1.002-1.030) 02/28/21 18:34 Urine Protein 30 mg/dL (NEGATIVE) H 02/28/21 18:34 Urine Glucose (UA) NEGATIVE mg/dL (NEGATIVE) 02/28/21 18:34 Urine Ketones NEGATIVE mg/dL (NEGATIVE) 02/28/21 18:34 Urine Occult Blood LARGE (NEGATIVE) H 02/28/21 18:34 Urine Nitrite NEGATIVE (NEGATIVE) 02/28/21 18:34 Urine Bilirubin NEGATIVE (NEGATIVE) 02/28/21 18:34 Urine Urobilinogen 0.2 (NORMAL) E.U./dL (NORMAL) 02/28/21 18:34 Ur Leukocyte Esterase SMALL (NEGATIVE) H 02/28/21 18:34 Urine RBC TNTC /HPF (0-5) H 02/28/21 18:34 Urine WBC 6-10 /HPF (0-3) H 02/28/21 18:34 Ur Squamous Epith Cells NONE SEEN (<= Few) 02/28/21 18:34 Urine Bacteria Many /HPF (None Seen) H 02/28/21 18:34 Urine Culture Comments INDICATED 02/28/21 18:34 Nasal Adenovirus (PCR) NOT DETECTED 02/28/21 17:16 Nasal B. parapertussis DNA (PCR) NOT DETECTED 02/28/21 17:16 Nasal Coronavir 229E PCR NOT DETECTED 02/28/21 17:16 Nasal Coronavir HKU1 PCR NOT DETECTED 02/28/21 17:16 Nasal Coronavir NL63 PCR NOT DETECTED 02/28/21 17:16 Nasal Coronavir OC43 PCR NOT DETECTED 02/28/21 17:16 Nasal Enterovir/Rhinovir PCR NOT DETECTED 02/28/21 17:16 Nasal Influenza B PCR NOT DETECTED 02/28/21 17:16 Nasal Influenza A PCR NOT DETECTED 02/28/21 17:16 Nasal Parainfluen 1 PCR NOT DETECTED 02/28/21 17:16 Nasal Parainfluen 2 PCR NOT DETECTED 02/28/21 17:16 Nasal Parainfluen 3 PCR NOT DETECTED 02/28/21 17:16 Nasal Parainfluen 4 PCR NOT DETECTED 02/28/21 17:16 Nasal RSV (PCR) NOT DETECTED 02/28/21 17:16 Nasal Screen MRSA (PCR) NEGATIVE (NEGATIVE) 02/28/21 23:30 Nasal B.pertussis DNA PCR NOT DETECTED 02/28/21 17:16 Nasal C.pneumoniae (PCR) NOT DETECTED 02/28/21 17:16 [place] Human Metapneumo PCR NOT DETECTED 02/28/21 17:16 Nasal M.pneumoniae (PCR) NOT DETECTED 02/28/21 17:16 Nasal SARS-CoV-2 (PCR) NOT DETECTED 02/28/21 17:16 Stl C. diff Tox B Gene POSITIVE (NEGATIVE) A* 02/28/21 17:50 Sepsis Event Note (H) - Evaluation Current Stage of Sepsis: Septic shock Possible source of Sepsis: positive: GI tract/intra-abdominal, Genitourinary - Sepsis Criteria Sepsis Criteria: Recorded Temperature greater than 38.3C or Less than 36C, Recorded Heart Rate greater than 90 bpm, Recorded Respiratory Rate greater than 20, WBC count greater than 12,000 or less than 4000, Metabolic: lactate > 2 mmol/L ABX Reporting Has patient been on IV antibiotics over the past 48 hours?: Yes
[2021-03-03] MEDS: cefTRIAXone 1 GM in SODIUM CHLORIDE 0.9% MINIBAG 100 ML IV SCH (16:37)
[2021-03-03] MEDS: QUEtiapine 25 MG TABLET PO SCH (21:33)
[2021-03-04] MEDS: SODIUM CHLORIDE FLUSH 0.9% 10 ML SYRINGE IVP SCH ×2 (01:08→08:52)
[2021-03-04 05:54] LABS: CALCIUM, IONIZED 1.12 mmol/L (1.15-1.33); VBG PH 7.456 (7.31-7.41)
[2021-03-04 05:55] LABS: BASOPHILS # (AUTO) 0.1 10^3/uL (0.0-0.1); BASOPHILS % (AUTO) 0.8 %; EOSINOPHILS # (AUTO) 0.3 10^3/uL (0.0-0.7); EOSINOPHILS % (AUTO) 4.6 %; HCT - HEMATOCRIT 36.4 % (42.0-52.0); HGB - HEMOGLOBIN 12.1 g/dL (14.0-18.0); LYMPHOCYTES # (AUTO) 1.9 10^3/uL (1.5-3.5); LYMPHOCYTES % (AUTO) 29.2 %; MEAN CORPUSCULAR HEMOGLOBIN 33.9 pg (27.0-31.0); MEAN CORPUSCULAR HGB CONC 33.2 g/dL (32.0-36.0); MEAN PLATELET VOLUME 10.1 fL (7.4-11.4); MONOCYTES # (AUTO) 0.5 10^3/uL (0.0-1.0); MONOCYTES % (AUTO) 7.8 %; NEUTROPHILS # (AUTO) 3.7 10^3/uL (1.5-6.6); NEUTROPHILS % (AUTO) 57.3 %; PLT - PLATELET COUNT 56 10^3/uL (130-450); RED BLOOD COUNT 3.57 10^6/uL (4.70-6.10); RED CELL DISTRIBUTION WIDTH 13.9 % (12.0-15.0); WHITE BLOOD COUNT 6.5 x10^3/uL (4.8-10.8)
[2021-03-04 06:06] LABS: CALCIUM 8.4 mg/dL (8.5-10.3); CREATININE 0.7 mg/dL (0.6-1.2); MAGNESIUM 1.7 mg/dL (1.7-2.8); POTASSIUM 3.6 mmol/L (3.5-5.0)
--- NOTE | 2021-03-04 07:49 | DISCHARGE SUMMARY ---
Discharge Summary Admit Date: 02/28/21 Discharge Date: 03/04/21 Discharging Provider: Dandy Zhong Primary Care Provider: Adia Hunter Code Status: Attempt Resuscitation Condition at Discharge: Stable Discharge Disposition: [address] [place] [address] Service - DIAGNOSES Admission Diagnoses: Sepctic shock Neutropenia UTI Chronic indwelling Martinez catheter C. difficile diarrhea Hematuria Dementia without behavioral disturbance Discharge Diagnoses with Status of Each Condition: Sepctic shock: Acute. Resolved. Cefdinir 300mg bid X 7 days UTI: Acute. Resolved. Cefdinir 300mg bid X 7 days E. coli bacteremia: Acute. Resolved. Cefdinir 300mg bid X 7 days C. difficile diarrhea: Resolved completed at least 10 days of vancomycin po NSTEMI: Acute. Affecting mid-anterior septal wall. On Coreg 3.125 bid. Baby aspirin when platlet recovers Atrial fibrillation new onset: 2/2 to NSTEMI. Rate-controlled on Coreg. No anticoagulation due to Plate count of 56 and recent hematuria Neutropenia: Acute. Resolved Chronic indwelling Martinez catheter: Follow up with urology outpatient Hematuria: Resolved Dementia without behavioral disturbance - HPI History of Present Illness: Per HPI: This is an 85-year-old white male with a history of prostatic hypertrophy causing urinary obstruction with chronic indwelling Martinez for approximately 6 months, history of dementia, frequent UTIs and some episodes with sepsis. In the past, he has grown E. coli and Pseudomonas on urine cultures, with several resistant strains. Patient was last in our ED approximately 2 weeks ago with urinary symptoms and was sent home on p.o. antibiotics. Today his visiting nurse went to change his Martinez which took 2 hours and there was subsequent hematuria and he spiked a fever. He was brought to the ED where he had an episode of nausea, vomiting and diarrhea. He was febrile with temperature of 40C. Work-up in the ED showed that he has an abnormal urinalysis consistent with a UTI, white blood count very low at 1.6 which is new for this patient, CT imaging showed no hydronephrosis, stone or obstruction and a Martinez is in place. His Lactic Acid is 6 and stool PCR was (+) for C diff. His initial heart rate was sinus tachy at 140, with a normal BP. After iv fluids were started and Tylenol given , the heart rate has improved to 112 in sinus rhythm. As the patient was being transferred from the ED to a Med-Surg bed, his BP was documented at 70/40. The patient is being admitted to manage septic shock from a UTI vs from C. difficile diarrhea. - HOSPITAL COURSE Hospital Course: He was initially admitted to the med/surg floor and started on antibiotics with Cefepime. He also received a one-time loading dose of vancomycin in the ED. Overnight the patient went into septic shock with SBP as low as 70. His white count was further elevated to 24.5 the following day requiring his antibiotics to be switched to meropenem. He was transferred to the ICU and given more IV hydration. He also required a pressor. He was on dopamine which was subsequently switched to Levophed. Further work-up included troponin levels Which went as high as 7681.1. This was trended down to 2621.1. The patient was not placed on aspirin because his platelets became as low as 56. He was not given or placed on heparin because he had hematuria and low platelets. Blood and urine cultures eventually grew E. coli. The patient was discharged home with a prescription of cefdinir 300 mg p.o. twice daily x7 more days. He will have received antibiotics for a total of 14 days given the bacteremia. 2D echocardiogram done 03/03/21 showed an overall left ventricular systolic function which is mild to moderately impaired with an ejection fraction of 40 to 45%. Severe hypokinesis of the mid anterior septal wall segment and entire apex is noted. RVSP 42 mmHg. Patient was placed and subsequently discharged on Coreg 3.125 mg p.o. twice daily. His was instructed that the patient can start taking a baby aspirin when his platelet count is greater than 100. This can be verified after a fo llow-up visit with his primary care physician during which is expected that a BMP and CBC will be checked. On the day before discharge the patient went into atrial fibrillation. This was likely related to the NSTEMI the patient sustained. He was rate controlled on Coreg. Patient was not a likely candidate for angiogram due to current bacteremia and his history of Dementia. Conservative medical management is being pursued currently. However he is to follow-up with his primary care physician and also possibly referred to cardiology. He tested positive for C. difficile. He was started on vancomycin 125 mg p.o. 4 times daily which was maintained for 4 days of his hospital stay. At his previ ous hospital stay which was recently he was prescribed vancomycin 125 mg p.o. 4 times daily x7 days upon discharge. He has been treated for C. difficile for over 10 days. No further treatment was required upon this discharge. He was discharged home in stable condition. - ALLERGIES Allergies/Adverse Reactions: Allergies Allergy/AdvReac Type Severity Reaction Status Date / Time celecoxib [From Celebrex] Allergy Unknown Verified 02/28/21 17:07 Penicillins AdvReac Anaphylaxis Verified 02/28/21 17:07 - MEDICATIONS Home Medications: Ambulatory Orders Medication Instructions Recorded Confirmed Multivitamin 1 tab PO DAILY 11/22/20 03/02/21 Saccharomyces Boulardii [Florastor] 250 mg PO BIDWM 7 Days #14 cap 11/26/20 03/02/21 Cefdinir 300 mg PO BID 10 Days #20 cap 03/04/21 carvediloL [Coreg] 3.125 mg PO BID 30 Days #60 tablet 03/04/21 - PHYSICAL EXAM AT DISCHARGE General Appearance: positive: No acute distress, Alert Eyes Bilateral: positive: PERRL, EOMI ENT: positive: No signs of dehydration Neck: positive: No JVD, Trachea midline Respiratory: positive: Chest non-tender, No respiratory distress, Breath sounds nml. negative: Wheezes, Rales, Rhonchi Cardiovascular: positive: No murmur, Irregularly irregular Abdomen: positive: Non-tender, No organomegaly, Nml bowel sounds, No distention. negative: Guarding, Rebound Skin: positive: Color nml, No rash, Warm, Dry Neurologic/Psychiatric: positive: Oriented x3, Mood/affect nml - LABS Result Diagrams: 03/04/21 05:35 03/04/21 05:35 - SEPSIS Current Stage of Sepsis: Septic shock Possible source of Sepsis: GI tract/intra-abdominal, Genitourinary Sepsis Criteria: Recorded Temperature greater than 38.3C or Less than 36C, Recorded Heart Rate greater than 90 bpm, Recorded Respiratory Rate greater than 20, WBC count greater than 12,000 or less than 4000, Metabolic: lactate > 2 mmol/L - TIME SPENT Time Spent in Discharge (Minutes): 25
--- NOTE | 2021-03-04 07:49 | Discharge Plan ---
Discharge Plan Problem Reviewed?: Yes Disposition: [facility] Home [facility] Service Prescriptions: Cefdinir 300 mg PO BID 10 Days #20 cap carvediloL [Coreg] 3.125 mg PO BID 30 Days #60 tablet Diet: Cardiac Activity Restrictions: Activity as Tolerated (with assistance) Health Concerns: You were admitted on 02/28/2021 with a fever. It was determined that you were septic due to a UTI. Over the course of the night your blood pressure dropped significantly. You went into septic shock and had to go to the ICU where you were put on medications to help keep your blood pressure up. Blood and urine cultures grew E. coli. You were treated with antibiotics as needed for 4 days. You had some diarrhea at time of admission for which you tested positive for C. difficile. As a result you were treated with vancomycin for 4 days. However for over 48 hours you did not have any diarrhea. As a result vancomycin was discontinued at the time of discharge. You had also been treated for C. difficile recently after discharge from the hospital for 7 days. You have done well in this time and are ready for discharge. You will be discharged with a prescription of Cefdinir to take twice a day for 10 days. During your hospital stay further work-up included troponin levels which were as high as 7000. This was because you had a coronary event (NSTEMI You were not experiencing any chest pain. Further work-up included a 2D echocardiogram which showed Ejection fraction of 40 to 45%. This was affecting the anterior wall of your hear 2 days before discharge you also went into a rhythm called atrial fibrillation. This is probably due to coronary event/heart attack you experience. You were started on Coreg 3.125 mg p.o. twice daily. This helped control your heart rate. It would also help decrease the amount of work your heart does. You were not started on aspirin because your platelet level dropped from 115 at the time of admission to as low as 56 by discharge. When your platelets recover in the future you are to start taking a baby aspirin daily. You were not placed on any other blood thinner due to hematuria and low platelets. We will continue with conservative management of this coronary event. This includes the use of the Coreg that was prescribed and addition of aspirin when your platelets are greater than 100. You are currently not a candidate for a coronary angiogram due to your current infection and also the dementia. You are being discharged home in stable condition. You are to follow-up with your primary care physician within 7 days. This was discussed with your who expressed understanding and is agreeable with the plan. No Smoking: If you smoke, Please STOP! Call for help. Follow-up with: Adia Dallas DO [Primary Care Provider] -
[2021-03-04] MEDS: cefTRIAXone 1 GM in SODIUM CHLORIDE 0.9% MINIBAG 100 ML IV SCH (08:49)
[2021-03-04] MEDS: VANCOMYCIN 125 MG CAPSULE PO SCH ×2 (08:49→13:43)
[2021-03-04] MEDS: SACCHAROMYCES BOULARDII 250 MG CAPSULE PO SCH (08:49)
[2021-03-04] MEDS: ASPIRIN EC 81 MG TABLET PO SCH (08:52)
[2021-03-04] MEDS: carvediloL 3.125 MG TABLET PO SCH (08:55)
[2021-03-04 11:18] VITALS: BP 98/75
== END 2021-03-04 15:50 | disposition home health service (06) | DRG 871 ==
LOC: EDUNIT# → SUPCPDRO 16:56 → ED 16:56 → MS2 19:57 → ICU 23:24 → MS2 03-02 19:11
PROVIDERS: ADMIT Internal Medicine; ATTEND Internal Medicine
DX: A41.9 Sepsis, unspecified organism (principal); A41.51 Sepsis due to Escherichia coli [E. coli]; Z20.822 Contact with and (suspected) exposure to COVID-19; F03.90 Unspecified dementia, unspecified severity, without behavioral disturbance, psychotic disturbance, mood disturbance, and anxiety; R65.21 Severe sepsis with septic shock; I21.4 Non-ST elevation (NSTEMI) myocardial infarction; N39.0 Urinary tract infection, site not specified; Z96.0 Presence of urogenital implants; T83.511A Infection and inflammatory reaction due to indwelling urethral catheter, initial encounter; T83.098A Other mechanical complication of other urinary catheter, initial encounter; A04.72 Enterocolitis due to Clostridium difficile, not specified as recurrent; N13.8 Other obstructive and reflux uropathy; T83.091A Other mechanical complication of indwelling urethral catheter, initial encounter; R31.9 Hematuria, unspecified; G30.9 Alzheimer's disease, unspecified; F02.80 Dementia in other diseases classified elsewhere, unspecified severity, without behavioral disturbance, psychotic disturbance, mood disturbance, and anxiety; I48.91 Unspecified atrial fibrillation; N40.1 Benign prostatic hyperplasia with lower urinary tract symptoms; Z87.440 Personal history of urinary (tract) infections; Z87.891 Personal history of nicotine dependence; I25.10 Atherosclerotic heart disease of native coronary artery without angina pectoris; D70.3 Neutropenia due to infection
CPT/HCPCS: 36415; 51702; 71045; 74176; 80048; 80053; 81001; 82310; 82330; 83605; 83735; 84100; 84132; 84443; 84484; 85025; 85610; 86140; 87040; 87086; 87150; 87181; 87493; 87631; 93005; 93306; 96365; 96368; 99285; A9270; J2185; J3370; J8499; 0202U

== ENCOUNTER 2021-03-18 08:00 | Outpatient (CLI) | payer MEDICARE, OTHER ==
[2021-03-18 17:57] LABS: BASOPHILS % (AUTO) 0.6 %; EOSINOPHILS # (AUTO) 0.3 10^3/uL (0.0-0.7); EOSINOPHILS % (AUTO) 4.5 %; HCT - HEMATOCRIT 39.8 % (42.0-52.0); HGB - HEMOGLOBIN 13.2 g/dL (14.0-18.0); LYMPHOCYTES # (AUTO) 2.1 10^3/uL (1.5-3.5); LYMPHOCYTES % (AUTO) 34.1 %; MEAN CORPUSCULAR HEMOGLOBIN 33.6 pg (27.0-31.0); MEAN CORPUSCULAR HGB CONC 33.2 g/dL (32.0-36.0); MEAN CORPUSCULAR VOLUME 101.3 fL (80.0-94.0); MEAN PLATELET VOLUME 9.5 fL (7.4-11.4); MONOCYTES # (AUTO) 0.4 10^3/uL (0.0-1.0); MONOCYTES % (AUTO) 6.6 %; NEUTROPHILS # (AUTO) 3.4 10^3/uL (1.5-6.6); NEUTROPHILS % (AUTO) 53.9 %; PLT - PLATELET COUNT 210 10^3/uL (130-450); RED BLOOD COUNT 3.93 10^6/uL (4.70-6.10); RED CELL DISTRIBUTION WIDTH 13.8 % (12.0-15.0); WHITE BLOOD COUNT 6.2 x10^3/uL (4.8-10.8)
[2021-03-18 18:14] LABS: ALBUMIN 3.5 g/dL (3.2-5.5); ALBUMIN/GLOBULIN RATIO 1.1 (1.0-2.2); BILIRUBIN,TOTAL 0.6 mg/dL (0.2-1.0); CREATININE 0.8 mg/dL (0.6-1.2); POTASSIUM 4.1 mmol/L (3.5-5.0); TOTAL PROTEIN 6.6 g/dL (6.7-8.2)
== END 2021-03-18 23:59 | disposition home or self-care (01) ==
LOC: LAB.N 08:00
PROVIDERS: ATTEND Family Medicine
DX: E86.0 Dehydration (principal)
CPT/HCPCS: 36415; 80053; 85025

== ENCOUNTER 2021-03-20 17:21 | Emergency (ER) | payer MEDICARE, OTHER ==
[2021-03-20] MEDS ORDERED: LIDOCAINE 2% URO-JET 5 ML SYRINGE UR STA (18:22)
--- NOTE | 2021-03-20 18:27 | ED Physician Documentation ---
History of Present Illness - Stated complaint Stated Complaint: MALE /CATHETER ISSUES - Chief complaint Chief Complaint: General - Additonal information Additional information: 5-year-old male who has a history of dementia presents to the emergency department with acute Martinez dysfunction. This gentleman was admitted to our hospital on 28 February with sepsis, neutropenia, urinary tract infection as well as C. difficile diarrhea as well as an NSTEMI. Upon discharge he had had his Martinez replaced and was to complete a 7-day course of cefdinir. He was also discharged with vancomycin which she has finished taking. The diarrhea has also resolved. Since being seen he has not had any fevers or vomiting. He does have a chronic indwelling Martinez catheter with recurrent urinary tract infections. Home health came to the home today and replaced the Martinez catheter but the patient inadvertently pulled on it. Since then he has had a lot of bleeding around the meatus and the catheter has failed to drain. He feels like he has to pee but no urine is draining through the Martinez. Review of Systems Constitutional: denies: Fever, Chills Eyes: reports: Reviewed and negative Nose: reports: Reviewed and negative Throat: reports: Reviewed and negative Cardiac: reports: Reviewed and negative Respiratory: reports: Reviewed and negative GI: reports: Abdominal Pain. denies: Nausea, Vomiting : reports: Unable to Void, Other (Chronic indwelling Martinez catheter) Skin: reports: Reviewed and negative Musculoskeletal: reports: Reviewed and negative PD PAST MEDICAL HISTORY - Past Medical History Cardiovascular: Other Neuro: Dementia GI: GERD, Other (Hx of C. diff diarrhea in 11/27.) : Benign prostate hypertrophy, Indwelling catheter, Other (Frequent UTIs) HEENT: Chronic vision loss, Chronic hearing loss Musculoskeletal: Osteoarthritis - Past Surgical History Past Surgical History: Yes General: Colonoscopy, Other HEENT: Cataracts - Present Medications Home Medications: Ambulatory Orders Medication Instructions Recorded Confirmed Multivitamin 1 tab PO DAILY 11/22/20 03/02/21 Saccharomyces Boulardii [Florastor] 250 mg PO BIDWM 7 Days #14 cap 11/26/20 03/02/21 Cefdinir 300 mg PO BID 10 Days #20 cap 03/04/21 carvediloL [Coreg] 3.125 mg PO BID 30 Days #60 tablet 03/04/21 Cefdinir 300 mg PO BID #20 cap 03/20/21 - Allergies Allergies/Adverse Reactions: Allergies Allergy/AdvReac Type Severity Reaction Status Date / Time celecoxib [From Celebrex] Allergy Unknown Verified 03/20/21 17:30 Penicillins AdvReac Anaphylaxis Verified 03/20/21 17:30 - Social History Does the pt smoke?: No Smoking Status: Unknown if ever smoked Does the pt drink ETOH?: Yes Does the pt have substance abuse?: No - Immunizations Immunizations are current?: Yes - POLST Patient has POLST: No POLST Status: Full Code PD ED PE EXPANDED - General General: Alert, No acute distress, Well developed/nourished - Cardiac Cardiac: Regular Rate, Murmur Present, Radial strong equal, Pedal strong equal, Cap refill < 2 sec - Respiratory Respiratory: Clear to ausultation misti. No: Distress, Labored - Abdomen Abdomen: Normal Bowel sounds. No: Tender to palpation - Male Male : Other (Martinez catheter seen exiting the urinary meatus with fair amount of blood. No drainage from the catheter.) - Derm Derm: Normal color, Warm and dry. No: Rash - Neuro Neuro: Confused, CNII-XII intact - GCS Eye Opening: Spontaneous Motor: Obeys Commands Verbal: Confused Total: 14 Results - Vitals Vitals: Vital Signs - 24 hr 03/20/21 17:30 Temperature 36.5 C Heart Rate 72 Respiratory 16 Rate Blood Pressure 149/82 H O2 Saturation 98 Oxygen O2 Source Room air - Labs Labs: Laboratory Tests 03/20/21 03/20/21 03/20/21 18:51 19:12 19:12 WBC 8.0 RBC 3.81 L Hgb 12.6 L Hct 37.6 L MCV 98.7 H MCH 33.1 H MCHC 33.5 RDW 13.6 Plt Count 188 MPV 8.8 Neut # (Auto) 4.9 Lymph # (Auto) 2.2 [place] # (Auto) 0.6 Eos # (Auto) 0.2 Baso # (Auto) 0.1 Absolute Nucleated RBC 0.00 Nucleated RBC % 0.0 Sodium 139 Potassium 4.0 Chloride 104 Carbon Dioxide 24 Anion Gap 11.0 BUN 18 Creatinine 0.8 Estimated GFR (MDRD) 92 Glucose 103 H Calcium 9.1 Urine Color ORANGE Urine Clarity CLOUDY Urine pH 7.5 Ur Specific [place] 1.015 Urine Protein 30 H Urine Glucose (UA) NEGATIVE Urine Ketones NEGATIVE Urine Occult Blood LARGE H Urine Nitrite POSITIVE H Urine Bilirubin NEGATIVE Urine Urobilinogen 0.2 (NORMAL) Ur Leukocyte Esterase LARGE H Urine RBC TNTC H Urine WBC >25 H Ur Squamous Epith Cells NONE SEEN Urine Bacteria Rare Ur Microscopic Review INDICATED Urine Culture Comments INDICATED PD MEDICAL DECISION MAKING - ED course Complexity details: reviewed results, re-evaluated patient, considered differential, d/w patient ED course: 85-year-old male who has a history of dementia as well as chronic indwelling Martinez catheters and recurrent urinary tract infections presents to the emergency department with failure of his Martinez to properly drain. It was replaced by home health this afternoon and the patient accidentally pulled on it. He pulled to such a degree that it stopped draining and a fair amount of blood was seen within the tubing. His Martinez was exchanged here at the bedside and he is now draining much more clear though bloody urine. His urine however is more consistent with infection. He did recently get discharged from the hospital with a urinary tract infection and was on Cefdinir. His previous urine grew a sensitive E. coli to cephalosporins. Today he has no leukocytosis or fevers. He has preserved renal function. He will be placed again on cefdinir for 7 days advised close follow-up with his primary care provider. Emergent return precautions discussed Departure - Departure Disposition: 01 Home, Self Care Clinical Impression: Acute cystitis with hematuria Martinez catheter problem Qualifiers: Encounter type: initial encounter Qualified Code(s): T83.9XXA - Unspecified complication of genitourinary prosthetic device, implant and graft, initial encounter Condition: Stable Record reviewed to determine appropriate education?: Yes Prescriptions: Cefdinir 300 mg PO BID #20 cap Comments: Raul you are seen today in the emergency department because your Martinez catheter stopped draining after it was accidentally pulled too hard. We have replaced the catheter and appears to be draining now. You do appear to have a persistent infection in the urine. A prescription for the cefdinir has been electronically sent to the [facility] in [place]. Please fill it and begin taking tomorrow as directed. Encourage you to have very close follow-up with your primary care provider. If you develop any fevers, have abdominal pain, uncontrolled vomiting, develop chest pain or shortness of air then please return immediately to the ER.
[2021-03-20 18:59] LABS: BILIRUBIN,URINE NEGATIVE (NEGATIVE); GLUCOSE, URINE (UA) NEGATIVE (NEGATIVE); KETONES,URINE (UA) NEGATIVE (NEGATIVE); LEUKOCYTE ESTERASE, URINE LARGE (NEGATIVE); NITRITE,URINE POSITIVE (NEGATIVE); OCCULT BLOOD,URINE LARGE (NEGATIVE); PH,URINE 7.5 PH (5.0-7.5); PROTEIN,URINE 30 mg/dL (NEGATIVE); UROBILINOGEN,URINE 0.2 (NORMAL) E.U./dL (NORMAL)
[2021-03-20 19:00] LABS: CLARITY,URINE CLOUDY (CLEAR)
[2021-03-20 19:06] LABS: BACTERIA,URINE Rare /HPF (None Seen); RBC,URINE TNTC /HPF (0-5); SQUAMOUS EPITHELIAL CELL,UR NONE SEEN (<= Few); WBC,URINE >25 /HPF (0-3)
[2021-03-20 19:18] LABS: BASOPHILS # (AUTO) 0.1 10^3/uL (0.0-0.1); BASOPHILS % (AUTO) 0.6 %; EOSINOPHILS # (AUTO) 0.2 10^3/uL (0.0-0.7); EOSINOPHILS % (AUTO) 2.6 %; HCT - HEMATOCRIT 37.6 % (42.0-52.0); HGB - HEMOGLOBIN 12.6 g/dL (14.0-18.0); LYMPHOCYTES # (AUTO) 2.2 10^3/uL (1.5-3.5); LYMPHOCYTES % (AUTO) 27.5 %; MEAN CORPUSCULAR HEMOGLOBIN 33.1 pg (27.0-31.0); MEAN CORPUSCULAR HGB CONC 33.5 g/dL (32.0-36.0); MEAN CORPUSCULAR VOLUME 98.7 fL (80.0-94.0); MEAN PLATELET VOLUME 8.8 fL (7.4-11.4); MONOCYTES # (AUTO) 0.6 10^3/uL (0.0-1.0); MONOCYTES % (AUTO) 7.8 %; NEUTROPHILS # (AUTO) 4.9 10^3/uL (1.5-6.6); NEUTROPHILS % (AUTO) 61.2 %; PLT - PLATELET COUNT 188 10^3/uL (130-450); RED BLOOD COUNT 3.81 10^6/uL (4.70-6.10); RED CELL DISTRIBUTION WIDTH 13.6 % (12.0-15.0)
[2021-03-20 19:27] LABS: CALCIUM 9.1 mg/dL (8.5-10.3); CREATININE 0.8 mg/dL (0.6-1.2)
[2021-03-20 19:57] VITALS: BP 143/60
== END 2021-03-20 20:11 | disposition home or self-care (01) ==
LOC: ED 17:21
DX: N30.01 Acute cystitis with hematuria (principal); T83.018A Breakdown (mechanical) of other urinary catheter, initial encounter; F03.90 Unspecified dementia, unspecified severity, without behavioral disturbance, psychotic disturbance, mood disturbance, and anxiety; N40.0 Benign prostatic hyperplasia without lower urinary tract symptoms; Z79.899 Other long term (current) drug therapy
CPT/HCPCS: 36415; 51702; 80048; 81001; 81003; 85025; 87077; 87086; 87181; 99283

== ENCOUNTER 2021-04-14 14:30 | Outpatient (CLI) | payer MEDICARE, OTHER ==
--- NOTE | 2021-04-14 17:10 | CONSULTATION NOTE ---
Palliative Care Consultation - Referral Referring Provider: Adia Dallas DO Time of Visit: [id number] Referral setting: Home Referral Reason: Dementia/Chronic indwelling catheter/Hx of C diff - Information Sources Records reviewed: Previous records reviewed History/Review of Systems obtained from: Patient, Family ( Haroon) Exam limitations: Clinical condition (patient with severe STM deficits) - History of Present Illness Brief History of Present Illness: This is an 85-year-old gentleman who pretty much his avoided doctors his whole life, until the last couple years. He was presenting with increased memory problems, significant weight loss, increasing abdominal pain and never really followed up on any of these issues. Patient has long-term had chronic back pain, and more recently presented with BPH. He has chronic indwelling catheter, is not a candidate for any kind of procedure, and is supported by [facility] services. He has had several hospitalizations for UTIs, growing more resistant organisms, and his last admission 02/28/2021 to 03/04/2021 he presented with septic shock, including a ICU stay, C. difficile diarrhea, and an N STEMI affecting mid anterior septal wall. Patient developed atrial fib new onset secondary to NSTEMI, now is rate controlled on Coreg, and has not been on any anticoag due to thrombocytopenia and recent hematuria. 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 He was having increasing memory problems, and now needs fairly significant supervision as far as direction and cueing for ongoing activities of daily living. He has not had any wandering, anxiety, agitation, just significant short-term memory deficits making it difficult for judgment and decision-making. He is functional although, though he is quite cachectic he is able to walk and does get quite confused though and managing his catheter. His is not able to help she can supervise and direct but she herself has significant health problems. He still maintains his wonderful sense of humor, he is very hard of hearing, and is very grateful he is still at home with his . They are supported by caregivers. Medical/Surgical History - Past Medical History Cardiovascular: reports: AR, Atrial fibrillation Respiratory: reports: None Neuro: Dementia Endocrine/Autoimmune: reports: None GI: reports: GERD, Other (Hx of C. diff diarrhea in 11/27 and 02/27) : reports: Benign prostate hypertrophy, Indwelling catheter, Other (Frequent UTIs) HEENT: reports: Chronic vision loss, Chronic hearing loss Psych: reports: None Musculoskeletal: reports: Osteoarthritis, Fatigue, Chronic back pain Derm: reports: None MRSA Hx?: No - Past Surgical History General: reports: Colonoscopy, Other HEENT: reports: Cataracts - Substance History Use: Uses substance without health or social issues: Alcohol Abuse: Recurrent use of substance despite neg consequences: Alcohol (has drank in past; now occasional "one" drink daily) Social History - Living Situation Living arrangement: At home Living Situation: With spouse/s.o. Support System: Patient lives in his own home with his spouse Haroon, they have been 48 years. They are still quite smitten with each other, though Haroon is getting quite exhausted both physically and emotionally overseeing patient's care. Haroon has 3 children who are still alive, but do provide intermittent support but most of their support comes from paid caregivers, currently they are quite pleased with the ones they have about 5 hours a day. They currently financially are able to manage this, though are getting worried about long-term consequences related to this. Family History - Family History Family History: Mother: (did not know father; no siblings), Alzheimer's Disease, Father: Medications/Allergies - Medications Home Medications: Ambulatory Orders Medication Instructions Recorded Confirmed Multivitamin 1 tab PO DAILY 11/22/20 03/02/21 Saccharomyces Boulardii [Florastor] 250 mg PO BIDWM 7 Days #14 cap 11/26/20 04/15/21 carvediloL [Coreg] 3.125 mg PO BID 30 Days #60 tablet 03/04/21 04/15/21 - Allergies Allergies/Adverse Reactions: Allergies Allergy/AdvReac Type Severity Reaction Status Date / Time celecoxib [From Celebrex] Allergy Unknown Verified 03/20/21 17:30 Penicillins AdvReac Anaphylaxis Verified 03/20/21 17:30 Review of Systems - Constitutional Constitutional: reports: Fatigue, Weakness (working with HH PT), Weight loss. denies: Fever, Chills, Malaise - Eyes Eyes: reports: Vision loss, Corrective lenses - Ears, Nose & Throat Ears, Nose & Throat: reports: Hearing loss, Hearing aids, Dentures (lost lower dentures) - Cardiovascular Cardiovascular: reports: Lightheadedness, Exertional dyspnea, Decr. exercise tolerance. denies: Chest pain - Respiratory Respiratory: reports: SOB with exertion. denies: SOB at rest - Gastrointestinal Gastrointestinal: reports: Early satiety, Other (difficulty with meal prep; their cg's don't cook). denies: Abdominal pain, Constipation, Diarrhea, Nausea, Reflux/heartburn - Genitourinary Genitourinary: reports: Other (indwelling catheter; urine clear and graham today; patient "plays" and pulls apart catheter). denies: Dysuria, Hematuria - Musculoskeletal Musculoskeletal: reports: Back pain, Muscle aches, Stiffness, Muscle weakness, Assistive devices (has walker if needed) - Integumentary Integumentary: reports: Dryness - Neurological Neurological: reports: General weakness, Memory problems (poor STM; very social covers with humor; defers to continually), Abnormal gait (shuffled) - Psychiatric Psychiatric: reports: Delusions (some paranoia; plays with cathetr alot-forgets what it is). denies: Depression, Anxiety, Aggitation - Endocrine Endocrine: reports: Intolerance to cold - Hematologic/Lymphatic Hematologic/Lymph: reports: Recurrent infections (last seen / tx in ED 03/20) - All Other Systems All Other Systems: reports: Other (limited in patient recall) Physical Exam - Vital Signs Temperature: 97.3 C Pulse Rate: 72 Respiratory Rate: 18 O2 Saturation: 100 Blood Pressure: 98/58 - Physical Exam General Appearance: positive: No acute distress, Alert Eyes Bilateral: positive: Normal inspection ENT: positive: No signs of dehydration Neck: positive: Trachea midline Cardiovascular: positive: Regular rate & rhythm Respiratory: positive: No respiratory distress, Breath sounds nml Abdomen: positive: Tenderness (lower pelvic area) Skin: positive: Dryness Extremities: positive: No pedal edema, Other (gait slow and shuffled) Neurologic/Psychiatric: positive: Mood/affect nml, Disoriented to time, Flat affect Palliative Care - POLST Patient has POLST: Yes POLST Status: DNR, Comfort Measures (completed with patient and spouse) Pain: Pain unchanged, Location (low back), Severity ("not bad" does not take anything for it) Feelings of wellbeing/Perceived Quality of Life: Fair, Acceptable, Worsening Sleep: Variable sleep pattern (does get up at night sometimes) Constipation: No (per patient report) Performance Status: Patient is ambulatory, though does have a shuffled gait. Has been working with physical therapy on strengthening. Patient needs cueing because of his dementia for his ADLs, has started recently [facility]. Patient does have difficulty emptying his catheter, unable to help. Does have caregivers who do assist while they are there. Patient is quite sedentary, spends most the time in his recliner, he attributes this to his back pain. - Palliative Care Discussion: Patient has very little insight to his current situation, though reports he "quit worrying" Because there was very little he could do about it. His focus is on taking care of his , he does help her get in and out of bed, she does direct him for managing things when caregivers are not there. He reports he tries to keep his mind off "bad things", he is very grateful of the and sees that they are fortunate still to be together and at home. When introduce the POLST, Haroon says he has some but does not know where it is, we revisited the goals were DN AR/DNI and comfort focused care. Both would like to have a at home if possible, though do recognize things are getting more difficult. Form completed with both signing secondary to patient's dementia and put on fridge. is quite exhausted as needs to supervise patient at all times, he is having some night time awakenings, tends to take up part the catheter and messes with it, unfortunately she cannot get out of bed to help him. He says he is always looking forward to sleeping with her, reports she does believe he knows who she is most of the time. He denies any depression but does perceive things are quite difficult and very worried about his Haroon and her decline. Did speak with Sosa from [facility] who is their home health nurse. Reports they are having continual difficulty with managing her catheter, poor problem- solving, or in frequent contact around catheter issues. Reports he has continued to have weight loss from 1 35-1 21, both are appearing more frail. She has tried to be in contact with his son, was able to hold the daughter but no one is really stepping up to provide assistance. Though Haroon the , reports the [id number] is helping them with their finances. They are happy currently with their current caregivers, though this has fluctuated in the past as well. Both patient's and 's goal is to try and remain together in home as long as possible, but both admit it is a difficult situation. Results - Lab Results Lab results reviewed: Yes Impression and Recommendations - Palliative Care Impression: This is a frail 85-year-old gentleman with worsening dementia, chronic indwelling cath with difficulty with home management, high risk for recurrent infections. Patient has also had 2 episodes of C. difficile. Patient continues with weight loss, frailty, advanced age, and new diagnosis of atrial fib and history of NSTEMI. Patient having difficulty with home management, palliative care to provide support regarding advance care planning, and transition to hospice when appropriate. Recommendations/Counseling Done: 1. Dementia without behavioral disturbances. Patient continues with fairly rapid cognitive decline, needing supervision. This is complex asked that his is mostly chair bound, and cannot get up physically to help him. She does direct him with cueing but feels like she is feeling both emotionally and physically exhausted with this. He is up now sometimes at night, will continue to monitor behaviors. He may benefit from low-dose Seroquel at nighttime. 2. BPH. Patient has chronic indwelling catheter, with multiple hospitalizations for sepsis and in follow-up C. difficile. Patient is unable to not have the catheter, but managing it is becoming more difficult in the situation with his dementia. Does have home health RN which helps with problem solving, would probably be better managed in a assisted living facility where could call for help and assistance. They do have caregivers who are when they are there are able to assist, but shifts are usually 5 to 8 hours. 3. Cachexia. Meal prep is difficult and there, Haroon reports none of their c aregivers cook. They have often used [employer] and takeout food for their main diet. He has per home health lost weight from original 135 down to 121. Patient has never been a "good eater". But is adding to his frailty with his weight loss. 4. Advanced care planning. Conversation regarding goals of care, both want to stay in their home for as long as possible, though are recognizing this is g etting more difficult. We did complete a POLST with DN AR/DNI and comfort measures. At end-of-life patient would like to be at home if possible, though unclear who would rally to provide that end-of-life support. Will make a referral to the palliative care perinatal social worker who has seen them in the past. 60 minutes with greater than 50% of this done in counseling regarding goals of care, follow-up on current situation, coordination of care with home health nurse, and providing anticipatory guidance particularly to .
== END 2021-04-14 14:31 | disposition home or self-care (01) ==
LOC: PC 14:30
PROVIDERS: ATTEND Nurse Practitioner Adult Health
DX: Z51.5 Encounter for palliative care (principal); F03.90 Unspecified dementia, unspecified severity, without behavioral disturbance, psychotic disturbance, mood disturbance, and anxiety; N40.0 Benign prostatic hyperplasia without lower urinary tract symptoms; R64 Cachexia; Z96.0 Presence of urogenital implants; Z66 Do not resuscitate; Z87.440 Personal history of urinary (tract) infections; R41.0 Disorientation, unspecified
CPT/HCPCS: 99344

== ENCOUNTER 2021-04-17 21:37 | Outpatient (CLI) | payer MEDICARE, OTHER | END 2021-04-17 21:38 | disposition critical access hospital (66) | LOC: EMS 21:37 | DX: R31.0 Gross hematuria (principal); R33.9 Retention of urine, unspecified; N48.89 Other specified disorders of penis | CPT/HCPCS: A0425; A0429 ==

== ENCOUNTER 2021-04-17 22:00 | Emergency (ER) | payer MEDICARE, OTHER ==
--- NOTE | 2021-04-17 22:26 | ED Physician Documentation ---
PD HPI MALE - Stated complaint Stated Complaint: CATHETER PROBLEM - Chief complaint Chief Complaint: General - History obtained from History obtained from: Patient - History of Present Illness Timing - onset: Today Timing - details: Gradual onset Associated symptoms: Unable to urinate, Wagner problem - Additional information Additional information: Patient has indwelling Wagner catheter which he says was changed earlier today in outpatient setting. Over past several hours he has had increasing suprapubic pa in and pressure with urge to urinate but no urine output into Wagner catheter Review of Systems Constitutional: denies: Fever : reports: Unable to Void, Wagner Problem PD PAST MEDICAL HISTORY - Past Medical History Cardiovascular: [place], Atrial fibrillation Respiratory: None Neuro: Dementia Endocrine/Autoimmune: None GI: GERD, Other (Hx of C. diff diarrhea in 11/27 and 02/27) : Benign prostate hypertrophy, Indwelling catheter, Other (Frequent UTIs) HEENT: Chronic vision loss, Chronic hearing loss Psych: None Musculoskeletal: Osteoarthritis, Fatigue, Chronic back pain Derm: None - Past Surgical History Past Surgical History: Yes General: Colonoscopy, Other HEENT: Cataracts - Present Medications Home Medications: Ambulatory Orders Medication Instructions Recorded Confirmed Multivitamin 1 tab PO DAILY 11/22/20 04/17/21 Saccharomyces Boulardii [Florastor] 250 mg PO BIDWM 7 Days #14 cap 11/26/20 04/17/21 carvediloL [Coreg] 3.125 mg PO BID 30 Days #60 tablet 03/04/21 04/17/21 Ciprofloxacin HCl 1 tablet PO BID 10 Days #20 tablet 04/17/21 - Allergies Allergies/Adverse Reactions: Allergies Allergy/AdvReac Type Severity Reaction Status Date / Time celecoxib [From Celebrex] Allergy Unknown Verified 04/17/21 22:03 Penicillins AdvReac Anaphylaxis Verified 04/17/21 22:03 - Social History Does the pt smoke?: No Smoking Status: Unknown if ever smoked Does the pt drink ETOH?: Yes Does the pt have substance abuse?: No - Immunizations Immunizations are current?: Yes - POLST Patient has POLST: Yes POLST Status: Full Code PD ED PE NORMAL - Vitals Vital signs reviewed: Yes - General General: No acute distress, Well developed/nourished - Abdomen Abdomen: Soft, Other (Suprapubic TTP) PD ED PE EXPANDED - Male Male : Other (wagner catheter in place, blood noted at meatus around the catheter) Results - Vitals Vitals: Vital Signs - 24 hr 04/17/21 04/17/21 22:03 23:00 Temperature 37.7 C Heart Rate 80 79 Respiratory 18 16 Rate Blood Pressure 132/98 H 162/92 H O2 Saturation 97 97 Oxygen O2 Source Room air - Labs Labs: Laboratory Tests 04/17/21 22:49 Urine Color LT RED Urine Clarity CLOUDY Urine pH 6.5 Ur Specific Hydro 1.010 Urine Protein TRACE Urine Glucose (UA) NEGATIVE Urine Ketones NEGATIVE Urine Occult Blood LARGE H Urine Nitrite POSITIVE H Urine Bilirubin NEGATIVE Urine Urobilinogen 0.2 (NORMAL) Ur Leukocyte Esterase LARGE H Urine RBC TNTC H Urine WBC >25 H Ur Squamous Epith Cells NONE SEEN Urine Bacteria Rare Ur Microscopic Review INDICATED Urine Culture Comments INDICATED PD MEDICAL DECISION MAKING - ED course Complexity details: reviewed old records, reviewed results, re-evaluated patient, considered differential, d/w patient ED course: ED RN tried to irrigate the catheter with sterile water. there was no resistance to instilling the water but no return (output). she then changed the wagner c atheter. upon withdrawing the wagner, a clot was noted to be blocking the eye of the catheter. when the new wagner catheter was inserted, there as rapid return of 400-500 cc urine which was only lightly blood-tinged (a single clot did come out through this new wagner as well) and patients symptoms resolved. UA shows TNTC RBC as expected but also nitrites and >25 WBC/hpf. given this result, and considering his recent admission for urosepsis, will give cefdinir with rx for same Departure - Departure Disposition: 01 Home, Self Care Clinical Impression: Urinary retention UTI (urinary tract infection) Qualifiers: Urinary tract infection type: catheter-associated UTI Indwelling urinary catheter type: indwelling urethral catheter Encounter type: initial encounter Qualified Code(s): T83.511A - Infection and inflammatory reaction due to indwelling urethral catheter, initial encounter Wagner catheter problem Qualifiers: Encounter type: initial encounter Qualified Code(s): T83.9XXA - Unspecified complication of genitourinary prosthetic device, implant and graft, initial encounter Condition: Good Instructions: ED Catheter Care Wagner, ED UTI Cystitis Male Prescriptions: Ciprofloxacin HCl 1 tablet PO BID 10 Days #20 tablet Comments: Your wagner catheter (bladder catheter) was clogged today by a blood clot. We have replaced the catheter in the emergency department and the urine appears to be mostly clear at this point without any blockage of this new catheter. Your urine sample shows you have a urinary tract infection; an antibiotic (cipro) was given in the emergency department tonight and a prescription for the antibiotic has been electronically submitted to [facility] pharmacy in [place]. Discharge Date/Time: 04/17/21 23:26
[2021-04-17 22:54] LABS: BILIRUBIN,URINE NEGATIVE (NEGATIVE); GLUCOSE, URINE (UA) NEGATIVE (NEGATIVE); KETONES,URINE (UA) NEGATIVE (NEGATIVE); LEUKOCYTE ESTERASE, URINE LARGE (NEGATIVE); NITRITE,URINE POSITIVE (NEGATIVE); OCCULT BLOOD,URINE LARGE (NEGATIVE); PH,URINE 6.5 PH (5.0-7.5); PROTEIN,URINE TRACE mg/dL (NEGATIVE); UROBILINOGEN,URINE 0.2 (NORMAL) E.U./dL (NORMAL)
[2021-04-17 23:01] VITALS: BP 162/92
[2021-04-17 23:01] LABS: BACTERIA,URINE Rare /HPF (None Seen); CLARITY,URINE CLOUDY (CLEAR); RBC,URINE TNTC /HPF (0-5); SQUAMOUS EPITHELIAL CELL,UR NONE SEEN (<= Few); WBC,URINE >25 /HPF (0-3)
[2021-04-17] MEDS ORDERED: CIPROFLOXACIN 250 MG TABLET PO STA (23:16)
== END 2021-04-17 23:26 | disposition home or self-care (01) ==
LOC: ED 22:00
DX: N40.1 Benign prostatic hyperplasia with lower urinary tract symptoms (principal); R33.8 Other retention of urine; T83.091A Other mechanical complication of indwelling urethral catheter, initial encounter; I48.91 Unspecified atrial fibrillation
CPT/HCPCS: 51702; 51798; 81001; 87086; 87181; 99283; A9270; 81003

== ENCOUNTER 2021-04-17 23:28 | Outpatient (CLI) | payer MEDICARE, OTHER | END 2021-04-17 23:29 | disposition home or self-care (01) | LOC: EMS 23:28 | PROVIDERS: ATTEND Emergency Medicine | DX: F03.90 Unspecified dementia, unspecified severity, without behavioral disturbance, psychotic disturbance, mood disturbance, and anxiety (principal); R41.0 Disorientation, unspecified; Z96.0 Presence of urogenital implants | CPT/HCPCS: A0425; A0428 ==

== ENCOUNTER 2021-04-18 13:01 | Outpatient (CLI) | payer MEDICARE, OTHER | END 2021-04-18 13:02 | disposition critical access hospital (66) | LOC: EMS 13:01 | DX: T83.021A Displacement of indwelling urethral catheter, initial encounter (principal); R31.0 Gross hematuria | CPT/HCPCS: A0425; A0429 ==

== ENCOUNTER 2021-04-18 13:21 | Emergency (ER) | payer MEDICARE, OTHER ==
--- NOTE | 2021-04-18 13:32 | ED Physician Documentation ---
PD HPI MALE - Stated complaint Stated Complaint: CATH ISSUE - History obtained from History obtained from: Patient, EMS - Additional information Additional information: This is an 85-year-old gentleman with dementia and BPH with a chronic indwelling Martinez who presents by ambulance for evaluation of hematuria. The initial report from EMS was that perhaps he had pulled his catheter out during the night, that said the patient says he is wary of the catheter and knows not to pull it out but does not recall "meddling with it." He was seen yesterday for a problem with the Martinez catheter by Dr. Langley. The catheter was blocked and he did have some hematuria and he was started on Cipro as well. No culture results yet. Patient has no specific complaints. Review of Systems Unable to obtain: Dementia PD PAST MEDICAL HISTORY - Past Medical History Cardiovascular: [place], Atrial fibrillation Respiratory: None Neuro: Dementia Endocrine/Autoimmune: None GI: GERD, Other (Hx of C. diff diarrhea in 11/27 and 02/27) : Benign prostate hypertrophy, Indwelling catheter, Other (Frequent UTIs) HEENT: Chronic vision loss, Chronic hearing loss Psych: None Musculoskeletal: Osteoarthritis, Fatigue, Chronic back pain Derm: None - Past Surgical History Past Surgical History: Yes General: Colonoscopy, Other HEENT: Cataracts - Present Medications Home Medications: Ambulatory Orders Medication Instructions Recorded Confirmed Multivitamin 1 tab PO DAILY 11/22/20 04/17/21 Saccharomyces Boulardii [Florastor] 250 mg PO BIDWM 7 Days #14 cap 11/26/20 04/17/21 carvediloL [Coreg] 3.125 mg PO BID 30 Days #60 tablet 03/04/21 04/17/21 Ciprofloxacin HCl 1 tablet PO BID 10 Days #20 tablet 04/17/21 - Allergies Allergies/Adverse Reactions: Allergies Allergy/AdvReac Type Severity Reaction Status Date / Time celecoxib [From Celebrex] Allergy Unknown Verified 04/17/21 22:03 Penicillins AdvReac Anaphylaxis Verified 04/17/21 22:03 - Social History Does the pt smoke?: No Smoking Status: Unknown if ever smoked Does the pt drink ETOH?: Yes Does the pt have substance abuse?: No - Immunizations Immunizations are current?: Yes - POLST Patient has POLST: Yes POLST Status: Full Code PD ED PE NORMAL - Vitals Vital signs reviewed: Yes - General General: No acute distress, Other (He is alert oriented to person and place but not time or events) - Abdomen Abdomen: Normal bowel sounds, Soft, Non tender - Male Male : Other (There is blood-tinged urine in the catheter. The catheter is in place.) - Psych Psych: Normal mood, Normal affect Results - Vitals Vitals: Oxygen O2 Source Room air PD MEDICAL DECISION MAKING - ED course ED course: Manipulation of the Martinez catheter and flushing it was fairly painless for him. It was flushed till clear and there were no clots. I feel the catheter is likely in place, but is still having some persistent bleeding from previous catheter m anipulation. Departure - Departure Disposition: 01 Home, Self Care Clinical Impression: Chronic indwelling Martinez catheter Martinez catheter problem Qualifiers: Encounter type: initial encounter Qualified Code(s): T83.9XXA - Unspecified complication of genitourinary prosthetic device, implant and graft, initial encounter Dementia without behavioral disturbance Qualifiers: Dementia type: unspecified type Qualified Code(s): F03.90 - Unspecified dementia without behavioral disturbance Condition: Good Record reviewed to determine appropriate education?: Yes Instructions: ED Dementia Caregiver Support, ED Catheter Care Martinez Comments: Your Martinez catheter is in place today and seems to be working well. The blood is probably from the replacement previously, but should clear up with time. Return for new or worsening symptoms.
[2021-04-18 14:27] VITALS: BP 103/48
== END 2021-04-18 14:27 | disposition home or self-care (01) ==
LOC: EDUNIT# → ED 13:21
DX: R31.9 Hematuria, unspecified (principal); T83.091A Other mechanical complication of indwelling urethral catheter, initial encounter; N40.0 Benign prostatic hyperplasia without lower urinary tract symptoms; F03.90 Unspecified dementia, unspecified severity, without behavioral disturbance, psychotic disturbance, mood disturbance, and anxiety
CPT/HCPCS: 99281; 99283

== ENCOUNTER 2021-05-27 07:26 | Outpatient (CLI) | payer MEDICARE, OTHER | END 2021-05-27 07:27 | disposition EMS.NT | LOC: EMS 07:26 | DX: Z03.89 Encounter for observation for other suspected diseases and conditions ruled out (principal) ==

== ENCOUNTER 2021-05-27 16:07 | Outpatient (CLI) | payer MEDICARE, OTHER | END 2021-05-27 16:08 | disposition critical access hospital (66) | LOC: EMS 16:07 | DX: R31.0 Gross hematuria (principal); Z96.0 Presence of urogenital implants | CPT/HCPCS: A0425; A0429 ==

== ENCOUNTER 2021-05-27 16:39 | Emergency (ER) | payer MEDICARE, OTHER ==
--- NOTE | 2021-05-27 16:32 | ED Physician Documentation ---
PD HPI MALE - Stated complaint Stated Complaint: CATHETER ISSUE - History obtained from History obtained from: Patient, EMS - Additional information Additional information: 85-year-old gentleman with dementia and indwelling Martinez catheter presents by ambulance for evaluation of gross hematuria. Reportedly fell earlier in the day but declined transport at the time. Then later in the day they noted gross hematuria. He is a poor historian but firefighters tell me that his catheter was replaced yesterday. At Review of Systems Unable to obtain: Confused, Dementia PD PAST MEDICAL HISTORY - Past Medical History Cardiovascular: [place], Atrial fibrillation Respiratory: None Neuro: Dementia Endocrine/Autoimmune: None GI: GERD, Other (Hx of C. diff diarrhea in 11/27 and 02/27) : Benign prostate hypertrophy, Indwelling catheter, Other (Frequent UTIs) HEENT: Chronic vision loss, Chronic hearing loss Psych: None Musculoskeletal: Osteoarthritis, Fatigue, Chronic back pain Derm: None - Past Surgical History Past Surgical History: Yes General: Colonoscopy, Other HEENT: Cataracts - Present Medications Home Medications: Ambulatory Orders Medication Instructions Recorded Confirmed Multivitamin 1 tab PO DAILY 11/22/20 04/17/21 Saccharomyces Boulardii [Florastor] 250 mg PO BIDWM 7 Days #14 cap 11/26/20 04/17/21 carvediloL [Coreg] 3.125 mg PO BID 30 Days #60 tablet 03/04/21 04/17/21 Ciprofloxacin HCl 1 tablet PO BID 10 Days #20 tablet 04/17/21 Ciprofloxacin HCl [Cipro] 500 mg PO BID #20 tablet 05/27/21 - Allergies Allergies/Adverse Reactions: Allergies Allergy/AdvReac Type Severity Reaction Status Date / Time celecoxib [From Celebrex] Allergy Unknown Verified 05/27/21 16:30 Penicillins AdvReac Anaphylaxis Verified 05/27/21 16:30 - Social History Does the pt smoke?: No Smoking Status: Unknown if ever smoked Does the pt drink ETOH?: Yes Does the pt have substance abuse?: No - Immunizations Immunizations are current?: Yes - POLST Patient has POLST: Yes POLST Status: Full Code PD ED PE NORMAL - Vitals Vital signs reviewed: Yes (He is febrile) - General General: Other (Alert and oriented to person and place but not time or events) - HEENT HEENT: PERRL, EOMI - Neck Neck: Supple, no meningeal sign, No bony TTP - Cardiac Cardiac: RRR, No murmur - Respiratory Respiratory: No respiratory distress, Clear bilaterally - Abdomen Abdomen: Other (Suprapubic tenderness without surgical signs) - Male Male : Other (Martinez catheter in place, grossly bloody) - Derm Derm: Normal color, Warm and dry - Extremities Extremities: No edema, No calf tenderness / cord - Neuro Eye Opening: Spontaneous Motor: Obeys Commands Verbal: Confused GCS Score: 14 Results - Vitals Vitals: Vital Signs - 24 hr 05/27/21 05/27/21 05/27/21 16:30 16:49 17:01 Temperature 38.9 C H Heart Rate 72 69 80 Respiratory 22 16 20 Rate Blood Pressure 139/74 H 153/81 H 150/80 H O2 Saturation 97 97 94 05/27/21 05/27/21 05/27/21 18:05 18:30 19:03 Temperature 100.3 C H 37.9 C Heart Rate 70 72 72 Respiratory 17 19 17 Rate Blood Pressure 124/64 102/50 L O2 Saturation 96 96 98 Oxygen O2 Source Room air - Labs Labs: Laboratory Tests 05/27/21 05/27/21 05/27/21 16:55 16:55 16:55 WBC 7.5 RBC 4.45 L Hgb 14.8 Hct 43.7 MCV 98.2 H MCH 33.3 H MCHC 33.9 RDW 14.0 Plt Count 103 L MPV 8.8 Neut # (Auto) 5.6 Lymph # (Auto) 1.1 L Cross # (Auto) 0.5 Eos # (Auto) 0.2 Baso # (Auto) 0.0 Absolute Nucleated RBC 0.00 Band Neuts % (Manual) Not Reportable Abnorm Lymph % (Manual) Not Reportable Nucleated RBC % 0.0 Neutrophils # (Manual) Not Reportable Lymphocytes # (Manual) Not Reportable Monocytes # (Manual) Not Reportable Eosinophils # (Manual) Not Reportable Basophils # (Manual) Not Reportable Differential Comment MANUAL=AUTO DIFF Manual Slide Review Indicated Platelet Estimate DECREASED (<130,000) Platelet Morphology NORMAL APPEARANCE RBC Morph Micro Appear NORMAL APPEARANCE Sodium 131 L Potassium 4.1 Chloride 93 L Carbon Dioxide 27 Anion Gap 11.0 BUN 20 Creatinine 1.0 Estimated GFR (MDRD) 71 L Glucose 130 H Lactic Acid 1.6 Calcium 8.9 Total Bilirubin 1.1 H AST 48 H ALT 21 Alkaline Phosphatase 51 Total Protein 7.1 Albumin 4.0 Globulin 3.1 Albumin/Globulin Ratio 1.3 Urine Color Urine Clarity Urine pH Ur Specific [place] Urine Protein Urine Glucose (UA) Urine Ketones Urine Occult Blood Urine Nitrite Urine Bilirubin Urine Urobilinogen Ur Leukocyte Esterase Urine RBC Urine WBC Ur Squamous Epith Cells Urine Bacteria Urine Culture Comments 05/27/21 17:10 WBC RBC Hgb Hct MCV MCH MCHC RDW Plt Count MPV Neut # (Auto) Lymph # (Auto) Cross # (Auto) Eos # (Auto) Baso # (Auto) Absolute Nucleated RBC Band Neuts % (Manual) Abnorm Lymph % (Manual) Nucleated RBC % Neutrophils # (Manual) Lymphocytes # (Manual) Monocytes # (Manual) Eosinophils # (Manual) Basophils # (Manual) Differential Comment Manual Slide Review Platelet Estimate Platelet Morphology RBC Morph Micro Appear Sodium Potassium Chloride Carbon Dioxide Anion Gap BUN Creatinine Estimated GFR (MDRD) Glucose Lactic Acid Calcium Total Bilirubin AST ALT Alkaline Phosphatase Total Protein Albumin Globulin Albumin/Globulin Ratio Urine Color RED/BLOODY Urine Clarity CLOUDY Urine pH 7.0 Ur Specific [place] 1.020 Urine Protein 100 H Urine Glucose (UA) NEGATIVE Urine Ketones NEGATIVE Urine Occult Blood LARGE H Urine Nitrite NEGATIVE Urine Bilirubin NEGATIVE Urine Urobilinogen 0.2 (NORMAL) Ur Leukocyte Esterase TRACE H Urine RBC TNTC H Urine WBC >25 H Ur Squamous Epith Cells NONE SEEN Urine Bacteria Many H Urine Culture Comments INDICATED PD MEDICAL DECISION MAKING - ED course ED course: 85-year-old gentleman with chronic indwelling Martinez catheter presents with blood in his urine and has a fever but is not otherwise septic with reassuring vital signs and labs. 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 His catheter was replaced and flushed until clear here. Departure - Departure Disposition: 01 Home, Self Care Clinical Impression: UTI (urinary tract infection), Dementia without behavioral disturbance, Chronic indwelling Martinez catheter, Martinez catheter problem, Acute cystitis with hematuria Condition: Good Instructions: ED UTI Cystitis Male Prescriptions: Ciprofloxacin HCl [Cipro] 500 mg PO BID #20 tablet Comments: We saw Raul today for a lot of blood in the catheter. We tried irrigating the catheter and that was not successful so the catheter was replaced. He did have a fever here, and although his blood work is normal, that does mean we will treat him with antibiotics for what looks like a potential recurrent urine infection. I sent the prescription to [facility] in [place], since that is where he got in his previous prescriptions. Expect some blood still in the catheter that should clear with time. Is much as possible try to get him to drink plenty of water. We will culture your urine, the results should be done in 48-72 hours. If an antibiotic change is necessary we will call you. Return if worse in the meantime, especially if you develop increasing flank pain, fevers, or cannot keep down the medication. Discharge Date/Time: 05/27/21 19:04
[2021-05-27 17:16] LABS: BASOPHILS % (AUTO) 0.3 %; EOSINOPHILS # (AUTO) 0.2 10^3/uL (0.0-0.7); EOSINOPHILS % (AUTO) 2.5 %; HCT - HEMATOCRIT 43.7 % (42.0-52.0); HGB - HEMOGLOBIN 14.8 g/dL (14.0-18.0); LYMPHOCYTES # (AUTO) 1.1 10^3/uL (1.5-3.5); LYMPHOCYTES % (AUTO) 14.8 %; MEAN CORPUSCULAR HEMOGLOBIN 33.3 pg (27.0-31.0); MEAN CORPUSCULAR HGB CONC 33.9 g/dL (32.0-36.0); MEAN CORPUSCULAR VOLUME 98.2 fL (80.0-94.0); MEAN PLATELET VOLUME 8.8 fL (7.4-11.4); MONOCYTES # (AUTO) 0.5 10^3/uL (0.0-1.0); MONOCYTES % (AUTO) 7.2 %; NEUTROPHILS # (AUTO) 5.6 10^3/uL (1.5-6.6); NEUTROPHILS % (AUTO) 74.9 %; PLT - PLATELET COUNT 103 10^3/uL (130-450); RED BLOOD COUNT 4.45 10^6/uL (4.70-6.10); WHITE BLOOD COUNT 7.5 x10^3/uL (4.8-10.8)
[2021-05-27 17:23] LABS: ALBUMIN/GLOBULIN RATIO 1.3 (1.0-2.2); BILIRUBIN,TOTAL 1.1 mg/dL (0.2-1.0); CALCIUM 8.9 mg/dL (8.5-10.3); POTASSIUM 4.1 mmol/L (3.5-5.0); TOTAL PROTEIN 7.1 g/dL (6.7-8.2)
[2021-05-27 17:28] LABS: SLIDE REVIEW? Indicated
[2021-05-27 17:54] LABS: BILIRUBIN,URINE NEGATIVE (NEGATIVE); GLUCOSE, URINE (UA) NEGATIVE (NEGATIVE); KETONES,URINE (UA) NEGATIVE (NEGATIVE); LEUKOCYTE ESTERASE, URINE TRACE (NEGATIVE); NITRITE,URINE NEGATIVE (NEGATIVE); OCCULT BLOOD,URINE LARGE (NEGATIVE); PROTEIN,URINE 100 mg/dL (NEGATIVE); UROBILINOGEN,URINE 0.2 (NORMAL) E.U./dL (NORMAL)
[2021-05-27 17:57] LABS: BACTERIA,URINE Many /HPF (None Seen); CLARITY,URINE CLOUDY (CLEAR); RBC,URINE TNTC /HPF (0-5); SQUAMOUS EPITHELIAL CELL,UR NONE SEEN (<= Few); WBC,URINE >25 /HPF (0-3)
[2021-05-27] MEDS ORDERED: CIPROFLOXACIN 250 MG TABLET PO STA (17:59)
[2021-05-27 18:19] LABS: PLATELET ESTIMATE, MANUAL DECREASED (<130,000) (NORMAL); PLATELET MORPHOLOGY NORMAL APPEARANCE (NORMAL); RBC MORPHOLOGY (MULTIPLE) NORMAL APPEARANCE (NORMAL)
[2021-05-27 18:20] LABS: DIFFERENTIAL COMMENT MANUAL=AUTO DIFF
[2021-05-27 18:40] VITALS: BP 102/50
== END 2021-05-27 19:04 | disposition home or self-care (01) ==
LOC: ED 16:39
DX: N30.01 Acute cystitis with hematuria (principal); F03.90 Unspecified dementia, unspecified severity, without behavioral disturbance, psychotic disturbance, mood disturbance, and anxiety; N40.0 Benign prostatic hyperplasia without lower urinary tract symptoms; T83.9XXA Unspecified complication of genitourinary prosthetic device, implant and graft, initial encounter; M19.90 Unspecified osteoarthritis, unspecified site; R53.83 Other fatigue
CPT/HCPCS: 36415; 51702; 51798; 80053; 81001; 83605; 85025; 87040; 87086; 87150; 99283; A9270; 87181

== ENCOUNTER 2021-05-27 19:02 | Outpatient (CLI) | payer MEDICARE, OTHER | END 2021-05-27 19:03 | disposition home or self-care (01) | LOC: EMS 19:02 | PROVIDERS: ATTEND Emergency Medicine | DX: F03.90 Unspecified dementia, unspecified severity, without behavioral disturbance, psychotic disturbance, mood disturbance, and anxiety (principal); R41.0 Disorientation, unspecified; N39.0 Urinary tract infection, site not specified | CPT/HCPCS: A0425; A0428 ==

== ENCOUNTER 2021-05-27 21:57 | Outpatient (CLI) | payer MEDICARE, OTHER | END 2021-05-27 21:58 | disposition short-term general hospital (02) | LOC: EMS 21:57 | DX: R31.0 Gross hematuria (principal); Z96.0 Presence of urogenital implants | CPT/HCPCS: A0425; A0427 ==

== ENCOUNTER 2021-06-04 12:00 | Outpatient (CLI) | payer MEDICARE, OTHER ==
--- NOTE | 2021-06-04 13:58 | CONSULTATION NOTE ---
Palliative Care Follow Up - Referral Referring Provider: Dr. Adia Dallas Time of Visit: Referral setting: Home Referral Reason: Dementia with behavioral disturbances/ UTI - Information Sources Records reviewed: Previous records reviewed History/Review of Systems obtained from: Patient, Family ( Haroon) Exam limitations: Clinical condition (patient with worsening dementia) - History of Present Illness Update Brief HPI Update: This is a 85-year-old gentleman who has long-term had chronic back pain, most recently presented with BPH, and has chronic indwelling catheter and is not a candidate for any kind of procedure. He is currently supported by [facility]. He has had several hospitalization for UTIs and most recently had another hospitalization. On 05/27 patient presented with increased bleeding, he had had a catheter replaced the day before, he was diagnosed with a urinary tract infection, and prescribed Cipro. He was returned home unfortunately had a fall at home and was on the floor for about an hour and a half, and thus presented yet again and was taken to [facility] with the hope to see a urologist. Patient was admitted 05/28 to 05/30/2021 with diagnosis of E. coli bacteremia and UTI with hematuria from chronic Martinez complications, atrial fib, dementia, and Covid positive. He continued to have some hematuria through his appointment, was switched to ceftriaxone when sensitivities were available. He was Covid positive but had no symptoms, did not need treatment during that hospitalization. It is unclear if he did see a urology, that was the hope, at this point in time it is draining without any difficulty, was discharged on cefixime mean 400 mg daily for 10 days. There was some concern as patient was sundowning and concerns for wandering, but patient has slept well with both mirtazapine and quetiapine at bedtime for the last two nights. Past Medical History: Atrial fib, NSTEMI, dementia, weight loss, chronic back pain, BPH, minimal medical history is often avoided doctors, GERD, history of C. difficile diarrhea 71 and 02/27, history of colonoscopy, cataracts Social History - Living Situation Living arrangement: At home Living Situation: With spouse/s.o. Support System: Patient lives at home with his spouse Haroon who also has significant health problems. She is mostly almost bedbound, secondary to severe stenosis. 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 Patient and live in their own home, they have been for 50+ years, they remain quite smitten with each other. Haroon has 3 children who are still alive, but their support comes from paid caregivers. On this last discharge from hospital there was discussion about having him go to a memory care unit, at this point this is still pending as he currently is managing with support at home Medications/Allergies - Medications Home Medications: Ambulatory Orders Medication Instructions Recorded Confirmed Multivitamin 1 tab PO DAILY 11/22/20 06/04/21 Saccharomyces Boulardii [Florastor] 250 mg PO BIDWM 7 Days #14 cap 11/26/20 06/04/21 carvediloL [Coreg] 3.125 mg PO BID 30 Days #60 tablet 03/04/21 06/04/21 Cefixime [Suprax] 400 mg PO DAILY MDD 10 days 06/04/21 06/04/21 Loperamide [Imodium] 2 mg PO Q6HR PRN 06/04/21 06/04/21 Mirtazapine 15 mg PO QPM 06/04/21 06/04/21 Omeprazole Magnesium 20 mg PO BID 06/04/21 06/04/21 QUEtiapine [SEROquel] 25 mg PO QPM 06/04/21 06/04/21 guaiFENesin [Mucinex] 600 mg PO BID 06/04/21 06/04/21 - Allergies Allergies/Adverse Reactions: Allergies Allergy/AdvReac Type Severity Reaction Status Date / Time celecoxib [From Celebrex] Allergy Unknown Verified 05/27/21 16:30 Penicillins AdvReac Anaphylaxis Verified 05/27/21 16:30 Review of Systems - Constitutional Constitutional: reports: Fatigue (persistent), Weakness (working with HH PT), Weight loss. denies: Fever, Chills, Malaise - Eyes Eyes: reports: Vision loss, Corrective lenses - Ears, Nose & Throat Ears, Nose & Throat: reports: Hearing loss, Hearing aids, Dentures (lost lower dentures) - Cardiovascular Cardiovascular: reports: Lightheadedness, Exertional dyspnea, Decr. exercise tolerance. denies: Chest pain - Respiratory Respiratory: reports: Cough (developed by reports a couple of days prior to admit), SOB with exertion. denies: SOB at rest - Gastrointestinal Gastrointestinal: reports: Diarrhea ( reports two episodes of loose stool), Early satiety, Other (difficulty with meal prep; their cg's don't cook; reports taste changes). denies: Abdominal pain, Constipation, Nausea, Reflux/heartburn - Genitourinary Genitourinary: reports: Other (indwelling catheter; urine clear and graham today; patient "plays" and pulls apart catheter). denies: Dysuria, Hematuria - Musculoskeletal Musculoskeletal: reports: Back pain, Muscle aches, Stiffness, Muscle weakness, A ssistive devices (has walker if needed) - Integumentary Integumentary: reports: Dryness - Neurological Neurological: reports: General weakness, Memory problems (poor STM; very social covers with humor; defers to continually), Abnormal gait (shuffled) - Psychiatric Psychiatric: reports: Delusions (some paranoia; plays with cathetr alot-forgets what it is). denies: Depression, Anxiety, Aggitation - Endocrine Endocrine: reports: Intolerance to cold - Hematologic/Lymphatic Hematologic/Lymph: reports: Recurrent infections (last seen / tx in hospital 05/28) - All Other Systems All Other Systems: reports: Other (limited in patient recall) Physical Exam - Vital Signs Temperature: 97.2 C Pulse Rate: 72 Respiratory Rate: 18 O2 Saturation: 98 (ra @ rest) Blood Pressure: 102/62 - Physical Exam General Appearance: positive: No acute distress, Alert, Cachetic Eyes Bilateral: positive: Normal inspection ENT: positive: No signs of dehydration Neck: positive: Trachea midline Cardiovascular: positive: Regular rate & rhythm Respiratory: positive: No respiratory distress, Breath sounds nml, Diminished in bases Abdomen: positive: Non-tender, Soft Skin: positive: Dryness Extremities: positive: No pedal edema, Other (gait slow and shuffled) Neurologic/Psychiatric: positive: Mood/affect nml, Disoriented to time, Flat affect Palliative Care - POLST Patient has POLST: Yes POLST Status: DNR, Comfort Measures Pain: Pain unchanged, Location (back; does not take anything for it) Feelings of wellbeing/Perceived Quality of Life: Fair, Worsening Sleep: Sleep improved, Variable sleep pattern Constipation: No Performance Status: Patient can ambulate short distances, does use walker for longer ones. Does not always remember that he is limited or have insight into this. He is getting help from caregivers with showering, and changing back and forth gravity bag to leg bag for catheter. Patient noted to be holding when drinking juice in bed today. Had to be reminded to swallow. Haroon reports no coughing. Unclear patient's baseline given patient cannot recall, and Haroon is overly optimistic. He did have a fall though prior to his admit and was on the floor for an hour and a half. - Palliative Care Discussion: Patient does have some insight into his confusion, reports "I cannot get any more confused", does defer to his frequently. Reports that is what he lives for, that they are quite smitten with each other. Haroon does feel the weight off and of patient's dependence. As she needs to direct him in all issues and is his emotional support as well. She does understand he is quite frail, there had been talk of placing him in a memory care unit with his last hospitalization, she is hoping to avoid this if possible. She was afraid he was "getting into the wandering stage" but seems to have slept well the last 2 nights with the medications. We did discuss can increase those medications to continue to help with behaviors. He does get some paranoia and sees people in the room, some delusions tends to watch news and those [place] around those. But it does keep him distracted so Haroon has not turned it off.Patient does have a POLST with DN AR/DNI and comfort measures. Results - Lab Results Lab results reviewed: Yes Impression and Recommendations - Palliative Care Impression: This is a frail 85-year-old gentleman with worsening dementia, chronic indwelling catheter with difficulty with home management, now hospitalized yet again a E. coli bacteremia and UTI with hematuria. It is getting more difficult to manage at home, has been quite resistant to medications up to this point, though it did work well last night is more willing given their current situation. Palliative care continue to provide support for advanced care planning, and transition to hospice when appropriate. Recommendations/Counseling Done: 1. Dementia with behavioral disturbances. Patient continues with fairly rapid decline, neuropsychiatric behaviors of anxiety, intermittent agitation, hallucinations and delusions. Have initiated mirtazapine 15 mg and quetiapine 25 mg at bedtime with improvement at this time. 2. BPH. Patient has chronic indwelling catheter with multiple hospitalizations for sepsis and follow-up C. difficile. Patient is having difficulty managing the catheter, caregivers help with switching bags and home health nurse is monitoring carefully. He has had some significant hematuria, unclear underlying etiology other than trauma given patient's disregard and low awareness of his catheter. Patient is currently on antibiotics from discharge for 10 days. 3. Cachexia. Meal prep is difficult, and Haroon does report none of their caregivers cook. They often have [employer] and takeout meals, he has continued to lose weight. Patient has never been "a good eater, but is adding to his frailty with weight loss. Did encourage use of protein shakes, increased small frequent feedings, and more access to snacking. Did recommend given his new medications he does not continue his daily alcohol intake. 4. Advanced care planning. Both patient and would like to try and stay in the home as long as possible, Raul is very dependent on Haroon both emotionally and physically. Patient does have a POLST with DN AR/DNI and comfort measures. They do have some paid caregiving, they are considering actually placement options at this point. Given the concerns of patient's management at home, APS referral has been made and pending visit on Wednesday. 5. Covid. Patient did test positive at hospital for asymptomatic Covid. Has not developed any further symptoms, proper PPE was worn for visit. 45 minutes with greater than 50% of this done in counseling regarding goals of care, concerns regarding long-term management of patient in home setting, review of transition plan and management of dementia with behavioral issues.
== END 2021-06-04 12:01 | disposition home or self-care (01) ==
LOC: PC 12:00
PROVIDERS: ATTEND Nurse Practitioner Adult Health
DX: Z51.5 Encounter for palliative care (principal); F03.91 Unspecified dementia, unspecified severity, with behavioral disturbance; N40.0 Benign prostatic hyperplasia without lower urinary tract symptoms; Z96.0 Presence of urogenital implants; R64 Cachexia; U07.1 COVID-19; Z66 Do not resuscitate
CPT/HCPCS: 99349

== ENCOUNTER 2021-06-10 02:42 | Outpatient (CLI) | payer MEDICARE, OTHER | END 2021-06-10 02:43 | disposition EMS.NT | LOC: EMS 02:42 | DX: Z03.89 Encounter for observation for other suspected diseases and conditions ruled out (principal) ==

== ENCOUNTER 2021-06-10 17:49 | Outpatient (CLI) | payer MEDICARE, OTHER | END 2021-06-10 17:50 | disposition critical access hospital (66) | LOC: EMS 17:49 | DX: R19.7 Diarrhea, unspecified (principal); R50.9 Fever, unspecified; I95.9 Hypotension, unspecified | CPT/HCPCS: A0425; A0427 ==

== ENCOUNTER 2021-06-10 18:12 | Emergency (ER) | payer MEDICARE, OTHER ==
[2021-06-10 18:46] LABS: BASOPHILS % (AUTO) 0.4 %; EOSINOPHILS % (AUTO) 0.3 %; HGB - HEMOGLOBIN 9.9 g/dL (14.0-18.0); LYMPHOCYTES # (AUTO) 0.7 10^3/uL (1.5-3.5); LYMPHOCYTES % (AUTO) 5.8 %; MEAN CORPUSCULAR HEMOGLOBIN 32.8 pg (27.0-31.0); MEAN CORPUSCULAR VOLUME 99.3 fL (80.0-94.0); MEAN PLATELET VOLUME 8.6 fL (7.4-11.4); MONOCYTES # (AUTO) 0.6 10^3/uL (0.0-1.0); MONOCYTES % (AUTO) 5.4 %; NEUTROPHILS # (AUTO) 9.9 10^3/uL (1.5-6.6); NEUTROPHILS % (AUTO) 86.9 %; PLT - PLATELET COUNT 174 10^3/uL (130-450); RED BLOOD COUNT 3.02 10^6/uL (4.70-6.10); RED CELL DISTRIBUTION WIDTH 13.4 % (12.0-15.0); WHITE BLOOD COUNT 11.4 x10^3/uL (4.8-10.8)
[2021-06-10 18:58] LABS: ALBUMIN 2.8 g/dL (3.2-5.5); ALBUMIN/GLOBULIN RATIO 0.9 (1.0-2.2); BILIRUBIN,TOTAL 1.1 mg/dL (0.2-1.0); CREATININE 1.3 mg/dL (0.6-1.2); POTASSIUM 3.7 mmol/L (3.5-5.0); TOTAL PROTEIN 5.9 g/dL (6.7-8.2)
[2021-06-10] MEDS ORDERED: SODIUM CHLORIDE 0.9% 1,000 ML IV STA ×3 (19:06→22:49)
[2021-06-10 20:33] LABS: B. PARAPERTUSSIS- RESP PCR PAN NOT DETECTED; B. PERTUSSIS- RESP PCR PANEL NOT DETECTED; C. PNEUMONIAE- RESP PCR PANEL NOT DETECTED; CORONAVIRUS 229E-RESP PCR NOT DETECTED; CORONAVIRUS HKU1-RESP PCR NOT DETECTED; CORONAVIRUS NL63-RESP PCR NOT DETECTED; CORONAVIRUS OC43-RESP PCR NOT DETECTED; HUMAN METAPNEUMOVIRUS NOT DETECTED; INFLUENZA A- RESP PCR PANEL NOT DETECTED; INFLUENZA B - RESP PCR PANEL NOT DETECTED; M. PNEUMONIAE- RESP PCR PANEL NOT DETECTED; PARAINFLUENZA VIRUS 1 NOT DETECTED; PARAINFLUENZA VIRUS 2 NOT DETECTED; PARAINFLUENZA VIRUS 3 NOT DETECTED; PARAINFLUENZA VIRUS 4 NOT DETECTED; RHINOVIRUS/ENTEROVIRUS NOT DETECTED; RSV- RESP PCR PANEL NOT DETECTED; SARS-CoV-2 -RESP PCR PANEL NOT DETECTED
[2021-06-10 22:53] LABS: BILIRUBIN,URINE NEGATIVE (NEGATIVE); GLUCOSE, URINE (UA) NEGATIVE (NEGATIVE); KETONES,URINE (UA) NEGATIVE (NEGATIVE); LEUKOCYTE ESTERASE, URINE SMALL (NEGATIVE); NITRITE,URINE NEGATIVE (NEGATIVE); OCCULT BLOOD,URINE MODERATE (NEGATIVE); PROTEIN,URINE 30 mg/dL (NEGATIVE); UROBILINOGEN,URINE 0.2 (NORMAL) E.U./dL (NORMAL)
[2021-06-10 23:09] LABS: CLARITY,URINE SL. CLOUDY (CLEAR)
[2021-06-10 23:10] LABS: BACTERIA,URINE None Seen /HPF (None Seen); SQUAMOUS EPITHELIAL CELL,UR NONE SEEN (<= Few)
[2021-06-10] MEDS: SODIUM CHLORIDE 0.9% 1,000 ML IV STA (23:20)
[2021-06-11] MEDS: SODIUM CHLORIDE 0.9% 1,000 ML IV STA (00:19)
--- NOTE | 2021-06-11 00:21 | ED Physician Documentation ---
History of Present Illness - Stated complaint Stated Complaint: diarrhea/dehydration - Chief complaint Chief Complaint: Abd Pain - History obtained from History obtained from: Patient, EMS - Additonal information Additional information: The patient was sent to the emergency department via EMS by his family for chief complaint of "dehydration". The patient states he feels fine and does not have any complaints. He denies any pain. He has not been vomiting. He states he does not feel lightheaded or weak. The patient has a history of dementia and lives at home with his . Daughter is also involved in his care. According to daughter, the patient has had C. difficile in the past. Since beginning to have diarrhea 2 days ago, he has fallen once at home which resulted in an EMS call, but not transport. Patient apparently had a palliative care visit today and hospice was recommended, which family is considering. No one else is sick at home. The patient normally has a "low blood pressure". Review of Systems Ten Systems: 10 systems reviewed and negative Constitutional: reports: Reviewed and negative Eyes: reports: Reviewed and negative Ears: reports: Reviewed and negative Nose: reports: Reviewed and negative Throat: reports: Reviewed and negative Cardiac: reports: Reviewed and negative Respiratory: reports: Reviewed and negative GI: reports: Diarrhea : reports: Reviewed and negative Skin: reports: Reviewed and negative Musculoskeletal: reports: Reviewed and negative Neurologic: reports: Reviewed and negative Psychiatric: reports: Reviewed and negative Endocrine: reports: Reviewed and negative Immunocompromised: reports: Reviewed and negative PD PAST MEDICAL HISTORY - Past Medical History Cardiovascular: [place], Atrial fibrillation Respiratory: None Neuro: Dementia Endocrine/Autoimmune: None GI: GERD, Other (Hx of C. diff diarrhea in 11/27 and 02/27) : Benign prostate hypertrophy, Indwelling catheter, Other (Frequent UTIs) HEENT: Chronic vision loss, Chronic hearing loss Psych: None Musculoskeletal: Osteoarthritis, Fatigue, Chronic back pain Derm: None - Past Surgical History Past Surgical History: Yes General: Colonoscopy, Other HEENT: Cataracts - Present Medications Home Medications: Ambulatory Orders Medication Instructions Recorded Confirmed Multivitamin 1 tab PO DAILY 11/22/20 06/04/21 Saccharomyces Boulardii [Florastor] 250 mg PO BIDWM 7 Days #14 cap 11/26/20 06/04/21 carvediloL [Coreg] 3.125 mg PO BID 30 Days #60 tablet 03/04/21 06/04/21 Cefixime [Suprax] 400 mg PO DAILY MDD 10 days 06/04/21 06/04/21 Loperamide [Imodium] 2 mg PO Q6HR PRN 06/04/21 06/04/21 Mirtazapine 15 mg PO QPM 06/04/21 06/04/21 Omeprazole Magnesium 20 mg PO BID 06/04/21 06/04/21 QUEtiapine [SEROquel] 25 mg PO QPM 06/04/21 06/04/21 guaiFENesin [Mucinex] 600 mg PO BID 06/04/21 06/04/21 Sulfamethox/Trimeth 800/160 1 each PO BID #14 tablet 06/11/21 [Bactrim Ds 800/160] - Allergies Allergies/Adverse Reactions: Allergies Allergy/AdvReac Type Severity Reaction Status Date / Time celecoxib [From Celebrex] Allergy Unknown Verified 05/27/21 16:30 Penicillins AdvReac Anaphylaxis Verified 05/27/21 16:30 - Social History Does the pt smoke?: No Smoking Status: Unknown if ever smoked Does the pt drink ETOH?: Yes Does the pt have substance abuse?: No - Immunizations Immunizations are current?: Yes - POLST Patient has POLST: Yes POLST Status: Full Code PD ED PE NORMAL - Vitals Vital signs reviewed: Yes - General General: No acute distress, Well developed/nourished, Other (The patient actually appears fairly well and in no apparent distress) - HEENT HEENT: Atraumatic, PERRL, EOMI, Moist mucous membranes - Neck Neck: Supple, no meningeal sign - Cardiac Cardiac: RRR, No murmur, Strong equal pulses - Respiratory Respiratory: No respiratory distress, Clear bilaterally - Abdomen Abdomen: Soft, Non tender, Non distended - Derm Derm: Normal color, Warm and dry, No rash - Extremities Extremities: No deformity, No edema, No calf tenderness / cord - Neuro Neuro: consumer marketing analyst 2-12 intact, Normal speech, Other (Alert, Grossly intact.) - Psych Psych: Normal mood, Normal affect Results - Vitals Vitals: Vital Signs - 24 hr 06/10/21 06/10/21 06/10/21 18:22 18:25 19:04 Temperature 35.9 C L Heart Rate 85 75 67 Respiratory 10 L 12 14 Rate Blood Pressure 96/43 L 96/43 L 84/45 L O2 Saturation 96 97 99 06/10/21 06/10/21 06/10/21 19:30 19:37 21:00 Temperature Heart Rate 66 64 116 H Respiratory 17 16 20 Rate Blood Pressure 81/46 L 91/52 L O2 Saturation 99 94 06/10/21 06/10/21 06/10/21 21:30 21:37 22:00 Temperature Heart Rate 114 H 125 H 115 H Respiratory 12 17 18 Rate Blood Pressure 91/52 L 91/52 L 77/53 L O2 Saturation 98 99 06/10/21 06/10/21 06/10/21 22:30 23:00 23:30 Temperature Heart Rate 120 H 111 H 121 H Respiratory 18 15 18 Rate Blood Pressure 83/50 L 79/52 L 87/51 L O2 Saturation 98 99 100 06/11/21 06/11/21 06/11/21 00:00 00:20 00:30 Temperature Heart Rate 112 H 123 H 117 H Respiratory 13 16 20 Rate Blood Pressure 89/60 L 89/60 L 89/60 L O2 Saturation 99 100 97 06/11/21 06/11/21 06/11/21 01:00 01:30 02:00 Temperature Heart Rate 111 H 117 H 117 H Respiratory 13 20 13 Rate Blood Pressure 82/64 L 89/60 L O2 Saturation 97 97 98 06/11/21 02:30 Temperature Heart Rate Respiratory Rate Blood Pressure 89/60 L O2 Saturation Oxygen O2 Source Room air - Labs Labs: Laboratory Tests 06/10/21 06/10/21 06/10/21 18:38 18:38 18:38 WBC 11.4 H RBC 3.02 L Hgb 9.9 L Hct 30.0 L MCV 99.3 H MCH 32.8 H MCHC 33.0 RDW 13.4 Plt Count 174 MPV 8.6 Neut # (Auto) 9.9 H Lymph # (Auto) 0.7 L Windham # (Auto) 0.6 Eos # (Auto) 0.0 Baso # (Auto) 0.0 Absolute Nucleated RBC 0.00 Nucleated RBC % 0.0 Sodium 138 Potassium 3.7 Chloride 103 Carbon Dioxide 23 Anion Gap 12.0 BUN 28 H Creatinine 1.3 H Estimated GFR (MDRD) 52 L Glucose 117 H Lactic Acid 2.1 Calcium 8.0 L Total Bilirubin 1.1 H AST 16 ALT 14 Alkaline Phosphatase 42 Total Protein 5.9 L Albumin 2.8 L Globulin 3.1 Albumin/Globulin Ratio 0.9 L Lipase 21 L Urine Color Urine Clarity Urine pH Ur Specific Homer Urine Protein Urine Glucose (UA) Urine Ketones Urine Occult Blood Urine Nitrite Urine Bilirubin Urine Urobilinogen Ur Leukocyte Esterase Urine RBC Urine WBC Ur Squamous Epith Cells Urine Bacteria Ur Microscopic Review Urine Culture Comments Nasal Adenovirus (PCR) Nasal B. parapertussis DNA (PCR) Nasal Coronavir 229E PCR Nasal Coronavir HKU1 PCR Nasal Coronavir NL63 PCR Nasal Coronavir OC43 PCR Nasal Enterovir/Rhinovir PCR Nasal Influenza B PCR Nasal Influenza A PCR Nasal Parainfluen 1 PCR Nasal Parainfluen 2 PCR Nasal Parainfluen 3 PCR Nasal Parainfluen 4 PCR Nasal RSV (PCR) Nasal B.pertussis DNA PCR Nasal C.pneumoniae (PCR) Kyler Human Metapneumo PCR Nasal M.pneumoniae (PCR) Nasal SARS-CoV-2 (PCR) 06/10/21 06/10/21 06/11/21 19:10 22:41 01:52 WBC RBC Hgb Hct MCV MCH MCHC RDW Plt Count MPV Neut # (Auto) Lymph # (Auto) Windham # (Auto) Eos # (Auto) Baso # (Auto) Absolute Nucleated RBC Nucleated RBC % Sodium 138 Potassium 4.0 Chloride 108 Carbon Dioxide 21 Anion Gap 9.0 BUN 25 H Creatinine 1.1 Estimated GFR (MDRD) 63 L Glucose 103 H Lactic Acid Calcium 7.1 L Total Bilirubin AST ALT Alkaline Phosphatase Total Protein Albumin Globulin Albumin/Globulin Ratio Lipase Urine Color YELLOW Urine Clarity SL. CLOUDY Urine pH 6.0 Ur Specific Homer 1.020 Urine Protein 30 H Urine Glucose (UA) NEGATIVE Urine Ketones NEGATIVE Urine Occult Blood MODERATE H Urine Nitrite NEGATIVE Urine Bilirubin NEGATIVE Urine Urobilinogen 0.2 (NORMAL) Ur Leukocyte Esterase SMALL H Urine RBC 11-25 H Urine WBC 6-10 H Ur Squamous Epith Cells NONE SEEN Urine Bacteria None Seen Ur Microscopic Review INDICATED Urine Culture Comments INDICATED Nasal Adenovirus (PCR) NOT DETECTED Nasal B. parapertussis DNA (PCR) NOT DETECTED Nasal Coronavir 229E PCR NOT DETECTED Nasal Coronavir HKU1 PCR NOT DETECTED Nasal Coronavir NL63 PCR NOT DETECTED Nasal Coronavir OC43 PCR NOT DETECTED Nasal Enterovir/Rhinovir PCR NOT DETECTED Nasal Influenza B PCR NOT DETECTED Nasal Influenza A PCR NOT DETECTED Nasal Parainfluen 1 PCR NOT DETECTED Nasal Parainfluen 2 PCR NOT DETECTED Nasal Parainfluen 3 PCR NOT DETECTED Nasal Parainfluen 4 PCR NOT DETECTED Nasal RSV (PCR) NOT DETECTED Nasal B.pertussis DNA PCR NOT DETECTED Nasal C.pneumoniae (PCR) NOT DETECTED Kyler Human Metapneumo PCR NOT DETECTED Nasal M.pneumoniae (PCR) NOT DETECTED Nasal SARS-CoV-2 (PCR) NOT DETECTED - Rads (name of study) Chest x-ray Radiology: Final report received, EMP read indepedently, See rad report (Airspace opacities within the mid lungs bilaterally slightly worsened from prior study) PD MEDICAL DECISION MAKING - ED course Complexity details: reviewed results, re-evaluated patient, considered differential, d/w patient ED course: Patient was hypotensive in the emergency department, though the daughter had reported that the patient does run low at baseline. However, I was not sure exactly how low the patient normally runs and given the report of diarrhea, I did go ahead and start a liter bolus point and normal saline on the patient. Laboratory studies were obtained and showed a BUN and creatinine that were moderately elevated. Lactic acid level is normal. Patient continued to report feeling well, but did not have any urine output into his catheter bag following the first liter, so he was given a second liter. His blood pressure remained low throughout his entire stay in the emergency department. The patient was ultimately given 2 more liters and finally by the end of the third liter, he did put out a little urine into his bag. By the end of the fourth liter, he had put out over 500 cc of dark yellow urine. Urine showed positivity for infection on a fresh sample, and patient was started on antibiotics for this. He ambulated with out difficulty in the emergency department. He did not have a single episode of diarrhea throughout his 8/2-hour stay here, and I felt he was stable for discharge. We had originally planned to get stool studies, but since the patient had no diarrhea whatsoever the entire time he was here, we were not able to do this. The family has been given instructions to have the patient follow- up with his primary care physician for further concerns. Repeat BMP has shown an improvement in the patient's BUN, creatinine, and GFR. Departure - Departure Disposition: 01 Home, Self Care Clinical Impression: Dehydration, Atrial fibrillation with rapid ventricular response Diarrhea Qualifiers: Diarrhea type: unspecified type Qualified Code(s): R19.7 - Diarrhea, unspecified UTI (urinary tract infection) Qualifiers: Urinary tract infection type: catheter-associated UTI Indwelling urinary catheter type: indwelling urethral catheter Encounter type: initial encounter Qualified Code(s): T83.511A - Infection and inflammatory reaction due to indwelling urethral catheter, initial encounter Condition: Stable Instructions: ED Afib, ED Dehydration, ED Diet Vomiting Diarrhea Prescriptions: Sulfamethox/Trimeth 800/160 [Bactrim Ds 800/160] 1 each PO BID #14 tablet Comments: You were quite dehydrated tonight, and were given 4 L of IV fluid. Your repeat labs look much better, and you have been able to walk around the emergency department without difficulty. We have checked labs for sepsis and these are negative. Your electrolytes look good. Your kidney function is also greatly improved after fluids. Your urinalysis showed some signs of infection, and so we are treating you for this. These have your family knot picker cloth your antibiotics later today. You have been given your first dose here in the emergency department. Please be sure to drink plenty of water and follow-up with your primary care physician if the diarrhea continues for more than the next several days. Discharge Date/Time: 06/11/21 04:12
[2021-06-11 02:02] VITALS: BP 89/60
[2021-06-11 02:12] LABS: CALCIUM 7.1 mg/dL (8.5-10.3); CREATININE 1.1 mg/dL (0.6-1.2)
[2021-06-11] MEDS ORDERED: SULFAMETH/TRIMETH DS 800/160 MG TABLET PO STA (02:46)
--- NOTE | 2021-06-11 08:55 | XRAY Report ---
PROCEDURE: Chest 1 View X-Ray INDICATIONS: chest pain TECHNIQUE: One view of the chest was acquired. COMPARISON: 03/02/2021, 02/28/2021, 11/14/2020. FINDINGS: Surgical changes and devices: None. Lungs and pleura: There are persistent confluent airspace opacities within the midlung zones bilater ally. Findings are similar compared to the prior study of 03/02/2021 but increased compared to the pr evious exams. No pleural effusions or pneumothorax. Mediastinum: Mediastinal contours appear unchanged. Heart size is normal. Bones and chest wall: No suspicious bony lesions. Overlying soft tissues appear unremarkable. IMPRESSION: 1. Persistent confluent bilateral air space opacities in the midlung zones. The findings are suggesti ve of pneumonia. Given similar appearance compared to the prior study, the findings may represent rec urrent pneumonia or a persistent region of consolidation. Recommend short-term follow-up to demonstra te resolution following appropriate therapy or further evaluation with CT. Reviewed by: George Pradhan MD on 06/11/2021 8:53 AM RUST Approved by: George Pradhan MD on 06/11/2021 8:53 AM PST Station ID: [id number]
== END 2021-06-11 04:12 | disposition home or self-care (01) ==
LOC: EDUNIT# → ED 18:12
DX: T83.511A Infection and inflammatory reaction due to indwelling urethral catheter, initial encounter (principal); N39.0 Urinary tract infection, site not specified; I95.9 Hypotension, unspecified; R19.7 Diarrhea, unspecified; I48.20 Chronic atrial fibrillation, unspecified; E86.0 Dehydration; Z20.822 Contact with and (suspected) exposure to COVID-19
CPT/HCPCS: 36415; 71045; 80048; 80053; 81001; 83605; 83690; 85025; 87086; 87631; 96360; 96361; 99283; 99284; A9270; 0202U; 81003

== ENCOUNTER 2021-06-11 04:14 | Outpatient (CLI) | payer MEDICARE, OTHER | END 2021-06-11 04:15 | disposition home or self-care (01) | LOC: EMS 04:14 | PROVIDERS: ATTEND Emergency Medicine | DX: R41.0 Disorientation, unspecified (principal); E86.0 Dehydration; F03.90 Unspecified dementia, unspecified severity, without behavioral disturbance, psychotic disturbance, mood disturbance, and anxiety | CPT/HCPCS: A0425; A0428 ==

== ENCOUNTER 2021-06-11 12:37 | Outpatient (CLI) | payer MEDICARE, OTHER ==
--- NOTE | 2021-06-11 13:56 | CONSULTATION NOTE ---
Palliative Care Follow Up - Referral Referring Provider: Dr. Adia Dallas Time of Visit: [id number] Referral setting: Home Referral Reason: Diarrhea/Wt. Loss/Alzheimers/BPH/Recurrent UTI - Information Sources Records reviewed: Previous records reviewed History/Review of Systems obtained from: Patient, Family ( Haroon) Exam limitations: Clinical condition (patient conversant but only in the moment) - History of Present Illness Update Brief HPI Update: This is an 85-year-old gentleman who has long-term had chronic back pain, has BPH, chronic indwelling catheter and is not a candidate for any kind of procedure. As result of this he has had multiple hospitalizations for UTIs, and multiple trips to the ED though he has been supported by home health for catheter issues. Patient most recently was hospitalized and [facility] had Covid positive, but no symptoms. He was there from 05/28-05/30 with a diagnosis of E. coli bacteremia with UTI and hematuria from chronic [place] complications. Patient was treated during this time with antibiotics, and discharged on cefixime 400 mg for 10 days, of course of concern was patient's history of C. difficile diarrhea, both in November and February 2021.Patient developed watery diarrhea the last 24 to 48 hours, given his history, I did send him into the ED. He was severely dehydrated, got 4 L of fluid, but did not poop the whole time he was there. I did get a call this morning, he was having watery diarrhea again, made home visit and was able to get a specimen. Patient has had Alzheimer's, his mother had Alzheimer's as well. He has had memory problems for many years, but has had a rapid decline over the last 1 to 2 years. He has had some recent paranoia, wandering at night, anxiety, and is very dependent on his . She herself is 87 years old, and in poor health and is quite exhausted by his neuropsychiatric behaviors. He has had some improvement with quetiapine, this was added to the mirtazapine for sleep and appetite. 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 He is always been quite thin, but has not had much healthcare, and is quite frail. He has also had significant weight loss over the last several months, his baseline as far as lost 20 to 30 pounds prior to this last year, but I do have a documented weight of 143 on 02/27, and most recent weight from home health RN was 128. Patient is quite cachectic in appearance, only eats small amounts, and often is not drinking enough. In the context of goals, have been talking to as concern regarding patient's fairly rapid decline over the last several months and more acutely over the last couple weeks even prior to last hospitalization. The convers ations have been about considering just focusing on comfort, she would like to avoid further hospitalizations, recognizing that this will mean it will lead to an end-of-life event. He has been supported by [facility], with multiple catheter problems. Past Medical History: Atrial fib, and STEMI, dementia, weight loss, chronic back pain, BPH, GERD, history of C. difficile diarrhea 11/27 and 02/27, history of colonoscopy, cataract Social History - Living Situation Living arrangement: At home Living Situation: With spouse/s.o. Support System: Patient lives at home with his spouse Haroon who also has significant health problems, she is mostly bedbound secondary to severe stenosis. He has always worked for the last 6 years, has only truly retired in this last year. Patient and live in their own home, they've been for 50+ years, they are still quite smitten with each other. Haroon has 3 children who are still alive, their support though comes from paid caregivers. She is looking at getting nighttime help. There has been concern about not having enough help in the home, and APS has been involved, with his last discharge from [place] they talked about having to be in a memory care unit. But he is quite dependent on Haroon and though this is quite a burden for her. She does feel they can manage with support at home, and willing to hire more. She does understand that hospice does not provide long-term care. Medications/Allergies - Medications Home Medications: Ambulatory Orders Medication Instructions Recorded Confirmed Multivitamin 1 tab PO DAILY 11/22/20 06/11/21 Saccharomyces Boulardii [Florastor] 250 mg PO BIDWM 7 Days #14 cap 11/26/20 06/11/21 Loperamide [Imodium] 2 mg PO Q6HR PRN 06/04/21 06/11/21 Mirtazapine 15 mg PO QPM 06/04/21 06/11/21 Omeprazole Magnesium 20 mg PO BID 06/04/21 06/11/21 QUEtiapine [SEROquel] 25 mg PO QPM 06/04/21 06/11/21 guaiFENesin [Mucinex] 600 mg PO BID PRN 06/04/21 06/11/21 Vancomycin [Vancocin] 125 mg PO Q6HR 06/11/21 06/11/21 carvediloL [Coreg] 3.125 mg PO BID 06/11/21 06/11/21 - Allergies Allergies/Adverse Reactions: Allergies Allergy/AdvReac Type Severity Reaction Status Date / Time celecoxib [From Celebrex] Allergy Unknown Verified 05/27/21 16:30 Penicillins AdvReac Anaphylaxis Verified 05/27/21 16:30 Review of Systems - Constitutional Constitutional: reports: Fatigue (persistent), Weakness (worsening; spending more time in bed; hx of fall), Weight loss (128 per HH RN; was 143 in 02/27 per records). denies: Fever, Chills, Malaise - Eyes Eyes: reports: Vision loss, Corrective lenses - Ears, Nose & Throat Ears, Nose & Throat: reports: Hearing loss, Hearing aids, Dentures (lost lower dentures), Dry mouth - Cardiovascular Cardiovascular: reports: Lightheadedness, Exertional dyspnea, Decr. exercise tolerance. denies: Chest pain - Respiratory Respiratory: reports: Cough (intermittent), SOB with exertion. denies: SOB at rest - Gastrointestinal Gastrointestinal: reports: Diarrhea (patient 2 days of watery diarrhea; none while at ED/ Just had watery diarrhea in depends prior to arrival; specimen taken), Poor appetite, Early satiety, Other (difficulty with meal prep; their cg's don't cook; reports taste changes). denies: Abdominal pain, Constipation, Nausea, Reflux/heartburn - Genitourinary Genitourinary: reports: Other (indwelling catheter; urine clear and dark graham today; patient "plays" and pulls apart catheter). denies: Dysuria, Hematuria - Musculoskeletal Musculoskeletal: reports: Back pain, Muscle aches, Stiffness, Muscle weakness, Assistive devices (uses walker; needs SBA with caregiver; strength has continued to worsen) - Integumentary Integumentary: reports: Dryness, Other (bottom irritated from diarrhea) - Neurological Neurological: reports: General weakness, Memory problems (poor STM; very social covers with humor; defers to continually; does not remember ED visit or what he had for breakfast;), Abnormal gait (shuffled; c/0 weak legs today) - Psychiatric Psychiatric: reports: Delusions (some paranoia;). denies: Depression, Anxiety, Aggitation - Endocrine Endocrine: reports: Intolerance to cold - Hematologic/Lymphatic Hematologic/Lymph: reports: Recurrent infections (just finished cefixime) - All Other Systems All Other Systems: reports: Other (limited in patient recall) Physical Exam - Vital Signs Temperature: 97.3 C Pulse Rate: 73 (laying; sitting 92) Respiratory Rate: 18 O2 Saturation: 93 (ra @ rest) Blood Pressure: 102/54 (78/44 standing) - Physical Exam General Appearance: positive: No acute distress, Alert, Cachetic Eyes Bilateral: positive: Normal inspection Neck: positive: Trachea midline Cardiovascular: positive: Regular rate & rhythm Respiratory: positive: No respiratory distress, Breath sounds nml, Diminished in bases Abdomen: positive: Non-tender, Soft Skin: positive: Dryness, Other (irritation at rectum; no open areas) Extremities: positive: No pedal edema, Other (gait slow and shuffled; difficulty getting from sitting to standing today) Neurologic/Psychiatric: positive: Mood/affect nml, Disoriented to time, Flat affect Palliative Care - POLST Patient has POLST: Yes POLST Status: DNR, Comfort Measures Pain: Pain unchanged, Location (mid thoracic back area; chronic) Feelings of wellbeing/Perceived Quality of Life: Fair, Worsening ('s perception; patient in the moment; as long as with Haroon "happy") Sleep: Variable sleep pattern (some wandering; better with quietipine) Performance Status: Patient originally had been quite functional, ambulate around the house, under Haroon's direction. She reports he has been sleeping more spending more time in bed, less anxious to go out and sit in his chair. They usually as part of the routine both goes in the recliner's. He is using a walker, needed more help from sitting to standing today. Needs assistance with bathing, and dressing.They are also unable to loom changeover operator the back from a leg bag to a night bag. - Palliative Care Discussion: Unfortunately patient is unable to participate in conversation, he goes along with what ever Haroon wants. He forgets even what he had for breakfast and I was there just an hour after. He does not remember he was in the ED, and has no insight to his current situation or decline. He is really good-natured, and defers to Haroon frequently. Did meet with Haroon separately while trying to get specimen from Raul. Reviewed the goals of hospice are to focus on comfort only, that the could treat the infections, but they would not hospitalize him again, that hospice would become there at 911, she is fine with this, she does not really want him back in the hospital. We also discussed the seriousness of his infections, his pending C. difficile possible and his recurrent UTIs it most likely will add to his imminent decline. That the focus would be to keep him comfortable, and that most likely he would not respond to treatment given his multiple hospitalizations and treatments. She does verbalize understanding of this. She is getting quite fatigued and exhausted, it is very hard for her to continue to manage everything at 87 years of age, but is still quite bright though she may have some forgetfulness. She does have a caregiver Beatris who has been helping her do schedules and navigate some of the appointments staff. Patient does have a POLST with DNR/no code. At this point time her goals are try to keep them both at home, recognizing that this is a fragile plan at best. Counseling provided regarding hospice provides support through nursing, bathing, social work showing line supply. Haroon is quite nondenominational person, Raul is not. Results - Lab Results Lab and Imaging Results: Speciman collected at visit for C diff. Impression and Recommendations - Palliative Care Impression: This is a frail 85-year-old gentleman with worsening dementia, chronic indwelling catheter with difficult home management recurrent UTIs. Most recently was hospitalized for E. coli bacteremia and hematuria. Patient now presents with symptoms of C. difficile, will come firm hopefully today. Patient is losing weight, having functional decline, as well as recurrent dehydration. Palliative care continue provide support in the context of counseling for transition to hospice, symptom management, and anticipatory guidance. Recommendations/Counseling Done: 1. Dementia with behavioral disturbances. Patient continues with rapid decline, patient presents with neuropsychiatric behaviors of anxiety, intermittent agitation, intermittent hallucinations and delusions. Does have mirtazapine 15 mg at bedtime as well as quetiapine 25 mg at bedtime with improvement at this time of nighttime wandering and behaviors. Patient is cooperative, but Haroon is unable to manage him physically as she is mostly bedbound and needs to give him cues. Patient today though is very weak and mostly bedbound. 2. BPH. Patient has chronic indwelling catheter with multiple hospitalizations, sepsis, follow-up C. difficile, as well as catheter complications and ED visits. Patient has difficulty managing catheter, caregivers help with switching bags and has had support from home health. Patient has most recently finished antibiotics the last few days. Patient had been ordered Bactrim for positive urine from ED, instructed not to pick this up. Patient is colonized, just completed antibiotics, will evaluate further if presents with symptoms. Patient afebrile today, and urine is clear though dark in color. 3. Cachexia. Meal prep is difficult, Haroon does report none of their care givers cook. They often have Merissa and takeout meals, patient has early satiety and not interested much in eating. Patient continues to lose weight, but certainly has added to his frailty. Encouraged use of Ensure, protein shakes, small frequent feedings and more access to snacking. 4. Advanced care planning. After much conversation with Haroon, particularly with last hospitalization and trip to ED yesterday, discussion was about focusing on comfort. Patient with protein calorie malnutrition, Alzheimer's, weight loss, functional and cognitive decline, and concern for resistant recurrent UTIs. Suspect today he presents with C. difficile. Patient has had Covid but was asymptomatic from this other than a cough. Patient does have a POLST with DNR/DNI and comfort measures. 5. Diarrhea. Patient had watery diarrhea prior to my arrival, was able to get a small specimen. Lab is able to run this. Given patient's history and severe dehydration yesterday's an elevated white count suspect C. difficile. Addendum. Notified by lab C. difficile was positive, vancomycin 125 mg ordered every 6 hours for 2 weeks, this is a recurrence for patient, will defer to hospice clinical specialist medical device for long-term treatment or management depending on goals and outcome of treatment 45 minutes with greater than 50% spent on counseling, anticipatory guidance, coordination of care with hospice team. Notified primary RN Sosa Melvin of transition to hospice.
== END 2021-06-11 12:38 | disposition home or self-care (01) ==
LOC: PC 12:37
PROVIDERS: ATTEND Nurse Practitioner Adult Health
DX: Z51.5 Encounter for palliative care (principal); F03.91 Unspecified dementia, unspecified severity, with behavioral disturbance; Z91.83 Wandering in diseases classified elsewhere; N40.0 Benign prostatic hyperplasia without lower urinary tract symptoms; Z96.0 Presence of urogenital implants; R63.4 Abnormal weight loss; R19.7 Diarrhea, unspecified; A04.72 Enterocolitis due to Clostridium difficile, not specified as recurrent; Z66 Do not resuscitate
CPT/HCPCS: 87493; 99349

== ENCOUNTER 2021-10-01 12:50 | Outpatient (CLI) | payer MEDICARE, OTHER ==
--- NOTE | 2021-10-01 14:22 | CONSULTATION NOTE ---
Palliative Care Follow Up - Referral Referring Provider: Jyothi MAO Time of Visit: [id number] Referral setting: Home Referral Reason: Alzheimers/BPH/Care of [place]/alcohol abuse disorder - Information Sources Records reviewed: Previous records reviewed History/Review of Systems obtained from: Patient, Family ( presented most of) Exam limitations: Clinical condition (patient with severe memory loss) - History of Present Illness Update Brief HPI Update: This is an 86-year-old gentleman who has long-term chronic back pain, BPH with chronic indwelling catheter, with history of multiple hospitalizations for UTIs and multiple trips to ED. Patient had developed severe diarrhea, and diagnosed with C. difficile. Patient had significant weight loss, was down to 121 as a result of diarrhea, poor intake, multiple hospitalizations, worsening dementia and was started on Vancomycin. Patient presented as failure to thrive, with worsening Alzheimer's, because her wounds weight loss with 143 on 02/26 went down to 128 with home health, and goals of care were to focus on quality of life and no further hospitalization patient had been referred to hospice care. Patient was on hospice from 06/11-09/09/2021. Is more consistent attention, hiring a caregivers, treating of the C. difficile, as well as a better plan for managing his catheters patient actually regained weight, he is 135 today, still has severe back pain but is ambulatory, but does present with worsening behaviors regarding his dementia, describes sundowning, patient is up and down quite a bit in the evenings, she reports 2 out of 3 nights, other noted issue is patient is continuing to drink, she reports that he makes his own cocktails when she is taking her nap. He often has 2-3 beers, and sometimes several black velvet some coke, he forgets that he said he would not drink. She reports he has not had any falls or "seems drunk" but does understand at this point after discussion that it is most likely unsafe given his medications and his risk for falls.She does not want to "take this on" as she is trying to keep him at home, but has to "watch him every minute". She does not feel like she is at a place to have been placed yet, though appears extremely tired, reports he does have periods of agitation but does calm down and is very sweet. Patient does need home health nursing support to manage catheter, patient is homebound it is a considerable and taxing effort for the patient to leave the home. He can only ambulate short distances secondary to weakness and back pain. They deny any recent falls. Past Medical History: Atrial fib, [facility], Alzheimer's, weight loss, chronic back pain, BPH, GERD, history of C. difficile, 721 and 1021, and 2/2. History of colonoscopy, cataracts, Social History - Living Situation Living arrangement: At home Living Situation: With spouse/s.o. Support System: Patient lives at home with his spouse Haroon who has significant health problem s and is mostly bedbound secondary to severe lumbar stenosis. Patient actually had been working up for the last 6 years, Rosario only retired this last couple years. Patient and live in her own home, they have been for 50+ years. Haroon has 3 children, two who are still alive, her support comes through paid caregiving. This was able to arrange for the day to pay for caregiving, they have 6 hours a day with some supplement. She reports it is through home watch, has been difficult as the caregivers are quite young, but does not want to rock the boat because it has helped significantly financially.They had managed much more easily with oversight from hospice, unfortunately there seems to be glitch as far as when home health was supposed to start, PCP was to order home health and this did not occur. Medications/Allergies - Medications Home Medications: Ambulatory Orders Medication Instructions Recorded Confirmed Loperamide [Imodium] 2 mg PO Q6HR PRN 06/04/21 10/01/21 Mirtazapine 15 mg PO QPM 06/04/21 10/01/21 Omeprazole Magnesium 20 mg PO BID 06/04/21 10/01/21 QUEtiapine [SEROquel] 50 mg PO QPM 06/04/21 10/01/21 Acetaminophen [Tylenol] 650 mg PO BID 10/01/21 10/01/21 Saccharomyces Boulardii [Florastor] 250 mg PO DAILY 10/01/21 10/01/21 - Allergies Allergies/Adverse Reactions: Allergies Allergy/AdvReac Type Severity Reaction Status Date / Time celecoxib [From Celebrex] Allergy Unknown Verified 05/27/21 16:30 Penicillins AdvReac Anaphylaxis Verified 01/18/22 16:30 Review of Systems - Constitutional Constitutional: reports: Fatigue (persistent), Weakness (strenght and pain limiting ambulation), Weight gain (135). denies: Fever, Chills, Malaise - Eyes Eyes: reports: Vision loss, Corrective lenses - Ears, Nose & Throat Ears, Nose & Throat: reports: Hearing loss, Hearing aids (has them but not put in at visit), Dentures (lost lower dentures), Dry mouth - Cardiovascular Cardiovascular: reports: Exertional dyspnea, Decr. exercise tolerance. denies: Chest pain - Respiratory Respiratory: reports: Cough (intermittent with eating), SOB with exertion. denies: SOB at rest - Gastrointestinal Gastrointestinal: reports: Poor appetite, Early satiety, Other (difficulty with meal prep dependent on caregivers; doesn't like sandwiches Using Ensure 2-3 x day). denies: Abdominal pain, Constipation, Diarrhea (intermittent inc. of stool; soft), Nausea, Reflux/heartburn - Genitourinary Genitourinary: reports: Other (indwelling catheter; last changed 09/09 with hospice discharge; patient uses leg bag daily; cgs switch it over; no UTIs since 06/11). denies: Dysuria, Hematuria - Musculoskeletal Musculoskeletal: reports: Back pain, Muscle aches, Stiffness, Muscle weakness, Assistive devices (uses walker; needs SBA with caregiver; strength has continued to worsen) - Integumentary Integumentary: reports: Dryness, Other (bottom irritated from diarrhea) - Neurological Neurological: reports: General weakness, Memory problems (poor STM; very social covers with humor; defers to continually; can see deterioration in mental status since last visit in June), Abnormal gait (shuffled; c/0 weak legs today) - Psychiatric Psychiatric: reports: Delusions (some paranoia;). denies: Depression, Anxiety, Aggitation - Endocrine Endocrine: reports: Intolerance to cold - Hematologic/Lymphatic Hematologic/Lymph: reports: Recurrent infections (just finished cefixime) - All Other Systems All Other Systems: reports: Other (limited in patient recall; has some STM issues too but does well) Physical Exam - Vital Signs Temperature: 96.8 C Pulse Rate: 78 Respiratory Rate: 18 O2 Saturation: 98 Blood Pressure: 112/62 - Physical Exam General Appearance: positive: No acute distress, Alert, Cachetic Eyes Bilateral: positive: Normal inspection ENT: positive: No signs of dehydration Neck: positive: Trachea midline Cardiovascular: positive: Regular rate & rhythm Respiratory: positive: No respiratory distress, Breath sounds nml, Diminished in bases Abdomen: positive: Non-tender, Soft Skin: positive: Dryness Extremities: positive: No pedal edema, Other (gait slow and shuffled; difficulty getting from sitting to standing; severe scoliois) Neurologic/Psychiatric: positive: Mood/affect nml, Disoriented to time, Flat affect Palliative Care - POLST Patient has POLST: Yes POLST Status: DNR, Comfort Measures Pain: Pain worsening, Location (lower back), Severity ("bad" demonstrates pain behaviors with grimacing and moaning with movement of getting up), Comment (scheduled from hospice 325 mg BID; will increase to 650 mg BID) Feelings of wellbeing/Perceived Quality of Life: Fair, Acceptable, Improved Sleep: Variable sleep pattern (sometimes up at night 2/3 nights; up last night for clip toenails) Constipation: No Performance Status: Patient's gait is somewhat ataxic, does have difficulty getting from sitting to standing. Caregivers are helping him with bathing, though patient has very little insight to his limitations. reports he used to walk out to the mailbox, currently is mostly unable to do this, secondary to pain and weakness. She denies he is wandering. - Palliative Care Discussion: Patient had been discharged from hospice, hospice plan included transition to primary care provider Jyothi Carrillo, and home health. Unfortunately home health did not get ordered. We will go ahead and do that today. 's goals are still comfort focused, she would not want him hospitalized again, though this risk goes up without hospice support. She is quite exhausted, has to watch him every minute, does identify behaviors that are becoming more problematic. Concern though patient is continuing to drink, she reports has increased his intake though does not perceive he is "drunk". Reports his mother had a history of alcoholism as well as patient is long-term been an evening drinker as well. At this point he is unable to track this, and she does not feel like confronting him given at times he can actually have some agitation.We discussed placement for him, she does not feel like she is in a place for that yet, she would like to keep him home as long as possible. Still remains a complex situation, reports family has been more helpful, she has 1 daughter who is disabled and 1 daughter who comes on Wednesday as well as brings meals. Patient does have a POLST with DN AR/DNI and comfort focused care. Goals continue unchanged. Impression and Recommendations - Palliative Care Impression: This is a frail 86-year-old gentleman with worsening Alzheimer's dementia, chronic indwelling catheter with needing home health care RN support, worsening back pain, and alcohol use. Patient discharged from hospice secondary to CT result, weight gain, and stabilization. Goals remain comfort focused goals though, with avoidance of hospitalization. Palliative care continue to provide support in the context of symptom management, anticipatory guidance with referral back to hospice when appropriate, and coordination of care with home health RN. Recommendations/Counseling Done: 1. Dementia behavioral disturbances. Patient does have neuropsychiatric b ehaviors of anxiety, intermittent agitation, at this point has not had hallucinations but does still with some delusions. Patient on quetiapine 50 mg at bedtime, patient has increased alcohol intake hesitant to increase quetiapine until problem solved regarding worsening ingestion. Patient is cooperative, but can at times be confrontational with , Haroon denies feeling unsafe. She is just exhausted when he does not sleep. 2. Alcohol use disorder. Patient with his dementia, has increased his ingestion, she reports up to 3 beers, as well as sometimes 3 black velvet's with a Coke. She reports sometimes she does not know if she does nap in the afternoon and he tends to "help himself". Discussed that she is fearful of, fronting him with this, he does remember he says he will quit drinking. Recommendation to get nonalcoholic beer, nonalcoholic bourbon or 2 water down significantly current bourbon. Reviewed concerns for patient's fall risk, interactions with medications, she does understand risks. She will work on care plan over the next few days, and when has diminished intake significantly will let me know to be able to increase the quetiapine. This will allow a slow tape r, and avoidance hopefully of withdrawals. She does not have a clear idea of exactly his underlying total intake. 3. Chronic back pain. Patient long-term chronic back pain, does appear to be demonstrating severe pain behaviors, as well as limitation in ambulation. This is not necessarily a bad thing in the context that he can no longer longer or go for long distances. He is currently on acetaminophen 325 mg twice daily, will go ahead and increase to 650 mg twice daily, patient may benefit from Salonpas patches, will introduce this at next visit. 4. BPH. Patient's long-term chronic indwelling catheter, has a history of multiple hospitalizations, sepsis as well as resulting in C. difficile. Patient catheter complications have ended him in the ED. Currently to have caregivers during the emptying and managing of changing the bags, patient has not had an infection since hospice started. Home health from signature to restart with patient this Wednesday or Wednesday, they have some supplies in the home but will need secure devices. 5. Cachexia. Patient has long-term been quite thin, has regained some of his weight is at 135, still is mostly living on Ensure. Patient has early satiety and is often not interested in eating. Patient is on mirtazapine both for depression and appetite. 6. Advanced care planning. After much conversation again with Haroon, patient has been previously on hospice, goals remain to focus on comfort focused care. Patient is doing better, we did discuss at length threshold for transition to memory care unit. She would like to avoid this as long as possible but she spoke about her commitment to him as well as financial. Patient remains at high risk for sequela from a fall, recurrent UTIs, goal is to transition back to hospice when meets criteria again. [id number] for home health. Is a taxing considerable effort for the patient to leave the home to get his catheter changed, as well as management of signs or symptoms of UTI, pain, and oversight of medication management. Home health RN for catheter changes, patient is due this week, monthly catheter changes ordered. 55 minutes with greater than 50% of this time in counseling regarding anticipatory guidance regarding Alzheimer's, worsening behaviors, and management of patient's drinking behaviors, coordination of care with home health, and anticipatory guidance.
== END 2021-10-01 12:51 | disposition home or self-care (01) ==
LOC: PC 12:50
PROVIDERS: ATTEND Nurse Practitioner Adult Health
DX: Z51.5 Encounter for palliative care (principal); G30.9 Alzheimer's disease, unspecified; F02.81 Dementia in other diseases classified elsewhere, unspecified severity, with behavioral disturbance; F10.10 Alcohol abuse, uncomplicated; M54.9 Dorsalgia, unspecified; G89.29 Other chronic pain; N40.0 Benign prostatic hyperplasia without lower urinary tract symptoms; Z96.0 Presence of urogenital implants; R64 Cachexia; Z66 Do not resuscitate
CPT/HCPCS: 99349

== ENCOUNTER 2022-01-31 09:57 | Outpatient (CLI) | payer MEDICARE, OTHER | END 2022-01-31 09:58 | disposition critical access hospital (66) | LOC: EMS 09:57 | DX: R53.1 Weakness (principal); R31.9 Hematuria, unspecified; R50.9 Fever, unspecified | CPT/HCPCS: A0425; A0429 ==

== ENCOUNTER 2022-01-31 10:15 | Emergency (ER) | payer MEDICARE, OTHER ==
--- NOTE | 2022-01-31 10:35 | ED Physician Documentation ---
PD HPI FEVER - Stated complaint Stated Complaint: MALE - Chief complaint Chief Complaint: General - History obtained from History obtained from: Patient, Family (), EMS - History of Present Illness Timing - onset: Yesterday Timing duration: Days (1) Timing details: Abrupt onset, Waxing and waning Associated symptoms: Other (chronic wagner. No current back pain/abd pain.). No: Chills, Nasal congestion, Sore throat, Dry cough, Abdominal pain, NVD Contributing factors: No: Sick contact, Immunocompromised Similar symptoms before: Diagnosis ( states symptoms have come from UTIs in the past.) Recently seen: Not recently seen Review of Systems Constitutional: reports: Fever Nose: denies: Rhinorrhea / runny nose, Congestion Throat: denies: Sore throat Respiratory: denies: Cough GI: denies: Vomiting, Diarrhea Skin: denies: Rash, Lesions Neurologic: denies: Generalized weakness, Headache PD PAST MEDICAL HISTORY - Past Medical History Cardiovascular: UT, Atrial fibrillation Respiratory: None Neuro: Dementia Endocrine/Autoimmune: None GI: GERD, Other (Hx of C. diff diarrhea in 11/27 and 02/27) : Benign prostate hypertrophy, Indwelling catheter, Other (Frequent UTIs) HEENT: Chronic vision loss, Chronic hearing loss Psych: None Musculoskeletal: Osteoarthritis, Fatigue, Chronic back pain Derm: None - Past Surgical History Past Surgical History: Yes General: Colonoscopy, Other HEENT: Cataracts - Present Medications Home Medications: Ambulatory Orders Medication Instructions Recorded Confirmed Loperamide [Imodium] 2 mg PO Q6HR PRN 06/04/21 10/01/21 Mirtazapine 15 mg PO QPM 06/04/21 10/01/21 Omeprazole Magnesium 20 mg PO BID 06/04/21 10/01/21 QUEtiapine [SEROquel] 50 mg PO QPM 06/04/21 10/01/21 Acetaminophen [Tylenol] 650 mg PO BID 10/01/21 10/01/21 Saccharomyces Boulardii [Florastor] 250 mg PO DAILY 10/01/21 10/01/21 Cefdinir 300 mg PO BID #20 cap 12/17/21 cephALEXin [Keflex] 500 mg PO TID #21 cap 01/31/22 - Allergies Allergies/Adverse Reactions: Allergies Allergy/AdvReac Type Severity Reaction Status Date / Time celecoxib [From Celebrex] Allergy Unknown Verified 01/31/22 10:23 Penicillins AdvReac Anaphylaxis Verified 01/31/22 10:23 - Social History Does the pt smoke?: No Smoking Status: Unknown if ever smoked Does the pt drink ETOH?: Yes Does the pt have substance abuse?: No - Immunizations Immunizations are current?: Yes - POLST Patient has POLST: Yes POLST Status: Full Code PD ED PE NORMAL - Vitals Vital signs reviewed: Yes - General General: No acute distress, Well developed/nourished. No: Alert and oriented X 3 (person and place; alert and conversant. Poor short term memory c/w dementia. ) - HEENT HEENT: Ears normal (outer canals okay. Has hearing aides in place. ), Pharynx benign - Neck Neck: Supple, no meningeal sign, No adenopathy - Cardiac Cardiac: RRR, No murmur - Respiratory Respiratory: No respiratory distress, Clear bilaterally - Abdomen Abdomen: Soft, Non tender, Other (wagner in place. No meatal discharge. Drainage into sofia is yellow, with slight cloudy. ) - Back Back: No CVA TTP, Other (no sacral area tenderness. ) - Derm Derm: Normal color, Warm and dry - Extremities Extremities: No edema, No calf tenderness / cord - Neuro Neuro: No motor deficit, No sensory deficit Results - Vitals Vitals: Vital Signs - 24 hr 01/31/22 01/31/22 01/31/22 10:23 11:05 12:43 Temperature 38.2 C H Heart Rate 88 80 81 Respiratory 18 18 16 Rate Blood Pressure 161/72 H 139/70 H 132/81 H O2 Saturation 96 98 95 01/31/22 14:00 Temperature Heart Rate 69 Respiratory 16 Rate Blood Pressure 141/76 H O2 Saturation 95 Oxygen O2 Source Room air - Labs Labs: Laboratory Tests 01/31/22 01/31/22 01/31/22 11:05 11:24 11:24 WBC 3.5 L RBC 4.57 L Hgb 15.4 Hct 45.3 MCV 99.1 H MCH 33.7 H MCHC 34.0 RDW 14.0 Plt Count 83 L MPV 8.1 Neut # (Auto) 2.2 Lymph # (Auto) 0.9 L [place] # (Auto) 0.4 Eos # (Auto) 0.0 Baso # (Auto) 0.0 Absolute Nucleated RBC 0.00 Nucleated RBC % 0.0 Sodium 138 Potassium 3.8 Chloride 100 L Carbon Dioxide 30 Anion Gap 8.0 BUN 13 Creatinine 0.8 Estimated GFR (MDRD) 91 Glucose 100 Calcium 9.2 Total Bilirubin 1.0 AST 17 ALT 11 Alkaline Phosphatase 56 Total Protein 7.4 Albumin 4.0 Globulin 3.4 Albumin/Globulin Ratio 1.2 Lipase 30 Urine Color Urine Clarity Urine pH Ur Specific [place] Urine Protein Urine Glucose (UA) Urine Ketones Urine Occult Blood Urine Nitrite Urine Bilirubin Urine Urobilinogen Ur Leukocyte Esterase Urine RBC Urine WBC Ur Squamous Epith Cells Urine Bacteria Ur Microscopic Review Urine Culture Comments Nasal Adenovirus (PCR) NOT DETECTED Nasal B. parapertussis DNA (PCR) NOT DETECTED Nasal Coronavir 229E PCR NOT DETECTED Nasal Coronavir HKU1 PCR NOT DETECTED Nasal Coronavir NL63 PCR NOT DETECTED Nasal Coronavir OC43 PCR NOT DETECTED Nasal Enterovir/Rhinovir PCR NOT DETECTED Nasal Influenza B PCR NOT DETECTED Nasal Influenza A PCR NOT DETECTED Nasal Parainfluen 1 PCR NOT DETECTED Nasal Parainfluen 2 PCR NOT DETECTED Nasal Parainfluen 3 PCR NOT DETECTED Nasal Parainfluen 4 PCR NOT DETECTED Nasal RSV (PCR) NOT DETECTED Nasal B.pertussis DNA PCR NOT DETECTED Nasal C.pneumoniae (PCR) NOT DETECTED [place] Human Metapneumo PCR NOT DETECTED Nasal M.pneumoniae (PCR) NOT DETECTED Nasal SARS-CoV-2 (PCR) NOT DETECTED 01/31/22 11:30 WBC RBC Hgb Hct MCV MCH MCHC RDW Plt Count MPV Neut # (Auto) Lymph # (Auto) [place] # (Auto) Eos # (Auto) Baso # (Auto) Absolute Nucleated RBC Nucleated RBC % Sodium Potassium Chloride Carbon Dioxide Anion Gap BUN Creatinine Estimated GFR (MDRD) Glucose Calcium Total Bilirubin AST ALT Alkaline Phosphatase Total Protein Albumin Globulin Albumin/Globulin Ratio Lipase Urine Color YELLOW Urine Clarity CLEAR Urine pH 7.5 Ur Specific [place] 1.015 Urine Protein TRACE Urine Glucose (UA) NEGATIVE Urine Ketones NEGATIVE Urine Occult Blood MODERATE H Urine Nitrite NEGATIVE Urine Bilirubin NEGATIVE Urine Urobilinogen 0.2 (NORMAL) Ur Leukocyte Esterase SMALL H Urine RBC 6-10 H Urine WBC >25 H Ur Squamous Epith Cells NONE SEEN Urine Bacteria Moderate H Ur Microscopic Review INDICATED Urine Culture Comments INDICATED Nasal Adenovirus (PCR) Nasal B. parapertussis DNA (PCR) Nasal Coronavir 229E PCR Nasal Coronavir HKU1 PCR Nasal Coronavir NL63 PCR Nasal Coronavir OC43 PCR Nasal Enterovir/Rhinovir PCR Nasal Influenza B PCR Nasal Influenza A PCR Nasal Parainfluen 1 PCR Nasal Parainfluen 2 PCR Nasal Parainfluen 3 PCR Nasal Parainfluen 4 PCR Nasal RSV (PCR) Nasal B.pertussis DNA PCR Nasal C.pneumoniae (PCR) [place] Human Metapneumo PCR Nasal M.pneumoniae (PCR) Nasal SARS-CoV-2 (PCR) PD MEDICAL DECISION MAKING - ED course Complexity details: reviewed results, considered differential (fever without URI/abd/skin symptoms. Will check CBC, viral PCR, CXR. perhaps consider UA if no other source. Not having abd/pelvic pains. ), d/w patient Departure - Departure Disposition: 01 Home, Self Care Clinical Impression: Wagner catheter in place Fever Qualifiers: Fever type: unspecified Qualified Code(s): R50.9 - Fever, unspecified Condition: Stable Record reviewed to determine appropriate education?: Yes Follow-Up: Jyothi Carrillo PA [Primary Care Provider] - Prescriptions: cephALEXin [Keflex] 500 mg PO TID #21 cap Comments: You do not appear to ill. No other signs or causes for your fever are found. A respiratory viral panel was negative for COVID and other common viral illnesses. Chest x-ray was clear. Your urine shows some signs of bacteria and white cells which is fairly common with a catheter in place. That may be the cause of your fever and we can treated for urinary infection in case pending the culture. Cephalexin 4 times daily for the next week. I sent your prescriptions to the pharmacy. Tylenol every 4-6 hours if needed for fevers or pains. Discharge Date/Time: 01/31/22 14:49
[2022-01-31] MEDS ORDERED: ACETAMINOPHEN 325 MG TABLET PO STA (10:44)
[2022-01-31 11:29] LABS: EOSINOPHILS % (AUTO) 0.6 %; HCT - HEMATOCRIT 45.3 % (42.0-52.0); HGB - HEMOGLOBIN 15.4 g/dL (14.0-18.0); LYMPHOCYTES # (AUTO) 0.9 10^3/uL (1.5-3.5); LYMPHOCYTES % (AUTO) 25.7 %; MEAN CORPUSCULAR HEMOGLOBIN 33.7 pg (27.0-31.0); MEAN CORPUSCULAR VOLUME 99.1 fL (80.0-94.0); MEAN PLATELET VOLUME 8.1 fL (7.4-11.4); MONOCYTES # (AUTO) 0.4 10^3/uL (0.0-1.0); MONOCYTES % (AUTO) 11.3 %; NEUTROPHILS # (AUTO) 2.2 10^3/uL (1.5-6.6); NEUTROPHILS % (AUTO) 62.1 %; PLT - PLATELET COUNT 83 10^3/uL (130-450); RED BLOOD COUNT 4.57 10^6/uL (4.70-6.10); WHITE BLOOD COUNT 3.5 x10^3/uL (4.8-10.8)
--- NOTE | 2022-01-31 11:54 | XRAY Report ---
PROCEDURE: Chest 1 View X-Ray INDICATIONS: chest pain COMMENTS: CHEST PAIN PRIORS: 06/11/2021, 03/02/2021, 02/28/2021, 11/14/2020, 07/19/2019 TECHNIQUE: One view of the chest was acquired. COMPARISON: 06/11/2021 FINDINGS: Surgical changes and devices: None. Lungs and pleura: Airspace opacities in the mid lung zones bilaterally are unchanged compared to the prior x-ray on 06/11/2021. No acute focal consolidation or mass. No pneumothorax or pleural effusion. Lungs are clear. Mediastinum: Mediastinal contours appear normal. Heart size is normal. The aorta is tortuous. Bones and chest wall: No suspicious bony lesions. Overlying soft tissues appear unremarkable. IMPRESSION: 1. Airspace opacities in the midlung zones bilaterally unchanged compared to the prior study and like ly chronic. 2. No acute abnormality. Reviewed by: Lenin Hatch on 01/31/2022 11:53 AM PDT Approved by: Lenin Hatch on 01/31/2022 11:53 AM PDT Station ID: [id number]
[2022-01-31 11:57] LABS: ALBUMIN/GLOBULIN RATIO 1.2 (1.0-2.2); CREATININE 0.8 mg/dL (0.6-1.2); TOTAL PROTEIN 7.4 g/dL (6.7-8.2)
[2022-01-31 12:05] LABS: B. PARAPERTUSSIS- RESP PCR PAN NOT DETECTED; B. PERTUSSIS- RESP PCR PANEL NOT DETECTED; C. PNEUMONIAE- RESP PCR PANEL NOT DETECTED; CORONAVIRUS 229E-RESP PCR NOT DETECTED; CORONAVIRUS HKU1-RESP PCR NOT DETECTED; CORONAVIRUS NL63-RESP PCR NOT DETECTED; CORONAVIRUS OC43-RESP PCR NOT DETECTED; HUMAN METAPNEUMOVIRUS NOT DETECTED; INFLUENZA A- RESP PCR PANEL NOT DETECTED; INFLUENZA B - RESP PCR PANEL NOT DETECTED; M. PNEUMONIAE- RESP PCR PANEL NOT DETECTED; PARAINFLUENZA VIRUS 1 NOT DETECTED; PARAINFLUENZA VIRUS 2 NOT DETECTED; PARAINFLUENZA VIRUS 3 NOT DETECTED; PARAINFLUENZA VIRUS 4 NOT DETECTED; RHINOVIRUS/ENTEROVIRUS NOT DETECTED; RSV- RESP PCR PANEL NOT DETECTED; SARS-CoV-2 -RESP PCR PANEL NOT DETECTED
[2022-01-31 12:05] LABS: CALCIUM 9.2 mg/dL (8.5-10.3); POTASSIUM 3.8 mmol/L (3.5-5.0)
[2022-01-31 12:13] LABS: BILIRUBIN,URINE NEGATIVE (NEGATIVE); GLUCOSE, URINE (UA) NEGATIVE (NEGATIVE); KETONES,URINE (UA) NEGATIVE (NEGATIVE); LEUKOCYTE ESTERASE, URINE SMALL (NEGATIVE); NITRITE,URINE NEGATIVE (NEGATIVE); OCCULT BLOOD,URINE MODERATE (NEGATIVE); PH,URINE 7.5 PH (5.0-7.5); PROTEIN,URINE TRACE mg/dL (NEGATIVE); UROBILINOGEN,URINE 0.2 (NORMAL) E.U./dL (NORMAL)
[2022-01-31 12:29] LABS: BACTERIA,URINE Moderate /HPF (None Seen); CLARITY,URINE CLEAR (CLEAR); SQUAMOUS EPITHELIAL CELL,UR NONE SEEN (<= Few); WBC,URINE >25 /HPF (0-3)
[2022-01-31] MEDS ORDERED: cephALEXin 250 MG CAPSULE PO STA (12:45)
[2022-01-31 14:22] VITALS: BP 141/76
== END 2022-01-31 14:49 | disposition home or self-care (01) ==
LOC: EDUNIT# → ED 10:15
DX: R50.9 Fever, unspecified (principal); Z96.0 Presence of urogenital implants
CPT/HCPCS: 36415; 71045; 80053; 81001; 83690; 85025; 87077; 87086; 87181; 87633; 99282; 99284; A9270; 81003

== ENCOUNTER 2022-01-31 14:47 | Outpatient (CLI) | payer MEDICARE, OTHER | END 2022-01-31 14:48 | disposition home or self-care (01) | LOC: EMS 14:47 | PROVIDERS: ATTEND Emergency Medicine | DX: N39.0 Urinary tract infection, site not specified (principal); R41.0 Disorientation, unspecified; F03.90 Unspecified dementia, unspecified severity, without behavioral disturbance, psychotic disturbance, mood disturbance, and anxiety | CPT/HCPCS: A0425; A0428 ==

== ENCOUNTER 2022-04-02 01:01 | Outpatient (CLI) | payer MEDICARE, OTHER | END 2022-04-02 01:02 | disposition EMS.NT | LOC: EMS 01:01 | DX: Z03.89 Encounter for observation for other suspected diseases and conditions ruled out (principal) ==

== ENCOUNTER 2022-04-02 09:34 | Outpatient (CLI) | payer MEDICARE, OTHER | END 2022-04-02 09:35 | disposition critical access hospital (66) | LOC: EMS 09:34 | DX: R50.9 Fever, unspecified (principal) | CPT/HCPCS: A0425; A0429 ==

== ENCOUNTER 2022-04-02 09:50 | Emergency (ER) | payer MEDICARE, OTHER ==
[2022-04-02 10:13] VITALS: BP 145/84
[2022-04-02 10:19] LABS: BASOPHILS % (AUTO) 0.2 %; EOSINOPHILS % (AUTO) 0.5 %; HCT - HEMATOCRIT 42.7 % (42.0-52.0); HGB - HEMOGLOBIN 14.1 g/dL (14.0-18.0); LYMPHOCYTES # (AUTO) 1.5 10^3/uL (1.5-3.5); MEAN CORPUSCULAR HEMOGLOBIN 33.3 pg (27.0-31.0); MEAN CORPUSCULAR VOLUME 100.9 fL (80.0-94.0); MEAN PLATELET VOLUME 8.5 fL (7.4-11.4); MONOCYTES # (AUTO) 0.7 10^3/uL (0.0-1.0); MONOCYTES % (AUTO) 9.9 %; NEUTROPHILS # (AUTO) 4.4 10^3/uL (1.5-6.6); NEUTROPHILS % (AUTO) 66.2 %; PLT - PLATELET COUNT 88 10^3/uL (130-450); RED BLOOD COUNT 4.23 10^6/uL (4.70-6.10); RED CELL DISTRIBUTION WIDTH 13.4 % (12.0-15.0); WHITE BLOOD COUNT 6.7 x10^3/uL (4.8-10.8)
--- NOTE | 2022-04-02 10:25 | ED Physician Documentation ---
History of Present Illness - Stated complaint Stated Complaint: FEVER - Chief complaint Chief Complaint: UTI - History obtained from History obtained from: EMS - History of Present Illness Timing: Today Pain level max: 0 Pain level now: 0 - Additonal information Additional information: Patient is a 86-year-old male who presents to the emergency department with a fever today. Nothing makes it better or worse. The patient is unable to give any history, has severe dementia. EMS states that he has a chronic indwelling Martinez catheter. Had a fever of 102 at home today. No reported cough or congestion. No reported vomiting or diarrhea. Family is reportedly concerned about a UTI. Has had several UTIs in the past. No other history available Review of Systems Constitutional: reports: Fever GI: denies: Vomiting Skin: denies: Rash PD PAST MEDICAL HISTORY - Past Medical History Past Medical History: Yes Cardiovascular: CT, Atrial fibrillation Respiratory: None Neuro: Dementia Endocrine/Autoimmune: None GI: GERD, Other (Hx of C. diff diarrhea in 11/27 and 02/27) : Benign prostate hypertrophy, Indwelling catheter, Other (Frequent UTIs) HEENT: Chronic vision loss, Chronic hearing loss Psych: None Musculoskeletal: Osteoarthritis, Fatigue, Chronic back pain Derm: None - Past Surgical History Past Surgical History: Yes General: Colonoscopy, Other HEENT: Cataracts - Present Medications Home Medications: Ambulatory Orders Medication Instructions Recorded Confirmed Loperamide [Imodium] 2 mg PO Q6HR PRN 06/04/21 10/01/21 Mirtazapine 15 mg PO QPM 06/04/21 10/01/21 Omeprazole Magnesium 20 mg PO BID 06/04/21 10/01/21 QUEtiapine [SEROquel] 50 mg PO QPM 06/04/21 10/01/21 Acetaminophen [Tylenol] 650 mg PO BID 10/01/21 10/01/21 Saccharomyces Boulardii [Florastor] 250 mg PO DAILY 10/01/21 10/01/21 Cefdinir 300 mg PO BID #20 cap 12/17/21 cephALEXin [Keflex] 500 mg PO TID #21 cap 01/31/22 Cefdinir 300 mg PO BID #20 cap 04/02/22 - Allergies Allergies/Adverse Reactions: Allergies Allergy/AdvReac Type Severity Reaction Status Date / Time celecoxib [From Celebrex] Allergy Unknown Verified 04/02/22 10:02 Penicillins AdvReac Anaphylaxis Verified 04/02/22 10:02 - Social History Does the pt smoke?: No Smoking Status: Unknown if ever smoked Does the pt drink ETOH?: Yes Does the pt have substance abuse?: No - Immunizations Immunizations are current?: Yes - POLST Patient has POLST: Yes POLST Status: Full Code PD ED PE NORMAL - Vitals Vital signs reviewed: Yes - General General: No acute distress, Other (Alert, not oriented to person, place, time.) - HEENT HEENT: Atraumatic, PERRL, Moist mucous membranes - Neck Neck: Supple, no meningeal sign - Cardiac Cardiac: RRR, Strong equal pulses - Respiratory Respiratory: No respiratory distress, Clear bilaterally - Abdomen Abdomen: Soft, Non tender, Non distended - Back Back: No CVA TTP, No spinal TTP - Derm Derm: Warm and dry, No rash - Extremities Extremities: No edema, No calf tenderness / cord - Neuro Neuro: Other (Alert, not oriented to person, place, time.) - Psych Psych: Normal mood, Normal affect Results - Vitals Vitals: Vital Signs - 24 hr 04/02/22 09:57 Temperature 37.4 C Heart Rate 78 Respiratory 18 Rate Blood Pressure 145/84 H O2 Saturation 99 Oxygen O2 Source Room air - Labs Labs: Laboratory Tests 04/02/22 04/02/22 04/02/22 10:10 10:10 10:15 WBC 6.7 RBC 4.23 L Hgb 14.1 Hct 42.7 MCV 100.9 H MCH 33.3 H MCHC 33.0 RDW 13.4 Plt Count 88 L MPV 8.5 Neut # (Auto) 4.4 Lymph # (Auto) 1.5 Rabun # (Auto) 0.7 Eos # (Auto) 0.0 Baso # (Auto) 0.0 Absolute Nucleated RBC 0.00 Nucleated RBC % 0.0 Sodium Potassium Chloride Carbon Dioxide Anion Gap BUN Creatinine Estimated GFR (MDRD) Glucose Lactic Acid Calcium Urine Color YELLOW Urine Clarity SL. CLOUDY Urine pH 7.0 Ur Specific [place] 1.015 Urine Protein TRACE Urine Glucose (UA) NEGATIVE Urine Ketones NEGATIVE Urine Occult Blood MODERATE H Urine Nitrite NEGATIVE Urine Bilirubin NEGATIVE Urine Urobilinogen 0.2 (NORMAL) Ur Leukocyte Esterase SMALL H Urine RBC 11-25 H Urine WBC 11-25 H Ur Squamous Epith Cells RARE Squamous Urine Bacteria Moderate H Ur Microscopic Review INDICATED Urine Culture Comments INDICATED Nasal Adenovirus (PCR) NOT DETECTED Nasal B. parapertussis DNA (PCR) NOT DETECTED Nasal Coronavir 229E PCR NOT DETECTED Nasal Coronavir HKU1 PCR NOT DETECTED Nasal Coronavir NL63 PCR NOT DETECTED Nasal Coronavir OC43 PCR NOT DETECTED Nasal Enterovir/Rhinovir PCR NOT DETECTED Nasal Influenza B PCR NOT DETECTED Nasal Influenza A PCR NOT DETECTED Nasal Parainfluen 1 PCR NOT DETECTED Nasal Parainfluen 2 PCR NOT DETECTED Nasal Parainfluen 3 PCR NOT DETECTED Nasal Parainfluen 4 PCR NOT DETECTED Nasal RSV (PCR) NOT DETECTED Nasal B.pertussis DNA PCR NOT DETECTED Nasal C.pneumoniae (PCR) NOT DETECTED Kyler Human Metapneumo PCR NOT DETECTED Nasal M.pneumoniae (PCR) NOT DETECTED Nasal SARS-CoV-2 (PCR) NOT DETECTED 04/02/22 04/02/22 10:15 10:15 WBC RBC Hgb Hct MCV MCH MCHC RDW Plt Count MPV Neut # (Auto) Lymph # (Auto) Rabun # (Auto) Eos # (Auto) Baso # (Auto) Absolute Nucleated RBC Nucleated RBC % Sodium 142 Potassium 3.7 Chloride 102 Carbon Dioxide 27 Anion Gap 13.0 BUN 19 Creatinine 0.9 Estimated GFR (MDRD) 80 L Glucose 104 H Lactic Acid 1.4 Calcium 9.4 Urine Color Urine Clarity Urine pH Ur Specific [place] Urine Protein Urine Glucose (UA) Urine Ketones Urine Occult Blood Urine Nitrite Urine Bilirubin Urine Urobilinogen Ur Leukocyte Esterase Urine RBC Urine WBC Ur Squamous Epith Cells Urine Bacteria Ur Microscopic Review Urine Culture Comments Nasal Adenovirus (PCR) Nasal B. parapertussis DNA (PCR) Nasal Coronavir 229E PCR Nasal Coronavir HKU1 PCR Nasal Coronavir NL63 PCR Nasal Coronavir OC43 PCR Nasal Enterovir/Rhinovir PCR Nasal Influenza B PCR Nasal Influenza A PCR Nasal Parainfluen 1 PCR Nasal Parainfluen 2 PCR Nasal Parainfluen 3 PCR Nasal Parainfluen 4 PCR Nasal RSV (PCR) Nasal B.pertussis DNA PCR Nasal C.pneumoniae (PCR) Kyler Human Metapneumo PCR Nasal M.pneumoniae (PCR) Nasal SARS-CoV-2 (PCR) - Rads (name of study) Chest x-ray Radiology: Final report received, EMP read contemporaneously, See rad report (No acute abnormality) PD MEDICAL DECISION MAKING - ED course Complexity details: reviewed results, considered differential ED course: 86-year-old male presents to the emergency department with fever, 102 T-max. Urinalysis consistent with UTI, but does have a chronic catheter. Given the fever, we will treat. No evidence of sepsis. Respiratory panel is negative. Patient has severe dementia. This document was made in part using voice recognition software. While efforts are made to proofread this document, sound alike and grammatical errors may occur. Departure - Departure Disposition: 01 Home, Self Care Clinical Impression: UTI (urinary tract infection) Qualifiers: Urinary tract infection type: acute cystitis Hematuria presence: without hematuria Qualified Code(s): N30.00 - Acute cystitis without hematuria Condition: Good Instructions: ED UTI Cystitis Male Follow-Up: your,doctor in 3 days [Other] Prescriptions: Cefdinir 300 mg PO BID #20 cap Comments: Your prescriptions were sent to [facility] in [place]. You were given a 24-hour antibiotic today. Take all antibiotics until gone. You can start the oral antibiotics tomorrow. Please return if you worsen. Your viral panel is negative.
[2022-04-02 10:31] LABS: CALCIUM 9.4 mg/dL (8.5-10.3); CREATININE 0.9 mg/dL (0.6-1.2); POTASSIUM 3.7 mmol/L (3.5-5.0)
[2022-04-02 10:32] LABS: BILIRUBIN,URINE NEGATIVE (NEGATIVE); GLUCOSE, URINE (UA) NEGATIVE (NEGATIVE); KETONES,URINE (UA) NEGATIVE (NEGATIVE); LEUKOCYTE ESTERASE, URINE SMALL (NEGATIVE); NITRITE,URINE NEGATIVE (NEGATIVE); OCCULT BLOOD,URINE MODERATE (NEGATIVE); PROTEIN,URINE TRACE mg/dL (NEGATIVE); UROBILINOGEN,URINE 0.2 (NORMAL) E.U./dL (NORMAL)
[2022-04-02 10:34] LABS: CLARITY,URINE SL. CLOUDY (CLEAR)
[2022-04-02 10:37] LABS: BACTERIA,URINE Moderate /HPF (None Seen); SQUAMOUS EPITHELIAL CELL,UR RARE Squamous (<= Few)
[2022-04-02] MEDS ORDERED: LIDOCAINE 1% 2 ML VIAL MC ONE (10:49)
[2022-04-02] MEDS ORDERED: cefTRIAXone 1 GM VIAL IM STA (10:49)
--- NOTE | 2022-04-02 10:52 | XRAY Report ---
PROCEDURE: Chest 1 View X-Ray INDICATIONS: fever TECHNIQUE: One view of the chest was acquired. COMPARISON: 01/31/2022, 06/11/2021, 03/02/2021. Correlation is also made with overlapping portions of a bdominal CT, 02/28/2021. FINDINGS: Surgical changes and devices: None. Lungs and pleura: No pleural effusions or pneumothorax. Calcified pleural plaques are again seen. No superimposed infiltrates are seen.The inferior most costophrenic angles are not included within the [id number] of this study. Mediastinum: The aorta is prominent and tortuous. The cardiac contours are within normal limits. Bones and chest wall: Age-appropriate degenerative changes are seen. No suspicious bony lesions. Overlying soft tissues appear unremarkable. IMPRESSION: Limited portable chest examination, without an acute abnormality identified. Calcified pleural plaques are seen, without superimposed infiltrates. If there is strong clinical concern for a developing or new pulmonary process, please consider a shor t-term follow-up 2 view chest series, performed in deep inspiration. Reviewed by: Chi Bai MD on 04/02/2022 9:51 AM [facility] Approved by: Chi Bai MD on 04/02/2022 9:51 AM [facility] Station ID: [id number]
[2022-04-02 11:13] LABS: B. PARAPERTUSSIS- RESP PCR PAN NOT DETECTED; B. PERTUSSIS- RESP PCR PANEL NOT DETECTED; C. PNEUMONIAE- RESP PCR PANEL NOT DETECTED; CORONAVIRUS 229E-RESP PCR NOT DETECTED; CORONAVIRUS HKU1-RESP PCR NOT DETECTED; CORONAVIRUS NL63-RESP PCR NOT DETECTED; CORONAVIRUS OC43-RESP PCR NOT DETECTED; HUMAN METAPNEUMOVIRUS NOT DETECTED; INFLUENZA A- RESP PCR PANEL NOT DETECTED; INFLUENZA B - RESP PCR PANEL NOT DETECTED; M. PNEUMONIAE- RESP PCR PANEL NOT DETECTED; PARAINFLUENZA VIRUS 1 NOT DETECTED; PARAINFLUENZA VIRUS 2 NOT DETECTED; PARAINFLUENZA VIRUS 3 NOT DETECTED; PARAINFLUENZA VIRUS 4 NOT DETECTED; RHINOVIRUS/ENTEROVIRUS NOT DETECTED; RSV- RESP PCR PANEL NOT DETECTED; SARS-CoV-2 -RESP PCR PANEL NOT DETECTED
== END 2022-04-02 14:04 | disposition home or self-care (01) ==
LOC: EDUNIT# → ED 09:50
DX: N30.00 Acute cystitis without hematuria (principal); Z20.822 Contact with and (suspected) exposure to COVID-19; F03.90 Unspecified dementia, unspecified severity, without behavioral disturbance, psychotic disturbance, mood disturbance, and anxiety
CPT/HCPCS: 36415; 80048; 81001; 81003; 83605; 85025; 87086; 87181; 87633; 96372; 99283; 99284

== ENCOUNTER 2022-04-02 12:11 | Outpatient (CLI) | payer MEDICARE, OTHER | END 2022-04-02 12:12 | disposition home or self-care (01) | LOC: EMS 12:11 | PROVIDERS: ATTEND Emergency Medicine | DX: R41.0 Disorientation, unspecified (principal); N39.0 Urinary tract infection, site not specified; F03.90 Unspecified dementia, unspecified severity, without behavioral disturbance, psychotic disturbance, mood disturbance, and anxiety | CPT/HCPCS: A0425; A0428 ==

== ENCOUNTER 2022-04-03 02:36 | Outpatient (CLI) | payer MEDICARE, OTHER | END 2022-04-03 23:59 | disposition critical access hospital (66) | LOC: EMS 02:36 | DX: R50.9 Fever, unspecified (principal); R05.9 Cough, unspecified | CPT/HCPCS: A0425; A0429 ==

== ENCOUNTER 2022-04-03 03:00 | Emergency (ER) | payer MEDICARE, OTHER ==
[2022-04-03 03:27] LABS: BASOPHILS % (AUTO) 0.2 %; EOSINOPHILS % (AUTO) 0.2 %; HCT - HEMATOCRIT 43.2 % (42.0-52.0); HGB - HEMOGLOBIN 14.7 g/dL (14.0-18.0); LYMPHOCYTES # (AUTO) 1.2 10^3/uL (1.5-3.5); LYMPHOCYTES % (AUTO) 14.1 %; MEAN PLATELET VOLUME 9.2 fL (7.4-11.4); MONOCYTES # (AUTO) 0.8 10^3/uL (0.0-1.0); MONOCYTES % (AUTO) 9.5 %; NEUTROPHILS # (AUTO) 6.3 10^3/uL (1.5-6.6); NEUTROPHILS % (AUTO) 75.6 %; PLT - PLATELET COUNT 95 10^3/uL (130-450); RED BLOOD COUNT 4.32 10^6/uL (4.70-6.10); RED CELL DISTRIBUTION WIDTH 13.4 % (12.0-15.0); WHITE BLOOD COUNT 8.3 x10^3/uL (4.8-10.8)
[2022-04-03 03:37] LABS: ALBUMIN 3.6 g/dL (3.2-5.5); ALBUMIN/GLOBULIN RATIO 0.9 (1.0-2.2); BILIRUBIN,TOTAL 1.1 mg/dL (0.2-1.0); CALCIUM 9.3 mg/dL (8.5-10.3); CREATININE 1.2 mg/dL (0.6-1.2); POTASSIUM 3.8 mmol/L (3.5-5.0); TOTAL PROTEIN 7.6 g/dL (6.7-8.2)
--- NOTE | 2022-04-03 04:11 | ED Physician Documentation ---
History of Present Illness - Stated complaint Stated Complaint: COUGH/FEVER/SOA - Chief complaint Chief Complaint: Resp - History obtained from History obtained from: EMS, Other (Medical record) - Additonal information Additional information: Patient is an 86-year-old male with a history of dementia presenting for evaluation of fever and cough.Patient was seen earlier today in the emergency department for a fever and diagnosed with a UTI. He has a chronic indwelling catheter. This evening while sleeping patient's heard That his breathing sounded Congested.Paramedics noted room air saturations of 90% which improved with oxygen via nasal cannula.Per paramedics were very familiar with this patient, he appears to be at his baseline. Patient does not know why he is here and has no stated complaints. Review of Systems Unable to obtain: Dementia PD PAST MEDICAL HISTORY - Past Medical History Past Medical History: Yes Cardiovascular: AK, Atrial fibrillation Respiratory: None Neuro: Dementia Endocrine/Autoimmune: None GI: GERD, Other : Benign prostate hypertrophy, Indwelling catheter, Other HEENT: Chronic vision loss, Chronic hearing loss Psych: None Musculoskeletal: Osteoarthritis, Fatigue, Chronic back pain Derm: None - Past Surgical History Past Surgical History: Yes General: Colonoscopy, Other HEENT: Cataracts - Present Medications Home Medications: Ambulatory Orders Medication Instructions Recorded Confirmed Loperamide [Imodium] 2 mg PO Q6HR PRN 06/04/21 04/03/22 Mirtazapine 15 mg PO QPM 06/04/21 04/03/22 Omeprazole Magnesium 20 mg PO BID 06/04/21 04/03/22 QUEtiapine [SEROquel] 50 mg PO QPM 06/04/21 04/03/22 Acetaminophen [Tylenol] 650 mg PO BID 10/01/21 04/03/22 Saccharomyces Boulardii [Florastor] 250 mg PO DAILY 10/01/21 04/03/22 Cefdinir 300 mg PO BID #20 cap 12/17/21 04/03/22 cephALEXin [Keflex] 500 mg PO TID #21 cap 01/31/22 04/03/22 Cefdinir 300 mg PO BID #20 cap 04/02/22 04/03/22 - Allergies Allergies/Adverse Reactions: Allergies Allergy/AdvReac Type Severity Reaction Status Date / Time celecoxib [From Celebrex] Allergy Unknown Verified 04/02/22 10:02 Penicillins AdvReac Anaphylaxis Verified 04/02/22 10:02 - Social History Does the pt smoke?: No Smoking Status: Never smoker Does the pt drink ETOH?: Yes Does the pt have substance abuse?: No - Immunizations Immunizations are current?: Yes - POLST Patient has POLST: Yes POLST Status: Full Code PD ED PE NORMAL - General General: No acute distress, Well developed/nourished, Other (Alert and oriented to baseline) - HEENT HEENT: Atraumatic, Pharynx benign - Neck Neck: Supple, no meningeal sign - Cardiac Cardiac: RRR, Strong equal pulses - Respiratory Respiratory: No respiratory distress, Clear bilaterally - Abdomen Abdomen: Soft, Non tender - Derm Derm: Warm and dry - Extremities Extremities: No edema, No calf tenderness / cord - Neuro Neuro: Normal speech Results - Vitals Vitals: Vital Signs - 24 hr 04/03/22 04/03/22 04/03/22 03:00 03:33 04:00 Temperature 37.2 C Heart Rate 97 105 H 107 H Respiratory 28 H 24 24 Rate Blood Pressure 104/65 105/68 120/99 H O2 Saturation 94 94 95 If not protocol 2 : Oxygen Flow, liters/minute 04/03/22 04/03/22 04/03/22 04:53 04:57 05:34 Temperature 37.7 C 37.1 C Heart Rate 113 H 117 H Respiratory 22 18 Rate Blood Pressure 110/76 123/77 O2 Saturation 94 94 If not protocol : Oxygen Flow, liters/minute 04/03/22 04/03/22 04/03/22 09:14 11:50 14:05 Temperature Heart Rate 87 79 101 H Respiratory 24 21 18 Rate Blood Pressure 89/47 L 135/77 H O2 Saturation 96 95 96 If not protocol : Oxygen Flow, liters/minute 04/03/22 16:56 Temperature Heart Rate 87 Respiratory 22 Rate Blood Pressure 125/64 O2 Saturation 96 If not protocol : Oxygen Flow, liters/minute Oxygen O2 Source Room air Oxygen Flow Rate 2 - EKG (time done) 0327 Rate: Rate (enter#) (100) Rhythm: Sinus tachycardia Ischemia: No: ST elevation c/w ischemia, ST depression - Labs Labs: Laboratory Tests 04/03/22 04/03/22 04/03/22 02:55 03:05 03:05 WBC 8.3 RBC 4.32 L Hgb 14.7 Hct 43.2 MCV 100.0 H MCH 34.0 H MCHC 34.0 RDW 13.4 Plt Count 95 L MPV 9.2 Neut # (Auto) 6.3 Lymph # (Auto) 1.2 L Lawrence # (Auto) 0.8 Eos # (Auto) 0.0 Baso # (Auto) 0.0 Absolute Nucleated RBC 0.00 Nucleated RBC % 0.0 Sodium 138 Potassium 3.8 Chloride 100 L Carbon Dioxide 27 Anion Gap 11.0 BUN 30 H Creatinine 1.2 Estimated GFR (MDRD) 57 L Glucose 162 H Lactic Acid Calcium 9.3 Total Bilirubin 1.1 H AST 153 H ALT 83 H Alkaline Phosphatase 141 H B-Natriuretic Peptide Total Protein 7.6 Albumin 3.6 Globulin 4.0 Albumin/Globulin Ratio 0.9 L Nasal Adenovirus (PCR) NOT DETECTED Nasal B. parapertussis DNA (PCR) NOT DETECTED Nasal Coronavir 229E PCR NOT DETECTED Nasal Coronavir HKU1 PCR NOT DETECTED Nasal Coronavir NL63 PCR NOT DETECTED Nasal Coronavir OC43 PCR NOT DETECTED Nasal Enterovir/Rhinovir PCR NOT DETECTED Nasal Influenza B PCR NOT DETECTED Nasal Influenza A PCR NOT DETECTED Nasal Parainfluen 1 PCR NOT DETECTED Nasal Parainfluen 2 PCR NOT DETECTED Nasal Parainfluen 3 PCR NOT DETECTED Nasal Parainfluen 4 PCR NOT DETECTED Nasal RSV (PCR) NOT DETECTED Nasal B.pertussis DNA PCR NOT DETECTED Nasal C.pneumoniae (PCR) NOT DETECTED Kyler Human Metapneumo PCR NOT DETECTED Nasal M.pneumoniae (PCR) NOT DETECTED Nasal SARS-CoV-2 (PCR) NOT DETECTED 04/03/22 04/03/22 03:05 03:05 WBC RBC Hgb Hct MCV MCH MCHC RDW Plt Count MPV Neut # (Auto) Lymph # (Auto) Lawrence # (Auto) Eos # (Auto) Baso # (Auto) Absolute Nucleated RBC Nucleated RBC % Sodium Potassium Chloride Carbon Dioxide Anion Gap BUN Creatinine Estimated GFR (MDRD) Glucose Lactic Acid 1.3 Calcium Total Bilirubin AST ALT Alkaline Phosphatase B-Natriuretic Peptide 88 Total Protein Albumin Globulin Albumin/Globulin Ratio Nasal Adenovirus (PCR) Nasal B. parapertussis DNA (PCR) Nasal Coronavir 229E PCR Nasal Coronavir HKU1 PCR Nasal Coronavir NL63 PCR Nasal Coronavir OC43 PCR Nasal Enterovir/Rhinovir PCR Nasal Influenza B PCR Nasal Influenza A PCR Nasal Parainfluen 1 PCR Nasal Parainfluen 2 PCR Nasal Parainfluen 3 PCR Nasal Parainfluen 4 PCR Nasal RSV (PCR) Nasal B.pertussis DNA PCR Nasal C.pneumoniae (PCR) Kyler Human Metapneumo PCR Nasal M.pneumoniae (PCR) Nasal SARS-CoV-2 (PCR) PD MEDICAL DECISION MAKING - ED course Complexity details: reviewed results, re-evaluated patient, d/w family ED course: Patient is an 86-year-old male presenting for evaluation of fever x2 days with cough heard last night. He was seen earlier yesterday for concerns of a fever and diagnosed with a urinary tract infection.Here his lung sounds are clear and he has been afebrile. He is not requiring oxygen. His labs appear stable.I did speak to his who states that since he was discharged home from the ER yesterday he has not been able to ambulate.He has had a fall at home that requir ed EMS to come out for a lift assist. He did not hit his head or have LOC. Per his he has become increasingly weak. She has caregivers during the daytime but is alone with him at night and is not able to assist him on her own.Patient is too weak to ambulate on his own here. Per his the goals are still to avoid hospitalizations and direct care towards comfort. As patient is too weak to safely ambulate, He is not safe to be discharged at this time. Patient will be signed out to oncoming provider, Dr. Daniels at shift change. Departure - Departure Disposition: 01 Home, Self Care Clinical Impression: Martinez catheter problem, Dementia, UTI (urinary tract infection) Condition: Good Instructions: ED UTI Cystitis Male Follow-Up: Chen Cannon ARNP [Provider Admit Priv/Credential] - Within 1 week Comments: Please continue the antibiotics as previously prescribed. As we discussed on the phone tonight, his catheter was malpositioned, this has been repositioned and is now within the bladder. He was given IV antibiotics today. Please resume the oral antibiotics tomorrow. Please follow-up with Chen Cannon to discuss placement. Return if he worsens. Discharge Date/Time: 04/03/22 18:07
[2022-04-03 04:22] LABS: B. PARAPERTUSSIS- RESP PCR PAN NOT DETECTED; B. PERTUSSIS- RESP PCR PANEL NOT DETECTED; C. PNEUMONIAE- RESP PCR PANEL NOT DETECTED; CORONAVIRUS 229E-RESP PCR NOT DETECTED; CORONAVIRUS HKU1-RESP PCR NOT DETECTED; CORONAVIRUS NL63-RESP PCR NOT DETECTED; CORONAVIRUS OC43-RESP PCR NOT DETECTED; HUMAN METAPNEUMOVIRUS NOT DETECTED; INFLUENZA A- RESP PCR PANEL NOT DETECTED; INFLUENZA B - RESP PCR PANEL NOT DETECTED; M. PNEUMONIAE- RESP PCR PANEL NOT DETECTED; PARAINFLUENZA VIRUS 1 NOT DETECTED; PARAINFLUENZA VIRUS 2 NOT DETECTED; PARAINFLUENZA VIRUS 3 NOT DETECTED; PARAINFLUENZA VIRUS 4 NOT DETECTED; RHINOVIRUS/ENTEROVIRUS NOT DETECTED; RSV- RESP PCR PANEL NOT DETECTED; SARS-CoV-2 -RESP PCR PANEL NOT DETECTED
[2022-04-03] MEDS ORDERED: SODIUM CHLORIDE 0.9% 500 ML IV STA ×2 (04:41→05:45)
[2022-04-03] MEDS ORDERED: iohexoL-300 100 ML VIAL ONE (07:15)
[2022-04-03] MEDS ORDERED: iohexoL-300 100 ML VIAL IVP ONE (07:45)
--- NOTE | 2022-04-03 08:38 | XRAY Report ---
PROCEDURE: Chest 1 View X-Ray INDICATIONS: SOA TECHNIQUE: One view of the chest was acquired. COMPARISON: CXR 04/02/2022, 01/31/2022. Lung bases on the CT abdomen and pelvis 02/28/2021. FINDINGS: Surgical changes and devices: None. Lungs and pleura: No pleural effusions or pneumothorax. Calcified pleural plaques are better seen on prior CT. No consolidation identified. Mediastinum: Mediastinal contours appear similar. Heart size is normal. Bones and chest wall: No suspicious bony lesions. Overlying soft tissues appear unremarkable. IMPRESSION: No acute cardiopulmonary abnormality identified. Calcified pleural plaques better seen on prior CT. Consider CT chest for further evaluation. This report is concordant with the overnight preliminary interpretation. Reviewed by: Rolan Nicole MD on 04/03/2022 8:37 AM [facility] Approved by: Rolan Nicole MD on 04/03/2022 8:37 AM [facility] Station ID: [id number]
--- NOTE | 2022-04-03 08:41 | CT Report ---
PROCEDURE: ABDOMEN/PELVIS W INDICATIONS: elevated LFT, fever, dementia CONTRAST: 100ml omni 300 TECHNIQUE: After the administration of intravenous contrast, 5 mm thick sections acquired from the diaphragms to the symphysis. 5 mm thick coronal and sagittal reformats were acquired. For radiation dose reducti on, the following was used: automated exposure control, adjustment of mA and/or kV according to michael ent size. COMPARISON: None. FINDINGS: Image quality: Excellent. ABDOMEN: Lung bases: Lung bases are clear. Extensive bilateral pleural plaques consistent with remote as best as exposure. Mild cardiomegaly. Solid organs: Liver and spleen are normal in size and enhancement. Gallbladder is mildly distended. No gallbladder wall thickening or fluid around the gallbladder. Biliary system is non dilated. Almaguer creas enhances normally. No adrenal nodules. Kidneys demonstrate normal size and enhancement, witho ut hydronephrosis. Peritoneum and bowel: Bowel loops demonstrate normal wall thickness and caliber. No free fluid or a ir. Nodes and vessels: No retroperitoneal or mesenteric adenopathy by size criteria. There is diffuse ao rtic plaque. There is fusiform dilatation of the left common iliac artery which distally measures 2.4 cm. There is extensive soft plaque present within it. There is short segment occlusion of the proxim al left external iliac artery. Miscellaneous: No ventral hernias. PELVIS: Genitourinary: The balloon of a Martinez catheter is been dilated in the prostate, which is quite enlarg ed. The bladder is distended with a small amount of air within it and a mildly thickened wall. There is a small right base of bladder diverticulum. Miscellaneous: No inguinal hernias or adenopathy. Remote right inguinal hernia repair Bones: No suspicious bony lesions. Diffuse lumbar degenerative change. Old compression of T12. IMPRESSION: 1. The prostate is enlarged. A Martinez catheter balloon has been inflated within the prostate. Recommen d balloon deflation and repositioning. 2. Distended bladder with mild wall thickening. 3. 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 There is a short segment occlusion of the proximal left external iliac artery. Comment: Recommend attention to the Martinez catheter. Reviewed by: Deni Christian MD on 04/03/2022 8:39 AM PST Approved by: Deni Christian MD on 04/03/2022 8:39 AM PST Station ID: [id number]
[2022-04-03] MEDS ORDERED: cefTRIAXone 1 GM VIAL IVP STA (13:26)
[2022-04-03 16:57] VITALS: BP 125/64
--- NOTE | 2022-04-03 17:15 | ED Physician Documentation ---
ED Addendum - Addendum Addendum: Patient's CT of the abdomen pelvis showed a Martinez catheter that have been inflated inside the prostate and was not draining his bladder adequately. The balloon was taken down, catheter was inserted into the bladder and the balloon reinflated. Urine flowing freely. The patient was monitored in the emergency department for several hours, given Rocephin for the continued UTI. He had no further agitation. No fevers. Eating and drinking without difficulty. Patient is able to go from lying flat in bed to standing up and walking without any assistance. He is steady on his feet currently. I discussed the patient's case with CUAUHTEMOC Meyers, from palliative care several times today. He does have caregivers at home from 9 AM until 8 PM. He lives at home alone with his . They are looking into placement for his dementia. I spoke with his several times on the phone today as well. She is comfortable with him coming back home as long as he can stand and walk. As he is doing this unassisted currently, we will allow him to go home. She knows that if he falls or she is not comfortable with him at home, she can call 911 to bring him back. This document was made in part using voice recognition software. While efforts are made to proofread this document, sound alike and grammatical errors may occur. Departure - Departure Disposition: 01 Home, Self Care Clinical Impression: Martinez catheter problem Qualifiers: Encounter type: initial encounter Qualified Code(s): T83.9XXA - Unspecified complication of genitourinary prosthetic device, implant and graft, initial encounter Dementia Qualifiers: Dementia type: unspecified type Dementia severity: unspecified severity Dementia behavioral or psychological symptom: without behavioral, psychotic, or mood disturbance or anxiety Qualified Code(s): F03.90 - Unspecified dementia, unspecified severity, without behavioral disturbance, psychotic disturbance, mood disturbance, and anxiety UTI (urinary tract infection) Qualifiers: Urinary tract infection type: acute cystitis Hematuria presence: with hematuria Qualified Code(s): N30.01 - Acute cystitis with hematuria Condition: Good Instructions: ED UTI Cystitis Male Follow-Up: Chen Cannon ARNP [Provider Admit Priv/Credential] - Within 1 week Comments: Please continue the antibiotics as previously prescribed. As we discussed on the phone tonight, his catheter was malpositioned, this has been repositioned and is now within the bladder. He was given IV antibiotics today. Please resume the oral antibiotics tomorrow. Please follow-up with Chen Cannon to discuss placement. Return if he worsens.
== END 2022-04-03 18:07 | disposition home or self-care (01) ==
LOC: EDUNIT# → ED 03:00
DX: T83.021A Displacement of indwelling urethral catheter, initial encounter (principal); R33.8 Other retention of urine; Y82.8 Other medical devices associated with adverse incidents; N30.01 Acute cystitis with hematuria; F03.90 Unspecified dementia, unspecified severity, without behavioral disturbance, psychotic disturbance, mood disturbance, and anxiety; Z20.822 Contact with and (suspected) exposure to COVID-19
CPT/HCPCS: 36415; 71045; 74177; 80053; 83605; 83880; 85025; 87040; 87633; 93005; 96374; 99281; 99285; Q9967

== ENCOUNTER 2022-04-03 17:30 | Outpatient (CLI) | payer MEDICARE, OTHER | END 2022-04-03 17:31 | disposition home or self-care (01) | LOC: EMS 17:30 | PROVIDERS: ATTEND Emergency Medicine | DX: R41.0 Disorientation, unspecified (principal); R05.9 Cough, unspecified; R31.9 Hematuria, unspecified; F03.90 Unspecified dementia, unspecified severity, without behavioral disturbance, psychotic disturbance, mood disturbance, and anxiety | CPT/HCPCS: A0425; A0428 ==

== ENCOUNTER → 2022-04-06 | Outpatient (CLI) | payer MEDICARE, OTHER | END | disposition EMS.NT | LOC: EMS 08:56 | DX: Z03.89 Encounter for observation for other suspected diseases and conditions ruled out (principal) ==

== ENCOUNTER 2022-05-14 23:48 | Outpatient (CLI) | payer MEDICARE, OTHER | END 2022-05-14 23:49 | disposition EMS.NT | LOC: EMS 23:48 | DX: Z03.89 Encounter for observation for other suspected diseases and conditions ruled out (principal) ==

== ENCOUNTER 2022-05-22 16:43 | Outpatient (CLI) | payer MEDICARE, OTHER | END 2022-05-22 16:44 | disposition EMS.NT | LOC: EMS 16:43 | DX: Z03.89 Encounter for observation for other suspected diseases and conditions ruled out (principal) ==

== ENCOUNTER 2022-06-25 22:53 | Outpatient (CLI) | payer MEDICARE, OTHER | END 2022-06-25 23:59 | disposition EMS.NT | LOC: EMS 22:53 | DX: S30.810A Abrasion of lower back and pelvis, initial encounter (principal); W01.0XXA Fall on same level from slipping, tripping and stumbling without subsequent striking against object, initial encounter; Y92.009 Unspecified place in unspecified non-institutional (private) residence as the place of occurrence of the external cause ==

== ENCOUNTER 2022-07-03 09:36 | Outpatient (CLI) | payer MEDICARE, OTHER | END 2022-07-03 23:59 | disposition critical access hospital (66) | LOC: EMS 09:36 | DX: K92.0 Hematemesis (principal); R31.9 Hematuria, unspecified | CPT/HCPCS: A0425; A0429 ==

== ENCOUNTER 2022-07-03 09:56 | Emergency (ER) | payer MEDICARE, OTHER ==
[2022-07-03] MEDS ORDERED: SODIUM CHLORIDE 0.9% 1,000 ML IV STA (10:03)
[2022-07-03] MEDS ORDERED: DROPERIDOL 5 MG/2 ML VIAL IVP STA (10:04)
--- NOTE | 2022-07-03 10:07 | ED Physician Documentation ---
PD HPI URI - Stated complaint Stated Complaint: MALE - History obtained from History obtained from: Patient (minimal information from patient due to dementia.), EMS, Caregiver (I did receive a call from Chen Cannon nurse practitioner who cares for the patient on the palliative care service. She did give some background information of the cough and fever and agitation for the past few days.) - History of Present Illness Timing - onset: How many days ago (few days of increased agitation, along with some cough and blood sputum.) Timing duration: Days (Patient did seem to have increased agitation in the last few days. Concern for potential bladder infection and so Chen Cannon had prescribed Bactrim antibiotic. He has been on it for 2 or 3 days. Still seem more agitated today and referred into the ER. Reported fever as well.) Timing details: Gradual onset, Still present Associated symptoms: Fever. No: Nasal congestion, Dry cough Contributing factors: No: Sick contact Review of Systems Unable to obtain: Dementia, Other (info from caregiver and ) Constitutional: reports: Fever Nose: denies: Rhinorrhea / runny nose, Congestion Throat: denies: Sore throat Respiratory: denies: Cough PD PAST MEDICAL HISTORY - Past Medical History Cardiovascular: [place], Atrial fibrillation Respiratory: None Neuro: Dementia Endocrine/Autoimmune: None GI: GERD, Other : Benign prostate hypertrophy, Indwelling catheter, Other HEENT: Chronic vision loss, Chronic hearing loss Psych: None Musculoskeletal: Osteoarthritis, Fatigue, Chronic back pain Derm: None - Past Surgical History Past Surgical History: Yes General: Colonoscopy, Other HEENT: Cataracts - Present Medications Home Medications: Ambulatory Orders Medication Instructions Recorded Confirmed Loperamide [Imodium] 2 mg PO Q6HR PRN 06/04/21 04/03/22 Mirtazapine 15 mg PO QPM 06/04/21 04/03/22 Omeprazole Magnesium 20 mg PO BID 06/04/21 04/03/22 QUEtiapine [SEROquel] 50 mg PO QPM 06/04/21 04/03/22 Acetaminophen [Tylenol] 650 mg PO BID 10/01/21 04/03/22 Saccharomyces Boulardii [Florastor] 250 mg PO DAILY 10/01/21 04/03/22 Cefdinir 300 mg PO BID #20 cap 12/17/21 04/03/22 cephALEXin [Keflex] 500 mg PO TID #21 cap 01/31/22 04/03/22 Cefdinir 300 mg PO BID #20 cap 04/02/22 04/03/22 cephALEXin [Keflex] 500 mg PO TID #20 cap 07/03/22 - Allergies Allergies/Adverse Reactions: Allergies Allergy/AdvReac Type Severity Reaction Status Date / Time celecoxib [From Celebrex] Allergy Unknown Verified 07/03/22 10:04 Penicillins AdvReac Anaphylaxis Verified 07/03/22 10:04 - Social History Does the pt smoke?: No Smoking Status: Never smoker Does the pt drink ETOH?: Yes Does the pt have substance abuse?: No - Immunizations Immunizations are current?: Yes - POLST Patient has POLST: Yes POLST Status: Full Code PD ED PE NORMAL - Vitals Vital signs reviewed: Yes - General General: Well developed/nourished, Other (He is fidgety and reaches out for objects but otherwise is somewhat directable and pleasant.) - HEENT HEENT: Pharynx benign - Neck Neck: Supple, no meningeal sign, No adenopathy - Cardiac Cardiac: RRR, No murmur - Respiratory Respiratory: Clear bilaterally - Abdomen Abdomen: Soft, Non tender, Other (Some fullness in the suprapubic area) - Male Male : Other (Martinez catheter in place and seems to be draining into the leg bag. The urine is slightly cloudy but no blood) - Derm Derm: Normal color, Warm and dry - Extremities Extremities: No edema, No calf tenderness / cord - Neuro Neuro: No motor deficit Results - Vitals Vitals: Vital Signs - 24 hr 07/03/22 07/03/22 07/03/22 09:57 10:54 11:39 Temperature 37.4 C Heart Rate 108 H 91 85 Respiratory 20 18 16 Rate Blood Pressure 118/66 126/69 133/77 H O2 Saturation 95 99 100 07/03/22 13:12 Temperature Heart Rate 85 Respiratory 20 Rate Blood Pressure 123/80 O2 Saturation 99 Oxygen O2 Source Room air - Labs Labs: Laboratory Tests 07/03/22 07/03/22 07/03/22 10:27 10:27 10:27 WBC 8.2 RBC 4.06 L Hgb 13.4 L Hct 41.1 L MCV 101.2 H MCH 33.0 H MCHC 32.6 RDW 13.4 Plt Count 79 L MPV 9.4 Neut # (Auto) 6.5 Lymph # (Auto) 1.2 L [place] # (Auto) 0.5 Eos # (Auto) 0.0 Baso # (Auto) 0.0 Absolute Nucleated RBC 0.00 Nucleated RBC % 0.0 Sodium 136 Potassium 4.2 Chloride 99 L Carbon Dioxide 27 Anion Gap 10.0 BUN 25 H Creatinine 1.1 Estimated GFR (MDRD) 63 L Glucose 112 H Lactic Acid 1.7 Calcium 9.1 Magnesium 1.6 L Total Bilirubin 0.9 AST 18 ALT 11 Alkaline Phosphatase 59 Total Protein 6.7 Albumin 3.5 Globulin 3.2 Albumin/Globulin Ratio 1.1 Lipase 30 Urine Color Urine Clarity Urine pH Ur Specific [place] Urine Protein Urine Glucose (UA) Urine Ketones Urine Occult Blood Urine Nitrite Urine Bilirubin Urine Urobilinogen Ur Leukocyte Esterase Urine RBC Urine WBC Ur Squamous Epith Cells Amorphous Sediment Urine Bacteria Ur Microscopic Review Urine Culture Comments Nasal Adenovirus (PCR) Nasal B. parapertussis DNA (PCR) Nasal Coronavir 229E PCR Nasal Coronavir HKU1 PCR Nasal Coronavir NL63 PCR Nasal Coronavir OC43 PCR Nasal Enterovir/Rhinovir PCR Nasal Influenza B PCR Nasal Influenza A PCR Nasal Parainfluen 1 PCR Nasal Parainfluen 2 PCR Nasal Parainfluen 3 PCR Nasal Parainfluen 4 PCR Nasal RSV (PCR) Nasal B.pertussis DNA PCR Nasal C.pneumoniae (PCR) [place] Human Metapneumo PCR Nasal M.pneumoniae (PCR) Nasal SARS-CoV-2 (PCR) 07/03/22 07/03/22 10:51 11:37 WBC RBC Hgb Hct MCV MCH MCHC RDW Plt Count MPV Neut # (Auto) Lymph # (Auto) [place] # (Auto) Eos # (Auto) Baso # (Auto) Absolute Nucleated RBC Nucleated RBC % Sodium Potassium Chloride Carbon Dioxide Anion Gap BUN Creatinine Estimated GFR (MDRD) Glucose Lactic Acid Calcium Magnesium Total Bilirubin AST ALT Alkaline Phosphatase Total Protein Albumin Globulin Albumin/Globulin Ratio Lipase Urine Color YELLOW Urine Clarity SL. CLOUDY Urine pH 7.5 Ur Specific [place] 1.020 Urine Protein TRACE Urine Glucose (UA) NEGATIVE Urine Ketones NEGATIVE Urine Occult Blood LARGE H Urine Nitrite POSITIVE H Urine Bilirubin NEGATIVE Urine Urobilinogen 0.2 (NORMAL) Ur Leukocyte Esterase TRACE H Urine RBC 11-25 H Urine WBC 6-10 H Ur Squamous Epith Cells RARE Squamous Amorphous Sediment Few Urine Bacteria Moderate H Ur Microscopic Review INDICATED Urine Culture Comments INDICATED Nasal Adenovirus (PCR) NOT DETECTED Nasal B. parapertussis DNA (PCR) NOT DETECTED Nasal Coronavir 229E PCR NOT DETECTED Nasal Coronavir HKU1 PCR NOT DETECTED Nasal Coronavir NL63 PCR NOT DETECTED Nasal Coronavir OC43 PCR NOT DETECTED Nasal Enterovir/Rhinovir PCR NOT DETECTED Nasal Influenza B PCR NOT DETECTED Nasal Influenza A PCR NOT DETECTED Nasal Parainfluen 1 PCR NOT DETECTED Nasal Parainfluen 2 PCR NOT DETECTED Nasal Parainfluen 3 PCR NOT DETECTED Nasal Parainfluen 4 PCR NOT DETECTED Nasal RSV (PCR) NOT DETECTED Nasal B.pertussis DNA PCR NOT DETECTED Nasal C.pneumoniae (PCR) NOT DETECTED [place] Human Metapneumo PCR NOT DETECTED Nasal M.pneumoniae (PCR) NOT DETECTED Nasal SARS-CoV-2 (PCR) NOT DETECTED - Rads (name of study) chest xray Radiology: Prelim report reviewed (Mild diffuse lung disease may represent infectious or inflammatory condition), See rad report PD Medical Decision Making - ED course Complexity details: reviewed results (Consideration of some early lung infiltrates on x-ray per radiology. Urine does have some suggestion of infection though difficult because of chronic Martinez. However given fever and agitation it may be more likely true infection.), considered differential, d/w family, d/w PMD (his palliative care provider Chen Cannon called to inform us about patient's history and current symptoms. ), d/w virtualization consultant ([facility] social staff worker was consulted and talked with the the patient's provider as well as his . They are working on placement for dementia care unit and preferring [facility] in [place]. It is still in progress. At this point the patient's is okay having him back home since he seems le) Reviewed Lab Results: The patient has a normal blood count and basic chemistry panel. His lactate is normal denoting no signs of sepsis. He is afebrile here and has normal vital signs. He was noted to have some fullness in the lower abdomen and his Martinez catheter tubing was fairly long and slightly looped. It was short and and straightened and he drained an extra 400 cc of urine. He seems more calm. His chest x-ray shows some possible early infiltrates. He had been having some reported cough with some hemoptysis. He has not had any cough here. We can cover with ceftriaxone and subsequently Keflex for potential bronchitis or early pneumonia. This would concurrently treat for possible UTI. His urine of course looks somewhat abnormal but would be common for a eating dwelling Martinez. However since he was having agitation and reported fever, consideration would be for UTI as a possibility as well. Social work was talking with the patient's . They do have home aids and workers. There are 3 of them and take shifts through the day and evening but there is nobody there overnight. Social work will talk with Chen Cannon as well to firm up a plan. We are unlikely to be able to get the patient to memory care unit or such today on a Wednesday afternoon. They can be working on that outpatient. Questions and concerns for the patient's will be if they want to try to get the patient onto hospice and if they wanted short-term private pay detention pending placement at memory care facility. Departure - Departure Disposition: 01 Home, Self Care Clinical Impression: Agitation due to dementia, Infiltrate of lung present on chest x-ray, Martinez catheter in place Condition: Stable Prescriptions: cephALEXin [Keflex] 500 mg PO TID #20 cap Comments: There is potential for bladder infection based on the urine sample. The chest x-ray had possible early infiltrate. We can treat with cephalexin antibiotic to cover little both. Stop the previous prescribed Bactrim. Continue his other usual medicines. We did find that his Martinez catheter was not draining well because of the position of the tubing. He did have a full bladder and but just repositioning the tubing it drained better and that did seem to help some of his discomfort. Follow-up with Chen Cannon and continue with placement.
--- NOTE | 2022-07-03 10:26 | XRAY Report ---
PROCEDURE: Chest 1 View X-Ray INDICATIONS: cough and dyspnea TECHNIQUE: One view of the chest was acquired. COMPARISON: 04/03/2022 FINDINGS: Surgical changes and devices: None. Lungs and pleura: Mild diffuse lung disease, probably edema versus infection or inflammation. Calcif ied pleural plaques are better seen on prior CT. No drainable effusion identified. Low lung volumes. Mediastinum: Heart size within normal limits. Tortuous aorta. Bones and chest wall: No suspicious bony lesions. Overlying soft tissues appear unremarkable. IMPRESSION: Mild diffuse lung disease may represent edema or infection/inflammation. There are also calcified ple ural plaques, better seen on prior CT. Consider future imaging surveillance to assess for resolution. Reviewed by: Stanislaw Page MD on 07/03/2022 10:25 AM [facility] Approved by: Stanislaw Page MD on 07/03/2022 10:25 AM [facility] Station ID: [id number]
[2022-07-03 10:32] LABS: BASOPHILS % (AUTO) 0.1 %; EOSINOPHILS % (AUTO) 0.1 %; HCT - HEMATOCRIT 41.1 % (42.0-52.0); HGB - HEMOGLOBIN 13.4 g/dL (14.0-18.0); LYMPHOCYTES # (AUTO) 1.2 10^3/uL (1.5-3.5); LYMPHOCYTES % (AUTO) 14.5 %; MEAN CORPUSCULAR HGB CONC 32.6 g/dL (32.0-36.0); MEAN CORPUSCULAR VOLUME 101.2 fL (80.0-94.0); MEAN PLATELET VOLUME 9.4 fL (7.4-11.4); MONOCYTES # (AUTO) 0.5 10^3/uL (0.0-1.0); MONOCYTES % (AUTO) 6.3 %; NEUTROPHILS # (AUTO) 6.5 10^3/uL (1.5-6.6); NEUTROPHILS % (AUTO) 78.6 %; PLT - PLATELET COUNT 79 10^3/uL (130-450); RED BLOOD COUNT 4.06 10^6/uL (4.70-6.10); RED CELL DISTRIBUTION WIDTH 13.4 % (12.0-15.0); WHITE BLOOD COUNT 8.2 x10^3/uL (4.8-10.8)
[2022-07-03 10:45] LABS: ALBUMIN 3.5 g/dL (3.2-5.5); ALBUMIN/GLOBULIN RATIO 1.1 (1.0-2.2); BILIRUBIN,TOTAL 0.9 mg/dL (0.2-1.0); CALCIUM 9.1 mg/dL (8.5-10.3); CREATININE 1.1 mg/dL (0.6-1.2); MAGNESIUM 1.6 mg/dL (1.7-2.8); POTASSIUM 4.2 mmol/L (3.5-5.0); TOTAL PROTEIN 6.7 g/dL (6.7-8.2)
[2022-07-03 11:57] LABS: B. PARAPERTUSSIS- RESP PCR PAN NOT DETECTED; B. PERTUSSIS- RESP PCR PANEL NOT DETECTED; C. PNEUMONIAE- RESP PCR PANEL NOT DETECTED; CORONAVIRUS 229E-RESP PCR NOT DETECTED; CORONAVIRUS HKU1-RESP PCR NOT DETECTED; CORONAVIRUS NL63-RESP PCR NOT DETECTED; CORONAVIRUS OC43-RESP PCR NOT DETECTED; HUMAN METAPNEUMOVIRUS NOT DETECTED; INFLUENZA A- RESP PCR PANEL NOT DETECTED; INFLUENZA B - RESP PCR PANEL NOT DETECTED; M. PNEUMONIAE- RESP PCR PANEL NOT DETECTED; PARAINFLUENZA VIRUS 1 NOT DETECTED; PARAINFLUENZA VIRUS 2 NOT DETECTED; PARAINFLUENZA VIRUS 3 NOT DETECTED; PARAINFLUENZA VIRUS 4 NOT DETECTED; RHINOVIRUS/ENTEROVIRUS NOT DETECTED; RSV- RESP PCR PANEL NOT DETECTED; SARS-CoV-2 -RESP PCR PANEL NOT DETECTED
[2022-07-03 12:06] LABS: BILIRUBIN,URINE NEGATIVE (NEGATIVE); GLUCOSE, URINE (UA) NEGATIVE (NEGATIVE); KETONES,URINE (UA) NEGATIVE (NEGATIVE); LEUKOCYTE ESTERASE, URINE TRACE (NEGATIVE); NITRITE,URINE POSITIVE (NEGATIVE); OCCULT BLOOD,URINE LARGE (NEGATIVE); PH,URINE 7.5 PH (5.0-7.5); PROTEIN,URINE TRACE mg/dL (NEGATIVE); UROBILINOGEN,URINE 0.2 (NORMAL) E.U./dL (NORMAL)
[2022-07-03 12:13] LABS: CLARITY,URINE SL. CLOUDY (CLEAR)
[2022-07-03] MEDS ORDERED: cefTRIAXone 1 GM VIAL IVP STA (12:19)
[2022-07-03 12:28] LABS: AMORPHOUS SEDIMENT,UR Few /LPF; BACTERIA,URINE Moderate /HPF (None Seen); SQUAMOUS EPITHELIAL CELL,UR RARE Squamous (<= Few)
[2022-07-03 13:13] VITALS: BP 123/80
[2022-07-03] MEDS ORDERED: QUEtiapine 25 MG TABLET PO STA (15:13)
== END 2022-07-03 18:14 | disposition home or self-care (01) ==
LOC: EDUNIT# → ED 09:56
DX: F03.90 Unspecified dementia, unspecified severity, without behavioral disturbance, psychotic disturbance, mood disturbance, and anxiety (principal); R45.1 Restlessness and agitation; R91.8 Other nonspecific abnormal finding of lung field; Z96.0 Presence of urogenital implants; Z20.822 Contact with and (suspected) exposure to COVID-19
CPT/HCPCS: 36415; 71045; 80053; 81001; 83605; 83690; 83735; 85025; 87086; 87181; 87633; 96374; 96375; 99284; A9270; 81003

== ENCOUNTER 2022-07-03 18:07 | Outpatient (CLI) | payer MEDICARE, OTHER | END 2022-07-03 18:08 | disposition home or self-care (01) | LOC: EMS 18:07 | PROVIDERS: ATTEND Emergency Medicine | DX: F03.90 Unspecified dementia, unspecified severity, without behavioral disturbance, psychotic disturbance, mood disturbance, and anxiety (principal); R41.0 Disorientation, unspecified; Z74.01 Bed confinement status | CPT/HCPCS: A0425; A0428 ==

== ENCOUNTER 2022-07-05 21:56 | Outpatient (CLI) | payer MEDICARE, OTHER | END 2022-07-05 23:59 | disposition EMS.NT | LOC: EMS 21:56 | DX: Z03.89 Encounter for observation for other suspected diseases and conditions ruled out (principal) ==

== ENCOUNTER 2022-07-22 09:57 | Outpatient (CLI) | payer MEDICARE, OTHER | END 2022-07-22 09:58 | disposition critical access hospital (66) | LOC: EMS 09:57 | DX: R50.9 Fever, unspecified (principal); R53.1 Weakness | CPT/HCPCS: A0425; A0429 ==

== ENCOUNTER 2022-07-22 10:11 | Emergency (ER) | payer MEDICARE, OTHER ==
[2022-07-22] MEDS ORDERED: SODIUM CHLORIDE 0.9% 1,000 ML IV STA (10:45)
--- NOTE | 2022-07-22 10:46 | ED Physician Documentation ---
History of Present Illness - Stated complaint Stated Complaint: FEVER - Chief complaint Chief Complaint: Fever - History obtained from History obtained from: Patient, EMS, Other - Additonal information Additional information: The patient sent to the emergency department via EMS for chief complaint of fever. Hospice provider [place] reports that the patient has been on hospice but the was concerned about the fever and did not want the patient to go without treatment and so she revoked hospice so the patient could be sent here. He apparently was all set up to go to [facility] tomorrow but now it is not clear whether he will be able to do this. The patient denies any other complaints beside fever. Medics report that the patient had a temperature of 100.4 according to the caregiver but no other complaints of any symptoms the patient denies coughing, shortness of breath, or abdominal pain. No nausea or vomiting. No chills. No dysuria though he does have a catheter in place. No other complaints at this time. PD PAST MEDICAL HISTORY - Past Medical History Cardiovascular: [place], Atrial fibrillation Respiratory: None Neuro: Dementia Endocrine/Autoimmune: None GI: GERD, Other : Benign prostate hypertrophy, Indwelling catheter, Other HEENT: Chronic vision loss, Chronic hearing loss Psych: None Musculoskeletal: Osteoarthritis, Fatigue, Chronic back pain Derm: None - Past Surgical History Past Surgical History: Yes General: Colonoscopy, Other HEENT: Cataracts - Present Medications Home Medications: Ambulatory Orders Medication Instructions Recorded Confirmed Loperamide [Imodium] 2 mg PO Q6HR PRN 06/04/21 04/03/22 Mirtazapine 15 mg PO QPM 06/04/21 04/03/22 Omeprazole Magnesium 20 mg PO BID 06/04/21 04/03/22 QUEtiapine [SEROquel] 50 mg PO QPM 06/04/21 04/03/22 Acetaminophen [Tylenol] 650 mg PO BID 10/01/21 04/03/22 Saccharomyces Boulardii [Florastor] 250 mg PO DAILY 10/01/21 04/03/22 Cefdinir 300 mg PO BID #20 cap 12/17/21 04/03/22 cephALEXin [Keflex] 500 mg PO TID #21 cap 01/31/22 04/03/22 Cefdinir 300 mg PO BID #20 cap 04/02/22 04/03/22 cephALEXin [Keflex] 500 mg PO TID #20 cap 07/03/22 levoFLOXacin [Levaquin] 250 mg PO QD #7 tablet 07/22/22 - Allergies Allergies/Adverse Reactions: Allergies Allergy/AdvReac Type Severity Reaction Status Date / Time celecoxib [From Celebrex] Allergy Unknown Verified 07/22/22 10:27 Penicillins AdvReac Anaphylaxis Verified 07/22/22 10:27 - Social History Does the pt smoke?: No Smoking Status: Never smoker Does the pt drink ETOH?: Yes Does the pt have substance abuse?: No - Immunizations Immunizations are current?: Yes - POLST Patient has POLST: Yes POLST Status: Full Code PD ED PE NORMAL - Vitals Vital signs reviewed: Yes - General General: Alert and oriented X 3, No acute distress, Well developed/nourished - HEENT HEENT: Atraumatic, PERRL, EOMI, Moist mucous membranes - Neck Neck: Supple, no meningeal sign - Cardiac Cardiac: RRR, No murmur, Strong equal pulses - Respiratory Respiratory: No respiratory distress, Clear bilaterally - Abdomen Abdomen: Soft, Non tender, Non distended - Derm Derm: Normal color, Warm and dry, No rash - Extremities Extremities: No deformity, No edema - Neuro Neuro: Alert and oriented X 3 - Psych Psych: Normal mood, Normal affect Results - Vitals Vitals: Oxygen O2 Source Room air - Labs Labs: Microbiology 07/22/22 11:01 Blood Culture - Preliminary Blood - Right Hand NO GROWTH AFTER 2 DAYS 07/22/22 11:01 Blood Culture - Preliminary Blood - Left Arm NO GROWTH AFTER 2 DAYS 07/22/22 10:39 Urine Culture - Preliminary Urine,Catheterized Laboratory Tests 07/22/22 07/22/22 07/22/22 10:39 10:41 11:01 WBC 10.3 RBC 4.37 L Hgb 14.4 Hct 44.4 MCV 101.6 H MCH 33.0 H MCHC 32.4 RDW 13.2 Plt Count 119 L MPV 8.9 Neut # (Auto) 7.5 H Lymph # (Auto) 2.1 [place] # (Auto) 0.5 Eos # (Auto) 0.1 Baso # (Auto) 0.0 Absolute Nucleated RBC 0.00 Nucleated RBC % 0.0 Sodium Potassium Chloride Carbon Dioxide Anion Gap BUN Creatinine Estimated GFR (MDRD) Glucose Calcium Total Bilirubin AST ALT Alkaline Phosphatase Total Protein Albumin Globulin Albumin/Globulin Ratio Lipase Urine Color YELLOW Urine Clarity CLOUDY Urine pH 7.0 Ur Specific [place] 1.020 Urine Protein 100 H Urine Glucose (UA) NEGATIVE Urine Ketones NEGATIVE Urine Occult Blood MODERATE H Urine Nitrite POSITIVE H Urine Bilirubin NEGATIVE Urine Urobilinogen 1 (NORMAL) Ur Leukocyte Esterase MODERATE H Urine RBC 0-5 Urine WBC >25 H Urine WBC Clumps PRESENT Ur Squamous Epith Cells NONE SEEN Urine Bacteria Moderate H Ur Microscopic Review INDICATED Urine Culture Comments INDICATED Nasal Adenovirus (PCR) NOT DETECTED Nasal B. parapertussis DNA (PCR) NOT DETECTED Nasal Coronavir 229E PCR NOT DETECTED Nasal Coronavir HKU1 PCR NOT DETECTED Nasal Coronavir NL63 PCR NOT DETECTED Nasal Coronavir OC43 PCR NOT DETECTED Nasal Enterovir/Rhinovir PCR NOT DETECTED Nasal Influenza B PCR NOT DETECTED Nasal Influenza A PCR NOT DETECTED Nasal Parainfluen 1 PCR NOT DETECTED Nasal Parainfluen 2 PCR NOT DETECTED Nasal Parainfluen 3 PCR NOT DETECTED Nasal Parainfluen 4 PCR NOT DETECTED Nasal RSV (PCR) NOT DETECTED Nasal B.pertussis DNA PCR NOT DETECTED Nasal C.pneumoniae (PCR) NOT DETECTED [place] Human Metapneumo PCR NOT DETECTED Nasal M.pneumoniae (PCR) NOT DETECTED Nasal SARS-CoV-2 (PCR) NOT DETECTED 07/22/22 11:01 WBC RBC Hgb Hct MCV MCH MCHC RDW Plt Count MPV Neut # (Auto) Lymph # (Auto) [place] # (Auto) Eos # (Auto) Baso # (Auto) Absolute Nucleated RBC Nucleated RBC % Sodium 140 Potassium 4.1 Chloride 102 Carbon Dioxide 29 Anion Gap 9.0 BUN 22 H Creatinine 1.0 Estimated GFR (MDRD) 71 L Glucose 106 H Calcium 9.1 Total Bilirubin 0.9 AST 14 ALT 10 Alkaline Phosphatase 69 Total Protein 7.4 Albumin 3.7 Globulin 3.7 Albumin/Globulin Ratio 1.0 Lipase 28 Urine Color Urine Clarity Urine pH Ur Specific [place] Urine Protein Urine Glucose (UA) Urine Ketones Urine Occult Blood Urine Nitrite Urine Bilirubin Urine Urobilinogen Ur Leukocyte Esterase Urine RBC Urine WBC Urine WBC Clumps Ur Squamous Epith Cells Urine Bacteria Ur Microscopic Review Urine Culture Comments Nasal Adenovirus (PCR) Nasal B. parapertussis DNA (PCR) Nasal Coronavir 229E PCR Nasal Coronavir HKU1 PCR Nasal Coronavir NL63 PCR Nasal Coronavir OC43 PCR Nasal Enterovir/Rhinovir PCR Nasal Influenza B PCR Nasal Influenza A PCR Nasal Parainfluen 1 PCR Nasal Parainfluen 2 PCR Nasal Parainfluen 3 PCR Nasal Parainfluen 4 PCR Nasal RSV (PCR) Nasal B.pertussis DNA PCR Nasal C.pneumoniae (PCR) [place] Human Metapneumo PCR Nasal M.pneumoniae (PCR) Nasal SARS-CoV-2 (PCR) - Rads (name of study) chest XR Relevant Findings:: Final report received, See rad report (nad) PD Medical Decision Making - ED course Complexity details: reviewed old records, reviewed results, re-evaluated patient, considered differential, d/w patient ED course: The patient was worked up with labs, chest x-ray, urinalysis, blood culture, and respiratory PCR. He was treated with some IV fluids. I reviewed all of the above tests. CXR was negative, and CBC/ER abdominal panel were unremarkable. PCR was negative. UA was positive, not surprisingly, given that the pt has a chronic indwelling wagner. Nonetheless, given the fever without another source, I did opt to treat the pt for a UTI. I d/w that the pt is actually very stable, and appears well, and we will be discharging him home. If the wants to continue with hospice, she will have to call them to arrange for the pt to get back on this service, if he can. We have discussed the need for follow- up and the usual indications for return. Departure - Departure Disposition: 01 Home, Self Care Clinical Impression: Fever Qualifiers: Fever type: unspecified Qualified Code(s): R50.9 - Fever, unspecified UTI (urinary tract infection) Qualifiers: Urinary tract infection type: acute cystitis Hematuria presence: without hematuria Qualified Code(s): N30.00 - Acute cystitis without hematuria Condition: Stable Instructions: ED UTI Cystitis Male Prescriptions: levoFLOXacin [Levaquin] 250 mg PO QD #7 tablet Comments: Mr. Singh had a mild fever today but otherwise, no other symptoms. His urinalysis was positive, though this is expected chronically since he has a Wagner catheter in place at all times. Nothing else showed up as a potential cause of his fever. At this point in time, there is no evidence of a serious condition causing his fever, and he is stable to be discharged home. A prescription for antibiotics has been electronically transmitted to the [facility] in [place], your pharmacy of choice on record. As you have chosen to take him off hospice so he could come here for an evaluation, you will have to determine whether he can be put back on hospice or still proceed to welcome home as planned tomorrow. Please talk to Mr. Singh's primary doctor and to the hospice staff about this. Discharge Date/Time: 07/22/22 13:29
[2022-07-22 11:02] LABS: BILIRUBIN,URINE NEGATIVE (NEGATIVE); GLUCOSE, URINE (UA) NEGATIVE (NEGATIVE); KETONES,URINE (UA) NEGATIVE (NEGATIVE); LEUKOCYTE ESTERASE, URINE MODERATE (NEGATIVE); NITRITE,URINE POSITIVE (NEGATIVE); OCCULT BLOOD,URINE MODERATE (NEGATIVE); PROTEIN,URINE 100 mg/dL (NEGATIVE); UROBILINOGEN,URINE 1 (NORMAL) E.U./dL (NORMAL)
[2022-07-22 11:03] LABS: CLARITY,URINE CLOUDY (CLEAR)
[2022-07-22 11:11] LABS: BASOPHILS % (AUTO) 0.3 %; EOSINOPHILS # (AUTO) 0.1 10^3/uL (0.0-0.7); EOSINOPHILS % (AUTO) 0.9 %; HCT - HEMATOCRIT 44.4 % (42.0-52.0); HGB - HEMOGLOBIN 14.4 g/dL (14.0-18.0); LYMPHOCYTES # (AUTO) 2.1 10^3/uL (1.5-3.5); LYMPHOCYTES % (AUTO) 20.2 %; MEAN CORPUSCULAR HGB CONC 32.4 g/dL (32.0-36.0); MEAN CORPUSCULAR VOLUME 101.6 fL (80.0-94.0); MEAN PLATELET VOLUME 8.9 fL (7.4-11.4); MONOCYTES # (AUTO) 0.5 10^3/uL (0.0-1.0); MONOCYTES % (AUTO) 5.3 %; NEUTROPHILS # (AUTO) 7.5 10^3/uL (1.5-6.6); NEUTROPHILS % (AUTO) 72.9 %; PLT - PLATELET COUNT 119 10^3/uL (130-450); RED BLOOD COUNT 4.37 10^6/uL (4.70-6.10); RED CELL DISTRIBUTION WIDTH 13.2 % (12.0-15.0); WHITE BLOOD COUNT 10.3 x10^3/uL (4.8-10.8)
[2022-07-22 11:19] LABS: ALBUMIN 3.7 g/dL (3.2-5.5); BILIRUBIN,TOTAL 0.9 mg/dL (0.2-1.0); CALCIUM 9.1 mg/dL (8.5-10.3); POTASSIUM 4.1 mmol/L (3.5-5.0); TOTAL PROTEIN 7.4 g/dL (6.7-8.2)
[2022-07-22 11:22] LABS: RBC,URINE 0-5 /HPF (0-5); SQUAMOUS EPITHELIAL CELL,UR NONE SEEN (<= Few); WBC CLUMPS,URINE PRESENT; WBC,URINE >25 /HPF (0-3)
[2022-07-22 11:23] LABS: BACTERIA,URINE Moderate /HPF (None Seen)
--- NOTE | 2022-07-22 11:26 | XRAY Report ---
PROCEDURE: Chest 1 View X-Ray INDICATIONS: chest pain TECHNIQUE: One view of the chest was acquired. COMPARISON: 07/03/2022, 04/03/2022. FINDINGS: Surgical changes and devices: None. Lungs and pleura: No pleural effusions or pneumothorax. Calcified pleural plaques are noted in bilat eral mid to lower lung urias unchanged from prior studies. No definite focal infiltrate. Mediastinum: Tortuous thoracic aorta is seen. Heart size is normal. Bones and chest wall: No suspicious bony lesions. Overlying soft tissues appear unremarkable. 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 No definite focal infiltra te. No pleural effusion or pneumothorax. Reviewed by: Wesley Muñoz MD on 07/22/2022 11:24 AM PDT Approved by: Wesley Muñoz MD on 07/22/2022 11:24 AM PDT Station ID: [id number]
[2022-07-22] MEDS ORDERED: levoFLOXacin 250 MG TABLET PO STA (11:27)
[2022-07-22 12:39] LABS: B. PARAPERTUSSIS- RESP PCR PAN NOT DETECTED; B. PERTUSSIS- RESP PCR PANEL NOT DETECTED; C. PNEUMONIAE- RESP PCR PANEL NOT DETECTED; CORONAVIRUS 229E-RESP PCR NOT DETECTED; CORONAVIRUS HKU1-RESP PCR NOT DETECTED; CORONAVIRUS NL63-RESP PCR NOT DETECTED; CORONAVIRUS OC43-RESP PCR NOT DETECTED; HUMAN METAPNEUMOVIRUS NOT DETECTED; INFLUENZA A- RESP PCR PANEL NOT DETECTED; INFLUENZA B - RESP PCR PANEL NOT DETECTED; M. PNEUMONIAE- RESP PCR PANEL NOT DETECTED; PARAINFLUENZA VIRUS 1 NOT DETECTED; PARAINFLUENZA VIRUS 2 NOT DETECTED; PARAINFLUENZA VIRUS 3 NOT DETECTED; PARAINFLUENZA VIRUS 4 NOT DETECTED; RHINOVIRUS/ENTEROVIRUS NOT DETECTED; RSV- RESP PCR PANEL NOT DETECTED; SARS-CoV-2 -RESP PCR PANEL NOT DETECTED
[2022-07-22] MEDS ORDERED: ACETAMINOPHEN 325 MG TABLET PO STA (12:46)
[2022-07-22] MEDS ORDERED: KETOROLAC 30 MG/ML VIAL IVP STA (12:46)
[2022-07-22 13:29] VITALS: BP 118/90
--- NOTE | 2022-07-27 11:26 | ED Physician Documentation ---
ED Addendum - Addendum Addendum: 07/27/22 11:26 Based on most recent urine culture sensitivities he grew E. coli that was resistant to Levaquin and the antibiotic he was discharged with. Sensitive to cephalosporins a prescription for Vantin has been sent to the pharmacy. Nursing staff tasked with notifying patient
== END 2022-07-22 13:29 | disposition home or self-care (01) ==
LOC: EDUNIT# → ED 10:11
DX: N30.00 Acute cystitis without hematuria (principal); R50.9 Fever, unspecified; I48.91 Unspecified atrial fibrillation; I25.2 Old myocardial infarction; F03.90 Unspecified dementia, unspecified severity, without behavioral disturbance, psychotic disturbance, mood disturbance, and anxiety; Z20.822 Contact with and (suspected) exposure to COVID-19; Z79.899 Other long term (current) drug therapy
CPT/HCPCS: 36415; 71045; 80053; 81001; 83690; 85025; 87040; 87086; 87181; 87633; 96374; 99284; A9270; 81003

== ENCOUNTER 2022-07-22 13:33 | Outpatient (CLI) | payer MEDICARE, OTHER | END 2022-07-22 13:34 | disposition home or self-care (01) | LOC: EMS 13:33 | PROVIDERS: ATTEND Emergency Medicine | DX: R41.0 Disorientation, unspecified (principal) | CPT/HCPCS: A0425; A0428 ==

== ENCOUNTER 2022-07-23 11:04 | Outpatient (CLI) | payer MEDICARE, OTHER | END 2022-07-23 23:59 | disposition home or self-care (01) | LOC: EMS 11:04 | PROVIDERS: ATTEND Family Medicine | DX: R53.1 Weakness (principal); R29.6 Repeated falls; M54.9 Dorsalgia, unspecified; G89.29 Other chronic pain; F03.90 Unspecified dementia, unspecified severity, without behavioral disturbance, psychotic disturbance, mood disturbance, and anxiety | CPT/HCPCS: A0425; A0428 ==

== ENCOUNTER 2022-09-26 05:18 | Outpatient (CLI) | payer MEDICARE, OTHER | END 2022-09-26 05:19 | disposition critical access hospital (66) | LOC: EMS 05:18 | DX: S79.921A Unspecified injury of right thigh, initial encounter (principal); W01.0XXA Fall on same level from slipping, tripping and stumbling without subsequent striking against object, initial encounter; Y92.098 Other place in other non-institutional residence as the place of occurrence of the external cause | CPT/HCPCS: A0425; A0429 ==

== ENCOUNTER 2022-09-26 05:39 | Inpatient (IN) | payer MEDICARE, OTHER ==
--- NOTE | 2022-09-26 05:53 | ED Physician Documentation ---
History of Present Illness - Stated complaint Stated Complaint: R HIP INJ - History obtained from History obtained from: EMS, Other (Staff at [facility]) - Additonal information Additional information: Patient is an 87-year-old male with a history of dementia presenting for evaluation after a witnessed ground-level fall. Patient is a resident at [facility]. I spoke with one of the staff members there this morning. She states that they were sitting at the nurses desk and he was walking out of his room. They were trying to go to help him as he does not ambulate very well but before they could get there and they saw that he lost his balance and fell onto his right side. She denies that he hit his head or had any LOC.He does have a history of atrial fibrillation but is not currently on any blood thinners. His was notified of the fall. Patient reports pain only to the right hip. He is not able to give any history regarding recent events. He appears to be alert and oriented to his baseline.He knows his name and where he is. Review of Systems Unable to obtain: Dementia PD PAST MEDICAL HISTORY - Past Medical History Cardiovascular: [place], Atrial fibrillation Respiratory: None Neuro: Dementia Endocrine/Autoimmune: None GI: GERD, Other : Benign prostate hypertrophy, Indwelling catheter, Other HEENT: Chronic vision loss, Chronic hearing loss Psych: None Musculoskeletal: Osteoarthritis, Fatigue, Chronic back pain Derm: None - Past Surgical History Past Surgical History: Yes General: Colonoscopy, Other HEENT: Cataracts - Present Medications Home Medications: Ambulatory Orders Medication Instructions Recorded Confirmed QUEtiapine [SEROquel] 50 mg PO 1200 06/04/21 09/26/22 Acetaminophen [Tylenol] 1,000 mg PO TID PRN 09/26/22 09/26/22 Bisacodyl Supp [Dulcolax Supp] 10 mg SC DAILY PRN 09/26/22 09/26/22 Haloperidol Lactate 2 mg PO Q4HR PRN 09/26/22 09/26/22 Ibuprofen 400 mg PO Q6HR PRN 09/26/22 09/26/22 Omeprazole Magnesium 20 mg PO DAILY 09/26/22 09/26/22 Quetiapine Fumarate [Seroquel] 200 mg PO HS 09/26/22 09/26/22 Senna [Senokot] 8.6 mg PO BID PRN 09/26/22 09/26/22 Trazodone HCl 200 mg PO HS 09/26/22 09/26/22 - Allergies Allergies/Adverse Reactions: Allergies Allergy/AdvReac Type Severity Reaction Status Date / Time celecoxib [From Celebrex] Allergy Unknown Verified 07/22/22 10:27 Penicillins AdvReac Anaphylaxis Verified 07/22/22 10:27 - Social History Does the pt smoke?: No Smoking Status: Never smoker Does the pt drink ETOH?: Yes Does the pt have substance abuse?: No - Immunizations Immunizations are current?: Yes - POLST Patient has POLST: Yes POLST Status: Full Code PD ED PE NORMAL - General General: No acute distress, Well developed/nourished. No: Alert and oriented X 3 (Alert and oriented to person and place) - HEENT HEENT: Atraumatic - Neck Neck: Supple, no meningeal sign, No bony TTP - Cardiac Cardiac: No murmur, Strong equal pulses, Other (Irregular rhythm, normal rate) - Respiratory Respiratory: No respiratory distress, Clear bilaterally - Abdomen Abdomen: Soft, Non tender, Non distended, Other (+Martinez) - Derm Derm: Warm and dry - Extremities Extremities: Other (Right leg is shortened and externally rotated, tenderness to right hip and proximal femur; Patient is able to raise left leg off the bed; Symmetric strength with upper extremities) - Neuro Neuro: No motor deficit, Normal speech. No: Alert and oriented X 3 (ALert and oriented to person and place) Eye Opening: Spontaneous Motor: Obeys Commands Verbal: Confused GCS Score: 14 Results - Vitals Vitals: Vital Signs - 24 hr 09/26/22 09/26/22 09/26/22 05:46 07:22 08:50 Temperature 36.2 C L Heart Rate 87 87 86 Respiratory 17 16 20 Rate Blood Pressure 131/95 H 92/61 99/63 O2 Saturation 100 100 100 Oxygen O2 Source Room air - EKG (time done) 0637 EKG releavant findings:: EKG personally interpreted by author of this note. Relevant findings are: Rate 82, atrial fibrillation, no STEMI, No ST depressions Rate: Rate (enter#) (82) Rhythm: Atrial fibrillation Ischemia: No: ST elevation c/w ischemia, ST depression - Labs Labs: Laboratory Tests 09/26/22 09/26/22 09/26/22 05:58 05:58 05:58 WBC 4.9 RBC 3.95 L Hgb 12.8 L Hct 40.1 L MCV 101.5 H MCH 32.4 H MCHC 31.9 L RDW 13.8 Plt Count 107 L MPV 8.6 Neut # (Auto) 2.7 Lymph # (Auto) 1.7 [place] # (Auto) 0.3 Eos # (Auto) 0.2 Baso # (Auto) 0.0 Absolute Nucleated RBC 0.00 Nucleated RBC % 0.0 PT 11.8 INR 1.1 Sodium Potassium Chloride Carbon Dioxide Anion Gap BUN Creatinine Estimated GFR (MDRD) Glucose Calcium Total Bilirubin AST ALT Alkaline Phosphatase Total Protein Albumin Globulin Albumin/Globulin Ratio Blood Type AB POSITIVE Blood Type Recheck Antibody Screen NEGATIVE 09/26/22 09/26/22 05:58 07:47 WBC RBC Hgb Hct MCV MCH MCHC RDW Plt Count MPV Neut # (Auto) Lymph # (Auto) [place] # (Auto) Eos # (Auto) Baso # (Auto) Absolute Nucleated RBC Nucleated RBC % PT INR Sodium 139 Potassium 4.0 Chloride 99 L Carbon Dioxide 28 Anion Gap 12.0 BUN 16 Creatinine 0.8 Estimated GFR (MDRD) 91 Glucose 109 H Calcium 9.0 Total Bilirubin 0.6 AST 21 ALT 18 Alkaline Phosphatase 63 Total Protein 6.9 Albumin 3.6 Globulin 3.3 Albumin/Globulin Ratio 1.1 Blood Type Blood Type Recheck AB POSITIVE Antibody Screen PD Medical Decision Making - ED course Complexity details: reviewed results, re-evaluated patient, d/w patient, d/w family ED course: Patient is an 87-year-old with a witnessed ground-level fall. No head injury or LOC. Patient is not on any blood thinners. His only complaint is pain to the right hip. CBC, chemistries were obtained and reviewed without significant abnormalities.X-rays were obtained of the right hip and right femur. Did review these images and there is a clear right hip fracture through the intertrochanter.Discussed the case with on-call orthopedic surgeon who will come to evaluate the patient. Patient will require admission to the hospitalist service and clearance for surgery. Did discuss the case with patient's DPOA, his who would like to proceed with surgery if this is a possibility. 0630 - D/W pt's Lorraine. She confirms that he is a DNR/DNI. We discussed his hip fracture. If patient is a candidate for surgery she would want any attempts at fixing it to be made. She understands that the patient is frail and that both options of surgical repair versus nonoperative Treatment both come with their risks. 0650 - D/W Dr. Martinez. He will come and evaluate the patient this morning. Request that the patient be admitted to the hospitalist service and he will consult.We discussed patient's comorbidities including a history of atrial fibr illation, dementia and baseline weakness. 0700 - D/W supervisor fertilizer Patricia - there is a post op patient who will be discharged sometime this morning and there is staffing for that bed today. 0709 - Attempted to d/w daytime hospitalist but they are unavailable. Pt will need admission to hospitalist service once bed is available. Departure - Departure Disposition: [facility] DC/[facility] Clinical Impression: Closed right hip fracture, Dementia Condition: Serious Discharge Date/Time: 09/26/22 12:30
[2022-09-26 06:08] LABS: BASOPHILS % (AUTO) 0.2 %; EOSINOPHILS # (AUTO) 0.2 10^3/uL (0.0-0.7); EOSINOPHILS % (AUTO) 3.3 %; HCT - HEMATOCRIT 40.1 % (42.0-52.0); HGB - HEMOGLOBIN 12.8 g/dL (14.0-18.0); LYMPHOCYTES # (AUTO) 1.7 10^3/uL (1.5-3.5); LYMPHOCYTES % (AUTO) 35.1 %; MEAN CORPUSCULAR HEMOGLOBIN 32.4 pg (27.0-31.0); MEAN CORPUSCULAR HGB CONC 31.9 g/dL (32.0-36.0); MEAN CORPUSCULAR VOLUME 101.5 fL (80.0-94.0); MEAN PLATELET VOLUME 8.6 fL (7.4-11.4); MONOCYTES # (AUTO) 0.3 10^3/uL (0.0-1.0); MONOCYTES % (AUTO) 6.3 %; NEUTROPHILS # (AUTO) 2.7 10^3/uL (1.5-6.6); NEUTROPHILS % (AUTO) 54.5 %; PLT - PLATELET COUNT 107 10^3/uL (130-450); RED BLOOD COUNT 3.95 10^6/uL (4.70-6.10); RED CELL DISTRIBUTION WIDTH 13.8 % (12.0-15.0); WHITE BLOOD COUNT 4.9 x10^3/uL (4.8-10.8)
[2022-09-26 06:14] LABS: INR 1.1 (0.8-1.2); PT - PROTHROMBIN TIME 11.8 secs (9.9-12.6)
[2022-09-26 06:42] LABS: ALBUMIN 3.6 g/dL (3.2-5.5); ALBUMIN/GLOBULIN RATIO 1.1 (1.0-2.2); BILIRUBIN,TOTAL 0.6 mg/dL (0.2-1.0); CREATININE 0.8 mg/dL (0.6-1.2); TOTAL PROTEIN 6.9 g/dL (6.7-8.2)
--- NOTE | 2022-09-26 07:00 | XRAY Report ---
PROCEDURE: Femur 2V RT INDICATIONS: fall TECHNIQUE: AP and lateral views of the femur were acquired. COMPARISON: Right hip and pelvis from the same date FINDINGS: Bones: There is a trochanteric/subtrochanteric fracture of the right hip with displacement and overr iding. No dislocation. Soft tissues: No suspicious soft tissue calcifications or masses. Advanced atherosclerotic calcifi cations. IMPRESSION: 1. Trochanteric/subtrochanteric fracture of the right hip with displacement and overriding. No disloc ation. 2. Peripheral vascular disease. Findings are concordant with preliminary interpretation provided by [facility]. Reviewed by: Deni Christian MD on 09/26/2022 6:59 AM PDT Approved by: Deni Christian MD on 09/26/2022 6:59 AM PDT Station ID: [id number]
--- NOTE | 2022-09-26 07:01 | XRAY Report ---
PROCEDURE: Hip w/Pelvis 2-3V RT INDICATIONS: fall/deformity TECHNIQUE: AP pelvis with lateral view(s) of the right hip(s). COMPARISON: Right femur from the same date FINDINGS: Bones: Trochanteric/subtrochanteric fracture of the right hip with displacement and overriding. No d islocation. Soft tissues: No suspicious soft tissue calcifications or masses. IMPRESSION: Trochanteric/subtrochanteric fracture of the right hip with displacement and overriding. Findings are concordant with preliminary interpretation provided by [facility]. Reviewed by: Deni Christian MD on 09/26/2022 7:00 AM PDT Approved by: Deni Christian MD on 09/26/2022 7:00 AM PDT Station ID: [id number]
[2022-09-26] MEDS ORDERED: SODIUM CHLORIDE 0.9% 1,000 ML IV STA (10:22)
--- NOTE | 2022-09-26 10:24 | ED Physician Documentation ---
ED Addendum - Addendum Addendum: 09/26/22 10:22 87-year-old Raul Cavanaugh has a fractured hip and the orthopedic surgeon has come to the emergency department to evaluate him for surgery. He is found to have hypotension with a mean arterial pressure of 41. I came to the patient's bedside to evaluate him found him to be quite confused which is baseline. I interrogated his inferior vena cava with POCUS and found a vessel of 8.2 mm consistent with a deficit of approximately 2 L. He is administered normal saline 1 L.
--- NOTE | 2022-09-26 10:40 | HISTORY & PHYSICAL EXAMINATION ---
HPI - History Obtained From History obtained from: Patient, Family Exam limitations: Clinical condition - History of Present Illness HPI Comment/Other: This is a 87-year-old gentleman referred from the group home following a fall earlier this morning. This was a witnessed, ground level fall with subsequent pain and inability to bear weight on right leg. His pain is localized to the hip area. He is a indoor ambulator. Said no previous problems with his right hip. There is no history of syncope, loss of consciousness, chest pain or shortness of breath at time of fall. He does have a history of atrial fibrillation, not anticoagulated. He does have a history of myocardial infarction in the past. I spoke to his over the telephone. She states he has had declining health.The patient has advanced dementia and is residing at a memory care center PMH/PSH - Past Medical History Cardiovascular: positive: [place], Atrial fibrillation Respiratory: positive: None Neuro: positive: Dementia Endocrine/Autoimmune: positive: None GI: positive: GERD, Other : positive: Benign prostate hypertrophy, Indwelling catheter, Other HEENT: positive: Chronic vision loss, Chronic hearing loss Psych: positive: None Musculoskeletal: positive: Osteoarthritis, Fatigue, Chronic back pain Derm: positive: None MRSA Hx?: No - Past Surgical History General: positive: Colonoscopy, Other HEENT: positive: Cataracts Social & Family Hx - Living Situation Living Arrangement: [facility] - Social History Does the pt smoke?: No Smoking Status: Never smoker Does the pt drink ETOH?: No Does the pt have substance abuse?: No - POLST Patient has POLST: Yes POLST Status: DNR Meds/Allgy - Home Medications Home Medications: Ambulatory Orders Medication Instructions Recorded Confirmed QUEtiapine [SEROquel] 50 mg PO 1200 06/04/21 04/03/22 Acetaminophen [Tylenol] 1,000 mg PO TID PRN 09/26/22 09/26/22 Bisacodyl Supp [Dulcolax Supp] 10 mg [place] DAILY PRN 09/26/22 09/26/22 Haloperidol Lactate 2 mg PO Q4HR PRN 09/26/22 09/26/22 Ibuprofen 400 mg PO Q6HR PRN 09/26/22 09/26/22 Omeprazole Magnesium 20 mg PO DAILY 09/26/22 09/26/22 Quetiapine Fumarate [Seroquel] 200 mg PO HS 09/26/22 09/26/22 Senna [Senokot] 8.6 mg PO BID PRN 09/26/22 09/26/22 Trazodone HCl 200 mg PO HS 09/26/22 09/26/22 - Allergies Allergies/Adverse Reactions: Allergies Allergy/AdvReac Type Severity Reaction Status Date / Time celecoxib [From Celebrex] Allergy Unknown Verified 07/22/22 10:27 Penicillins AdvReac Anaphylaxis Verified 07/22/22 10:27 Exam - Vital Signs Vital Signs: Vital Signs x48h Temp Pulse Resp BP Pulse Ox 09/26/22 08:50 86 20 99/63 100 09/26/22 07:22 87 16 92/61 100 09/26/22 05:46 36.2 C L 87 17 131/95 H 100 - Physical Exam General Appearance: positive: Alert, Mild distress Respiratory: positive: No respiratory distress Cardiovascular: positive: Regular rate & rhythm Peripheral Pulses: positive: 1+ Skin: positive: Warm, Dry Neurologic/Psychiatric: positive: Disoriented to place, Disoriented to time Comments/Other: The patient is relatively comfortable in the supine position. Right leg is shortened and externally rotated with hip and knee and mild flexion. Any attempt to move his right hip causes marked pain. Skin is intact about right hip. There is no sign of hematoma. Neurovascular is intact to right leg. The other 3 extremities do not show any sign of acute trauma. Results - Lab Results Fish Bones: 09/26/22 05:58 09/26/22 05:58 Other Lab Results: Lab Results x24hrs 09/26/22 09/26/22 09/26/22 Range/Units 07:47 05:58 05:58 WBC (4.8-10.8) x10^3/uL RBC (4.70-6.10) 10^6/uL Hgb (14.0-18.0) g/dL Hct (42.0-52.0) % MCV (80.0-94.0) fL MCH (27.0-31.0) pg MCHC (32.0-36.0) g/dL RDW (12.0-15.0) % Plt Count (130-450) 10^3/uL MPV (7.4-11.4) fL Neut # (Auto) (1.5-6.6) 10^3/uL Lymph # (Auto) (1.5-3.5) 10^3/uL [place] # (Auto) (0.0-1.0) 10^3/uL Eos # (Auto) (0.0-0.7) 10^3/uL Baso # (Auto) (0.0-0.1) 10^3/uL Absolute Nucleated RBC x10^3/uL Nucleated RBC % /100WBC PT 11.8 (9.9-12.6) secs INR 1.1 (0.8-1.2) Sodium 139 (135-145) mmol/L Potassium 4.0 (3.5-5.0) mmol/L Chloride 99 L (101-111) mmol/L Carbon Dioxide 28 (21-32) mmol/L Anion Gap 12.0 (6-13) BUN 16 (6-20) mg/dL Creatinine 0.8 (0.6-1.2) mg/dL Estimated GFR (MDRD) 91 (>89) Glucose 109 H (70-100) mg/dL Calcium 9.0 (8.5-10.3) mg/dL Total Bilirubin 0.6 (0.2-1.0) mg/dL AST 21 (10-42) IU/L ALT 18 (10-60) IU/L Alkaline Phosphatase 63 (42-121) IU/L Total Protein 6.9 (6.7-8.2) g/dL Albumin 3.6 (3.2-5.5) g/dL Globulin 3.3 (2.1-4.2) g/dL Albumin/Globulin Ratio 1.1 (1.0-2.2) Blood Type Blood Type Recheck AB POSITIVE Antibody Screen 09/26/22 09/26/22 Range/Units 05:58 05:58 WBC 4.9 (4.8-10.8) x10^3/uL RBC 3.95 L (4.70-6.10) 10^6/uL Hgb 12.8 L (14.0-18.0) g/dL Hct 40.1 L (42.0-52.0) % MCV 101.5 H (80.0-94.0) fL MCH 32.4 H (27.0-31.0) pg MCHC 31.9 L (32.0-36.0) g/dL RDW 13.8 (12.0-15.0) % Plt Count 107 L (130-450) 10^3/uL MPV 8.6 (7.4-11.4) fL Neut # (Auto) 2.7 (1.5-6.6) 10^3/uL Lymph # (Auto) 1.7 (1.5-3.5) 10^3/uL [place] # (Auto) 0.3 (0.0-1.0) 10^3/uL Eos # (Auto) 0.2 (0.0-0.7) 10^3/uL Baso # (Auto) 0.0 (0.0-0.1) 10^3/uL Absolute Nucleated RBC 0.00 x10^3/uL Nucleated RBC % 0.0 /100WBC PT (9.9-12.6) secs INR (0.8-1.2) Sodium (135-145) mmol/L Potassium (3.5-5.0) mmol/L Chloride (101-111) mmol/L Carbon Dioxide (21-32) mmol/L Anion Gap (6-13) BUN (6-20) mg/dL Creatinine (0.6-1.2) mg/dL Estimated GFR (MDRD) (>89) Glucose (70-100) mg/dL Calcium (8.5-10.3) mg/dL Total Bilirubin (0.2-1.0) mg/dL AST (10-42) IU/L ALT (10-60) IU/L Alkaline Phosphatase (42-121) IU/L Total Protein (6.7-8.2) g/dL Albumin (3.2-5.5) g/dL Globulin (2.1-4.2) g/dL Albumin/Globulin Ratio (1.0-2.2) Blood Type AB POSITIVE Blood Type Recheck Antibody Screen NEGATIVE - Diagnostic Imaging Results Diagnostic Imaging Results: positive: Read independently (Displaced reverse obliquity intertrochanteric fracture right hip) Impression/Plan - Problem List Problem List: 1. Closed, displaced reverse obliquity intertrochanteric fracture right hip 2. Comorbidities: He has signs of frailty of age, advanced dementia, atrial fibrillation, history of myocardial infarction, anemia, thrombocytopenia He will be admitted to the hospital service for comanage care. I discussed treatment options with his Lorraine Navarro, . She has power of civil attorney. She desires to proceed with surgical treatment which would be open reduction internal fixation of the right hip fracture. Irregardless of treatment, whether it be nonoperative or operative, there is a significant morbidity and mortality associated with treatment. Even under the best circumstances, there is about a 30 to 40% mortality within 1 year with operative treatment and this can be double or greater with nonoperative treatment. This may well be palliative treatment but the prefers surgical treatment to help reduce pain and improve chances of survival. The plan is medical evaluation, correction of dehydration and surgical treatment tomorrow morning. An informed consent has been obtained by telephone with the at about 10:03 AM; verbal consent documented by both myself and physician payroll administrative assistant, Lorie Rajput PAC
[2022-09-26] MEDS ORDERED: HYDROmorphone 0.5 MG/0.5 ML SYRINGE IVP PRN (10:48)
[2022-09-26] MEDS ORDERED: SODIUM CHLORIDE FLUSH 0.9% 10 ML SYRINGE IVP PRN (10:48)
[2022-09-26] MEDS ORDERED: ONDANSETRON 4 MG/2 ML VIAL IVP PRN (10:48)
[2022-09-26] MEDS ORDERED: HYDROcod/ACETAM 5/325 MG TABLET PO PRN (10:48)
[2022-09-26] MEDS ORDERED: SENNA 8.6 MG TABLET PO PRN (10:52)
[2022-09-26] MEDS ORDERED: HALOPERIDOL 10 MG/5 ML UDC PO PRN (10:52)
[2022-09-26] MEDS ORDERED: TRANEXAMIC ACID 1,000 MG in SODIUM CHLORIDE 0.9% 100ML 100 ML IV STA (10:57)
--- NOTE | 2022-09-26 10:59 | HISTORY & PHYSICAL EXAMINATION ---
Chief Complaint - Chief Complaint Chief Complaint: Fell at [facility] History of Present Illness - Admitted From Admitted From:: ED - History Obtained From Records Reviewed: Yes History obtained from: Chart review - History of Present Illness HPI Comment/Other: This is an 85-year-old white male with a history of dementia, A-fib not on anticoagulation, prior chronic indwelling Martinez for prostatic hypertrophy. Per records, he has had prior UTIs. He was offered to have prostatic surgery but had stated he was fine using a chronic indwelling Martinez. He has dementia was initially treated with blank then changed to memantine and he apparently did not tolerate those, he is now on Seroquel, trazodone at at bedtime and as needed Haldol. After the last 2 admissions in the last 3 years, he has been a resident at [facility] because of his dementia. Today while walking out of his room he was witnessed to fall onto his right side. The [facility] staff said that he did not hit his head or lose consciousness. He was brought to the emergency room and found to have a shortened and externally rotated right leg and x-ray showed that he has a R hip fracture. On presentation his blood pressure was 55/30. He has received IV fluids with some improvement of BP to 99 systolic. The ER doctor, and then the orthopedic doctor, spoke to the patient's and she does want him to have hip surgery. According to orthopedist Dr. Martinez, the was made aware that both undergoing surgery and not going through surgery for him are high risk. The ED provider and I spoke about this patient and the Orthopedist and I spoke about this patient. He will be admitted to the Hospitalist service. Orthopedic surgery is planned for tomorrow. His CODE STATUS is DNR. History - Past Medical History Cardiovascular: reports: MA (His Echo in 2020 showed anteroseptal and apical akinesis, LVEF 40-45%), Atrial fibrillation Respiratory: reports: None Neuro: reports: Dementia Endocrine/Autoimmune: reports: None GI: reports: GERD, C.difficile (Hx of C.diff in 2020), Other : reports: Benign prostate hypertrophy, Indwelling catheter, Other HEENT: reports: Chronic vision loss, Chronic hearing loss Psych: reports: None Musculoskeletal: reports: Osteoarthritis, Fatigue, Chronic back pain Derm: reports: None MRSA Hx?: No - Past Surgical History General: reports: Colonoscopy, Other HEENT: reports: Cataracts - Family & Social History Family History: Mother: (did not know father; no siblings), Alzheimer's Disease, Father: Family History Comment/Other: Father at early 30 by suicide. Mother at age 94 from the aging. Living arrangement: shelter Social History Notes: On past admissions, he reported he quit smoking about 25 years ago after a 50 pack year hx and he denied drug abuse. He used to drink 2 whiskry drinks daily, presumably until living at the [facility]. He has 1 daughter. His lives in [place]. 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 - Substance History Use: Uses substance without health or social issues: NONE - POLST Patient has POLST: Yes POLST Status: DNR Meds/Allgy - Home Medications Home Medications: Ambulatory Orders Medication Instructions Recorded Confirmed QUEtiapine [SEROquel] 50 mg PO 1200 06/04/21 04/03/22 Acetaminophen [Tylenol] 1,000 mg PO TID PRN 09/26/22 09/26/22 Bisacodyl Supp [Dulcolax Supp] 10 mg WA DAILY PRN 09/26/22 09/26/22 Haloperidol Lactate 2 mg PO Q4HR PRN 09/26/22 09/26/22 Ibuprofen 400 mg PO Q6HR PRN 09/26/22 09/26/22 Omeprazole Magnesium 20 mg PO DAILY 09/26/22 09/26/22 Quetiapine Fumarate [Seroquel] 200 mg PO HS 09/26/22 09/26/22 Senna [Senokot] 8.6 mg PO BID PRN 09/26/22 09/26/22 Trazodone HCl 200 mg PO HS 09/26/22 09/26/22 - Allergies Allergies/Adverse Reactions: Allergies Allergy/AdvReac Type Severity Reaction Status Date / Time celecoxib [From Celebrex] Allergy Unknown Verified 07/22/22 10:27 Penicillins AdvReac Anaphylaxis Verified 07/22/22 10:27 Review of Systems - All Other Systems All Other Systems: reports: Other (Unable to obtain any ROS because of his severe dementia) Exam - Vital Signs Vital Signs: Vital Signs x48h Temp Pulse Resp BP Pulse Ox 09/26/22 08:50 86 20 99/63 100 09/26/22 07:22 87 16 92/61 100 09/26/22 05:46 36.2 C L 87 17 131/95 H 100 - Physical Exam General Appearance: positive: No acute distress, Alert, Other (Thin elderly male, he is pleasant, speaks normally, he is mentating well, but he has a poor memory.) Eyes Bilateral: positive: Normal inspection, EOMI ENT: positive: ENT inspection nml Neck: positive: Nml inspection Respiratory: positive: No respiratory distress, Breath sounds nml, Other (Cachectic with prominent rib cage, increased AP diameter) Cardiovascular: positive: No murmur, Irregularly irregular Abdomen: positive: Non-tender, No distention Skin: positive: Warm, Dry Extremities: positive: No pedal edema Neurologic/Psychiatric: positive: Motor nml, Disoriented to person, Disoriented to place, Disoriented to time Conclusion/Plan - Problem List (1) Closed right hip fracture Conclusion/Plan: This occurred from a fall Given his hypotension and prior MA, this patient's surgical risk is significant. This was already discussed with the patient's . She gave consent and wants him to have hip surgery. Plan: Ortho service is planning on taking him to the OR tomorrow Our [facility] department has just spoken to his regarding plan after surgery: she wants him to go back to [facility] and get Home Health PT and OT which will be twice a week, resuming [facility] services. (2) Preoperative clearance Conclusion/Plan: This patient's information was entered into the Revised Cardiac Risk Index for preoperative risk assessment. He score= 3 points which is a class IV risk, which gives him a 15% chance of 30-day risk of , MA or cardiac arrest. Plan: We will obtain a chest x-ray for preoperative eval We will obtain an Echo for preoperative eval We will also obtain lactic acid level and troponins given the presentation with hypotension (3) Fall at [facility] Conclusion/Plan: Given the presentation with severe hypotension, I suspect he probably had orthostasis which caused the fall earlier this morning Plan: Will evaluate causes for hypotension (see #4) We will continue to give IV fluids, given the documented underfilled IVC, POCUS was done in the ER Place on telemetry (4) Hypotension Conclusion/Plan: POCUS was done in the ER and shows an underfilled IVC therefore he is volume depleted IV fluids were started, he has received a bolus of 1 L in the ER Plan: We will evaluate for other causes for hypotension: Check troponins to rule out an MA, check lactic acid level to rule out septic shock We will obtain a pre-op Echo to evaluate LVEF and RVEF, chamber sizes as well>> See separate report, I did the echo today. It shows underfilled LV and RV. Continue with IV fluids, need to monitor his I's and O's carefully because of his history of systolic heart failure (5) Chronic atrial fibrillation Conclusion/Plan: In reviewing his reconciled med list, he is not on beta-blockers or any heart rate slowing meds. He is not on anticoagulant or daily aspirin Plan: We will place on telemetry to monitor while he is hospitalized (6) Hx of myocardial infarction Conclusion/Plan: The last echocardiogram was done in 2020. It shows anteroseptal and apical akinesis, LVEF 40%. It is unknown if he ever underwent catheterization. He is not on daily aspirin or statin medications or beta-blockers Plan: We will obtain an Echo as preop clearance>> See separate report, I did Echo today. Continue with IV fluids, need to monitor his I's and O's carefully because of his history of systolic heart failure We will also obtain a set of troponins to rule out acute MA, given his presentation with hypotension (7) Dementia Conclusion/Plan: Plan: We will continue with his usual medications that he gets at the [facility] - Lab Results Fish Bones: 09/26/22 11:11 09/26/22 05:58 - Diagnostic Imaging Results Diagnostic Imaging Results: positive: Final report reviewed - EKG Results EKG Interpreted Independently: Yes EKG Comparison: Unchanged from prior EKG - Other Other Results/Comments: Attestation: This patient is expected to need hospitalization for greater than 2 midnights, and is expected to be discharged or transferred to another facility within 96 hours: Yes.
[2022-09-26 11:17] LABS: BASOPHILS % (AUTO) 0.1 %; EOSINOPHILS % (AUTO) 0.4 %; HCT - HEMATOCRIT 35.3 % (42.0-52.0); HGB - HEMOGLOBIN 11.5 g/dL (14.0-18.0); LYMPHOCYTES % (AUTO) 12.3 %; MEAN CORPUSCULAR HEMOGLOBIN 32.8 pg (27.0-31.0); MEAN CORPUSCULAR HGB CONC 32.6 g/dL (32.0-36.0); MEAN CORPUSCULAR VOLUME 100.6 fL (80.0-94.0); MEAN PLATELET VOLUME 8.8 fL (7.4-11.4); MONOCYTES # (AUTO) 0.6 10^3/uL (0.0-1.0); MONOCYTES % (AUTO) 7.4 %; NEUTROPHILS # (AUTO) 6.4 10^3/uL (1.5-6.6); NEUTROPHILS % (AUTO) 79.4 %; PLT - PLATELET COUNT 110 10^3/uL (130-450); RED BLOOD COUNT 3.51 10^6/uL (4.70-6.10); RED CELL DISTRIBUTION WIDTH 13.7 % (12.0-15.0)
--- NOTE | 2022-09-26 11:40 | XRAY Report ---
PROCEDURE: Chest 1 View X-Ray INDICATIONS: Hypotension, pre-op eval TECHNIQUE: One view of the chest was acquired. COMPARISON: 07/22/2022 FINDINGS: Surgical changes and devices: None. Lungs and pleura: No pleural effusions or pneumothorax. Bilateral pleural plaques. Lungs are clear. Mediastinum: Mediastinal contours appear normal. Heart size is normal. Bones and chest wall: No suspicious bony lesions. Overlying soft tissues appear unremarkable. IMPRESSION: 1. No acute process. 2. Asbestos related pleural disease. Reviewed by: Mellissa Horn MD on 09/26/2022 10:39 AM DORENE Approved by: Mellissa Horn MD on 09/26/2022 10:39 AM DORENE Station ID: [id number]
[2022-09-26] MEDS ORDERED: haloperidoL 1 MG TABLET PO PRN (12:47)
[2022-09-26] MEDS ORDERED: TRANEXAMIC ACID IN NACL 1,000 MG/100 ML BAG IV ONE (13:00)
[2022-09-26] MEDS: DEXTROSE 5%-0.9% NACL 1,000 ML IV SCH ×2 (13:03→23:08)
--- NOTE | 2022-09-26 13:23 | PHARMACY PROGRESS NOTE ---
- Best Possible Medication History Admit Date and Time: 09/26/22 1048 Processed by: Pharmacy Medication History completed: Yes Patient Interview: Completed Secondary Source(s): Facility MAR as ONLY source (TALKED TO OJSE AT [facility]) As the person ultimately responsible for medication therapy, providers are able to order a medication from an existing home medication list in [facility] via the "Reconcile Routine" prior to Confirmation of that medication by field support technician. Such practice is discouraged except when the physician, in their clinical judgment, deems that a medical need exists for a medication without regard to previous use.
[2022-09-26 14:40] LABS: BILIRUBIN,URINE NEGATIVE (NEGATIVE); GLUCOSE, URINE (UA) NEGATIVE (NEGATIVE); KETONES,URINE (UA) NEGATIVE (NEGATIVE); LEUKOCYTE ESTERASE, URINE MODERATE (NEGATIVE); NITRITE,URINE POSITIVE (NEGATIVE); OCCULT BLOOD,URINE NEGATIVE (NEGATIVE); PROTEIN,URINE TRACE mg/dL (NEGATIVE); UROBILINOGEN,URINE 2 E.U./dL (NORMAL)
--- NOTE | 2022-09-26 14:41 | PROVIDER PROGRESS NOTE ---
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 Findings: Normal left atrial and right atrial sizes Underfilled left ventricle, normal LV wall thickness. Severely hypokinetic anterior wall, dyskinetic septum and apex, although wall motion normal, LVEF 45 to 50% Small underfilled right ventricle, with normal RV function Moderate tricuspid regurgitation is present, PA pressure could not be accurately assessed. Doppler of the other valves was not performed No pericardial effusion seen
[2022-09-26 14:43] LABS: CLARITY,URINE CLOUDY (CLEAR)
[2022-09-26 14:47] LABS: AMORPHOUS SEDIMENT,UR Few /LPF; BACTERIA,URINE Many /HPF (None Seen); RBC,URINE None Seen /HPF (0-5); SQUAMOUS EPITHELIAL CELL,UR NONE SEEN (<= Few); WBC,URINE >25 /HPF (0-3)
[2022-09-26] MEDS: QUEtiapine 100 MG TABLET PO SCH (20:29)
[2022-09-26] MEDS: traZODone 50 MG TABLET PO SCH (20:31)
[2022-09-26] MEDS: SODIUM CHLORIDE FLUSH 0.9% 10 ML SYRINGE IVP SCH ×2 (20:34→23:37)
[2022-09-27 05:44] LABS: BASOPHILS % (AUTO) 0.2 %; EOSINOPHILS % (AUTO) 0.2 %; HCT - HEMATOCRIT 25.1 % (42.0-52.0); LYMPHOCYTES # (AUTO) 1.2 10^3/uL (1.5-3.5); MEAN CORPUSCULAR HEMOGLOBIN 33.1 pg (27.0-31.0); MEAN CORPUSCULAR HGB CONC 31.9 g/dL (32.0-36.0); MEAN CORPUSCULAR VOLUME 103.7 fL (80.0-94.0); MEAN PLATELET VOLUME 8.8 fL (7.4-11.4); MONOCYTES # (AUTO) 0.5 10^3/uL (0.0-1.0); MONOCYTES % (AUTO) 10.2 %; NEUTROPHILS # (AUTO) 3.5 10^3/uL (1.5-6.6); NEUTROPHILS % (AUTO) 66.2 %; PLT - PLATELET COUNT 85 10^3/uL (130-450); RED BLOOD COUNT 2.42 10^6/uL (4.70-6.10); RED CELL DISTRIBUTION WIDTH 14.1 % (12.0-15.0); WHITE BLOOD COUNT 5.3 x10^3/uL (4.8-10.8)
[2022-09-27 05:53] LABS: CALCIUM 7.8 mg/dL (8.5-10.3); CREATININE 0.8 mg/dL (0.6-1.2); MAGNESIUM 1.7 mg/dL (1.7-2.8); POTASSIUM 3.5 mmol/L (3.5-5.0)
[2022-09-27] MEDS: PANTOPRAZOLE 40 MG TABLET PO SCH (06:18)
[2022-09-27] MEDS ORDERED: PROPOFOL 200 MG/20 ML VIAL IVP ONE (08:45)
[2022-09-27] MEDS ORDERED: fentaNYL 100 MCG/2 ML VIAL ONE (08:45)
[2022-09-27] MEDS ORDERED: PHENYLEPHRINE 10 MG/ML VIAL ONE (08:46)
[2022-09-27] MEDS ORDERED: BUPIVACAINE 0.25% PF 30 ML VIAL ONE (09:05)
--- NOTE | 2022-09-27 09:08 | ANESTHESIA ---
Pre-Anesthesia VS, & Labs - Diagnosis right hip fracture - Procedure right hip nailing Vital Signs: Temp Pulse Resp BP Pulse Ox O2 Flow Rate 36.6 C 93 20 113/48 L 97 09/27/22 05:00 09/27/22 05:00 09/27/22 05:00 09/27/22 05:00 09/27/22 05:00 Height: 5 ft 9 in Weight (kg): 63 kg Body Mass Index: 20.5 BMI Classification: Normal - NPO >8 hours - Lab Results Current Lab Results: Laboratory Tests 09/27/22 05:12: Sodium 142, Potassium 3.5, Chloride 105, Carbon Dioxide 27, Anion Gap 10.0, BUN 18, Creatinine 0.8, Estimated GFR (MDRD) 91, Glucose 137 H, Calcium 7.8 L, Magnesium 1.7 09/27/22 05:12: WBC 5.3, RBC 2.42 L, Hgb 8.0 L, Hct 25.1 L, MCV 103.7 H, MCH 33.1 H, MCHC 31.9 L, RDW 14.1, Plt Count 85 L, MPV 8.8, Neut # (Auto) 3.5, Lymph # (Auto) 1.2 L, [place] # (Auto) 0.5, Eos # (Auto) 0.0, Baso # (Auto) 0.0, Absolute Nucleated RBC 0.00, Nucleated RBC % 0.0 09/26/22 14:55: Troponin I High Sens 3.9 09/26/22 11:11: WBC 8.0, RBC 3.51 L, Hgb 11.5 L, Hct 35.3 L, MCV 100.6 H, MCH 32.8 H, MCHC 32.6, RDW 13.7, Plt Count 110 L, MPV 8.8, Neut # (Auto) 6.4, Lymph # (Auto) 1.0 L, [place] # (Auto) 0.6, Eos # (Auto) 0.0, Baso # (Auto) 0.0, Absolute Nucleated RBC 0.00, Nucleated RBC % 0.0 09/26/22 11:11: Lactic Acid 1.9 09/26/22 11:11: Troponin I High Sens 4.1 09/26/22 07:47: Blood Type Recheck AB POSITIVE 09/26/22 05:58: Sodium 139, Potassium 4.0, Chloride 99 L, Carbon Dioxide 28, Anion Gap 12.0, BUN 16, Creatinine 0.8, Estimated GFR (MDRD) 91, Glucose 109 H, Calcium 9.0, Total Bilirubin 0.6, AST 21, ALT 18, Alkaline Phosphatase 63, Total Protein 6.9, Albumin 3.6, Globulin 3.3, Albumin/Globulin Ratio 1.1 09/26/22 05:58: PT 11.8, INR 1.1 09/26/22 05:58: WBC 4.9, RBC 3.95 L, Hgb 12.8 L, Hct 40.1 L, MCV 101.5 H, MCH 3 2.4 H, MCHC 31.9 L, RDW 13.8, Plt Count 107 L, MPV 8.6, Neut # (Auto) 2.7, Lymph # (Auto) 1.7, [place] # (Auto) 0.3, Eos # (Auto) 0.2, Baso # (Auto) 0.0, Absolute Nucleated RBC 0.00, Nucleated RBC % 0.0 09/26/22 05:58: Blood Type AB POSITIVE, Antibody Screen NEGATIVE Lab results reviewed: Yes Fish Bones: 09/27/22 05:12 09/27/22 05:12 Home Medications and Allergies Home Medications: Ambulatory Orders Acetaminophen [Tylenol] 1,000 mg PO TID PRN 09/26/22 Bisacodyl Supp [Dulcolax Supp] 10 mg NC DAILY PRN 09/26/22 Haloperidol Lactate 2 mg PO Q4HR PRN 09/26/22 Ibuprofen 400 mg PO Q6HR PRN 09/26/22 Omeprazole Magnesium 20 mg PO DAILY 09/26/22 Quetiapine Fumarate [Seroquel] 200 mg PO HS 09/26/22 Senna [Senokot] 8.6 mg PO BID PRN 09/26/22 Trazodone HCl 200 mg PO HS 09/26/22 Active Medications Acetaminophen (Acetaminophen 500 Mg Tablet) 1,000 mg PO TID PRN PRN Reason: PAIN 1-4 Hydrocodone Bitart/Acetaminophen (Hydrocod/Acetam 5/325 Mg Tablet) 1 tab PO Q4HR PRN PRN Reason: Pain 5 to 7 Haloperidol (Haloperidol 1 Mg Tablet) 2 mg PO Q4HR PRN PRN Reason: Agitation Hydromorphone HCl (Hydromorphone 0.5 Mg/0.5 Ml Syringe) 0.5 mg IVP Q2H PRN PRN Reason: Pain 8 to 10 Dextrose/Sodium Chloride (D5ns) 1,000 mls @ 100 mls/hr IV .Q10H [facility] Last Admin: 09/26/22 23:08 Dose: 100 mls/hr Ibuprofen (Ibuprofen 400 Mg Tablet) 400 mg PO Q6HR PRN PRN Reason: PAIN 1-4 Ondansetron HCl (Ondansetron 4 Mg/2 Ml Vial) 4 mg IVP Q6HR PRN PRN Reason: Nausea / Vomiting Pantoprazole Sodium (Pantoprazole 40 Mg Tablet) 40 mg PO QDAC [facility] Last Admin: 09/27/22 06:18 Dose: Not Given Quetiapine Fumarate (Quetiapine 100 Mg Tablet) 200 mg PO [facility] Last Admin: 09/26/22 20:29 Dose: 200 mg Senna (Senna 8.6 Mg Tablet) 8.6 mg PO BID PRN PRN Reason: Constipation Sodium Chloride (Sodium Chloride Flush 0.9% 10 Ml Syringe) 10 ml IVP PRN PRN PRN Reason: NEEDED PER PROVIDER ORDERS Last Admin: 09/26/22 13:03 Dose: 10 ml Sodium Chloride (Sodium Chloride Flush 0.9% 10 Ml Syringe) 10 ml IVP 0100,0900,1700 [facility] Last Admin: 09/26/22 23:37 Dose: Not Given Trazodone HCl (Trazodone 50 Mg Tablet) 200 mg PO [facility] Last Admin: 09/26/22 20:31 Dose: 200 mg QUEtiapine [SEROquel] 50 mg PO 1200 06/04/21 Acetaminophen [Tylenol] 1,000 mg PO TID PRN 09/26/22 Bisacodyl Supp [Dulcolax Supp] 10 mg NC DAILY PRN 09/26/22 Haloperidol Lactate 2 mg PO Q4HR PRN 09/26/22 Ibuprofen 400 mg PO Q6HR PRN 09/26/22 Omeprazole Magnesium 20 mg PO DAILY 09/26/22 Quetiapine Fumarate [Seroquel] 200 mg PO HS 09/26/22 Senna [Senokot] 8.6 mg PO BID PRN 09/26/22 Trazodone HCl 200 mg PO HS 09/26/22 Allergies/Adverse Reactions: Allergies Allergy/AdvReac Type Severity Reaction Status Date / Time celecoxib [From Celebrex] Allergy Unknown Verified 07/22/22 10:27 Penicillins AdvReac Anaphylaxis Verified 07/22/22 10:27 Anes History & Medical History - Anesthetic History Anesthesia Complications: reports: No previous complications - Medical History Cardiovascular: reports: CT, Atrial fibrillation Pulmonary: reports: None Gastrointestinal: reports: GERD, Other Urinary: reports: Benign prostate hypertrophy, Indwelling catheter, Other Neuro: reports: Dementia Musculoskeletal: reports: Osteoarthritis, Fatigue, Chronic back pain, Other (Frail) Endocrine/Autoimmune: reports: None Blood Disorders: reports: Anemia Skin: reports: None Smoking Status: Never smoker Psychosocial: reports: No issues indicated History of Cancer?: No Other Past Medical History: chronic UTI - Surgical History General: reports: Colonoscopy, Other Eyes Ears Nose Throat (EENT): reports: Cataracts Exam General: Cooperative, No acute distress Dental: Other (edentulous) Mouth Openin Fingerbreadth Neck Mobility: Reduced Mallampati classification: III Thyromental Distance: 4-6 cm Mental/Cognitive Status: Normal for patient Plan Anesthesia Type: General Consent for Procedure(s) Verified and Reviewed: Yes Code Status: Do Not Attempt Resuscitation ASA classification: 4-Incapacitating disease Is this case an emergency?: No
[2022-09-27] MEDS: SODIUM CHLORIDE FLUSH 0.9% 10 ML SYRINGE IVP SCH ×2 (09:25→16:32)
[2022-09-27] MEDS: DEXTROSE 5%-0.9% NACL 1,000 ML IV SCH (09:26)
[2022-09-27] MEDS ORDERED: ceFAZolin 1 GM VIAL ONE (09:50)
[2022-09-27] MEDS ORDERED: TRANEXAMIC ACID 1,000 MG/10 ML VIAL ONE (09:51)
[2022-09-27] MEDS ORDERED: HYDROmorphone 1 MG/ML CARPUJECT ONE (10:23)
[2022-09-27] MEDS ORDERED: BUPIVACAINE 0.25% PF 30 ML VIAL SUBQ ONE (10:27)
[2022-09-27] MEDS ORDERED: HYDROmorphone 0.5 MG/0.5 ML SYRINGE IVP PRN (10:28)
[2022-09-27] MEDS ORDERED: NALOXONE 0.4 MG/ML VIAL IVP PRN (10:28)
[2022-09-27] MEDS ORDERED: ATROPINE ABBOJECT 1 MG/10 ML SYRINGE IVP PRN (10:28)
[2022-09-27] MEDS ORDERED: MORPHINE 2 MG/ML CARPUJECT IVP PRN (10:28)
[2022-09-27] MEDS ORDERED: fentaNYL 100 MCG/2 ML VIAL IVP PRN (10:28)
[2022-09-27] MEDS ORDERED: ONDANSETRON 4 MG/2 ML VIAL IVP PRN (10:28)
[2022-09-27] MEDS ORDERED: ROPIVACAINE 0.2% PF 10 ML VIAL ONE (10:46)
[2022-09-27] MEDS ORDERED: SODIUM CHLORIDE 0.9% 10 ML VIAL IVP ONE (10:47)
[2022-09-27] MEDS ORDERED: LACTATED RINGERS 1,000 ML IV SCH (11:00)
--- NOTE | 2022-09-27 11:05 | PROVIDER PROGRESS NOTE ---
Assessment/Plan - Problem List (1) Closed right hip fracture Assessment/Plan: This occurred from a witnessed fall at the CT. Given his hypotension and prior AL, this patient's surgical risk was significant. He received IV fluids and blood pressure stabilized. He had a pre-op bedside Echocardiogram (which I did) yesterday that showed dehydration but otherwise a stable ejection fraction of 40-45% Ortho service took him him to the OR today and he underwent successful hip surgery. Plan: Our UM department has spoken to his regarding plan after surgery: she wants him to go back to [facility] and get Home Health PT and OT by resuming [facility] services, which she understands would be twice a week PT and OT. But he would not do well in a strange SNF, given his dementia. (2) [facility] at [facility] Conclusion/Plan: Given the presentation with severe hypotension, I suspect he probably had orthostasis which caused the fall at his CT Plan: We will continue to give gentle IV fluids one more day since he was NPO for surgery, and given the documented underfilled IVC, and underfilled cardiac chambers on Echo Remain on telemetry (3) Hypotension Conclusion/Plan: I evaluated him for other causes for hypotension: troponins to rule out an AL were unremarkable, Lactic acid level to rule out septic shock was also not elevated. All labs were reviewed POCUS was done in the ER and it showed an underfilled IVC therefore he was volume depleted. Echo was also done yesterday at bedside and this showed underfilled cardiac chambers (and EF stable at 40-45%). IV fluids were given and he is 2L (+) in fluid balance since admissaion. Today his urine culture is growing E. coli. I suspect the UTI was the cause of his hypotension (see #4). His newly discovered anemia could also have added to his hypotension (see #5). Plan: Continue with IV fluids for 1 more day, and we need to monitor his I's and O's carefully because of his history of systolic heart failure We will treat the UTI Will work-up the anemia (4) E coli UTI His abnormal urinalysis was sent for culture. Today the urine culture is growing E. coli. I suspect the UTI was the cause of his hypotension which led to the fall. Plan: We will start daily IV ceftriaxone treatment today, and stop the marycarmen-operative Ancef treatment ordered by Ortho. Await sensitivities from the E. coli to tailor antibiotics if needed (5) Anemia Labs were all reviewed. His admission hemoglobin was 12.8. After getting about 2 L of IV fluids since admission, his hemoglobin is 8 today. Underlying anemia could also have added to his hypotension Plan: Will check B12, folate levels and iron stores and replace if low, follow hemoglobin daily, transfuse if hemoglobin goes under 7 (6) Chronic atrial fibrillation Conclusion/Plan: In reviewing his reconciled med list, he is not on beta-blockers or any heart rate slowing meds. He was also not on anticoagulant or daily aspirin Plan: Continue on telemetry to monitor while he is hospitalized (7) Hx of myocardial infarction Conclusion/Plan: The last echocardiogram was done in 2020. It shows anteroseptal and apical akinesis, LVEF 40%. It is unknown if he ever underwent catheterization. He is not on daily aspirin or statin medications or beta-blockers. I performed his bedside Echo yesterday 09/26, and the Echo showed underfilled cardiac chambers, and EF stable at 40-45%. 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 Plan: Continue with gentle IV fluids, need to monitor his I's and O's carefully because of his history of systolic heart failure (8) Dementia Conclusion/Plan: Plan: We will continue with his [facility] - Current Meds Current Meds: Current Medications Generic Name Dose Route Start Last Admin Trade Name Freq PRN Reason Stop Dose Admin Dextrose/Sodium Chloride 1,000 mls @ 100 mls/hr 09/26/22 11:00 09/27/22 09:26 D5ns IV Not Given .Q10H CHARLEEN Pantoprazole Sodium 40 mg 09/27/22 07:00 09/27/22 06:18 Pantoprazole 40 Mg Tablet PO Not Given QDAC CHARLEEN Quetiapine Fumarate 200 mg 09/26/22 21:00 09/26/22 20:29 Quetiapine 100 Mg Tablet PO 200 mg HS CHARLEEN Administration Sodium Chloride 10 ml 09/26/22 10:48 09/26/22 13:03 Sodium Chloride Flush 0.9% 10 Ml Syringe IVP 10 ml PRN PRN Administration NEEDED PER PROVIDER ORDERS Sodium Chloride 10 ml 09/26/22 17:00 09/27/22 09:25 Sodium Chloride Flush 0.9% 10 Ml Syringe IVP Not Given 0100,0900,1700 CHARLEEN Trazodone HCl 200 mg 09/26/22 21:00 09/26/22 20:31 Trazodone 50 Mg Tablet PO 200 mg HS CHARLEEN Administration - Lab Result Fish Bone Diagrams: 09/27/22 05:12 09/27/22 05:12 - Additional Planning My Orders: My Active Orders 09/26/22 10:48 Activity Orders [RC] Q2HR IO [RC] IOSHIFT Incentive Spirometry - RT [RC] TID Initiate Bowel Care Protocol [RC] .protocol Initiate Line Care Protocol [RC] QSHIFT Initiate Personal Care Protoco [RC] .protocol Oxygen Therapy [RC] .PRN Telemetry- [RC] Q4HR Vital Signs [RC] Q4HR HYDROcod/ACETAM 5/325 [[place] 5/325] 1 tab PO Q4HR PRN HYDROmorphone 0.5MG SYRINGE [Dilaudid 0.5MG Syringe] 0.5 mg IVP Q2H PRN Ondansetron Inj [Zofran Inj] 4 mg IVP Q6HR PRN Sodium Chloride Flush 0.9% [Normal Saline Flush 0.9%] 10 ml IVP PRN PRN Code Status [OTHERS] Routine Condition of Patient [OTHERS] Routine DVT Prophylaxis [OTHERS] Routine 09/26/22 10:49 Daily Weight [RC] 0600 09/26/22 10:50 SCDs [RC] QSHIFT 09/26/22 10:51 Martinez Insertion [RC] QSHIFT 09/26/22 10:52 Acetaminophen [Tylenol] 1,000 mg PO TID PRN Senna [Senokot] 8.6 mg PO BID PRN 09/26/22 11:00 Dextrose 5%-0.9% NaCl [D5ns] 1,000 ml IV 100 mls/hr 09/26/22 12:19 Ibuprofen [Motrin] 400 mg PO Q6HR PRN 09/26/22 12:47 haloperidoL [Haldol] 2 mg PO Q4HR PRN 09/26/22 14:25 CUL, URINE [RM] Stat 09/26/22 17:00 Sodium Chloride Flush 0.9% [Normal Saline Flush 0.9%] 10 ml IVP 0100,0900,1700 09/26/22 21:00 QUEtiapine [SEROquel] 200 mg PO HS traZODone [Desyrel] 200 mg PO HS 09/27/22 07:00 Pantoprazole [Protonix] 40 mg PO QDAC 09/28/22 05:00 BMP - BASIC METABOLIC PANEL [CHEM] DAILYLAB 09/29/22 05:00 BMP - BASIC METABOLIC PANEL [CHEM] DAILYLAB 09/30/22 05:00 BMP - BASIC METABOLIC PANEL [CHEM] DAILYLAB Subjective - Subjective Patient Reports: Resting Comfortably Objective Vital Signs: Vital Signs - 24 hr 09/26/22 09/26/22 09/26/22 11:41 12:32 15:37 Temperature 37 C 37.2 C Heart Rate 87 Heart Rate [ 100 Brachial] Heart Rate [ 86 Monitoring electrodes] Respiratory 15 16 18 Rate Blood Pressure 122/68 Blood Pressure 144/65 H 102/56 L [Right Brachial artery] O2 Saturation 97 96 100 09/26/22 09/26/22 09/27/22 21:00 23:54 05:00 Temperature 36.8 C 37.7 C 36.6 C Heart Rate Heart Rate [ 97 101 H 93 Brachial] Heart Rate [ Monitoring electrodes] Respiratory 18 20 20 Rate Blood Pressure Blood Pressure 126/58 L 116/55 L 113/48 L [Right Brachial artery] O2 Saturation 99 95 97 09/27/22 09:00 Temperature 36.7 C Heart Rate Heart Rate [ 91 Brachial] Heart Rate [ Monitoring electrodes] Respiratory 18 Rate Blood Pressure Blood Pressure 107/71 [Right Brachial artery] O2 Saturation 98 Oxygen O2 Source Room air I&O (Last 24 Hrs): Intake and Output Totals x24h 09/25/22 09/26/22 09/27/22 23:59 23:59 23:59 Intake Total 2111.666 1000 Output Total 250 225 Balance 1861.666 775 General: Alert, No acute distress, Other (Cachectic) HEENT: Mucous membr. moist/pink Neck: Supple Neuro: Alert, Disoriented, Non Focal Cardiovascular: Other (His PMI is vertically displaced and heart sounds are very distant) Respiratory: No respiratory distress Abdomen: Normal bowel sounds Extremities: No clubbing, No edema, No tenderness/swelling - Results Results: Laboratory Results WBC 5.3 x10^3/uL (4.8-10.8) 09/27/22 05:12 RBC 2.42 10^6/uL (4.70-6.10) L 09/27/22 05:12 Hgb 8.0 g/dL (14.0-18.0) L 09/27/22 05:12 Hct 25.1 % (42.0-52.0) L 09/27/22 05:12 MCV 103.7 fL (80.0-94.0) H 09/27/22 05:12 MCH 33.1 pg (27.0-31.0) H 09/27/22 05:12 MCHC 31.9 g/dL (32.0-36.0) L 09/27/22 05:12 RDW 14.1 % (12.0-15.0) 09/27/22 05:12 Plt Count 85 10^3/uL (130-450) L 09/27/22 05:12 MPV 8.8 fL (7.4-11.4) 09/27/22 05:12 Neut # (Auto) 3.5 10^3/uL (1.5-6.6) 09/27/22 05:12 Lymph # (Auto) 1.2 10^3/uL (1.5-3.5) L 09/27/22 05:12 [place] # (Auto) 0.5 10^3/uL (0.0-1.0) 09/27/22 05:12 Eos # (Auto) 0.0 10^3/uL (0.0-0.7) 09/27/22 05:12 Baso # (Auto) 0.0 10^3/uL (0.0-0.1) 09/27/22 05:12 Absolute Nucleated RBC 0.00 x10^3/uL 09/27/22 05:12 Nucleated RBC % 0.0 /100WBC 09/27/22 05:12 PT 11.8 secs (9.9-12.6) 09/26/22 05:58 INR 1.1 (0.8-1.2) 09/26/22 05:58 Sodium 142 mmol/L (135-145) 09/27/22 05:12 Potassium 3.5 mmol/L (3.5-5.0) 09/27/22 05:12 Chloride 105 mmol/L (101-111) 09/27/22 05:12 Carbon Dioxide 27 mmol/L (21-32) 09/27/22 05:12 Anion Gap 10.0 (6-13) 09/27/22 05:12 BUN 18 mg/dL (6-20) 09/27/22 05:12 Creatinine 0.8 mg/dL (0.6-1.2) 09/27/22 05:12 Estimated GFR (MDRD) 91 (>89) 09/27/22 05:12 Glucose 137 mg/dL (70-100) H 09/27/22 05:12 Lactic Acid 1.9 mmol/L (0.5-2.2) 09/26/22 11:11 Calcium 7.8 mg/dL (8.5-10.3) L 09/27/22 05:12 Magnesium 1.7 mg/dL (1.7-2.8) 09/27/22 05:12 Total Bilirubin 0.6 mg/dL (0.2-1.0) 09/26/22 05:58 AST 21 IU/L (10-42) 09/26/22 05:58 ALT 18 IU/L (10-60) 09/26/22 05:58 Alkaline Phosphatase 63 IU/L (42-121) 09/26/22 05:58 Troponin I High Sens 3.9 ng/L (2.3-19.7) 09/26/22 14:55 Total Protein 6.9 g/dL (6.7-8.2) 09/26/22 05:58 Albumin 3.6 g/dL (3.2-5.5) 09/26/22 05:58 Globulin 3.3 g/dL (2.1-4.2) 09/26/22 05:58 Albumin/Globulin Ratio 1.1 (1.0-2.2) 09/26/22 05:58 Urine Color YELLOW 09/26/22 14:25 Urine Clarity CLOUDY (CLEAR) 09/26/22 14:25 Urine pH 7.0 PH (5.0-7.5) 09/26/22 14:25 Ur Specific [place] 1.020 (1.002-1.030) 09/26/22 14:25 Urine Protein TRACE mg/dL (NEGATIVE) 09/26/22 14:25 Urine Glucose (UA) NEGATIVE mg/dL (NEGATIVE) 09/26/22 14:25 Urine Ketones NEGATIVE mg/dL (NEGATIVE) 09/26/22 14:25 Urine Occult Blood NEGATIVE (NEGATIVE) 09/26/22 14:25 Urine Nitrite POSITIVE (NEGATIVE) H 09/26/22 14:25 Urine Bilirubin NEGATIVE (NEGATIVE) 09/26/22 14:25 Urine Urobilinogen 2 E.U./dL (NORMAL) H 09/26/22 14:25 Ur Leukocyte Esterase MODERATE (NEGATIVE) H 09/26/22 14:25 Urine RBC None Seen /HPF (0-5) 09/26/22 14:25 Urine WBC >25 /HPF (0-3) H 09/26/22 14:25 Ur Squamous Epith Cells NONE SEEN (<= Few) 09/26/22 14:25 Amorphous Sediment Few /LPF 09/26/22 14:25 Urine Bacteria Many /HPF (None Seen) H 09/26/22 14:25 Urine Culture Comments INDICATED 09/26/22 14:25 Blood Type AB POSITIVE 09/26/22 05:58 Blood Type Recheck AB POSITIVE 09/26/22 07:47 Antibody Screen NEGATIVE 09/26/22 05:58
[2022-09-27] MEDS ORDERED: CALCIUM CHLORIDE ABBOJECT 1000MG/10 ML SYRINGE ONE (11:11)
--- NOTE | 2022-09-27 11:16 | OPERATIVE REPORT ---
Operative Report - General Admit Date: 09/26/22 Procedure Date: 09/27/22 Planned Procedure: Open reduction internal fixation right intertrochanteric hip fracture Pre-Op Diagnosis: Displaced, reverse obliquity intertrochanteric fracture right hip Procedure Performed: Open reduction internal fixation right intertrochanteric hip fracture with [employer] intramedullary 7.5 mm diameter short nail with 95/90 mm integrated hip lag screw and compression screw, 30 mm distal locking screw Post Op Diagnosis: Same as preoperative diagnosis - Procedure Note Primary Surgeon: Shane Martinez MD Secondary Surgeon: Lia Rajput PAC Anesthesia Provider: Grisel Orlando CRNA Anesthesia Technique: General ET tube Estimated Blood Loss (mL): 75 Indications: This is a 87-year-old gentleman, resident at a memory care facility in [facility], who sustained a ground-level fall at his place of residence before admission, landing on right hip. This was a witnessed fall. He was unable to bear weight on right leg. He is normally ambulatory. He had pain and deformity to right hip. He was seen in the emergency room where he was evaluated and consulted with the hospital service and orthopedics. He has shortening and external rotation deformity, limited and painful movement of right hip, otherwise no sign of trauma to remaining extremities. His x-rays show a shortened, comminuted displaced reverse obliquity intertrochanteric hip fracture. He had preoperative medical evaluation and hydration. His comorbidities are significant including frailty of age, dementia, anemia, dehydration and history of myocardial infarction and atrial fibrillation. He was not anticoagulated on admission. He had an informed consent which was obtained from his who has documented being in the power of patternmaker. In addition, I discussed treatment options with his daughter who also was in agreement to proceeding with surgery. Both his and daughter were in agreement, received informed consent and documented by telephone consent. All providers felt it was appropriate to proceed as the patient was stabilized prior to his hip surgery. Findings: Comminuted, displaced intertrochanteric fracture right hip with osteopenia Complications: None - Other Other Information/Narrative: After satisfactory spinal anesthesia was achieved, the patient was transferred to the [place] fracture table in the supine position. Boot traction was applied to the Right foot and well-leg simental to the nonoperative Leftleg. Traction was applied to the Right leg through the boot with the patella facing superiorly and the hip in a neutral position with regard to abduction and adduction and hip flexion/extension. The C-arm was used to assess the reduction and showed excellent alignment on both AP and lateral views. The Right hip was then prepped and draped in a sterile manner in the usual fashion using a vertical [place] transparent barrier. A 4 to 5 cm incision was made in line with the greater trochanter but proximal to the greater trochanter. The subcutaneous tissue and fascia were split. A starting bone awl was used to engage the trochanteric fossa at its most lateral edge. The starting awl was impacted to lesser trochanter and a guidepin was then inserted. The position of the guidepin was confirmed on both AP and lateral views. Reaming was then carried out with the starting entry reamer. The 11.5 mm diameter thao and guide was then utilized to insert the thao through the trochanteric area and pushed distally using C-arm image intensifier and biplanar mode. The leg screw guidepin was inserted through a separate incision more distal. This was inserted in the proximate midline in both AP and lateral C arm images. The depth of the guidepin was 98 mm. The compression screw drills were then utilized both short and long. The antirotation bar was inserted. The lag screw reamer was then utilized and placed over the previously inserted pin to the appropriate depth. The 95 mm lag screw was inserted and the compression screw followed achieving nice compression at the fracture site. The alignment of the fracture was very good on both AP and lateral views as well as the fixation. A third incision was made for the distal locking screw. Bicortical fixation was achieved with a 30 mm cortical screw. The wounds were irrigated. The fascial layer was closed with #1 strata fix suture.The subcutaneous tissue was closed with 2-0 Strata fix and the skin was closed with 3-0 Monocryl, Dermabond and dry sterile dressings. There is no deformity to the leg. The patient tolerated the procedure well. The patient did receive 2 g of Ancef prior to the incision.The patient also received a gram of Tranexamic acidA physician insurance claims assistant was medically necessary to help with prepping and draping, positioning, protection of vital structures, assistance during the procedure including wound closure, dressing and/or splinting.
[2022-09-27] MEDS ORDERED: DOCUSATE SODIUM 100 MG CAPSULE PO PRN (11:43)
[2022-09-27] MEDS ORDERED: NS W/20 MEQ KCL 1,000 ML IV SCH (12:00)
[2022-09-27] MEDS ORDERED: ENOXAPARIN 40 MG/0.4 ML SYRINGE SUBQ SCH (12:00)
[2022-09-27] MEDS ORDERED: LACTATED RINGERS 700 ML IV ONE (12:00)
[2022-09-27] MEDS ORDERED: ceFAZolin 2 GM in SODIUM CHLORIDE 0.9% MINIBAG 100 ML IV SCH (12:00)
[2022-09-27] MEDS ORDERED: ACETAMINOPHEN 1,000 MG/100 ML 1,000 MG/100 ML BAG IV ONE ×2 (12:03→12:15)
--- NOTE | 2022-09-27 12:18 | ANESTHESIA POST OP EVALUATION ---
Anesthesia Post Eval - Post Anesthesia Eval Vitals: Last Vital Signs Temp 36.5 C 09/27/22 12:00 Pulse 89 09/27/22 12:00 Resp 8 L 09/27/22 12:00 BP 118/55 L 09/27/22 12:00 Pulse Ox 94 09/27/22 12:00 O2 Flow Rate CV Function Including HR & BP: Stable Pain Control: Satisfactory Nausea & Vomiting: Negative Mental Status: Baseline Respiratory Status: Airway Patent Hydration Status: Satisfactory Anesthesia Complications: None
[2022-09-27] MEDS: cefTRIAXone 1 GM in SODIUM CHLORIDE 0.9% MINIBAG 100 ML IV SCH (13:21)
[2022-09-27] MEDS: IBUPROFEN 400 MG TABLET PO PRN (16:32)
[2022-09-27] MEDS: QUEtiapine 100 MG TABLET PO SCH (20:23)
[2022-09-27] MEDS: traZODone 50 MG TABLET PO SCH (20:25)
[2022-09-27] MEDS: ACETAMINOPHEN 500 MG TABLET PO PRN (20:26)
[2022-09-28] MEDS: SODIUM CHLORIDE FLUSH 0.9% 10 ML SYRINGE IVP SCH ×3 (01:54→18:31)
[2022-09-28] MEDS: ACETAMINOPHEN 500 MG TABLET PO PRN ×2 (06:16→16:32)
[2022-09-28] MEDS: PANTOPRAZOLE 40 MG TABLET PO SCH (06:17)
[2022-09-28 07:11] LABS: CALCIUM 8.2 mg/dL (8.5-10.3); CREATININE 0.7 mg/dL (0.6-1.2); POTASSIUM 3.8 mmol/L (3.5-5.0)
[2022-09-28 07:20] LABS: BASOPHILS % (AUTO) 0.2 %; EOSINOPHILS % (AUTO) 0.6 %; LYMPHOCYTES # (AUTO) 0.8 10^3/uL (1.5-3.5); LYMPHOCYTES % (AUTO) 12.3 %; MEAN CORPUSCULAR HEMOGLOBIN 33.2 pg (27.0-31.0); MEAN CORPUSCULAR HGB CONC 32.1 g/dL (32.0-36.0); MEAN CORPUSCULAR VOLUME 103.2 fL (80.0-94.0); MEAN PLATELET VOLUME 9.8 fL (7.4-11.4); MONOCYTES # (AUTO) 0.5 10^3/uL (0.0-1.0); MONOCYTES % (AUTO) 8.2 %; NEUTROPHILS % (AUTO) 78.2 %; PLT - PLATELET COUNT 72 10^3/uL (130-450); RED CELL DISTRIBUTION WIDTH 14.1 % (12.0-15.0); WHITE BLOOD COUNT 6.4 x10^3/uL (4.8-10.8)
[2022-09-28 07:24] LABS: HCT - HEMATOCRIT 19.6 % (42.0-52.0); HGB - HEMOGLOBIN 6.3 g/dL (14.0-18.0)
[2022-09-28 07:33] LABS: FOLATE 4.62 ng/mL (5.90 - >24.8)
[2022-09-28] MEDS ORDERED: CYANOCOBALAMIN 1,000 MCG/ML VIAL IM ONE (08:38)
[2022-09-28] MEDS ORDERED: PROCAINAMIDE 100 MG/1 ML 10 ML MDV IV ONE (08:41)
[2022-09-28] MEDS: cefTRIAXone 1 GM in SODIUM CHLORIDE 0.9% MINIBAG 100 ML IV SCH (09:20)
[2022-09-28] MEDS: ENOXAPARIN 40 MG/0.4 ML SYRINGE SUBQ SCH (09:21)
[2022-09-28] MEDS: IBUPROFEN 400 MG TABLET PO PRN ×2 (12:38→19:45)
--- NOTE | 2022-09-28 14:32 | PROVIDER PROGRESS NOTE ---
Progress Note September 28, 2022 8:30 AM Patient was sitting up in bed. Waiting for the aide to come in so we can go to the bathroom. He said that his pain was controlled. But he was really really tired. When I asked him if he knew where he was, he said he was at [facility] [place] [facility]. He did not know the date. But he knew something had gone on with his leg. Active Medications Acetaminophen (Acetaminophen 500 Mg Tablet) 1,000 mg PO TID PRN PRN Reason: PAIN 1-4 Last Admin: 09/28/22 06:16 Dose: 1,000 mg Hydrocodone Bitart/Acetaminophen (Hydrocod/Acetam 5/325 Mg Tablet) 1 tab PO Q4HR PRN PRN Reason: Pain 5 to 7 Docusate Sodium (Docusate Sodium 100 Mg Capsule) 100 mg PO BID PRN PRN Reason: Constipation Enoxaparin Sodium (Enoxaparin 40 Mg/0.4 Ml Syringe) 40 mg SUBQ Q24H [facility] Last Admin: 09/28/22 09:21 Dose: Not Given Haloperidol (Haloperidol 1 Mg Tablet) 2 mg PO Q4HR PRN PRN Reason: Agitation Hydromorphone HCl (Hydromorphone 0.5 Mg/0.5 Ml Syringe) 0.5 mg IVP Q2H PRN PRN Reason: Pain 8 to 10 Ceftriaxone Sodium 1 gm/ (Sodium Chloride) 100 mls @ 200 mls/hr IV DAILY [facility] Last Infusion: 09/28/22 09:55 Dose: Infused Ibuprofen (Ibuprofen 400 Mg Tablet) 400 mg PO Q6HR PRN PRN Reason: PAIN 1-4 Last Admin: 09/28/22 12:38 Dose: 400 mg Ondansetron HCl (Ondansetron 4 Mg/2 Ml Vial) 4 mg IVP Q6HR PRN PRN Reason: Nausea / Vomiting Pantoprazole Sodium (Pantoprazole 40 Mg Tablet) 40 mg PO QDAC [facility] Last Admin: 09/28/22 06:17 Dose: 40 mg Quetiapine Fumarate (Quetiapine 100 Mg Tablet) 200 mg PO HS [facility] Last Admin: 09/27/22 20:23 Dose: 200 mg Senna (Senna 8.6 Mg Tablet) 8.6 mg PO BID PRN PRN Reason: Constipation Sodium Chloride (Sodium Chloride Flush 0.9% 10 Ml Syringe) 10 ml IVP PRN PRN PRN Reason: NEEDED PER PROVIDER ORDERS Last Admin: 09/26/22 13:03 Dose: 10 ml Sodium Chloride (Sodium Chloride Flush 0.9% 10 Ml Syringe) 10 ml IVP 0100,0900,1700 [facility] Last Admin: 09/28/22 09:12 Dose: 10 ml Trazodone HCl (Trazodone 50 Mg Tablet) 200 mg PO HS [facility] Last Admin: 09/27/22 20:25 Dose: 200 mg Home Meds: QUEtiapine [SEROquel] 50 mg PO 1200 06/04/21 Acetaminophen [Tylenol] 1,000 mg PO TID PRN 09/26/22 Bisacodyl Supp [Dulcolax Supp] 10 mg DC DAILY PRN 09/26/22 Haloperidol Lactate 2 mg PO Q4HR PRN 09/26/22 Ibuprofen 400 mg PO Q6HR PRN 09/26/22 Omeprazole Magnesium 20 mg PO DAILY 09/26/22 Quetiapine Fumarate [Seroquel] 200 mg PO HS 09/26/22 Senna [Senokot] 8.6 mg PO BID PRN 09/26/22 Trazodone HCl 200 mg PO 09/26/22 Exam: Temperature is 36.3. Heart rate 94. Blood pressure 90/64. That is sitting. And supine blood pressure was 93/53. He is 94% saturated on room air. Frail appearing with cachexia, but alert and cooperative. Speech is not very well enunciated. He does not have his dentures in. Neck is supple Lungs have diminished breath sounds at the bases but otherwise clear. No crackles rhonchi or wheezing. Regular rate and rhythm. Abdomen soft, nontender. Hypoactive bowel sounds. Last known bowel movement was September 23. In reviewing pictures that the nurses took of his skin, his sacrum is deeply red going into the gluteal cleft. Wound is covered on the leg. Bandages clean and dry Right leg has edema. But no redness or heat. He has limited motion of the right leg. Trying to get him to sit up and move it causes him to start having tremors with anxiety. Alert but confused, immediately forgets what I said to him, is repetitive. This causes him to be anxious. But no focal deficits. Labs: Sodium 143, potassium 3.8, BUN 19, creatinine 0.7. Glucose has been controlled while he is here. Today is 119. Yesterday it was 139. Iron studies were done and his iron is low at 14, TIBC is low at 217, percent saturation is low at 6%, transfer and is low at 155. Vitamin B12 is also low at 117, and folate is low as 4.62. Baseline hemoglobin is 14.4 for him. Admission hemoglobin was 12.8. And he is drifted down to 6.3 on postoperative day #1 (today). Assessment/Plan - Problem List (1) Closed right hip fracture Assessment/Plan: POD #1 today. This occurred from a witnessed fall at the [facility]. Given his hypotension and prior MS, this patient's surgical risk was significant. He received IV fluids and blood pressure stabilized. He had a pre-op bedside Echocardiogram (which hospitalist did) that showed dehydration but otherwise a stable ejection fraction of 40-45% Ortho service took him him to the OR 09/27 and he underwent successful hip surgery. Plan: Our department has spoken to his regarding plan after surgery: she wants him to go back to [facility] and get Home Health PT and OT by resuming [facility] services, which she understands would be twice a week PT and OT. But he would not do well in a strange SNF, given his dementia. My plan is to discharge him on postop day #3. There is no physical therapy and Occupational Therapy available since last week. Hopefully he can be seen and evaluated tomorrow when our therapist returns from vacation. Once I can get a better understanding of his mobility or his restrictions, he can be then discharged. (2) Fall at [place] [facility] Conclusion/Plan: Given the presentation with severe hypotension, It is suspected he probably had orthostasis which caused the fall at his [facility]. He has received IV fluids, and is on telemetry. There have been no arrhythmias. Plan: Stop maintenance IV fluids Remain on telemetry (3) Hypotension Conclusion/Plan: He was evaluated for other causes for hypotension: troponins to rule out an MS were unremarkable, Lactic acid level to rule out septic shock was also not elevated. All labs were reviewed POCUS was done in the ER and it showed an underfilled IVC therefore he was volume depleted. Echo was also done at bedside and this showed underfilled cardiac chambers (and EF stable at 40-45%). IV fluids were given and he is ~ 3500 cc (+) in fluid balance as of today since admission. 09/27 his urine culture was growing E. coli. We suspect the UTI was the cause of his hypotension (see #4). His newly discovered anemia could also have added to his hypotension (see #5). Plan: Stop IV fluid maintenance. Monitor for signs and symptoms of fluid overload for congestive heart failure. We will treat the UTI, Today's day #2 of treatment I am treating anemia that is contributed to his hypotension with a blood transfusion, iron tablets and vitamin B12 IM (4) E coli UTI His abnormal urinalysis was sent for culture. 09/27 the urine culture was growing E. coli. I suspect the UTI was the cause of his hypotension which led to the fall. E. coli resistant to ampicillin, Unasyn, Cipro, gentamicin, Levaquin, tobramycin and sulfa. It is sensitive to the ceftriaxone. Plan: Day #2/ of ceftriaxone. I do not planning changing antibiotics since he is resistant to the above listed. (5) Acute blood loss anemia Iron deficiency anemia B12/Folate deficiency Anemia Labs were all reviewed. His admission hemoglobin was 12.8. After getting about 2 L of IV fluids since admission, and he underwent surgery, his hemoglobin is 6.3 today. I do think, underlying anemia is adding to his hypotension Plan: I will order ferrous gluconate 324 mg daily plus vitamin C 500 mg to go with that. I will also order vitamin B12 1000 mg subcu once and he will need to start s upplementation. My suspicion is this gentleman may have nutritional deficiency. He could have intrinsic factor antibodies but he appears so thin and probably with moderate protein calorie malnutrition. (6) Chronic atrial fibrillation Conclusion/Plan: In reviewing his reconciled med list, he is not on beta-blockers or any heart rate slowing meds. He was also not on anticoagulant or daily aspirin Plan: Continue on telemetry to monitor while he is hospitalized (7) Hx of myocardial infarction Conclusion/Plan: The last echocardiogram was done in 2020. It shows anteroseptal and apical akinesis, LVEF 40%. It is unknown if he ever underwent catheterization. He is not on daily aspirin or statin medications or beta-blockers. Hospitalist performed his bedside Echo 09/26, and the Echo showed underfilled cardiac chambers, and EF stable at 40-45%. 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 Plan: stop IVF (8) Dementia with anxiety Conclusion/Plan: Plan: We will continue with his usual medications that he gets at the [place] [facility]. That includes Haldol 2 mg p.o. every 4 hours as needed agitation,Seroquel 200 milligrams p.o. nightly, trazodone 200 mg p.o. nightly. He is on Zofran for nausea. We will check routine EKG to monitor for prolonged QT syndrome (9)
--- NOTE | 2022-09-28 14:37 | PROVIDER PROGRESS NOTE ---
Subjective - General Admit Date: 09/26/22 Procedure Date: 09/27/22 Post Op Days: 1 Procedure Performed: Open reduction internal fixation, right hip with short nail - Review of Systems All Other Systems: positive: Other (Unable to obtain any ROS because of his severe dementia) - Other Other Information/Narrative: Lying semirecumbent in bed Reports adequate pain control today Reportedly worked with occupational therapy prior to my arrival Minimal appetite Objective - Patient Data Reviewed Vital Signs: Yes Vital Signs: Vital Signs x48h Temp Pulse Pulse Resp BP BP BP 09/28/22 12:15 36.8 C 95 16 91/48 L 09/28/22 11:50 36.8 C 98 16 92/47 L 09/28/22 11:04 36.5 C 88 20 93/53 L 09/28/22 10:59 94 90/64 93/53 L Pulse Ox Pulse Ox 09/28/22 12:15 98 09/28/22 11:50 97 09/28/22 11:04 94 09/28/22 10:59 94 Weight: Weight 09/26/22 09/27/22 09/28/22 23:59 23:59 23:59 Weight (kg) 65.77 kg 63 kg 63 kg Intake & Output: Intake and Output Totals x24h 09/26/22 09/27/22 09/28/22 23:59 23:59 23:59 Intake Total 2111.666 1755 565 Output Total 250 475 900 Balance 4647.941 1321 335 - Lab Results Lab Results: 09/28/22 06:30 09/28/22 06:30 Other Lab Results: Lab Results x24hrs 09/28/22 09/28/22 09/28/22 Range/Units 09:13 06:30 06:30 WBC 6.4 (4.8-10.8) x10^3/uL RBC 1.90 L (4.70-6.10) 10^6/uL Hgb 6.3 L* (14.0-18.0) g/dL Hct 19.6 L* (42.0-52.0) % MCV 103.2 H (80.0-94.0) fL MCH 33.2 H (27.0-31.0) pg MCHC 32.1 (32.0-36.0) g/dL RDW 14.1 (12.0-15.0) % Plt Count 72 L (130-450) 10^3/uL MPV 9.8 (7.4-11.4) fL Neut # (Auto) 5.0 (1.5-6.6) 10^3/uL Lymph # (Auto) 0.8 L (1.5-3.5) 10^3/uL [place] # (Auto) 0.5 (0.0-1.0) 10^3/uL Eos # (Auto) 0.0 (0.0-0.7) 10^3/uL Baso # (Auto) 0.0 (0.0-0.1) 10^3/uL Absolute Nucleated RBC 0.00 x10^3/uL Nucleated RBC % 0.0 /100WBC Sodium (135-145) mmol/L Potassium (3.5-5.0) mmol/L Chloride (101-111) mmol/L Carbon Dioxide (21-32) mmol/L Anion Gap (6-13) BUN (6-20) mg/dL Creatinine (0.6-1.2) mg/dL Estimated GFR (MDRD) (>89) Glucose (70-100) mg/dL Calcium (8.5-10.3) mg/dL Iron (45-182) ug/dL TIBC (250-450) ug/dL % Saturation (20-50) % Transferrin (180-329) mg/dL Vitamin B12 117 L (180-914) pg/mL Folate 4.62 L (5.90 - >24.8) ng/mL Blood Type AB POSITIVE Antibody Screen NEGATIVE Crossmatch IS Only See Detail 09/28/22 Range/Units 06:30 WBC (4.8-10.8) x10^3/uL RBC (4.70-6.10) 10^6/uL Hgb (14.0-18.0) g/dL Hct (42.0-52.0) % MCV (80.0-94.0) fL MCH (27.0-31.0) pg MCHC (32.0-36.0) g/dL RDW (12.0-15.0) % Plt Count (130-450) 10^3/uL MPV (7.4-11.4) fL Neut # (Auto) (1.5-6.6) 10^3/uL Lymph # (Auto) (1.5-3.5) 10^3/uL [place] # (Auto) (0.0-1.0) 10^3/uL Eos # (Auto) (0.0-0.7) 10^3/uL Baso # (Auto) (0.0-0.1) 10^3/uL Absolute Nucleated RBC x10^3/uL Nucleated RBC % /100WBC Sodium 143 (135-145) mmol/L Potassium 3.8 (3.5-5.0) mmol/L Chloride 109 (101-111) mmol/L Carbon Dioxide 26 (21-32) mmol/L Anion Gap 8.0 (6-13) BUN 19 (6-20) mg/dL Creatinine 0.7 (0.6-1.2) mg/dL Estimated GFR (MDRD) 106 (>89) Glucose 119 H (70-100) mg/dL Calcium 8.2 L (8.5-10.3) mg/dL Iron 14 L (45-182) ug/dL TIBC 217 L (250-450) ug/dL % Saturation 6 L (20-50) % Transferrin 155 L (180-329) mg/dL Vitamin B12 (180-914) pg/mL Folate (5.90 - >24.8) ng/mL Blood Type Antibody Screen Crossmatch IS Only - Current Medications Current Medications: Current Medications Generic Name Dose Route Start Last Admin Trade Name Freq PRN Reason Stop Dose Admin Acetaminophen 1,000 mg 09/26/22 10:52 09/28/22 06:16 Acetaminophen 500 Mg Tablet PO 1,000 mg TID PRN Administration PAIN 1-4 Enoxaparin Sodium 40 mg 09/28/22 09:00 09/28/22 09:21 Enoxaparin 40 Mg/0.4 Ml Syringe SUBQ Not Given Q24H [facility]LEEN Ceftriaxone Sodium 1 gm/ 100 mls @ 200 mls/hr 09/27/22 13:00 09/28/22 09:55 Sodium Chloride IV Infused DAILY [facility] Infusion Ibuprofen 400 mg 09/26/22 12:19 09/28/22 12:38 Ibuprofen 400 Mg Tablet PO 400 mg Q6HR PRN Administration PAIN 1-4 Pantoprazole Sodium 40 mg 09/27/22 07:00 09/28/22 06:17 Pantoprazole 40 Mg Tablet PO 40 mg QDAC CHARLEEN Administration Quetiapine Fumarate 200 mg 09/26/22 21:00 09/27/22 20:23 Quetiapine 100 Mg Tablet PO 200 mg HS CHARLEEN Administration Sodium Chloride 10 ml 09/26/22 10:48 09/26/22 13:03 Sodium Chloride Flush 0.9% 10 Ml Syringe IVP 10 ml PRN PRN Administration NEEDED PER PROVIDER ORDERS Sodium Chloride 10 ml 09/26/22 17:00 09/28/22 09:12 Sodium Chloride Flush 0.9% 10 Ml Syringe IVP 10 ml 0100,0900,1700 [facility]RALE[facility] Administration Trazodone HCl 200 mg 09/26/22 21:00 09/27/22 20:25 Trazodone 50 Mg Tablet PO 200 mg HS CHARLEEN Administration - Physical Exam Comments/Other: Well-developed, well-nourished, 87-year-old male, no acute distress Alert, not oriented Dressing is intact with about 2 cm of sanguinous drainage on the distal Mepilex about the second incision Neurovascular intact to the right lower extremity ABX Reporting Has patient been on IV antibiotics over the past 48 hours?: Yes Impression/Plan - Problem List Problem List: 87-year-old male with past medical history of atrial fibrillation (not on anticoagulation), chronic indwelling Martinez catheter, dimension, anemia, type II myocardial infarction, and GERD is postoperative day 1 from an open reduction internal fixation of the right hip with a short intramedullary nail by [employer]. Surgery was performed on 09/27/[address] Martinez at [facility]. He has adequate pain control. Today he was found to have a hemoglobin of 6.3 and is now status post transfusion of 2 units. His platelets continue to downtrend to 72 today, Lovenox was held in the setting of thrombocytopenia. Plan: -Weightbearing as tolerated with front wheeled walker -Physical therapy and Occupational Therapy following for evaluation and assessment -Disposition likely to return [facility] -DVT prophylaxis with Lovenox, discussed with hospitalist physician the risks and benefits of using Eliquis instead given thrombocytopenia. Continue SCDs -Oral diet, can discontinue fluids when tolerating oral intake without nausea and vomiting -Mepilex dressing to remain in place until follow-up with orthopedic clinic -Follow-up with orthopedic clinic within 1 week of discharge, no sutures or aroldo need to be removed -Bowel regimen to be continued -Pain management per hospitalist physician
[2022-09-28] MEDS: FERROUS GLUCONATE 324 MG TABLET PO SCH (16:31)
[2022-09-28] MEDS: PRENATAL VITAMIN TABLET PO SCH (17:10)
[2022-09-28] MEDS: DOCUSATE SODIUM 250 MG CAPSULE PO SCH ×3 (18:21→19:54)
[2022-09-28] MEDS: SENNA 8.6 MG TABLET PO SCH ×3 (18:21→19:53)
[2022-09-28] MEDS: traZODone 50 MG TABLET PO SCH (21:08)
[2022-09-28] MEDS: QUEtiapine 100 MG TABLET PO SCH (21:08)
[2022-09-29] MEDS: SODIUM CHLORIDE FLUSH 0.9% 10 ML SYRINGE IVP SCH ×3 (02:18→20:28)
[2022-09-29 05:43] LABS: BASOPHILS % (AUTO) 0.3 %; EOSINOPHILS # (AUTO) 0.2 10^3/uL (0.0-0.7); EOSINOPHILS % (AUTO) 3.7 %; HCT - HEMATOCRIT 22.7 % (42.0-52.0); HGB - HEMOGLOBIN 7.4 g/dL (14.0-18.0); LYMPHOCYTES # (AUTO) 1.3 10^3/uL (1.5-3.5); LYMPHOCYTES % (AUTO) 21.3 %; MEAN CORPUSCULAR HEMOGLOBIN 31.6 pg (27.0-31.0); MEAN CORPUSCULAR HGB CONC 32.6 g/dL (32.0-36.0); MEAN PLATELET VOLUME 9.5 fL (7.4-11.4); MONOCYTES # (AUTO) 0.6 10^3/uL (0.0-1.0); MONOCYTES % (AUTO) 9.3 %; NEUTROPHILS # (AUTO) 3.9 10^3/uL (1.5-6.6); NEUTROPHILS % (AUTO) 65.1 %; PLT - PLATELET COUNT 83 10^3/uL (130-450); RED BLOOD COUNT 2.34 10^6/uL (4.70-6.10); RED CELL DISTRIBUTION WIDTH 17.2 % (12.0-15.0)
[2022-09-29 05:53] LABS: CALCIUM 8.2 mg/dL (8.5-10.3); CREATININE 0.8 mg/dL (0.6-1.2); POTASSIUM 3.5 mmol/L (3.5-5.0)
[2022-09-29] MEDS: ASCORBIC ACID 500 MG TABLET PO SCH (06:33)
[2022-09-29] MEDS: PANTOPRAZOLE 40 MG TABLET PO SCH (06:33)
[2022-09-29] MEDS: CALCIUM CARBONATE CHEW 500 MG TABLET PO SCH (08:31)
[2022-09-29] MEDS: CHOLECALCIFEROL 25 MCG TABLET PO SCH (08:32)
[2022-09-29] MEDS: SENNA 8.6 MG TABLET PO SCH (08:32)
[2022-09-29] MEDS: ACETAMINOPHEN 500 MG TABLET PO PRN (08:32)
[2022-09-29] MEDS: FERROUS GLUCONATE 324 MG TABLET PO SCH (08:33)
[2022-09-29] MEDS: cefTRIAXone 1 GM in SODIUM CHLORIDE 0.9% MINIBAG 100 ML IV SCH (08:33)
[2022-09-29] MEDS: DOCUSATE SODIUM 250 MG CAPSULE PO SCH (08:33)
[2022-09-29] MEDS: PRENATAL VITAMIN TABLET PO SCH (08:33)
[2022-09-29] MEDS: polyethylene glycoL 3350 17 GM PACKET PO SCH (08:33)
[2022-09-29] MEDS ORDERED: SODIUM CHLORIDE 0.9% 500 ML IV ONE (08:48)
[2022-09-29] MEDS: ENOXAPARIN 40 MG/0.4 ML SYRINGE SUBQ SCH (09:34)
[2022-09-29] MEDS: IBUPROFEN 400 MG TABLET PO PRN (11:59)
--- NOTE | 2022-09-29 14:03 | PROVIDER PROGRESS NOTE ---
Progress Note September 29, 2022 1:32 PM is stated that he really needs to go back to his [facility] facility. He already has limited mobility there and was sent entry in his wheelchair. He had gotten up and he had fallen. But he does not do well in new surroundings. So when we suggested that he may need to go to a different residential for rehab and then return to his residential facility made it clear to hospital social worker Arianna that he could not. He gets too easily confused in new surroundings and would only deteriorate not improve according to 's assessment. He is confused today, anxious. Speaking Bulgarian. Requiring 2-3 people to sit him up and to stand him and he is resisting because he does not understand. He is pooling his food in his buccal cavitiy. He has no teeth. And the peaches given to him yesterday he is pocketing into the side of his mouth and he pulled them out later. Active Medications Acetaminophen (Acetaminophen 500 Mg Tablet) 1,000 mg PO TID PRN PRN Reason: PAIN 1-4 Last Admin: 09/29/22 08:32 Dose: 1,000 mg Hydrocodone Bitart/Acetaminophen (Hydrocod/Acetam 5/325 Mg Tablet) 1 tab PO Q4HR PRN PRN Reason: Pain 5 to 7 Ascorbic Acid (Ascorbic Acid 500 Mg Tablet) 500 mg PO 0730 [facility] Last Admin: 09/29/22 06:33 Dose: 500 mg Calcium Carbonate/Glycine (Calcium Carbonate Chew 500 Mg Tablet) 500 mg PO DAILY [facility] Last Admin: 09/29/22 08:31 Dose: 500 mg Cholecalciferol (Cholecalciferol 25 Mcg Tablet) 50 mcg PO DAILY [facility] Last Admin: 09/29/22 08:32 Dose: 50 mcg Docusate Sodium (Docusate Sodium 100 Mg Capsule) 100 mg PO BID PRN PRN Reason: Constipation Docusate Sodium (Docusate Sodium 250 Mg Capsule) 250 - 500 mg PO DAILY [facility] Last Admin: 09/29/22 08:33 Dose: Not Given Enoxaparin Sodium (Enoxaparin 40 Mg/0.4 Ml Syringe) 40 mg SUBQ Q24H [facility] Last Admin: 09/29/22 09:34 Dose: Not Given Ferrous Gluconate (Ferrous Gluconate 324 Mg Tablet) 324 mg PO DAILYWM [facility] Last Admin: 09/29/22 08:33 Dose: 324 mg Haloperidol (Haloperidol 1 Mg Tablet) 2 mg PO Q4HR PRN PRN Reason: Agitation Hydromorphone HCl (Hydromorphone 0.5 Mg/0.5 Ml Syringe) 0.5 mg IVP Q2H PRN PRN Reason: Pain 8 to 10 Ceftriaxone Sodium 1 gm/ (Sodium Chloride) 100 mls @ 200 mls/hr IV DAILY [facility] Last Infusion: 09/29/22 09:05 Dose: Infused Ibuprofen (Ibuprofen 400 Mg Tablet) 400 mg PO Q6HR PRN PRN Reason: PAIN 1-4 Last Admin: 09/29/22 11:59 Dose: 400 mg Ondansetron HCl (Ondansetron 4 Mg/2 Ml Vial) 4 mg IVP Q6HR PRN PRN Reason: Nausea / Vomiting Pantoprazole Sodium (Pantoprazole 40 Mg Tablet) 40 mg PO QDAC [facility] Last Admin: 09/29/22 06:33 Dose: 40 mg Polyethylene Glycol (Polyethylene Glycol 3350 17 Gm Packet) 17 gm PO DAILY [facility] Last Admin: 09/29/22 08:33 Dose: 17 gm Multivit/Folic Acid/Iron ( Vitamin Tablet) 1 tab PO DAILYWM [facility] Last Admin: 09/29/22 08:33 Dose: 1 tab Quetiapine Fumarate (Quetiapine 100 Mg Tablet) 200 mg PO [facility] Last Admin: 09/28/22 21:08 Dose: 200 mg Senna (Senna 8.6 Mg Tablet) 8.6 mg PO BID PRN PRN Reason: Constipation Senna (Senna 8.6 Mg Tablet) 8.6 - 17.2 mg PO DAILY [facility] Last Admin: 09/29/22 08:32 Dose: 8.6 mg Sodium Chloride (Sodium Chloride Flush 0.9% 10 Ml Syringe) 10 ml IVP PRN PRN PRN Reason: NEEDED PER PROVIDER ORDERS Last Admin: 09/26/22 13:03 Dose: 10 ml Sodium Chloride (Sodium Chloride Flush 0.9% 10 Ml Syringe) 10 ml IVP 0100,0900,1700 [facility] Last Admin: 09/29/22 08:34 Dose: 10 ml Trazodone HCl (Trazodone 50 Mg Tablet) 200 mg PO [facility] Last Admin: 09/28/22 21:08 Dose: 200 mg Home Meds: QUEtiapine [SEROquel] 50 mg PO 1200 06/04/21 Acetaminophen [Tylenol] 1,000 mg PO TID PRN 09/26/22 Bisacodyl Supp [Dulcolax Supp] 10 mg MI DAILY PRN 09/26/22 Haloperidol Lactate 2 mg PO Q4HR PRN 09/26/22 Ibuprofen 400 mg PO Q6HR PRN 09/26/22 Omeprazole Magnesium 20 mg PO DAILY 09/26/22 Quetiapine Fumarate [Seroquel] 200 mg PO HS 09/26/22 Senna [Senokot] 8.6 mg PO BID PRN 09/26/22 Trazodone HCl 200 mg PO HS 09/26/22 Exam: Temperature 36.2, heart rate 85, 98% on room air, blood pressure is low. Yesterday he was low prior to the blood transfusion and by yesterday evening was 134/53. At midnight he was 121/73. At 5 this morning he was 109/56. By 1130 he was 89/53. And as of this dictation at noon he is 96/53. Very frail appearing elderly gentleman. He is 5 foot 9 and 64 kg. Speech is not well enunciated because of his lack of teeth. But no facial asymmetry. Oral mucosa are normal. Neck is supple Diminished breath sounds at the bases but no crackles, rhonchi or wheezing. No respiratory distress. Regular rate and rhythm Abdomen is soft, nontender, he had a bowel movement last night on the . His Martinez catheter is draining yellow urine. Extremities have mild pitting edema around the right leg, none on the left. The right leg bandage covering his hip repair is clean and dry. Neurologically the patient has dementia, deafness, a resting head tremor, and generalized weakness. Laboratory Tests 09/28/22 09/28/22 09/28/22 06:30 06:30 06:30 WBC RBC Hgb 6.3 L* Hct MCV Sodium Potassium Chloride Carbon Dioxide Anion Gap BUN Creatinine Calcium Iron 14 L TIBC 217 L % Saturation 6 L Transferrin 155 L Vitamin B12 117 L Folate 4.62 L 09/29/22 09/29/22 09/29/22 05:28 05:28 15:05 WBC 6.6 RBC 2.33 L Hgb 7.4 L 7.6 L Hct 22.7 L MCV 97.4 H Sodium 144 Potassium 3.5 Chloride 110 Carbon Dioxide 25 Anion Gap 9.0 BUN 25 H Creatinine 0.8 Calcium 8.2 L Iron TIBC % Saturation Transferrin Vitamin B12 Folate Assessment/Plan - Problem List (1) Closed right hip fracture Assessment/Plan: POD #2 today. This occurred from a witnessed fall at the [place]. Given his hypotension and prior WI, this patient's surgical risk was significant. He received IV fluids and blood pressure stabilized. He had a pre-op bedside Echocardiogram (which hospitalist did) that showed dehydration but otherwise a stable ejection fraction of 40-45% Ortho service took him him to the OR 09/27 and he underwent successful hip surgery. Physical therapy stated that he required maximal cueing to wake up and had limited attention and alertness. He was speaking Bulgarian and then fall back asleep. He was unable to verbalize if he is experiencing pain but he demonstrated pain behaviors during bed mobility by grimacing, crying out and often saying weight. He was hypotensive at 83/36. He was dependent on 2 people to getting from supine to edge of bed sitting. He was a max assist of 2 people to maintain seated balance at the edge of bed. He required the same 2 people to get up from edge of bed to supine positioning and repositioning. He will need a raised toilet seat, a commode, grab bars, shower bath chair, adaptive self-care device, and a front wheel walker when he goes back to community health. Plan: Our department and Social Work have spoken to his regarding plan after surgery: she wants him to go back to [facility] and get Home Health PT and OT by resuming [facility] services, which she understands would be twice a week PT and OT. But he would not do well in a strange SNF, given his dementia. My plan is to discharge him on postop day #3 which is tomorrow. (2) Fall at residential Conclusion/Plan: Given the presentation with severe hypotension, It is suspected he probably had orthostasis which caused the fall at his [facility]. He has received IV fluids, and is on telemetry. There have been no arrhythmias. Plan: Remain on telemetry (3) Hypotension Conclusion/Plan: He was evaluated for other causes for hypotension: troponins to rule out an WI were unremarkable, Lactic acid level to rule out septic shock was also not elevated. All labs were reviewed POCUS was done in the ER and it showed an underfilled IVC therefore he was volume depleted. Echo was also done at bedside and this showed underfilled cardiac chambers (and EF stable at 40-45%). IV fluids were given and he is ~ 4484 cc (+) in fluid balance as of this note since admission. 09/27 his urine culture was growing E. coli. We suspect the UTI was the cause of his hypotension (see #4). His newly discovered anemia could also have added to his hypotension (see #5). I stopped his maintenance IV fluids September 28. So far there is no sign or symptom of fluid overload. He is not short of breath, tachypneic, requiring more oxygen. Plan: Continue to monitor for signs and symptoms of fluid overload for congestive heart failure. We will treat the UTI, Today's day #3 of treatment I am treating anemia that is contributed to his hypotension with a blood transfu juan miguel, iron tablets and vitamin B12 IM (4) E coli UTI His abnormal urinalysis was sent for culture. 09/27 the urine culture was growing E. coli. I suspect the UTI was the cause of his hypotension which led to the fall. E. coli resistant to ampicillin, Unasyn, Cipro, gentamicin, Levaquin, tobramycin and sulfa. It is sensitive to the ceftriaxone. Plan: Day #3/7 of ceftriaxone. I do not planning changing antibiotics since he is resistant to the above listed. When he goes to the [facility] facility I will put him on Keflex. (5) Acute blood loss anemia Iron deficiency anemia B12/Folate deficiency Anemia Labs were all reviewed. His admission hemoglobin was 12.8. After getting about 3 L of IV fluids since admission, and he underwent surgery, His hgb was 6.3 on September 28. I transfused him 2 units of packed cells. His hemoglobin raquel to 7.4 g this morning. And I repeated a check this afternoon and hemoglobin remained stable at 7.6. He is now on ferrous gluconate 324 mg daily with vitamin C 500 mg daily to go with that. I also ordered vitamin B12 1000 mg subcu yesterday. My suspicion is this gentleman may have nutritional deficiency. He could have intrinsic factor antibodies but he appears so thin and probably with moderate protein calorie malnutrition. Plan: Continue to monitor hemoglobin and hemogram on a daily basis to see if he needs more transfusion I have looked at the wound in the leg does not appear more swollen He will need to follow-up with his primary care provider in the outpatient setting to make sure he gets vitamin B12 injection once a month and a follow-up CBC on a monthly basis until normal on his iron supplementation (6) Chronic atrial fibrillation Conclusion/Plan: In reviewing his reconciled med list, he is not on beta-blockers or any heart rate slowing meds. He was also not on anticoagulant or daily aspirin Plan: Continue on telemetry to monitor while he is hospitalized (7) Hx of myocardial infarction Conclusion/Plan: The last echocardiogram was done in 2020. It shows anteroseptal and apical akinesis, LVEF 40%. It is unknown if he ever underwent catheterization. He is not on daily aspirin or statin medications or beta-blockers. Hospitalist performed his bedside Echo 09/26, and the Echo showed underfilled cardiac chambers, and EF stable at 40-45%. 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 (8) Dementia with anxiety Conclusion/Plan: Plan: We will continue with his usual medications that he gets at the residential. That includes Haldol 2 mg p.o. every 4 hours as needed agitation,Seroquel 200 milligrams p.o. nightly, trazodone 200 mg p.o. nightly. He is on Zofran for nausea. We will check routine EKG to monitor for prolonged QT syndrome. Today I will change his diet to pured diet. We will see if this could improve his eating and that maybe he will avoid pocketing his food in his buccal mucosa.
[2022-09-29 15:10] LABS: HCT - HEMATOCRIT 22.7 % (42.0-52.0); HGB - HEMOGLOBIN 7.6 g/dL (14.0-18.0); MEAN CORPUSCULAR HEMOGLOBIN 32.6 pg (27.0-31.0); MEAN CORPUSCULAR HGB CONC 33.5 g/dL (32.0-36.0); MEAN CORPUSCULAR VOLUME 97.4 fL (80.0-94.0); MEAN PLATELET VOLUME 9.1 fL (7.4-11.4); RED BLOOD COUNT 2.33 10^6/uL (4.70-6.10); WHITE BLOOD COUNT 6.6 x10^3/uL (4.8-10.8)
[2022-09-29] MEDS: QUEtiapine 100 MG TABLET PO SCH (20:20)
[2022-09-29] MEDS: traZODone 50 MG TABLET PO SCH (20:20)
[2022-09-30] MEDS: SODIUM CHLORIDE FLUSH 0.9% 10 ML SYRINGE IVP SCH ×2 (01:17→08:26)
[2022-09-30] MEDS: IBUPROFEN 400 MG TABLET PO PRN (01:17)
[2022-09-30 05:42] LABS: BASOPHILS % (AUTO) 0.2 %; EOSINOPHILS # (AUTO) 0.2 10^3/uL (0.0-0.7); EOSINOPHILS % (AUTO) 5.2 %; HCT - HEMATOCRIT 22.5 % (42.0-52.0); HGB - HEMOGLOBIN 7.3 g/dL (14.0-18.0); LYMPHOCYTES # (AUTO) 0.8 10^3/uL (1.5-3.5); MEAN CORPUSCULAR HEMOGLOBIN 31.9 pg (27.0-31.0); MEAN CORPUSCULAR HGB CONC 32.4 g/dL (32.0-36.0); MEAN CORPUSCULAR VOLUME 98.3 fL (80.0-94.0); MEAN PLATELET VOLUME 9.4 fL (7.4-11.4); MONOCYTES # (AUTO) 0.4 10^3/uL (0.0-1.0); MONOCYTES % (AUTO) 10.4 %; NEUTROPHILS # (AUTO) 2.6 10^3/uL (1.5-6.6); NEUTROPHILS % (AUTO) 64.7 %; PLT - PLATELET COUNT 96 10^3/uL (130-450); RED BLOOD COUNT 2.29 10^6/uL (4.70-6.10); RED CELL DISTRIBUTION WIDTH 17.1 % (12.0-15.0); WHITE BLOOD COUNT 4.1 x10^3/uL (4.8-10.8)
[2022-09-30 06:02] LABS: CALCIUM 7.9 mg/dL (8.5-10.3); CREATININE 0.8 mg/dL (0.6-1.2); POTASSIUM 3.4 mmol/L (3.5-5.0)
[2022-09-30] MEDS: PANTOPRAZOLE 40 MG TABLET PO SCH (06:21)
[2022-09-30] MEDS: ASCORBIC ACID 500 MG TABLET PO SCH (06:22)
[2022-09-30] MEDS: POTASSIUM CHLORIDE 20 MEQ TABLET PO SCH ×2 (08:15→09:45)
[2022-09-30] MEDS: CALCIUM CARBONATE CHEW 500 MG TABLET PO SCH (08:15)
[2022-09-30] MEDS: cefTRIAXone 1 GM in SODIUM CHLORIDE 0.9% MINIBAG 100 ML IV SCH (08:15)
[2022-09-30] MEDS: DOCUSATE SODIUM 250 MG CAPSULE PO SCH (08:16)
[2022-09-30] MEDS: FERROUS GLUCONATE 324 MG TABLET PO SCH (08:16)
[2022-09-30] MEDS: PRENATAL VITAMIN TABLET PO SCH (08:16)
[2022-09-30] MEDS: SENNA 8.6 MG TABLET PO SCH (08:16)
[2022-09-30] MEDS: polyethylene glycoL 3350 17 GM PACKET PO SCH (08:16)
[2022-09-30] MEDS: CHOLECALCIFEROL 25 MCG TABLET PO SCH (08:16)
[2022-09-30 08:38] VITALS: BP 99/58
--- NOTE | 2022-09-30 09:21 | Discharge Plan ---
Discharge Plan for SNF / [facility] - Discharge Plan And Transition Orders Problem Reviewed?: Yes Disposition: 01 Home, Self Care Condition: Fair Allergies and Adverse Reactions: Allergies Allergy/AdvReac Type Severity Reaction Status Date / Time celecoxib [From Celebrex] Allergy Unknown Verified 07/22/22 10:27 Penicillins AdvReac Anaphylaxis Verified 07/22/22 10:27 Health Concerns: This is a gentleman with gradually progressive dementia over the last decade. His has been unable to take care of him at home because of caregiver burden. He was transitioned to a nursing home facility after an acute illness. From there he was transition to [facility] as a permanent residence. He is described as barely mobile. Does not walk much anymore. But he fell. Broke his hip. And he was brought to the hospital on September 26. He has had an uneventful hip repair. Postoperatively he had acute blood loss anemia to hemoglobin of 6.3, required 2 units of blood and he is now 7.3 on the day of discharge. Physical therapy and Occupational Therapy both feel that the patient should go to a nursing home facility for rehab. However his is adamant that he return to his usual residential facility because he does not do well with new environments. She feels that he will recover better if he is in his usual home. Plan of Treatment: Home health nursing, PT, OT will be ordered. Be careful when this patient stands up. He does have a relatively low blood pressure and when he stands it drops his blood pressure even further and he could pass out. Please have him see his primary care provider, Jyothi Carrillo, in the next 1 to 2 weeks. Please have him see orthopedic surgery in the next 2 weeks. The wound on his leg does not need any special treatment other than to be kept clean and dry. He can have showers and bed baths. Just do not soak the wound in a tub for too long. He is weightbearing as tolerated when he stands. Care Goals: To return to his baseline status. Unfortunately this gentleman has a progressive dementia, and a progressive decline with immobility. He is overall prognosis for down the road is poor. Assessment: Patient is demented. He is DPOA and is his decision maker. Management and treatment has been discussed with her and it is her request that he return to [facility] - SNF / [facility] Transition Orders Admit to (Facility): [facility] Under the care of (Name): Jyothi Carrillo Discharge Diagnosis: 1. Closed right hip fracture [facility]. [facility] 3. Hypotension, orthostatic 4. E. coli UTI 5. Acute blood loss anemia, transfused 2 units 6. Iron deficiency anemia, started on ferrous gluconate daily with vitamin C 7. B12 deficiency anemia, given B12 1000 mg IM and is due for a monthly shot October 28. 8. Chronic atrial fibrillation 9.. History of VA 10. Dementia with behavioral disturbance 11. Chronic systolic heart failure with ejection fraction 35 to 40%. Severe hypokinesis of mid to distal anterior, anteroseptal najera, distal inferior, distal inferolateral najera and apex. 12. Mild pulmonary hypertension with RVSP 42 mmHg Medicare Certification Statement: I certify that [facility] nursing home care is medically necessary on a continuing basis for any of the conditions for which she/he is receiving care during hospitalization. Notify PCP of admission and forward orders to primary provider for signature. Weight on admission and: Monthly Call PCP immediately if weight increases by: 2 kg (Call PCP if weight also decreases by 2 kg) Other Notification Orders: Call PCP immediately if patient develops dyspnea, chest pain/tightness or edema. House Bowel Program: Yes Additional Bowel Program Orders: If no BM after 2 days, nurse may give M.O.M. 30ml PO PRN and/or ducolax Supp 1 TN and/or ONIEL 250mg P.O., and/or senna 1-2 tabs PO. On day 3 nurse may give repeat above order until residents constipation is resolved. Annual Influenza Vaccine (between Jan 08 and August 07): Yes Two-step PPD per [facility] [id number] or approved exception documents: Yes Lab Tests or X-ray Orders: CBC on October 07 Orthopedic Orders: Keep wound clean and dry. Dressing will fall off on its own. Medication Orders: PLEASE REFER TO THE DISCHARGE MEDICATION LIST. Insulin Orders?: No - Medications New Prescriptions: cephALEXin [Keflex] 500 mg PO Q6H #12 cap - Diet Type: Geriatric Texture: Puree Supplements: Clear boost 3 times a day
[2022-09-30] MEDS: ENOXAPARIN 40 MG/0.4 ML SYRINGE SUBQ SCH (09:45)
--- NOTE | 2022-09-30 12:31 | DISCHARGE SUMMARY ---
"Discharge Summary Admit Date: 09/26/22 Discharge Date: 09/30/22 Discharging Provider: Nunu Bennett MD Primary Care Provider: DAYLIN Cunningham Code Status: Do Not Attempt Resuscitation Condition at Discharge: Fair Discharge Disposition: Home Health Service - DIAGNOSES Discharge Diagnoses with Status of Each Condition: 1. Closed right hip fracture 2. [facility] at [facility] 3. Hypotension, orthostatic 4. E. coli UTI 5. Acute blood loss anemia, transfused 2 units 6. Iron deficiency anemia, started on ferrous gluconate daily with vitamin C 7. B12 deficiency anemia, given B12 1000 mg IM and is due for a monthly shot October 28. 8. Chronic atrial fibrillation 9.. History of CO 10. Dementia with behavioral disturbance 11. Chronic systolic heart failure with ejection fraction 35 to 40%. Severe hypokinesis of mid to distal anterior, anteroseptal najera, distal inferior, distal inferolateral najera and apex. 12. Mild pulmonary hypertension with RVSP 42 mmHg - HPI History of Present Illness: This is an 85-year-old white male with a history of dementia, A-fib not on anticoagulation, prior chronic indwelling Martinez for prostatic hypertrophy. Per records, he has had prior UTIs. He was offered to have prostatic surgery but had stated he was fine using a chronic indwelling Martinez. He has dementia was initially treated with blank then changed to memantine and he apparently did not tolerate those, he is now on Seroquel, trazodone at at bedtime and as needed Haldol. After the last 2 admissions in the last 3 years, he has been a resident at [facility] because of his dementia. Today while walking out of his room he was witnessed to fall onto his right side. The [facility] staff said that he did not hit his head or lose consciousness. He was brought to the emergency room and found to have a shortened and externally rotated right leg and x-ray showed that he has a R hip fracture. On presentation his blood pressure was 55/30. He has received IV fluids with some improvement of BP to 99 systolic. The ER doctor, and then the orthopedic doctor, spoke to the patient's and she does want him to have hip surgery. According to orthopedist Dr. Martinez, the was made aware that b oth undergoing surgery and not going through surgery for him are high risk. The ED provider and I spoke about this patient and the Orthopedist and I spoke about this patient. He will be admitted to the Hospitalist service. Orthopedic surgery is planned for tomorrow. His CODE STATUS is DNR. - Past Medical History Cardiovascular: reports: CO (His Echo in 2020 showed anteroseptal and apical akinesis, LVEF 40-45%), Atrial fibrillation Respiratory: reports: None Neuro: reports: Dementia Endocrine/Autoimmune: reports: None GI: reports: GERD, C.difficile (Hx of C.diff in 2020), Other : reports: Benign prostate hypertrophy, Indwelling catheter, Other HEENT: reports: Chronic vision loss, Chronic hearing loss Psych: reports: None Musculoskeletal: reports: Osteoarthritis, Fatigue, Chronic back pain Derm: reports: None MRSA Hx?: No - Past Surgical History General: reports: Colonoscopy, Other HEENT: reports: Cataracts - CONSULTS | PROCEDURES Procedures: 1. Open reduction internal fixation right intertrochanteric hip fracture with a [employer] intramedullary 7.5 mm diameter short nail with 95/90 mm integrated hip lag screw and compression screw, 30 mm distal locking screw on Ma 2. Transfusion of 2 units of packed red cells for acute blood loss anemia 3. Urine culture September 26 with E. coli that is resistant to ampicillin, Unasyn, Cipro, gentamicin, Levaquin, tobramycin, and Bactrim. 4. Femur x-ray on admission with right trochanteric/subtrochanteric fracture of the right hip with displacement and overriding. No dislocation. Peripheral vascular disease. 5. Hip and pelvis x-ray was trochanteric and subtrochanteric fracture of the right hip with displacement and overriding 6. Chest x-ray with no acute process. 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 - HOSPITAL COURSE Hospital Course: The patient was placed in the inpatient status and consultation was obtained with orthopedics. He was taken to the operating room and the above mentioned procedure was done to the patient. Postoperative complications included acute blood loss anemia. He had mild behavioral disturbance with his dementia but it was taken care of with just verbal prompting from nursing and he did not require restraints. Physical therapy worked with the patient and felt that he would be a candidate for senior living facility. However his felt that he would not do well at a senior living facility. His dementia would deteriorate and his behavior would deteriorate any new facility. As such he would do better if he returned to his usual residential facility with home health PT to recover there. He is almost to [facility] to begin with. As such we deferred to the patient's 's wishes to go back to [facility]. He did have a UTI On admission that was treated with Rocephin. He was switched to Keflex at discharge to complete 4 more days. Calcium and vitamin D were added to his medication list because of the hip fracture. Ferrous gluconate and vitamin C were added because of acute blood loss anemia. He was identified as having a B12 anemia during his stay. We gave him a single 1000 mg dose of vitamin B12. We are asking that his primary care provider renew that prescription on a monthly basis with the next dose approximately October 28. He is discharged in stable condition. Today's a good day for him and he is smiling. He has no teeth and he has a tendency to gum his food and pocket his food in his buccal cavities. As such we switched him to a pured diet while here. Temperature is 36.2. Heart rate 82. Blood pressure varies between 99- 120 systolic. Respirations 18. He is 96% on room air. He is a disheveled appearing pleasant elderly gentleman at 5 foot 9 inches tall, 64 kg. Unshaven, male pattern baldness, slender. Shotty neck adenopathy. Supple. Lungs are clear. Irregular rate and rhythm. Abdomen is soft, nontender. He had a bowel movement yesterday and today. Martinez catheter is draining clear yellow urine. He has some mild resting tremors, severe dementia, deafness. He has diffuse generalized weakness but really cannot move that leg that was operated on. Moderate nonpitting edema.The wound is closed, clean, healing. There is no redness or cellulitis. He needs to see his primary care provider in the next 2 weeks. I am asking that he be continued on iron and vitamin C for iron deficiency anemia and B12 anemia that was identified here. He received 1 dose of vitamin B12, 1000 mg on September 27. I would recommend that his next dose be October 28. The wound can be kept clean, dry. It can be washed. He would also need to see orthopedic surgery in the next 2 weeks.He has already been seen by palliative care in the past. I would recommend palliative care continue to see this patient on an as-needed basis. Transition to hospice when appropriate. Greater than 30 minutes was spent coordinating discharge. This document was made in part using voice recognition software. While efforts are made to proofread this document, sound alike and grammatical errors may occ ur. - ALLERGIES Allergies/Adverse Reactions: Allergies Allergy/AdvReac Type Severity Reaction Status Date / Time celecoxib [From Celebrex] Allergy Unknown Verified 07/22/22 10:27 Penicillins AdvReac Anaphylaxis Verified 07/22/22 10:27 - MEDICATIONS Home Medications: Ambulatory Orders Medication Instructions Recorded Confirmed QUEtiapine [SEROquel] 50 mg PO 1200 06/04/21 09/26/22 Acetaminophen [Tylenol] 1,000 mg PO TID PRN 09/26/22 09/26/22 Bisacodyl Supp [Dulcolax Supp] 10 mg OK DAILY PRN 09/26/22 09/26/22 Haloperidol Lactate 2 mg PO Q4HR PRN 09/26/22 09/26/22 Ibuprofen 400 mg PO Q6HR PRN 09/26/22 09/26/22 Omeprazole Magnesium 20 mg PO DAILY 09/26/22 09/26/22 Quetiapine Fumarate [Seroquel] 200 mg PO HS 09/26/22 09/26/22 Senna [Senokot] 8.6 mg PO BID PRN 09/26/22 09/26/22 Trazodone HCl 200 mg PO HS 09/26/22 09/26/22 Ascorbic Acid [Vitamin C] 500 mg PO 0730 tab 09/30/22 Calcium Carbonate [Tums (Calcium 500 mg PO DAILY tab 09/30/22 Carbonate 500mg)] Cholecalciferol [Vitamin D3] 50 mcg PO DAILY tab 09/30/22 Docusate Sodium 250Mg Capsule 250 - 500 mg PO DAILY cap 09/30/22 [Colace 250Mg Capsule] Ferrous Gluconate [Fergon] 324 mg PO DAILYWM tab 09/30/22 cephALEXin [Keflex] 500 mg PO Q6H #12 cap 09/30/22 - LABS Result Diagrams: 09/30/22 05:14 09/30/22 05:14"
--- NOTE | 2022-10-01 09:11 | XRAY Report ---
PROCEDURE: OR C-Arm Procedure INDICATIONS: SURGERY FLUORO TIME: 0.37 TECHNIQUE: One view submitted. COMPARISON: X-ray right hip and pelvis, 09/26/2022. X-ray right femur, 09/26/2022. FINDINGS: A single spot fluoroscopy image demonstrates open reduction and internal fixation of intert rochanteric femoral fracture. There is a intramedullary thao in femur and 2 compression screws within the femoral neck. IMPRESSION: ORIF of femoral fracture. Reviewed by: Wojciech Kamara MD on 10/01/2022 9:10 AM PDT Approved by: Wojciech Kamara MD on 10/01/2022 9:10 AM PDT Station ID: [id number]
== END 2022-09-30 12:30 | disposition home health service (06) | DRG 481 ==
LOC: ED 05:39 → MS2 10:48
PROVIDERS: ADMIT Internal Medicine; ATTEND Specialist
PROC: 0QS606Z Reposition Right Upper Femur with Intramedullary Internal Fixation Device, Open Approach (ICD-10-PCS; principal; 2022-09-27 09:00)
PROC: 30233N1 Transfusion of Nonautologous Red Blood Cells into Peripheral Vein, Percutaneous Approach (ICD-10-PCS; 2022-09-28)
DX: S72.141A Displaced intertrochanteric fracture of right femur, initial encounter for closed fracture (principal); D62 Acute posthemorrhagic anemia; N39.0 Urinary tract infection, site not specified; I48.91 Unspecified atrial fibrillation; I48.20 Chronic atrial fibrillation, unspecified; F03.90 Unspecified dementia, unspecified severity, without behavioral disturbance, psychotic disturbance, mood disturbance, and anxiety; I95.9 Hypotension, unspecified; F03.918 Unspecified dementia, unspecified severity, with other behavioral disturbance; I50.22 Chronic systolic (congestive) heart failure; Z16.24 Resistance to multiple antibiotics; W18.30XA Fall on same level, unspecified, initial encounter; Y92.098 Other place in other non-institutional residence as the place of occurrence of the external cause; I95.1 Orthostatic hypotension; B96.20 Unspecified Escherichia coli [E. coli] as the cause of diseases classified elsewhere; D50.9 Iron deficiency anemia, unspecified; D51.9 Vitamin B12 deficiency anemia, unspecified; I25.2 Old myocardial infarction; Z66 Do not resuscitate; Z87.891 Personal history of nicotine dependence; I27.20 Pulmonary hypertension, unspecified; Z96.0 Presence of urogenital implants; N40.0 Benign prostatic hyperplasia without lower urinary tract symptoms; R53.1 Weakness; K08.109 Complete loss of teeth, unspecified cause, unspecified class; H91.90 Unspecified hearing loss, unspecified ear; R25.1 Tremor, unspecified; M19.90 Unspecified osteoarthritis, unspecified site; K21.9 Gastro-esophageal reflux disease without esophagitis; E86.0 Dehydration; F41.9 Anxiety disorder, unspecified; D69.6 Thrombocytopenia, unspecified; G89.29 Other chronic pain; M54.9 Dorsalgia, unspecified
CPT/HCPCS: 36415; 71045; 73502; 73552; 80048; 80053; 81001; 82607; 82746; 83540; 83605; 83735; 84466; 84484; 85025; 85027; 85610; 86850; 86900; 86901; 86920; 87086; 87181; 93005; 97163; 97166; 97530; 99285; A9270; C1713; J0131; J1170; J1650; J7120; P9016

== ENCOUNTER 2022-09-30 12:38 | Outpatient (CLI) | payer MEDICARE, OTHER | END 2022-09-30 23:59 | disposition home or self-care (01) | LOC: EMS 12:38 | PROVIDERS: ATTEND Specialist | DX: R41.0 Disorientation, unspecified (principal); Z74.01 Bed confinement status; F03.94 Unspecified dementia, unspecified severity, with anxiety; S72.009A Fracture of unspecified part of neck of unspecified femur, initial encounter for closed fracture; X58.XXXA Exposure to other specified factors, initial encounter | CPT/HCPCS: A0425; A0428 ==